=== PATIENT | female | born 1950 | race Caucasian/White ===

== ENCOUNTER → 2016-11-28 | Outpatient (CLI) | payer MEDICARE, MEDICAID ==
[~2016-11-28] MED LIST: CATHETER FLUSH 10 ML SYR IV PRN; CHOL10003 PO; CYAN250010 PO; ESCI20TA45 PO; HYDR-3816 PO; IBUP-1780 PO; IOHEXOL 350 MG/ML 100 ML (OMNIPAQUE 350) VIAL IV ONE; LEVO125T6 PO; MORP30TA PO; NS 100 ML (IVPB) BAG IV ONE; OMEP20TA7 PO; TIZA4TAB3 PO; TRAZ150T72 PO; VERA120T6 PO; VICOPROFEN PO
--- NOTE | 2016-11-28 12:45 | Diagnostic Imaging Report ---
PROCEDURE: CT abdomen and pelvis with and without contrast. TECHNIQUE: Precontrast acquisitions were acquired through the abdomen and pelvis. Multiple contiguous axial images were obtained through the abdomen and pelvis after the administration of intravenous contrast. INDICATION: Abdominal pain and constipation. FINDINGS: There are no prior studies available for comparison. By history, the gallbladder and the uterus are surgically absent. The appendix is visualized and the appendix is not abnormally thickened. There is no distortion of periappendiceal fat to suggest acute appendicitis either. There is no pelvic mass or free fluid collection noted. The urinary bladder is grossly unremarkable. There is a considerable amount of fecal material throughout the ascending, transverse, and descending colon. The liver is homogeneous and not enlarged. The spleen, pancreas, adrenals, kidneys, aorta and inferior vena cava show no sign of an acute abnormality. The stomach is not well distended and consequently difficult to assess. There is some distortion of the mesenteric fat in the region of the root of the mesentery. There are few small lymph nodes in this area as well. These findings are nonspecific. The possibility of mild mesenteric panniculitis should be considered. There is no mass or abscess identified. The lung bases are clear. The bone windows show no evidence for a fracture or for a destructive lesion. There is fairly severe degenerative disc and bony disease at L4-L5 and L5-S1. IMPRESSION: 1. There is mild distortion of the mesenteric fat in the region of the root of the mesentery and there are few small lymph nodes in this area. This appearance is nonspecific, but the possibility of mesenteric panniculitis should be considered. There is no mass or abscess identified. 2. There is no acute abnormality of the abdomen or pelvis noted otherwise. 3. There is a considerable amount of fecal material throughout the ascending, transverse, and descending colon. 4. The gallbladder and the uterus are surgically absent. 5. There is fairly severe degenerative disc and bony disease at L4-L5 and L5-S1. Dictated by: Dictated on workstation # [id number]
--- OUTSIDE RECORDS SUMMARY | 2016-11-28 13:16 | XMS REPORT | Continuity of Care Document ---
Author Author [facility] Organization [facility] Address Unknown Phone Unavailable Care Team Providers Care Rubber Goods Repairer Name Role Phone PCP Unavailable Source Comments Some departments are not documenting in the electronic medical record. If you do not see the information that you expected, contact Release of Information in the Health Information Management department at [phone] for further assistance in locating additional records.[facility] Active Allergies and Adverse Reactions Not on File Current Medications Not on file Active Problems Not on file Social History Tobacco Use Types Packs/Day Years Used Date Never Assessed Plan of Care Health Maintenance Due Date Last Done Comments Hepatitis C Screening 1949 Physical (Comprehensive) 1956 Exam Pertussis Vaccine 1960 Tetanus Vaccine 1966 Breast Cancer Screening 1989 Colorectal Cancer 1999 Screening Shingles Vaccine 2009 Osteoporosis Screening 2014 Prevnar/Pneumovax (#1) 2014 Influenza Vaccine 06/08/2016 Results from Last 3 Months Not on file
== END ==
LOC: RAD 08:42
PROVIDERS: ATTEND Nurse Practitioner Adult Health
DX: K59.01 Slow transit constipation (principal)
CPT/HCPCS: 74178

== ENCOUNTER → 2016-12-01 | Outpatient (CLI) | payer MEDICARE, MEDICAID ==
[~2016-12-01] MED LIST changes: -CATHETER FLUSH 10 ML SYR IV PRN; -IOHEXOL 350 MG/ML 100 ML (OMNIPAQUE 350) VIAL IV ONE; -NS 100 ML (IVPB) BAG IV ONE
--- OUTSIDE RECORDS SUMMARY | 2016-12-01 09:48 | XMS REPORT | Continuity of Care Document ---
Author Author [facility] Organization [facility] Address Unknown Phone Unavailable Care Team Providers Care Veneer Taping Machine Operator Name Role Phone PCP Unavailable Source Comments Some departments are not documenting in the electronic medical record. If you do not see the information that you expected, contact Release of Information in the Health Information Management department at [phone] for further assistance in locating additional records.[facility] Active Allergies and Adverse Reactions Not [...]
--- NOTE | 2016-12-01 12:30 | Diagnostic Imaging Report ---
PROCEDURE: MRI right joint lower extremity without contrast. TECHNIQUE: Multiplanar, multisequence non contrast-enhanced MRI of the right lower extremity was accomplished. INDICATION: Knee pain. COMPARISON: There are no prior studies available for comparison. FINDINGS: On the proton-dense sagittal images, the mid portion of the anterior cruciate ligament is indistinct. I am concerned that the anterior cruciate ligament is partially torn. The posterior cruciate ligament, the quadriceps and the infrapatellar tendons, the collateral ligaments, the biceps femoris tendon, and the iliotibial band are intact. There is no sign of an injury to either the medial or lateral retinaculum. The parasagittal images also show that the medial meniscus has been torn and has significantly degenerated. There is also a tear of the posterior horn of the lateral meniscus. The mid portion of the lateral meniscus is thinned as well and may be partially torn also. On the coronal fat-saturated series, there is a small area of increased signal in the subarticular region of the medial-most portion of the medial femoral condyle. I suspect that this is secondary to bone edema from degenerative disease. The articular surface of the medial femoral condyle is narrowed and irregular. Most likely, the injury to the articular surface is a sequela of the torn medial meniscus. There is moderate degenerative disease involving the articular surface of the lateral femoral condyle. There is also narrowing of the lateral aspect of the patellofemoral space. There is a obcbx-uc-ufpnmtvv joint effusion. There is no sign of a Elaine's cyst. IMPRESSION: 1. The indistinct appearance of the mid portion of the anterior cruciate ligament does suggest that the ACL is partially torn. The other major ligaments and tendons appear to be intact. 2. The medial meniscus has been torn and has severely degenerated. There is also a tear of the posterior horn of the lateral meniscus. 3. There is fairly severe degenerative disease involving the articular surface of the medial femoral condyle, and there is a small area of bone edema in the medial-most portion of the medial femoral condyle. There is also moderate degenerative disease of the lateral femoral condyle, and there is narrowing of the lateral aspect of the patellofemoral space. 4. There is no sign of an acute bony abnormality. 5. There is a zbfqd-ec-drllbkrd joint effusion. Dictated by: Dictated on workstation # [id number]
== END ==
LOC: RAD 09:45
PROVIDERS: ATTEND Nurse Practitioner
DX: M23.261 Derangement of other lateral meniscus due to old tear or injury, right knee (principal)
CPT/HCPCS: 73721

== ENCOUNTER 2017-01-01 11:44 | Outpatient (CLI) | payer MEDICARE, MEDICAID ==
[~2017-01-01] VITALS: Ht 167.6 cm; Wt 83.9 kg
[2017-01-01] MEDS ORDERED: VERA120T6 PO (14:53)
[2017-01-01] MEDS ORDERED: IBUP-1780 PO (14:53)
[2017-01-01] MEDS ORDERED: CYAN250010 PO (14:53)
[2017-01-01] MEDS ORDERED: LEVO125T6 PO (14:53)
[2017-01-01] MEDS ORDERED: OMEP20TA7 PO (14:53)
[2017-01-01] MEDS ORDERED: ESCI20TA45 PO (14:53)
[2017-01-01] MEDS ORDERED: HYDR-3816 PO (14:53)
[2017-01-01] MEDS ORDERED: TIZA4TAB3 PO (14:53)
[2017-01-01] MEDS ORDERED: TRAZ150T72 PO (14:53)
[2017-01-01] MEDS ORDERED: CHOL10003 PO (14:53)
[2017-01-01] MEDS ORDERED: MORP30TA PO (14:53)
== END 2017-01-01 14:54 ==
LOC: PREOP 11:44
PROVIDERS: ATTEND Surgery
DX: Z01.818 Encounter for other preprocedural examination (principal); R19.4 Change in bowel habit

== ENCOUNTER 2017-01-04 06:48 | Day surgery (SDC) | payer MEDICARE, MEDICAID ==
[~2017-01-04] VITALS: Ht 167.6 cm; Wt 83.9 kg
[~2017-01-04 06:48] MED LIST changes: -VICOPROFEN PO
[2017-01-04] MEDS ORDERED: NS IV 1000 ML 1,000 ML ONE (06:56)
[2017-01-04] MEDS ORDERED: NS IV 1000 ML 1,000 ML IV STA (07:05)
[2017-01-04] MEDS ORDERED: MIDAZOLAM 2 MG/2 ML (VERSED) VIAL IVP PRN (07:15)
[2017-01-04] MEDS ORDERED: fentaNYL INJECTION 100 MCG/2 ML AMP IVP PRN (07:15)
[2017-01-04 07:16] VITALS: BP 163/66
[2017-01-04] MEDS ORDERED: MIDAZOLAM 2 MG/2 ML (VERSED) VIAL ONE (07:19)
[2017-01-04] MEDS ORDERED: proPOfol 200 MG/20 ML (DIPRIVAN) VIAL IV ONE (07:19)
--- NOTE | 2017-01-04 07:34 | Progress Note-Pre Operative ---
Pre-Operative Progress Note H&P Reviewed The H&P was reviewed, patient examined and no changes noted. Date H&P Reviewed: Jan 04, 2017 Time H&P Reviewed: 07:33 Pre-Operative Diagnosis: family history colon cancer, history of polyps, change in bowel habits SHARON COLLAZO DO Jan 04, 2017 7:34 am
--- NOTE | 2017-01-04 08:24 | Progress Note-Post Operative ---
Post-Operative Progess Note Surgeon (s)/Logistic Specialist (s) Surgeon SHARON COLLAZO DO Logistic Specialist: o Pre-Operative Diagnosis family history colon cancer, history of polyps, change in bowel habits Post-Operative Diagnosis colon polyp Post-Op Procedure Note Date of Procedure: Jan 04, 2017 Name of Procedure Performed: colonoscopy hot bx polypectomy Description of the Procedure: see note Findings of the Procedure see note Anesthesia Type per evp marketing Estimated blood loss (mL): none Specimen(s) collected/removed descending colon polyp SHARON COLLAZO DO Jan 04, 2017 8:24 am
--- NOTE | 2017-01-04 08:26 | Discharge Inst-Simple/Standard ---
Discharge Inst-Standard Patient Instructions/Follow Up Plan of Care/Instructions/FU: Follow up with Dr. Oneill in 2 weeks. Hold Ibuprofen for 3 days. Activity as Tolerated: Yes Discharge Diet: No Restrictions CHARISSA PANCHAL APRN Jan 04, 2017 08:26
[2017-01-04 08:35] VITALS: BP 149/72
[2017-01-04 09:00] VITALS: BP 138/71
[2017-01-04 09:11] VITALS: BP 138/71
--- NOTE | 2017-01-05 09:44 | PROCEDURE REPORT ---
PROCEDURE PHYSICIAN: SHARON COLLAZO DATE OF PROCEDURE: 01/04/2017 PREOPERATIVE DIAGNOSIS: 1. Family history of colon cancer. 2. Personal history of polyps. 3. Bowel habit changes. POSTOPERATIVE DIAGNOSIS: Descending colon polyp. PROCEDURE: Colonoscopy with hot biopsy polypectomy of descending colon polyp. SURGEON: Nino. ANESTHESIA: Per CASE MANAGEMENT ASSISTANT. ESTIMATED BLOOD LOSS: None. COMPLICATIONS: None. INDICATIONS: The patient is a 66-year-old female who had difficult prep. She finally is having clear bowel movements after 3 preps. She understands the risk and benefits of the procedure and wishes to proceed with procedure. Consent was signed on the chart. PROCEDURE: The patient was taken to the endoscopy suite, placed in left lateral recumbent position. Timeout was performed. Digital rectal exam was performed. There were no palpable polyps masses or ulcerations. The scope was inserted in the rectum and advanced all the way to the cecum with minimal difficulty. There were no polyps, masses, or ulcerations in the cecum. The scope was then slowly retracted back. The prep was adequate with irrigation and suction. There were no polyps, masses or ulcerations within the ascending and transverse colon. Within the descending colon a small polyp was present which hot biopsy polypectomy was performed. The scope was continued be slowly retracted back into the sigmoid colon where there was no other pathology noted. The scope was continued to be withdrawn until in the rectum, where it was attempted to be retroflexed but it is fairly narrow and unable to do so therefore, multiple insertions and retractions was made on noting no other pathology. The scope was then fully retracted until completely removed. The patient tolerated the procedure well without any complications. She was taken to recovery in stable condition. RECOMMENDATIONS: The patient will follow-up on pathology in 2 weeks in the office. She will need a repeat colonoscopy in 5 years due to family history and a history of polyps. If she has any problems prior to that, she should be reevaluated at that time. Job ID: [id number] Dictated Date: 01/04/2017 08:30:06 Licensed Plumber Date: 01/05/2017 09:39:03 / renetta HERNANDEZ
--- OUTSIDE RECORDS SUMMARY | 2017-01-28 04:30 | XMS REPORT ---
Author Author DARRYL CANTRELL [facility] [employer] Address Unknown Phone Unavailable Care Team Providers Care Freight Tallier Name Role Phone DARRYL CANTRELL CP Unavailable Allergies No Known Allergies Problems Problem Type Condition Code Onset Dates Condition Status Problem Acquired hypothyroidism E03.9 Active Problem Drug addiction F19.20 Active Problem Gastroesophageal reflux disease, esophagitis presence not specified K21.9 Active Problem Acute pain of left knee M25.562 Active Problem Severe episode of recurrent major depressive disorder, without psychotic features F33.2 Active Problem Slow transit constipation K59.01 Active Problem Other chronic pain G89.29 Active Problem Pain in left shoulder M25.512 Active Problem Degenerative disc disease at L5-S1 level M51.36 Active Problem Cervicalgia M54.2 Active Problem Nausea R11.0 Active Problem Vitamin D deficiency E55.9 Active Problem Anemia due to vitamin B12 deficiency, unspecified B12 deficiency type D51.9 Active Problem Essential hypertension I10 Active Medications Medication Code System Code Instructions Start Date End Date Status Dosage Levothyroxine Sodium [facility] [address]-21 100 MCG Orally Once a day 1 tablet Results No Known Results Summary Purpose eClinicalWorks Submission
--- OUTSIDE RECORDS SUMMARY | 2017-01-28 04:30 | XMS REPORT | Continuity of Care Document ---
Author Author [facility] Organization [facility] Address Unknown Phone Unavailable Allergies Active Description Code Type Severity Reaction Onset Reported/Identified Relationship to Patient Clinical Status Yes No Allergy Information Available [id number] Drug Allergy Unknown N/A 11/28/2016 Yes acetaminophen [id number] Drug Allergy Unknown throat swells 01/01/2017 Yes nalbuphine [id number] Drug Allergy Unknown N/A 01/01/2017 Yes oxycodone [id number] Drug Allergy Unknown throat swells 01/01/2017 Yes Penicillins [id number] Drug Allergy Unknown N/A 01/01/2017 Yes suvorexant [id number] Drug Allergy Unknown N/A 01/01/2017 Medications Problems Date Dx Coded Attending Type Code Diagnosis Diagnosed By 03/06/2015 BRIEN POPE, REA P Ot 840.4 03/06/2015 BRIEN POPE, REA P Ot E000.8 03/06/2015 BRIEN POPE, REA P Ot E849.0 03/06/2015 BRIEN POPE, REA P Ot E928.9 03/19/2015 BRIEN POPE, REA P Ot 840.4 03/19/2015 BRIEN POPE, REA P Ot E000.8 03/19/2015 BRIEN POPE, REA P Ot E849.0 03/19/2015 BRIEN POPE, REA P Ot E928.9 04/02/2015 BRIEN POPE, REA P Ot 840.4 04/02/2015 BRIEN POPE, REA P Ot E000.8 04/02/2015 BRIEN POPE, REA P Ot E849.0 04/02/2015 BRIEN POPE, REA P Ot E928.9 07/21/2015 BRIEN POPE, REA P Ot 727.61 05/01/2016 DARRYL CANTRELL RING SORTER Ot R13.12 DYSPHAGIA, OROPHARYNGEAL PHASE 05/03/2016 DARRYL CANTRELL RING SORTER Ot R13.12 DYSPHAGIA, OROPHARYNGEAL PHASE 07/05/2016 REA TESFAYE MD Ot 840.4 SPRAIN ROTATOR CUFF 07/05/2016 REA TESFAYE MD Ot E000.8 OTHER EXTERNAL CAUSE STATUS 07/05/2016 RAE TESFAYE MD Ot E849.0 ACCIDENT IN HOME 07/05/2016 REA TESFAYE MD Ot E928.9 ACCIDENT NOS 07/05/2016 REA TESFAYE MD Ot 727.61 ROTATOR CUFF RUPTURE 07/06/2016 REA TESFAYE MD Ot M75.122 COMPLETE ROTATR-CUFF TEAR/RUPTR OF LEFT 07/27/2016 REA TESFAYE MD Ot M75.122 COMPLETE ROTATR-CUFF TEAR/RUPTR OF LEFT 08/01/2016 REA TESFAYE MD Ot M75.122 COMPLETE ROTATR-CUFF TEAR/RUPTR OF LEFT 11/28/2016 REA TESFAYE MD Ot 840.4 SPRAIN ROTATOR CUFF 11/28/2016 REA TESFAYE MD Ot E000.8 OTHER EXTERNAL CAUSE STATUS 11/28/2016 REA TESFAYE MD Ot E849.0 ACCIDENT IN HOME 11/28/2016 REA TESFAYE MD Ot E928.9 ACCIDENT NOS 11/28/2016 REA TESFAYE MD Ot 727.61 ROTATOR CUFF RUPTURE 11/28/2016 REA TESFAYE MD Ot M75.122 COMPLETE ROTATR-CUFF TEAR/RUPTR OF LEFT 11/29/2016 DARRYL CANTRELLP Ot K59.01 SLOW TRANSIT CONSTIPATION 11/29/2016 DARRYL CANTRELL RING SORTER Ot K59.01 SLOW TRANSIT CONSTIPATION 12/04/2016 KIM MEJAÍ RING SORTER Ot M23.261 DERANGEMENT OF LAT MENSC DUE TO OLD TEAR 12/28/2016 KIM MEJÍA RING SORTER Ot M23.261 DERANGEMENT OF LAT MENSC DUE TO OLD TEAR 12/28/2016 DARRYL CANTRELL RING SORTER Ot K59.01 SLOW TRANSIT CONSTIPATION 01/01/2017 KIM MEJÍA RING SORTER Ot M23.261 DERANGEMENT OF LAT MENSC DUE TO OLD TEAR 01/01/2017 DARRYL CANTRELL RING SORTER Ot K59.01 SLOW TRANSIT CONSTIPATION 01/02/2017 SHARON COLLAZO DO Ot R19.4 CHANGE IN BOWEL HABIT 01/02/2017 DYLAN COLLAZO DOLISSET Schmidt Ot Z01.818 ENCOUNTER FOR OTHER PREPROCEDURAL EXAMIN 01/04/2017 SHARON COLLAZO DO Ot K63.5 POLYP OF COLON 01/04/2017 VALE CONNORSSHARON Ot R19.4 CHANGE IN BOWEL HABIT 01/04/2017 VALE CONNORS SHARON D Ot Z80.0 FAMILY HISTORY OF MALIGNANT NEOPLASM OF Procedures Results Test Result Range Methicillin resistant Staphylococcus aureus (MRSA) screening culture - 13:10 Methicillin resistant Staphylococcus aureus (MRSA) screening culture NEG NRG Encounters ACCT No. Visit Date/Time Discharge Status Pt. Type Provider Facility Loc./Unit Complaint [id number] 01/04/2017 06:48:00 2016 09:10:00 DIS Outpatient SHARON COLLAZO DO [facility] ENDO CHANGE IN BOWEL HABITS [id number] 01/01/2017 11:44:00 2016 14:54:00 DIS Outpatient SHARON COLLAZO DO [facility] PREOP COLONOSCOPY [id number] 05/01/2016 10:20:00 2015 12:30:00 DIS Outpatient DARRYL CANTRELL [facility] REHAB BEDSIDE SWALLOW [id number] 06/29/2015 13:14:00 2014 23:59:59 CLS Outpatient REA TESFAYE MD [facility] RAD ROTATOR CUFF TEAR [id number] 04/06/2015 11:38:00 2014 23:59:59 CLS Preadmit REA TESFAYE MD [facility] REHAB [id number] 02/05/2015 13:19:00 2014 23:59:59 CLS Outpatient REA TESFAYE MD [facility] RAD ROTORARY CUFF TEAR [id number] 01/25/2017 15:10:00 Document Registration [id number] 12/01/2016 09:45:00 ACT Outpatient KIM MEJÍA [facility] RAD DERANGEMENT OF OTHER LATERAL MENISCUS,OLD TEAR [id number] 11/28/2016 09:38:00 Document Registration [id number] 11/28/2016 08:42:00 ACT Outpatient DARRYL CANTRELL [facility] RAD SLOW TRANSIT CONSTIPATION [id number] 07/05/2016 13:53:00 ACT Outpatient REA TESFAYE MD [facility] RAD ROTATOR CUFF RUPTURE LT
--- OUTSIDE RECORDS SUMMARY | 2017-01-28 04:30 | XMS REPORT ---
Author Author DARRYL CANTRELL Organization [employer] Address Unknown Phone Unavailable Care Team Providers Care Hospital Television Rental Clerk Name Role Phone DARRYL CANTRELL CP Unavailable [...] Instructions Start Date End Date Status Dosage Ibuprofen [facility] [address]-53 800 MG Orally Three times a day 1 tablet MS Contin [facility] [address]-00 30 MG Orally every 12 hrs March 13, 2016Sep 1 tablet Levothyroxine Sodium [facility] [address]-76 100 MCG Orally Once a day 1 tablet Lisinopril [facility] [address]-67 20 mg Orally Once a day 1 tablet Hydrocodone-Acetaminophen [facility] [address]-31 10-325 MG Orally 3 times a day May 05, 2016 Oct 03, 2016 1 tablet as needed Results No Known Results Summary Purpose eClinicalWorks Submission
--- OUTSIDE RECORDS SUMMARY | 2017-01-28 04:30 | XMS REPORT ---
Author Author DARRYL CANTRELL Organization [facility] Address [address] [place] [address] Care Team Providers Care Bioanalyst Name Role Phone RASHEED CANTRELLNETTE Unavailable PROBLEMS Type Condition ICD9-CM Code AVT91-LI Code Onset Dates Condition Status SNOMED Code Problem Gastroesophageal reflux disease, esophagitis presence not specified K21.9 Active 836265206 Problem Pain in left shoulder M25.512 Active 95844292 Problem Drug addiction F19.20 Active 821574582 Problem Slow transit constipation K59.01 Active 49668420 Problem Acute pain of left knee M25.562 Active 13231272 Problem Cervicalgia M54.2 Active 39912030 Problem Other chronic pain G89.29 Active 42592600 Problem Severe episode of recurrent major depressive disorder, without psychotic features F33.2 Active 90206625 Problem Degenerative disc disease at L5-S1 level M51.36 Active 25516797 Problem Vitamin D deficiency E55.9 Active 64075093 Problem Anemia due to vitamin B12 deficiency, unspecified B12 deficiency type D51.9 Active 01448567 Problem Essential hypertension I10 Active 17386993 Problem Nausea R11.0 Active 758920125 Problem Acquired hypothyroidism E03.9 Active 359466739 ALLERGIES Unknown Allergies SOCIAL HISTORY No smoking Hx information available PLAN OF CARE VITAL SIGNS MEDICATIONS Medication Instructions Dosage Frequency Start Date End Date Duration Status Baclofen 10 mg Orally Three times a day 1 tablet with food or milk 8h Sep, 30 day(s) Active RESULTS No Results PROCEDURES No Known procedures IMMUNIZATIONS No Known Immunizations
--- OUTSIDE RECORDS SUMMARY | 2017-01-28 04:30 | XMS REPORT | Continuity of Care Document ---
Author [facility] Address Unknown Phone Unavailable Care Team Providers Care Getter Operator Name Role Phone PCP Unavailable Source Comments Some departments are not documenting in the electronic medical record. If you do not see the information that you expected, contact Release of Information in the Health Information Management department at [phone] for further assistance in locating additional records.[facility] Active Allergies and Adverse Reactions Not [...] Screening 2014 Prevnar/Pneumovax (#1) 2014 Influenza Vaccine 06/08/2017 Results from Last 3 Months Not on file
--- OUTSIDE RECORDS SUMMARY | 2017-01-28 04:30 | XMS REPORT ---
Author Author DARRYL CANTRELL Organization [employer] Address Unknown Phone Unavailable Care Team Providers Care Workforce Development Vice President Name Role Phone DARRYL CANTRELL CP Unavailable [...] Instructions Start Date End Date Status Dosage Hydrocodone-Acetaminophen [facility] [address]-87 10-325 MG Orally 3 times a day May 05, 2016 1 tablet as needed MS Contin [facility] [address]-86 30 MG Orally every 12 hrs March 13, 2016 1 tablet Results No Known Results Summary Purpose eClinicalWorks Submission
--- OUTSIDE RECORDS SUMMARY | 2017-01-28 04:30 | XMS REPORT ---
Author Author DARRYL CANTRELL [facility] e[employer] Address Unknown Phone Unavailable Care Team Providers Care Learning And Development Coordinator Name Role Phone DARRYL CANTRELL CP Unavailable [...] Active Problem Essential hypertension I10 Active Medications No Known Medications Results No Known Results Summary Purpose eClinicalWorks Submission
--- OUTSIDE RECORDS SUMMARY | 2017-01-28 04:30 | XMS REPORT ---
Author Author DARRYL CANTRELL Organization [facility] Address [address] [place] [address] Care Team Providers Care Centrifugal Station Operator Name Role Phone RASHEED CANTRELLNETTE Unavailable PROBLEMS Type Condition ICD9-CM Code [id number] Code Onset Dates Condition Status SNOMED Code Problem Gastroesophageal reflux disease, esophagitis presence not specified K21.9 Active 955459410 Problem Pain in left shoulder M25.512 Active 77742178 Problem Drug addiction F19.20 Active 148339472 Problem Slow transit constipation K59.01 Active 30918459 Problem Acute pain of left knee M25.562 Active 53008052 Problem Cervicalgia M54.2 Active 57353556 Problem Other chronic pain G89.29 Active 07506703 Problem Severe episode of recurrent major depressive disorder, without psychotic features F33.2 Active 12177875 Problem Degenerative disc disease at L5-S1 level M51.36 Active 18749743 Problem Vitamin D deficiency E55.9 Active 22262908 Problem Anemia due to vitamin B12 deficiency, unspecified B12 deficiency type D51.9 Active 52853338 Problem Essential hypertension I10 Active 22559994 Problem Nausea R11.0 Active 468549283 Problem Acquired hypothyroidism E03.9 Active 023980861 ALLERGIES Unknown Allergies SOCIAL HISTORY No smoking Hx information available PLAN OF CARE VITAL SIGNS MEDICATIONS Medication Instructions Dosage Frequency Start Date End Date Duration Status MS Contin 30 MG Orally every 12 hrs 1 tablet 12h Mar, Active RESULTS No Results PROCEDURES No Known procedures IMMUNIZATIONS No Known Immunizations
--- OUTSIDE RECORDS SUMMARY | 2017-01-28 04:31 | XMS REPORT ---
Author Author DARRYL CANTRELL [facility] eClinicalWorks Address Unknown Phone Unavailable Care Team Providers Care Direct Care Provider Name Role Phone DARRYL CANTRELL CP Unavailable Allergies No Known Allergies Problems Problem Type Condition Code Onset Dates Condition Status Problem Anemia due to vitamin B12 deficiency, unspecified B12 deficiency type D51.9 Active Problem Acquired hypothyroidism E03.9 Active Problem Essential hypertension I10 Active Problem Nausea R11.0 Active Problem Vitamin D deficiency E55.9 Active Problem Degenerative disc disease at L5-S1 level M51.36 Active Problem Cervicalgia M54.2 Active Problem Severe episode of recurrent major depressive disorder, without psychotic features F33.2 Active Problem Drug addiction F19.20 Active Problem Gastroesophageal reflux disease, esophagitis presence not specified K21.9 Active Problem Other chronic pain G89.29 Active Problem Pain in left shoulder M25.512 Active Medications Medication Code System Code Instructions Start Date End Date Status Dosage MS Contin [facility] [address]-85 30 MG Orally every 12 hrs March 13, 2016 1 tablet Oxycodone HCl [facility] [address]-13 15 MG Orally every 12 hours 1 tablet as needed Results No Known Results Summary Purpose eClinicalWorks Submission
--- OUTSIDE RECORDS SUMMARY | 2017-01-28 04:31 | XMS REPORT ---
Author Author DARRYL CANTRELL [facility] eClinicalWorks Address Unknown Phone Unavailable Care Team Providers Care Scaffolder Name Role Phone DARRYL CANTRELL CP Unavailable [...] deficiency, unspecified B12 deficiency type D51.9 Active Assessment Degenerative disc disease at L5-S1 level M51.36 Active Problem Essential hypertension I10 Active Medications Medication Code System Code Instructions Start Date End Date Status Dosage Hydrocodone-Acetaminophen [facility] [address]-86 10-325 MG Orally 3 times a day May 05, 2016 1 tablet as needed Results No Known Results Summary Purpose eClinicalWorks Submission
--- OUTSIDE RECORDS SUMMARY | 2017-01-28 04:31 | XMS REPORT ---
Author Author MONIK [place] [facility] Address [address] Care Team Providers Care Exercise Equipment Specialist Name Role Phone DYLANSOFIMONIK Unavailable PROBLEMS Type Condition ICD9-CM Code GOS36-QR Code Onset Dates Condition Status SNOMED Code Problem Essential hypertension I10 Active 01274692 Problem Gastroesophageal reflux disease, esophagitis presence not specified K21.9 Active 100773903 Problem Acquired hypothyroidism E03.9 Active 509106003 Assessment Counseling on substance use and abuse Z71.89 February, Active 697402505 Problem Nausea R11.0 Active 535789044 Problem Vitamin D deficiency E55.9 Active 85221248 Problem Anemia due to vitamin B12 deficiency, unspecified B12 deficiency type D51.9 Active 22047616 Problem Severe episode of recurrent major depressive disorder, without psychotic features F33.2 Active 52386510 Problem Degenerative disc disease at L5-S1 level M51.36 Active 99253922 Problem Pain in left shoulder M25.512 Active 56385486 Problem Drug addiction F19.20 Active 769278927 Problem Cervicalgia M54.2 Active 22687730 Problem Other chronic pain G89.29 Active 89768698 ALLERGIES Unknown Allergies SOCIAL HISTORY No smoking Hx information available PLAN OF CARE VITAL SIGNS MEDICATIONS Unknown Medications RESULTS No Results PROCEDURES Procedure Date Ordered Related Diagnosis Body Site AUDIT/DAST, 15-30 MIN February 25, 2016 IMMUNIZATIONS No Known Immunizations
--- OUTSIDE RECORDS SUMMARY | 2017-01-28 04:31 | XMS REPORT ---
Author Author CARMENCITA BAEZ [facility] Address [address] [place] [address] Care Team Providers Care Taproom Attendant Name Role Phone CARMENCITA BAEZ Unavailable PROBLEMS Type Condition ICD9-CM Code ZXV11-JN Code Onset Dates Condition Status SNOMED Code Problem Gastroesophageal reflux disease, esophagitis presence not specified K21.9 Active 653055294 Problem Pain in left shoulder M25.512 Active 06657341 Problem Drug addiction F19.20 Active 049036124 Problem Slow transit constipation K59.01 Active 13717327 Problem Acute pain of left knee M25.562 Active 37245567 Problem Cervicalgia M54.2 Active 24666894 Problem Other chronic pain G89.29 Active 15224840 Problem Severe episode of recurrent major depressive disorder, without psychotic features F33.2 Active 47919126 Problem Degenerative disc disease at L5-S1 level M51.36 Active 84074692 Problem Vitamin D deficiency E55.9 Active 53841740 Problem Anemia due to vitamin B12 deficiency, unspecified B12 deficiency type D51.9 Active 49624510 Assessment Essential hypertension I10 Sep, Active 35550324 Problem Essential hypertension I10 Active 66801808 Problem Nausea R11.0 Active 528397069 Problem Acquired hypothyroidism E03.9 Active 896518255 ALLERGIES Substance Reaction Event Type Date Status Belsomra Unknown Drug Allergy Sep, Active Percocet Unknown Drug Allergy Sep, Active Penicillin V Potassium throat swelling Drug Allergy Sep, Active Nubain Unknown Drug Allergy Sep, Active SOCIAL HISTORY No smoking Hx information available PLAN OF CARE Activity Details Pending Test TSH W/ FREE T4 4 Weeks,Reason: VITAL SIGNS Height 66 in 2016-09-18 Weight 181.4 lbs 2016-09-18 Heart Rate 80 bpm 2016-09-18 Respiratory Rate 18 2016-09-18 BMI 29.28 kg/m2 2016-09-18 Blood pressure systolic 230 mmHg 2016-09-18 Blood pressure diastolic 90 mmHg 2016-09-18 MEDICATIONS Medication Instructions Dosage Frequency Start Date End Date Duration Status Vitamin B Complex Active Ibuprofen 800 MG Orally Three times a day 1 tablet 8h 30 Active Promethazine HCl 25 MG Orally every 6 hours as needed 1 tablet Active Vitamin D3 1000 UNIT Orally Once a day 1 tablet 24h Active Omeprazole 20 mg Orally Once a day 1 capsule 24h Active Lisinopril 20 mg Orally Once a day 1 tablet 24h 30 days Active Lexapro 20 mg Orally Once a day 1 tablet 24h Apr, 30 day(s) Active Atenolol 25 MG Orally Once a day 1 tablet 24h Active Levothyroxine Sodium 100 MCG Orally Once a day 1 tablet 24h 30 days Active Tizanidine HCl 4 MG Orally every 8 hrs 1 tablet as needed 8h Mar, Active Hydrocodone-Acetaminophen 10-325 MG Orally 3 times a day 1 tablet as needed 8h Apr, Sep, 28 days Active Amlodipine Besylate 10 MG Orally Once a day 1 tablet 24h Active MS Contin 30 MG Orally every 12 hrs 1 tablet 12h Mar, Sep, 28 days Active Trazodone HCl 150 MG Orally Once a day 1 tablet at bedtime as needed 24h February, Active RESULTS Name Result Date Reference Range TSH W/ FREE T4 2016-09-18 TSH 4.920 0.450-4.500 T4,Free(Direct) 1.01 0.82-1.77 PROCEDURES Procedure Date Ordered Related Diagnosis Body Site LAB NOT BILLED BY [facility] Sep 18, 2016 VENIPUNCT, ROUTINE* Sep 18, 2016 Office Visit, Est Pt., Level 3 Sep 18, 2016 [facility] VISIT ESTABLISHED PATIENT Sep 18, 2016 IMMUNIZATIONS No Known Immunizations
--- OUTSIDE RECORDS SUMMARY | 2017-01-28 04:31 | XMS REPORT ---
Author Author DARRYL CANTRELL [facility] eClinicalWorks Address Unknown Phone Unavailable Care Team Providers Care Deicer Inspector Pneumatic Name Role Phone DARRYL CANTRELL CP Unavailable [...] Pain in left shoulder M25.512 Active Medications No Known Medications Results No Known Results Summary Purpose eClinicalWorks Submission
--- OUTSIDE RECORDS SUMMARY | 2017-01-28 04:31 | XMS REPORT ---
Author Author DARRYL CANTRELL [facility] eClinicalWorks Address Unknown Phone Unavailable Care Team Providers Care Boot Turner Name Role Phone DARRYL CANTRELL CP Unavailable [...]
--- OUTSIDE RECORDS SUMMARY | 2017-01-28 04:31 | XMS REPORT ---
Author Author JUSTICE HERNANDEZ Organization [employer]Clinical[employer] Address Unknown Phone Unavailable Care Team Providers Care Airplane Tube Builder Name Role Phone JUSTICE HERNANDEZ CP Unavailable Allergies No Known Allergies Problems [...]
--- OUTSIDE RECORDS SUMMARY | 2017-01-28 04:31 | XMS REPORT ---
Author DARRYL Art [facility] eClinicalWorks Address Unknown Phone Unavailable Care Team Providers Care Audit Specialist Name Role Phone DARRYL CANTRELL CP Unavailable Allergies, Adverse Reactions, Alerts Substance Reaction Event Type Belsomra Info Not Available Drug Allergy Percocet Info Not Available Drug Allergy Nubain Info Not Available Drug Allergy penicllin Info Not Available Non Drug Allergy Problems Problem Type Condition Code Onset Dates Condition Status Problem Acquired hypothyroidism E03.9 Active Problem Drug addiction F19.20 Active Problem Gastroesophageal reflux disease, esophagitis presence not specified K21.9 Active Problem Acute pain of left knee M25.562 Active Assessment Acute pain of left knee M25.562 Active Problem Severe episode of recurrent major depressive disorder, without psychotic features F33.2 Active Assessment Anemia due to vitamin B12 deficiency, unspecified B12 deficiency type D51.9 Active Assessment Slow transit constipation K59.01 Active Problem Slow transit constipation K59.01 Active Problem Other chronic pain G89.29 Active Problem Pain in left shoulder M25.512 Active Problem Degenerative disc disease at L5-S1 level M51.36 Active Problem Cervicalgia M54.2 Active Assessment Essential hypertension I10 Active Assessment Gastroesophageal reflux disease, esophagitis presence not specified K21.9 Active Assessment Severe episode of recurrent major depressive disorder, without psychotic features F33.2 Active Assessment Vitamin D deficiency E55.9 Active Problem Nausea R11.0 Active Problem Vitamin D deficiency E55.9 Active Assessment Other chronic pain G89.29 Active Problem Anemia due to vitamin B12 deficiency, unspecified B12 deficiency type D51.9 Active Assessment Acquired hypothyroidism E03.9 Active Assessment Cervicalgia M54.2 Active Problem Essential hypertension I10 Active Medications Medication Code System Code Instructions Start Date End Date Status Dosage Levothyroxine Sodium [facility] [address]-91 175 MCG Orally Once a day 1 tablet MiraLax [facility] [address]-15 17 gm/dose Orally Once a day February 25, 2016 as directed Ibuprofen [facility] [address]-83 800 MG Orally Three times a day 1 tablet Tizanidine HCl [facility] [address]-23 4 MG Orally every 8 hrs April 06, 2016 1 tablet as needed Trazodone HCl [facility] [address]-98 150 MG Orally Once a day February 25, 2016 1 tablet at bedtime as needed Amlodipine Besylate [facility] [address]-59 10 MG Orally Once a day 1 tablet Hydrocodone-Acetaminophen [facility] [address]-65 10-325 MG Orally 3 times a day May 05, 2016 1 tablet as needed Vitamin D3 [facility] [address]-89 1000 UNIT Orally Once a day 1 tablet Vitamin B Complex [facility] [address] Orally not defined Omeprazole [facility] [address]-14 20 mg Orally Once a day 1 capsule Atenolol [facility] [address]-94 25 MG Orally Once a day 1 tablet MS Contin [facility] [address]-74 30 MG Orally every 12 hrs March 13, 2016 1 tablet Promethazine HCl [facility] [address]-99 25 MG Orally every 6 hours as needed 1 tablet Lisinopril [facility] [address]-52 20 MG Orally Once a day 1 tablet Procedures Procedure Coding System Code Date [facility] VISIT ESTABLISHED PATIENT CPT-4 G0467 Jun 02, 2016 Office Visit, Est Pt., Level 4 CPT-4 84081 Jun 02, 2016 X-RAY EXAM OF KNEE, 3 CPT-4 12643 Jun 02, 2016 Vital Signs Date/Time: Jun 02, 2016 Cardiac Monitoring Heart Rate 84 bpm Weight 181.9 lbs Height 66 in BMI 29.36 Index Blood Pressure Diastolic 94 mmHg Blood Pressure Systolic 174 mmHg Results No Known Results Summary Purpose eClinicalWorks Submission
--- OUTSIDE RECORDS SUMMARY | 2017-01-28 04:31 | XMS REPORT ---
Author Author DARRYL CANTRELL [facility] eClinicalWorks Address Unknown Phone Unavailable Care Team Providers Care Intelligence Consultant Name Role Phone DARRYL CANTRELL CP Unavailable [...] unspecified B12 deficiency type D51.9 Active Assessment Severe episode of recurrent major depressive disorder, without psychotic features F33.2 Active Problem Essential hypertension I10 Active Medications Medication Code System Code Instructions Start Date End Date Status Dosage Trazodone HCl [facility] [address]-55 150 MG Orally Once a day February 25, 2016 1 tablet at bedtime as needed Ibuprofen [facility] [address]-41 800 MG Orally Three times a day 1 tablet Results No Known Results Summary Purpose eClinicalWorks Submission
--- OUTSIDE RECORDS SUMMARY | 2017-01-28 05:44 | XMS REPORT | Continuity of Care Document ---
Author Author [facility] Organization [facility] Address Unknown Phone Unavailable Care Team Providers Care Rn Paralegal Name Role Phone PCP Unavailable Source Comments Some departments are not documenting in the electronic medical record. If you do not see the information that you expected, contact Release of Information in the Health Information Management department at [phone] for further assistance in locating additional records.[facility] Active Allergies and Adverse Reactions Not [...]
--- OUTSIDE RECORDS SUMMARY | 2017-01-28 05:45 | XMS REPORT | Continuity of Care Document ---
Author Author [facility] Organization [facility] Address Unknown Phone Unavailable Allergies Active Description Code Type Severity Reaction Onset Reported/Identified Relationship to Patient Clinical Status Yes No Allergy Information Available [id number] Drug Allergy Unknown N/A 11/28/2016 Yes acetaminophen [id number] Drug Allergy Unknown throat swells 01/01/2017 Yes nalbuphine [id number] Drug Allergy Unknown N/A 01/01/2017 Yes oxycodone [id number] Drug Allergy Unknown throat swells 01/01/2017 Yes Penicillins [id number] Drug Allergy Unknown N/A 01/01/2017 Yes suvorexant [id number] Drug Allergy Unknown N/A 01/01/2017 Medications Problems Date Dx Coded Attending Type Code Diagnosis Diagnosed By 03/06/2015 BRIEN POPE, REA P Ot 840.4 03/06/2015 BRIEN POPE, REA P Ot E000.8 03/06/2015 BRIEN POPE, REA P Ot E849.0 03/06/2015 BRIEN POPE, REA P Ot E928.9 03/19/2015 BRIEN POPE, REA P Ot 840.4 03/19/2015 BRIEN POPE, REA P Ot E000.8 03/19/2015 BIREN POPE, REA P Ot E849.0 03/19/2015 BRIEN POPE, REA P Ot E928.9 04/02/2015 BRIEN POPE, REA P Ot 840.4 04/02/2015 BRIEN POPE, REA P Ot E000.8 04/02/2015 BRIEN POPE, REA P Ot E849.0 04/02/2015 BRIEN POPE, REA P Ot E928.9 07/21/2015 BRIEN POPE, REA P Ot 727.61 05/01/2016 DARRYL CANTRELL PIG LEAD MELTER HELPER Ot R13.12 DYSPHAGIA, OROPHARYNGEAL PHASE 05/03/2016 DARRYL CANTRELL PIG LEAD MELTER HELPER Ot R13.12 DYSPHAGIA, OROPHARYNGEAL PHASE 07/05/2016 REA TESFAYE MD Ot 840.4 SPRAIN ROTATOR CUFF 07/05/2016 REA TESFAYE MD Ot E000.8 OTHER EXTERNAL CAUSE STATUS 07/05/2016 REA TESFAYE MD Ot E849.0 ACCIDENT IN [...] K59.01 SLOW TRANSIT CONSTIPATION 11/29/2016 DARRYL CANTRELL PIG LEAD MELTER HELPER Ot K59.01 SLOW TRANSIT CONSTIPATION 12/04/2016 KIM MEJÍA PIG LEAD MELTER HELPER Ot M23.261 DERANGEMENT OF LAT MENSC DUE TO OLD TEAR 12/28/2016 KIM MEJÍA PIG LEAD MELTER HELPER Ot M23.261 DERANGEMENT OF LAT MENSC DUE TO OLD TEAR 12/28/2016 DARRYL CANTRELL PIG LEAD MELTER HELPER Ot K59.01 SLOW TRANSIT CONSTIPATION 01/01/2017 KIM MEJÍA PIG LEAD MELTER HELPER Ot M23.261 DERANGEMENT OF LAT MENSC DUE TO OLD TEAR 01/01/2017 DARRYL CANTRELL PIG LEAD MELTER HELPER Ot K59.01 SLOW TRANSIT CONSTIPATION 01/02/2017 SHARON [...] Status Pt. Type Provider Facility Loc./Unit Complaint [id number] 01/04/2017 06:48:00 2016 09:10:00 DIS Outpatient SHARON COLLAZO DO [facility] ENDO CHANGE IN BOWEL HABITS [id number] 01/01/2017 11:44:00 2016 14:54:00 DIS Outpatient SHARON COLLAZO DO [facility] PREOP COLONOSCOPY [id number] 05/01/2016 10:20:00 2015 12:30:00 DIS Outpatient DARRYL CANTRELL [facility] REHAB BEDSIDE SWALLOW [id number] 06/29/2015 13:14:00 2014 23:59:59 CLS Outpatient REA TESFAYE MD [facility] RAD ROTATOR CUFF TEAR [id number] 04/06/2015 11:38:00 2014 23:59:59 CLS Preadmit REA TESFAYE MD [facility] REHAB [id number] 02/05/2015 13:19:00 2014 23:59:59 CLS Outpatient REA TESFAYE MD [facility] RAD ROTORARY CUFF TEAR [id number] 01/25/2017 15:10:00 Document Registration [id number] 12/01/2016 09:45:00 ACT Outpatient KIM MEJÍA [facility] RAD DERANGEMENT OF OTHER LATERAL MENISCUS,OLD TEAR [id number] 11/28/2016 09:38:00 Document Registration [id number] 11/28/2016 08:42:00 ACT Outpatient DARRYL CANTRELL [facility] RAD SLOW TRANSIT CONSTIPATION [id number] 07/05/2016 13:53:00 ACT Outpatient REA TESFAYE MD [facility] RAD ROTATOR CUFF RUPTURE LT
== END 2017-01-04 09:10 | disposition home or self-care (01) ==
LOC: DELPENDDIS → ENDO 06:48
PROVIDERS: ATTEND Surgery
DX: K63.5 Polyp of colon (principal); R19.4 Change in bowel habit; Z80.0 Family history of malignant neoplasm of digestive organs
CPT/HCPCS: 88305

== ENCOUNTER 2017-01-24 12:44 | Outpatient (CLI) | payer MEDICARE, MEDICAID ==
[~2017-01-24] VITALS: Ht 167.6 cm; Wt 85.3 kg
[2017-01-24] MEDS ORDERED: IBUP-1780 PO (12:56)
[2017-01-24 13:00] VITALS: BP 160/78
== END 2017-01-24 13:23 | disposition home or self-care (01) ==
LOC: PREOP 12:44
PROVIDERS: ATTEND Orthopaedic Surgery
DX: Z01.818 Encounter for other preprocedural examination (principal); Z11.2 Encounter for screening for other bacterial diseases; M23.261 Derangement of other lateral meniscus due to old tear or injury, right knee; M23.231 Derangement of other medial meniscus due to old tear or injury, right knee
CPT/HCPCS: 87081

== ENCOUNTER 2017-01-31 06:43 | Day surgery (SDC) | payer MEDICARE, MEDICAID ==
--- NOTE | 2017-01-25 14:26 | HISTORY AND PHYSICAL ---
DATE OF SERVICE: 01/31/2017 HISTORY: The patient is a 66-year-old female with progressive worsening right knee pain, catching, locking and swelling. She underwent an MRI which revealed a medial, as well as a lateral meniscal tear. She reports increased pain and stiffness in the knee. She reports swelling. She has tried injections, rest and activity modifications without relief and due to functional impairment and failure to improve with conservative measures, the patient has elected to proceed with surgical intervention. REVIEW OF SYSTEMS: No chest pain, no shortness of breath, no dysuria. PAST MEDICAL HISTORY: Osteoarthritis, hypertension, back pain, B12 deficiency, chest pain, hypothyroidism. PAST SURGICAL HISTORY: Left total knee arthroplasty, right knee arthroscopy, right elbow, hysterectomy, cholecystectomy, tubal ligation, left elbow, lumbar spine. FAMILY HISTORY: Significant for diabetes. [facility] MEDICATIONS: 1. Lansoprazole. 2. Cyclobenzaprine. 3. Ibuprofen. 4. Escitalopram. 5. Oxycodone. 6. Lisinopril. 7. Levothyroxine. 8. Temazepam. 9. Oxycodone. 10. Dilaudid. 11. Belsomra. 12. Valium. ALLERGIES: NUBANE. SOCIAL HISTORY: The patient smokes 1 to 2 packs per day. Denies alcohol use. PHYSICAL EXAMINATION: GENERAL: The patient is well-developed, well-nourished in no acute distress. HEENT: Normocephalic, atraumatic. Pupils are equal, round and reactive to light. Oropharynx is clear. NECK: Supple with no lymphadenopathy. LUNGS: Clear to auscultation bilaterally. HEART: Regular rate and rhythm. ABDOMEN: Soft, nontender and nondistended. EXTREMITIES: The right knee demonstrates moderate effusion. She is tender along her medial and lateral joint lines and has significant pain laterally with Joo's. She has patellofemoral crepitus noted and pain with patellar range of motion 0/0/130. No varus or valgus laxity. Negative anterior and posterior drawer. The patient ambulates with an antalgic gait. 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 PLAN: Right knee arthroscopy, chondroplasty and partial medial and lateral meniscectomy. The risks, benefits, options, ramifications and recovery were discussed at length with the patient. She understands and wishes to proceed. Job ID: [id number] DocumentID: [id number] Dictated Date: 01/25/2017 13:59:50 Assistant Corporation Counsel Date: 01/25/2017 14:26:08 Dictated By: REA TESFAYE MD
[~2017-01-31] VITALS: Ht 167.6 cm; Wt 85.3 kg
[2017-01-31] MEDS ORDERED: NS (IVPB) 50 ML ONE (06:59)
[2017-01-31] MEDS ORDERED: ceFAZolin 1,000 MG (ANCEF) VIAL ONE (06:59)
[2017-01-31] MEDS ORDERED: ONDANSETRON 4 MG/2 ML (SDV) Z0FRAN IV ONE (07:15)
[2017-01-31] MEDS ORDERED: FAMOTIDINE 20MG/2ML IV (PEPCID) IV ONE (07:15)
[2017-01-31] MEDS: LACTATED RINGERS 1,000 ML IV PRN ×2 (07:16→08:46)
[2017-01-31] MEDS ORDERED: BUPIVACAINE 0.25% 30 ML (SENSORCAINE) VIAL ONE (07:22)
--- NOTE | 2017-01-31 07:22 | Progress Note-Pre Operative ---
Pre-Operative Progress Note H&P Reviewed The H&P was reviewed, patient examined and no changes noted. 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
--- NOTE | 2017-01-31 07:24 | Progress Note-Post Operative ---
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
[2017-01-31] MEDS ORDERED: CATHETER FLUSH 10 ML SYR IV PRN (07:30)
[2017-01-31] MEDS ORDERED: ceFAZolin 1 GM/NS 50 ML IVPB IV ONE ×2 (07:30)
[2017-01-31] MEDS ORDERED: HYDROcodone /IBUPROFEN (VICOPROFEN) 7.5 MG/ 200 MG TAB PO PRN (07:30)
[2017-01-31 07:34] VITALS: BP 187/94
[2017-01-31] MEDS ORDERED: MIDAZOLAM 2 MG/2 ML (VERSED) VIAL ONE (07:58)
[2017-01-31] MEDS ORDERED: fentaNYL INJECTION 100 MCG/2 ML AMP ONE ×2 (07:58→09:15)
[2017-01-31] MEDS ORDERED: proPOfol 200 MG/20 ML (DIPRIVAN) VIAL IV ONE (07:58)
[2017-01-31] MEDS ORDERED: LACTATED RINGERS 1,000 ML IV ONE ×2 (07:58→08:38)
[2017-01-31] MEDS ORDERED: SEVOFLURANE (ULTANE) 15 ML INHAL SOLN ONE (07:58)
[2017-01-31] MEDS ORDERED: DEXAMETHASONE PF 10 MG/ML (DECADRON) VIAL ONE (07:58)
[2017-01-31] MEDS ORDERED: ONDANSETRON 4 MG/2 ML (SDV) Z0FRAN ONE ×2 (07:58→09:27)
[2017-01-31] MEDS ORDERED: SUCCINYLCHOLINE INJ 100 MG/5 ML SYR ONE (07:58)
[2017-01-31] MEDS ORDERED: MEPERIDINE (DEMEROL) INJ 50 MG/ML IVP PRN (09:00)
[2017-01-31] MEDS ORDERED: ONDANSETRON 4 MG/2 ML (SDV) Z0FRAN IVP PRN (09:00)
[2017-01-31] MEDS: fentaNYL INJECTION 100 MCG/2 ML AMP IVP PRN (09:20)
[2017-01-31 10:05] VITALS: BP 126/95
[2017-01-31 10:35] VITALS: BP 167/89
[2017-01-31] MEDS ORDERED: VICOPROFEN PO (10:55)
[2017-01-31 11:05] VITALS: BP 187/81
[2017-01-31 11:30] VITALS: BP 187/81
--- NOTE | 2017-01-31 11:46 | Physical Therapy Ortho Eval ---
PT Orthopedic Evaluation Type of Surgery Knee Scope right knee Prior Level of Function Locomotion (Upon Admit): Straight Cane Established Durable Medical Eq: Front Wheeled Walker, Straight Cane Subjective Subjective Patient laying in bed pre tx, has pain of 5/10 in right knee. No complaints of nausea or dizziness. Patient states she will have assistance at home from her daughter and sister. Entry Into Home: Stairs Without Railing Steps Into Home: 2 Objective Objective right knee flexion 70 degrees, extension +5 degrees, light touch intact, no complaints of numbness or tingling Motor Control Motor Control: Motor Control WNL Transfer Transfers (B, C, W/C) (FIM): 4 (CGA) Gait Gait Assistive Device: FWW Patient can ambulate 50' with a rolling walker with CGA, slightly bent right knee and poor heel strike, decreased stance time on right leg. Patient was able to go up and down 1 step using a rolling walker with CGA and cues for foot placement. Weight Bearing Restriction: Weight Bearing/Tolerated Location Restriction: R LE Gait (FIM): 2 Distance: 50' Gait Level of Assist: 4 Treatment Rendered Treatment: Therapeutic Exercises, Gait Train, Step Train Exercise Instruction: Quad Sets, Heel Slides, Ankle Pumps Assessment/Goals Goal Time Frame: 1 Visit Plan Treatment Plan: Discharge Time Time In: 1115 Time Out: 1130 Total Billed Treatment Time: 15 Billed Treatment Time 1 visit EVL 15 min Yes PT/OT Therapy GCodes Therapy Functional Limitation: Physical Therapy Test(s)/Tool used to determine: Level of Assistance Scale Functional Limitation-Current Charge Code: MOBCUR Modifier: CI Functional Limitation-Goal Charge Code: MOBGOAL Modifier: CI Functional Limitation-D/C Charge Codes: MOBDC Modifier: CI VICTORINA RO PT Jan 31, 2017 11:46
--- NOTE | 2017-01-31 23:22 | OPERATIVE REPORT ---
DATE OF SERVICE: 01/31/2017 PREOPERATIVE DIAGNOSES: 1. Right knee medial meniscal tear. 2. Right knee lateral meniscal tear. 3. Right knee chondromalacia of the medial femoral condyle. 4. Right knee chondromalacia of the patella. POSTOPERATIVE DIAGNOSES: 1. Right knee medial meniscal tear. 2. Right knee lateral meniscal tear. 3. Right knee chondromalacia of the medial femoral condyle. 4. Right knee chondromalacia of the patella. 5. Right knee chondromalacia of the lateral tibial plateau. 6. Right knee chondromalacia of the trochlea. PROCEDURES: 1. Right knee arthroscopic partial medial meniscectomy. 2. Right knee arthroscopic partial lateral meniscectomy. 3. Right knee arthroscopic chondroplasty of the medial femoral condyle. 4. Right knee arthroscopic chondroplasty of the patella. 5. Right knee arthroscopic chondroplasty of the lateral tibial plateau. 6. Right knee arthroscopic chondroplasty of the trochlea. SURGEON: Forest Tesfaye MD AUDITOR/QUALITY: JEFF Mcdonald, who assisted throughout the procedure and closed the incisions. ANESTHESIA: General endotracheal by Garry Solitario CRNA. TOURNIQUET TIME: Not applicable. ESTIMATED BLOOD LOSS: Minimal. DRAINS: None. COMPLICATIONS: None. POSTOPERATIVE PLAN: Routine arthroscopy protocol. The patient was transported to the recovery room awake and in stable condition. STATEMENT OF MEDICAL NECESSITY: The patient is a 66-year-old female with complaints of right knee pain, catching, locking and swelling. An MRI revealed medial and lateral meniscal tears, as well as chondromalacia of her medial and patellofemoral compartments. She had undergone treatment with injections, anti-inflammatories and rest without relief and, due to functional impairment and failure to improve with conservative measures, the patient elected to proceed with operative intervention. Examination under anesthesia revealed range of motion 0/0/135 with a negative Evangelista and negative anterior and posterior drawers, no varus or valgus laxity and negative pivot, shift or arthroscopic findings. The patella demonstrated grade II chondral flap essentially in a 10 x 10 area. The trochlea demonstrated grade II chondral flap essentially in a 5 x 15 area. The medial and lateral gutters were clear. The medial compartment demonstrated diffuse grade IV chondral loss medially over the femoral condyle into the plateau in a 10 x 20 area with grade III chondral flaps at the periphery on the femoral condyle. In addition, there was a degenerative tear of the posterior horn and body of the medial meniscus involving approximately 1/3 of the posterior horn and body. The ACL and PCL were intact. The lateral compartment demonstrated grade III chondral flap with essential portion of the tibial plateau in an 8 x 8 area and a tear of the lateral meniscus body involving approximately 20% of the body. TopofForm PROCEDURE: After risks and benefits of procedure were discussed and questions were answered, an informed consent was signed and placed in the chart. The operative site was confirmed in the preoperative holding area, initialed by the surgeon. The patient was then transported to the operating room and, after adequate levels of general endotracheal anesthetic were obtained, a timeout was called, confirming the operative site, and examination under anesthesia was performed with the above findings noted. The right lower extremity was then prepped and draped in usual sterile fashion. The knee was injected with 60 mL of fluid, and a standard inferolateral portal was placed for the arthroscope. Under direct visualization, an inferomedial portal was created. The menisci and cruciates were carefully probed with the above findings noted. The unstable chondral flaps on the patella and trochlea were debrided with a shaver back to a stable edge. The scope was then redirected into the lateral compartment where the unstable lateral meniscus tear was debrided with a shaver back to a stable edge, and the unstable chondral flaps on the lateral tibial plateau were debrided with a shaver back to a stable edge. The scope was then redirected into the medial compartment where the unstable chondral flaps on the medial femoral condyle were debrided back to a stable edge, and a medial meniscus biter and shaver removed approximately 1/3 of the posterior horn and body. This was carefully probed with no further tearing or instability noted. The knee was copiously irrigated. The port sites were closed with 3-0 nylon in simple interrupted fashion. The port sites were infiltrated with plain Marcaine. A soft dressing was applied, and the patient was transported to the recovery room awake and in stable condition.BottomofForm Job ID: [id number] DocumentID: [id number] Dictated Date: 01/31/2017 08:52:24 Crossing Supervisor Date: 01/31/2017 22:49:52 Dictated By: FOREST TESFAYE MD
== END 2017-01-31 11:30 | disposition home or self-care (01) ==
LOC: SDC 06:43
PROVIDERS: ATTEND Orthopaedic Surgery
DX: M23.8X1 Other internal derangements of right knee (principal); M22.41 Chondromalacia patellae, right knee; I10 Essential (primary) hypertension; E03.9 Hypothyroidism, unspecified; Z79.899 Other long term (current) drug therapy; F17.210 Nicotine dependence, cigarettes, uncomplicated

== ENCOUNTER → 2017-07-11 | Outpatient (CLI) | payer MEDICARE, MEDICAID ==
[~2017-07-11] MED LIST changes: +VICOPROFEN PO
--- NOTE | 2017-07-12 10:44 | Diagnostic Imaging Report ---
EXAMINATION: Renal arterial duplex ultrasound. INDICATION: Hypertension. FINDINGS: The right kidney is 11.8 and the left kidney is 12.3 cm in length. There is no hydronephrosis or focal lesion seen. The urinary bladder appears unremarkable. The renal artery velocities on the right side are 76, 76 and 145 cm/second from proximal to distal and on the left side the proximal renal artery segment is not seen. The mid segment is 170 cm/second and distally is 123 cm/second. The resistive index in the right kidney is in the range of 0.76 to 0.79 and on the left side is in the range of 0.59 to 0.79. IMPRESSION: 1. No evidence of renal artery stenosis on the right side. 2. There is mildly elevated velocity in the mid left renal artery. The proximal left renal artery is not seen. Correlation with CTA of the abdomen to better evaluate the left renal artery could be considered. Dictated by: Dictated on workstation # [id number]
== END ==
LOC: RAD 09:27
DX: N18.3 Chronic kidney disease, stage 3 (moderate) (principal)
CPT/HCPCS: 93975

== ENCOUNTER → 2017-07-12 | Outpatient (CLI) | payer MEDICARE, MEDICAID | LOC: RAD 09:57 | DX: N18.3 Chronic kidney disease, stage 3 (moderate) (principal) ==

== ENCOUNTER → 2018-01-09 | Outpatient (CLI) | payer MEDICARE, MEDICAID ==
[~2018-01-09] MED LIST changes: +HYDR-34 PO; -HYDR-3816 PO
--- NOTE | 2018-01-09 12:02 | Diagnostic Imaging Report ---
PROCEDURE: MRI lumbar spine. TECHNIQUE: Multiplanar, multisequence MRI of the lumbar spine was performed without contrast. INDICATION: Back pain. COMPARISON: There are no prior studies available for comparison. FINDINGS: The T2 parasagittal images reveal there is desiccation of the disc at every level and there is narrowing of the disc spaces at L4-5 and L5-S1 and to a lesser degree L1-2. At the L4-5 level, there is a disc bulge eccentric to the right. The disc compresses the right ventral aspect of the thecal sac and narrows the AP diameter to 7.2 mm There is also narrowing of the neural foramen on the right due to degenerative disc and bony disease. There is fairly severe narrowing of the neural foramen on the left at this level as well. At the L5-S1 level there is a focal disc protrusion to the right. The disc compresses the right ventral aspect of the thecal sac and narrows the AP diameter to 7.5 mm. The disc is in close proximity to the exiting right nerve root at this level and there may be encroachment of the nerve root. There is also narrowing of the neural foramen on the left at this level. At the L3-4 level, there is a disc bulge eccentric to the right. The disc compresses the right ventral aspect of the thecal sac and narrows the AP diameter to 8.9 mm There is also narrowing of the neural foramen on the right and to a lesser extent the neural foramen on the left. At the L2-3 level, there is a disc bulge centrally. The disc flattens the ventral aspect of the thecal sac and narrows the AP diameter to 8.4 mm. There is moderate narrowing of the neural foramen bilaterally at this level. At the L1-2 level, there is no evidence for spinal stenosis or nerve root encroachment. There is no abnormal signal arising from the cord or the vertebral bodies to indicate an acute abnormality There is no sign of a paraspinal mass. IMPRESSION: 1. There is degenerative disc, ligamentous and bony disease involving the lumbar spine. There is spinal stenosis and neuroforaminal narrowing at every level from L2-3 to L5-S1. 2. There is no evidence for an acute bony abnormality or for a cord lesion. Dictated by: Dictated on workstation # [id number]
== END ==
LOC: RAD 09:10
PROVIDERS: ATTEND Orthopaedic Surgery
DX: M48.07 Spinal stenosis, lumbosacral region (principal); M51.17 Intervertebral disc disorders with radiculopathy, lumbosacral region; M16.12 Unilateral primary osteoarthritis, left hip
CPT/HCPCS: 72148

== ENCOUNTER 2018-04-09 09:26 | Outpatient (CLI) | payer MEDICARE, MEDICAID ==
[~2018-04-09] VITALS: Ht 167.6 cm; Wt 89.4 kg
[2018-04-09 09:37] VITALS: BP 177/86
[2018-04-09] MEDS ORDERED: IBUP-1780 PO (09:53)
[2018-04-09] MEDS ORDERED: HYDR-3816 PO (09:53)
[2018-04-09] MEDS ORDERED: LEVO150T6 PO (09:53)
[2018-04-09] MEDS ORDERED: MORP-34 PO (09:55)
[2018-04-09 10:26] LABS: BASOPHILS # (AUTO) 0.1 10^3/uL (0.0-0.1); BASOPHILS % (AUTO) 1 % (0-10); EOSINOPHILS # (AUTO) 0.5 10^3/uL (0.0-0.3); EOSINOPHILS % (AUTO) 8 % (0-10); HEMATOCRIT 40 % (35-52); HEMOGLOBIN 13.3 G/DL (11.5-16.0); LYMPHOCYTES # (AUTO) 2.1 X 10^3 (1.0-4.0); LYMPHOCYTES % (AUTO) 32 % (12-44); MEAN CORPUSCULAR HEMOGLOBIN 32 PG (25-34); MEAN CORPUSCULAR HGB CONC 34 G/DL (32-36); MEAN CORPUSCULAR VOLUME 96 FL (80-99); MEAN PLATELET VOLUME 9.5 FL (7.4-10.4); MONOCYTES # (AUTO) 0.5 X 10^3 (0.0-1.0); MONOCYTES % (AUTO) 7 % (0-12); NEUTROPHILS # (AUTO) 3.4 X 10^3 (1.8-7.8); NEUTROPHILS % (AUTO) 52 % (42-75); PLATELET COUNT 298 10^3/uL (130-400); RED BLOOD COUNT 4.12 10^6/uL (4.35-5.85); RED CELL DISTRIBUTION WIDTH 13.5 % (10.0-14.5); WHITE BLOOD COUNT 6.5 10^3/uL (4.3-11.0)
[2018-04-09 10:49] LABS: PROTHROMBIN TIME PATIENT 13.2 SEC (12.2-14.7)
[2018-04-09 10:51] LABS: BILIRUBIN,URINE NEGATIVE (NEGATIVE); CLARITY,URINE CLEAR; COLOR,URINE YELLOW; GLUCOSE, URINE (UA) NEGATIVE (NEGATIVE); KETONES,URINE NEGATIVE (NEGATIVE); LEUKOCYTE ESTERASE ,URINE 3+ (NEGATIVE); NITRITE,URINE NEGATIVE (NEGATIVE); PH,URINE 7 (5-9); PROTEIN,URINE NEGATIVE (NEGATIVE); UROBILINOGEN,URINE NORMAL (NORMAL)
--- NOTE | 2018-04-09 10:58 | Diagnostic Imaging Report ---
EXAMINATION: PA and lateral chest. INDICATION: Preop exam. COMPARISON: None. FINDINGS: The cardiac silhouette, pulmonary vessels, and mediastinum are unremarkable. The lungs are clear. IMPRESSION: Negative chest radiograph. Dictated by: Dictated on workstation # [id number]
[2018-04-09 11:01] LABS: ALANINE AMINOTRANSFERASE 13 U/L (0-55); ALBUMIN 3.8 GM/DL (3.2-4.5); ALKALINE PHOSPHATASE 51 U/L (40-136); BILIRUBIN,TOTAL 0.4 MG/DL (0.1-1.0); BUN/CREATININE RATIO 11; CARBON DIOXIDE 28 MMOL/L (21-32); CHLORIDE 104 MMOL/L (98-107); CREATININE SERUM 0.85 MG/DL (0.60-1.30); GFR ESTIMATED > 60; GLUCOSE 89 MG/DL (70-105); SODIUM 140 MMOL/L (135-145)
[2018-04-09 11:13] LABS: BACTERIA,URINE LARGE /HPF; SQUAMOUS EPITHELIAL CELL,UR 0-2 /HPF
[2018-04-09 11:48] LABS: ERYTHROCYTE SEDIMENTATION RATE 12 MM/HR (0-30)
== END 2018-04-09 10:25 | disposition home or self-care (01) ==
LOC: PREOP 09:26
PROVIDERS: ATTEND Orthopaedic Surgery
DX: Z01.812 Encounter for preprocedural laboratory examination (principal); Z01.811 Encounter for preprocedural respiratory examination; Z11.2 Encounter for screening for other bacterial diseases; M17.11 Unilateral primary osteoarthritis, right knee; R53.83 Other fatigue; R82.99 Other abnormal findings in urine
CPT/HCPCS: 36415; 71046; 80053; 81000; 85025; 85610; 85652; 86850; 86900; 86901; 87077; 87081; 87088; 87186; 93005

== ENCOUNTER 2018-05-20 09:31 | Outpatient (CLI) | payer MEDICARE, MEDICAID ==
[~2018-05-20] VITALS: Ht 167.6 cm; Wt 89.4 kg
[~2018-05-20 09:31] MED LIST changes: +HYDR-3816 PO; +LEVO150T6 PO; +MORP-34 PO
[2018-05-20 09:38] VITALS: BP 177/85
[2018-05-20 10:07] LABS: BILIRUBIN,URINE NEGATIVE (NEGATIVE); CLARITY,URINE CLEAR; COLOR,URINE YELLOW; GLUCOSE, URINE (UA) NEGATIVE (NEGATIVE); KETONES,URINE NEGATIVE (NEGATIVE); LEUKOCYTE ESTERASE ,URINE 3+ (NEGATIVE); NITRITE,URINE NEGATIVE (NEGATIVE); PH,URINE 7 (5-9); PROTEIN,URINE 1+ (NEGATIVE); UROBILINOGEN,URINE 1 MG/DL (NORMAL)
[2018-05-20 10:07] LABS: BASOPHILS # (AUTO) 0.1 10^3/uL (0.0-0.1); BASOPHILS % (AUTO) 1 % (0-10); EOSINOPHILS # (AUTO) 0.4 10^3/uL (0.0-0.3); EOSINOPHILS % (AUTO) 5 % (0-10); HEMATOCRIT 42 % (35-52); HEMOGLOBIN 14.3 G/DL (11.5-16.0); LYMPHOCYTES # (AUTO) 1.5 X 10^3 (1.0-4.0); LYMPHOCYTES % (AUTO) 21 % (12-44); MEAN CORPUSCULAR HEMOGLOBIN 32 PG (25-34); MEAN CORPUSCULAR HGB CONC 34 G/DL (32-36); MEAN CORPUSCULAR VOLUME 96 FL (80-99); MEAN PLATELET VOLUME 9.8 FL (7.4-10.4); MONOCYTES # (AUTO) 0.4 X 10^3 (0.0-1.0); MONOCYTES % (AUTO) 6 % (0-12); NEUTROPHILS # (AUTO) 4.9 X 10^3 (1.8-7.8); NEUTROPHILS % (AUTO) 68 % (42-75); PLATELET COUNT 316 10^3/uL (130-400); RED BLOOD COUNT 4.44 10^6/uL (4.35-5.85); RED CELL DISTRIBUTION WIDTH 13.4 % (10.0-14.5); WHITE BLOOD COUNT 7.3 10^3/uL (4.3-11.0)
[2018-05-20 10:17] LABS: BACTERIA,URINE NEGATIVE /HPF; SQUAMOUS EPITHELIAL CELL,UR 0-2 /HPF
[2018-05-20 10:20] LABS: PROTHROMBIN TIME PATIENT 13.4 SEC (12.2-14.7)
[2018-05-20 10:28] LABS: ALANINE AMINOTRANSFERASE 16 U/L (0-55); ALBUMIN 4.1 GM/DL (3.2-4.5); ALKALINE PHOSPHATASE 57 U/L (40-136); BILIRUBIN,TOTAL 0.6 MG/DL (0.1-1.0); BUN/CREATININE RATIO 14; CALCIUM 9.8 MG/DL (8.5-10.1); CARBON DIOXIDE 27 MMOL/L (21-32); CHLORIDE 104 MMOL/L (98-107); GFR ESTIMATED > 60; GLUCOSE 123 MG/DL (70-105); SODIUM 140 MMOL/L (135-145); TOTAL PROTEIN 7.8 GM/DL (6.4-8.2)
[2018-05-20 10:35] LABS: ERYTHROCYTE SEDIMENTATION RATE 12 MM/HR (0-30)
== END 2018-05-20 10:00 | disposition home or self-care (01) ==
LOC: PREOP 09:31
PROVIDERS: ATTEND Orthopaedic Surgery
DX: Z01.812 Encounter for preprocedural laboratory examination (principal); Z11.2 Encounter for screening for other bacterial diseases; M17.11 Unilateral primary osteoarthritis, right knee; R53.83 Other fatigue; R82.99 Other abnormal findings in urine
CPT/HCPCS: 36415; 80053; 81000; 85025; 85610; 85652; 87077; 87081; 87088; 87186

== ENCOUNTER → 2018-06-11 | Outpatient (CLI) | payer MEDICARE, MEDICAID ==
[~2018-06-11] MED LIST changes: +ALBU2.5V4 IH; +DOXY100C42 PO; +HYDR25TA4 PO
--- NOTE | 2018-06-11 15:35 | Diagnostic Imaging Report ---
PROCEDURE: US right lower extremity venous. TECHNIQUE: Multiple real-time grayscale images were obtained over the right lower extremity in various projections. Additional duplex Doppler and color Doppler images were also obtained. INDICATION: Knee replacement. FINDINGS: The right lower extremity femoropopliteal deep venous system is widely patent. No deep or superficial thrombus. No fluid collection. IMPRESSION: Normal negative unilateral right lower extremity venous Doppler and ultrasound. Dictated by: Dictated on workstation # [id number]
== END ==
LOC: RAD 15:07
PROVIDERS: ATTEND Family Medicine
DX: R60.0 Localized edema (principal); Z96.651 Presence of right artificial knee joint

== ENCOUNTER 2018-07-05 13:27 | Outpatient (RCR) | payer MEDICARE, MEDICAID | END 2018-07-07 | disposition home or self-care (01) | PROVIDERS: ATTEND Orthopaedic Surgery | DX: Z47.1 Aftercare following joint replacement surgery (principal); Z96.651 Presence of right artificial knee joint ==

== ENCOUNTER 2018-07-08 12:59 | Outpatient (RCR) | payer MEDICARE, MEDICAID | END 2018-07-31 13:13 | disposition home or self-care (01) | PROVIDERS: ATTEND Orthopaedic Surgery | DX: Z47.1 Aftercare following joint replacement surgery (principal); Z96.651 Presence of right artificial knee joint ==

== ENCOUNTER → 2018-08-15 | Outpatient (CLI) | payer MEDICARE, MEDICAID ==
[2018-08-15 13:05] LABS: BASOPHILS # (AUTO) 0.1 10^3/uL (0.0-0.1); BASOPHILS % (AUTO) 1 % (0-10); EOSINOPHILS # (AUTO) 0.3 10^3/uL (0.0-0.3); EOSINOPHILS % (AUTO) 5 % (0-10); HEMATOCRIT 39 % (35-52); HEMOGLOBIN 12.9 G/DL (11.5-16.0); LYMPHOCYTES # (AUTO) 2.1 X 10^3 (1.0-4.0); LYMPHOCYTES % (AUTO) 32 % (12-44); MEAN CORPUSCULAR HEMOGLOBIN 31 PG (25-34); MEAN CORPUSCULAR HGB CONC 33 G/DL (32-36); MEAN CORPUSCULAR VOLUME 95 FL (80-99); MEAN PLATELET VOLUME 9.5 FL (7.4-10.4); MONOCYTES # (AUTO) 0.5 X 10^3 (0.0-1.0); MONOCYTES % (AUTO) 8 % (0-12); NEUTROPHILS # (AUTO) 3.6 X 10^3 (1.8-7.8); NEUTROPHILS % (AUTO) 54 % (42-75); PLATELET COUNT 303 10^3/uL (130-400); RED BLOOD COUNT 4.17 10^6/uL (4.35-5.85); RED CELL DISTRIBUTION WIDTH 13.6 % (10.0-14.5); WHITE BLOOD COUNT 6.6 10^3/uL (4.3-11.0)
[2018-08-15 13:28] LABS: ALANINE AMINOTRANSFERASE 11 U/L (0-55); ALBUMIN 3.9 GM/DL (3.2-4.5); ALKALINE PHOSPHATASE 59 U/L (40-136); BILIRUBIN,TOTAL 0.3 MG/DL (0.1-1.0); BUN/CREATININE RATIO 12; CALCIUM 9.4 MG/DL (8.5-10.1); CARBON DIOXIDE 26 MMOL/L (21-32); CHLORIDE 101 MMOL/L (98-107); CREATININE SERUM 0.85 MG/DL (0.60-1.30); GFR ESTIMATED > 60; GLUCOSE 95 MG/DL (70-105); POTASSIUM 3.9 MMOL/L (3.6-5.0); SODIUM 139 MMOL/L (135-145); TOTAL PROTEIN 7.5 GM/DL (6.4-8.2)
== END ==
LOC: LAB 12:40
PROVIDERS: ATTEND Family Medicine
DX: R60.0 Localized edema (principal)
CPT/HCPCS: 36415; 80053; 82043; 83880; 85025

== ENCOUNTER 2018-08-28 12:50 | Emergency (ER) | payer MEDICARE, MEDICAID ==
[~2018-08-28] VITALS: Ht 165.1 cm; Wt 94.8 kg
[2018-08-28 13:18] LABS: BASOPHILS # (AUTO) 0.1 10^3/uL (0.0-0.1); BASOPHILS % (AUTO) 1 % (0-10); EOSINOPHILS # (AUTO) 0.5 10^3/uL (0.0-0.3); EOSINOPHILS % (AUTO) 7 % (0-10); HEMATOCRIT 39 % (35-52); HEMOGLOBIN 12.3 G/DL (11.5-16.0); LYMPHOCYTES # (AUTO) 1.9 X 10^3 (1.0-4.0); LYMPHOCYTES % (AUTO) 30 % (12-44); MEAN CORPUSCULAR HEMOGLOBIN 30 PG (25-34); MEAN CORPUSCULAR HGB CONC 32 G/DL (32-36); MEAN CORPUSCULAR VOLUME 94 FL (80-99); MEAN PLATELET VOLUME 9.8 FL (7.4-10.4); MONOCYTES # (AUTO) 0.6 X 10^3 (0.0-1.0); MONOCYTES % (AUTO) 10 % (0-12); NEUTROPHILS # (AUTO) 3.4 X 10^3 (1.8-7.8); NEUTROPHILS % (AUTO) 53 % (42-75); PLATELET COUNT 245 10^3/uL (130-400); RED BLOOD COUNT 4.09 10^6/uL (4.35-5.85); RED CELL DISTRIBUTION WIDTH 13.6 % (10.0-14.5); WHITE BLOOD COUNT 6.4 10^3/uL (4.3-11.0)
--- NOTE | 2018-08-28 13:18 | ED Chest Pain ---
General Stated Complaint: BP ISSUES; CHEST PAINS Source: patient Exam Limitations: no limitations History of Present Illness Date Seen by Provider: Aug 28, 2018 Time Seen by Provider: 12:56 Initial Comments Here with report of high blood pressure and chest tightness. She was seen at the clinic today and was told to come over here due to high blood pressure that was reportedly 190s over 80s. Arrives in the 130s over 80s. Had knee surgery a few months ago on right leg is swollen and red. She states that it is tender. She is short of breath. Denies fevers. Currently the chest tightness and discomfort is been going on for a few days. Currently on Bactrim DS for possibility of cellulitis to the right lower extremity Timing/Duration: changing over time, 2-3 days Severity/Quality: mild, moderate, tightness Location: central Radiation: no radiation Activities at Onset: none Prior CP/Workup: no prior cardiac workup ASA po RAZOR GRINDER: No NTG SL RAZOR GRINDER: No Associated Symptoms: No abdominal pain, No back pain; edema, fatigue; No nausea /vomiting; shortness of breath, weakness Allergies and Home Medications Allergies Coded Allergies: oxycodone (Verified Allergy, Severe, throat swells, PT TOLERATES HYDROCODONE, 01/31/17) Penicillins (Verified Allergy, Unknown, Pt has had Ancef w/o issues, ) acetaminophen (Verified Allergy, Unknown, throat swells, 01/24/17) nalbuphine (Verified Allergy, Unknown, 01/24/17) suvorexant (Verified Allergy, Unknown, 01/24/17) Home Medications Albuterol Sulfate 2.5 Mg/3 Ml Vial.neb, 2.5 MG IH Q4H Prescribed by: MARCUS BENSON on 05/28/18221 Cholecalciferol (Vitamin D3) 1,000 Unit Tablet, 1,000 UNIT PO DAILY, (Reported) Cyanocobalamin (Vitamin B-12) 2,500 Mcg Tablet, 2,500 MCG PO DAILY, (Reported) Doxycycline Monohydrate 100 Mg Capsule, 100 MG PO BID Prescribed by: MARCUS BENSON on 05/28/18221 Escitalopram Oxalate 20 Mg Tablet, 20 MG PO DAILY, (Reported) Hydrochlorothiazide 25 Mg Tablet, 25 MG PO DAILY Prescribed by: ZACARIAS WHITE on 05/25/18 1007 Hydrocodone/Acetaminophen 1 Each Tablet, 1 EACH PO TID, (Reported) Ibuprofen 800 Mg Tablet, 800 MG PO TID, (Reported) Levothyroxine Sodium 150 Mcg Tablet, 150 MCG PO DAILY, (Reported) Lisinopril 20 Mg Tablet, 20 MG PO DAILY Prescribed by: EMILY ANDRES on 08/28/18 1638 Morphine Sulfate 30 Mg Tablet.er, 30 MG PO BID, (Reported) Omeprazole 20 Mg Tablet.dr, 20 MG PO DAILY, (Reported) Tizanidine HCl 4 Mg Tablet, 4 MG PO TID, (Reported) Trazodone HCl 150 Mg Tablet, 150 MG PO HS, (Reported) Verapamil HCl 120 Mg Tablet, 120 MG PO BID, (Reported) Patient Home Medication List Home Medication List Reviewed: Yes Review of Systems Review of Systems Constitutional: see HPI; No chills, No fever EENTM: Throat Pain; No Throat Swelling Respiratory: See HPI, Cough, SOA With Exertion, Wheezing Cardiovascular: Chest Pain, Edema Gastrointestinal: Denies Nausea, Denies Vomiting Genitourinary: No Symptoms Reported Musculoskeletal: No back pain; joint pain, joint swelling, muscle pain Skin: change in color; No lesions Psychiatric/Neurological: Denies Numbness, Denies Paresthesia Endocrine: No Symptoms Reported All Other Systems Reviewed Negative Unless Noted: Yes Past Whvyfvm-Dixuzj-Udjstx Hx Past Med/Social Hx: Reviewed Nursing Past Med/Soc Hx Patient Social History Alcohol Use: Denies Use Recreational Drug Use: No Smoking Status: Current Everyday Smoker Type Used: Cigarettes 2nd Hand Smoke Exposure: No Recent Foreign Travel: No Contact w/Someone Who Travel: No Recent Hopitalizations: No Immunizations Up To Date Tetanus Booster (TDap): Unknown Date of Pneumonia Vaccine: Aug 03, 2016 Seasonal Allergies Seasonal Allergies: No Past Medical History Surgeries: Yes (bilat elbow, L shoulder, back x2, L TKR x2, teeth pulled, RIGHT KNEE SCOPE) Section, Gallbladder, Hysterectomy, Tubal Ligation Respiratory: No Cardiac: Yes (HX HEART MURMUR) Heart Murmur, Hypertension Neurological: Yes TIA 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 Sexually Transmitted Disease: No HIV/AIDS: No Genitourinary: Yes (stage 2 kidney disease) Gastrointestinal: Yes Gastroesophageal Reflux, Chronic Constipation, Polyps Musculoskeletal: Yes (joint pain) Arthritis, Chronic Back Pain Endocrine: Yes HEENT: Yes (bilat cataracts removed, dentures) Glaucoma Loss of Vision: Bilateral Hearing Impairment: Denies Cancer: Yes Skin Psychosocial: Yes Depression Integumentary: No Blood Disorders: No Adverse Reaction/Blood Tranf: No Family Medical History Reviewed Nursing Family Hx Colon cancer 19 FATHER (stomach cancer) Completed stroke 19 FATHER G8 BROTHER Diabetes mellitus G8 BROTHER G8 SISTER Hypertension 19 FATHER G8 BROTHER Myocardial infarction 19 FATHER G8 BROTHER Respiratory disorder 19 MOTHER Thyroid disease G8 SISTER Heart Disease, Cancer, CAD Under 55 Years Old, Diabetes, Hypertension Physical Exam Vital Signs Vital Signs - First Documented 08/28/18 12:53 Temp 98.7 Pulse 71 Resp 18 B/P (MAP) 135/83 (100) Pulse Ox 97 O2 Delivery Nasal Cannula O2 Flow Rate 2.00 Capillary Refill : Height, Weight, BMI Height: 5'5.00" Weight: 200lbs. 0oz. [id number]; 31.8 BMI Method:Stated General Appearance: No Apparent Distress, WD/WN HEENT: PERRL/EOMI, Pharyngeal Erythema Neck: Normal Inspection, Non Tender, Supple Respiratory: Decreased Breath Sounds, Wheezing Cardiovascular: Regular Rate, Rhythm, No Murmur Gastrointestinal: Non Tender, Soft Extremity: Pedal Edema, Pelvis Stable, Swelling (bilateral legs with edema noted to the knees bilateral with right greater than left.) Neurologic/Psychiatric: Oriented x3, No Motor/Sensory Deficits Skin: Warm/Dry, Erythema (right lower extremity from above the knee down.) Focused Exam Lactate Level 08/28/18 13:05: Lactic Acid Level 1.13 Lactic Acid Level Laboratory Tests Test 08/28/18 13:05 Lactic Acid Level 1.13 MMOL/L (0.50-2.00) Progress/Results/Core Measures Results/Orders Lab Results Laboratory Tests Test 08/28/18 12:59 08/28/18 13:05 08/28/18 16:10 Range/Units White Blood Count 6.4 4.3-11.0 10^3/uL Red Blood Count 4.09 L 4.35-5.85 10^6/uL Hemoglobin 12.3 11.5-16.0 G/DL Hematocrit 39 35-52 % Mean Corpuscular Volume 94 80-99 FL Mean Corpuscular Hemoglobin 30 25-34 PG Mean Corpuscular Hemoglobin Concent 32 32-36 G/DL Red Cell Distribution Width 13.6 10.0-14.5 % Platelet Count 245 130-400 10^3/uL Mean Platelet Volume 9.8 7.4-10.4 FL Neutrophils (%) (Auto) 53 42-75 % Lymphocytes (%) (Auto) 30 12-44 % Monocytes (%) (Auto) 10 0-12 % Eosinophils (%) (Auto) 7 0-10 % Basophils (%) (Auto) 1 0-10 % Neutrophils # (Auto) 3.4 1.8-7.8 X 10^3 Lymphocytes # (Auto) 1.9 1.0-4.0 X 10^3 Monocytes # (Auto) 0.6 0.0-1.0 X 10^3 Eosinophils # (Auto) 0.5 H 0.0-0.3 10^3/uL Basophils # (Auto) 0.1 0.0-0.1 10^3/uL Prothrombin Time 13.6 12.2-14.7 SEC INR Comment 1.0 0.8-1.4 Activated Partial Thromboplast Time 50 H 24-35 SEC D-Dimer 1.67 H 0.00-0.49 UG/ML Sodium Level 139 135-145 MMOL/L Potassium Level 4.1 3.6-5.0 MMOL/L Chloride Level 103 98-107 MMOL/L Carbon Dioxide Level 28 21-32 MMOL/L Anion Gap 8 5-14 MMOL/L Blood Urea Nitrogen 13 7-18 MG/DL Creatinine 1.02 0.60-1.30 MG/DL Estimat Glomerular Filtration Rate 54 BUN/Creatinine Ratio 13 Glucose Level 87 70-105 MG/DL Calcium Level 8.9 8.5-10.1 MG/DL Corrected Calcium 9.0 8.5-10.1 MG/DL Magnesium Level 2.1 1.8-2.4 MG/DL Total Bilirubin 0.3 0.1-1.0 MG/DL Aspartate Amino Transf (AST/SGOT) 14 5-34 U/L Alanine Aminotransferase (ALT/SGPT) 8 0-55 U/L Alkaline Phosphatase 51 40-136 U/L Myoglobin 51.5 10.0-92.0 NG/ML Troponin I < 0.30 <0.30 NG/ML C-Reactive Protein High Sensitivity 0.47 0.00-0.50 MG/DL B-Type Natriuretic Peptide 62.4 <100.0 PG/ML Total Protein 7.5 6.4-8.2 GM/DL Albumin 3.9 3.2-4.5 GM/DL Lactic Acid Level 1.13 0.50-2.00 MMOL/L Urine Color YELLOW Urine Clarity CLEAR Urine pH 6 5-9 Urine Specific [place] 1.015 L 1.016-1.022 Urine Protein 1+ H NEGATIVE Urine Glucose (UA) NEGATIVE NEGATIVE Urine Ketones NEGATIVE NEGATIVE Urine Nitrite NEGATIVE NEGATIVE Urine Bilirubin NEGATIVE NEGATIVE Urine Urobilinogen NORMAL NORMAL MG/DL Urine Leukocyte Esterase NEGATIVE NEGATIVE Urine RBC (Auto) 1+ H NEGATIVE Urine RBC 0-2 /HPF Urine WBC RARE /HPF Urine Squamous Epithelial Cells 5-10 /HPF Urine Crystals NONE /LPF Urine Bacteria NONE /HPF Urine Casts NONE /LPF Urine Mucus NEGATIVE /LPF Urine Culture Indicated NO My Orders Orders - EMILY ANDRES MD Ekg Tracing (08/28/18 12:53) Cbc With Automated Diff (08/28/18 12:55) Magnesium (08/28/18 12:55) Chest 1 View, Ap/Pa Only (08/28/18 12:55) Cardiac Profile 1 (08/28/18 12:55) Comprehensive Metabolic Panel (08/28/18 12:55) Myoglobin Serum (08/28/18 12:55) Protime With Inr (08/28/18 12:55) Partial Thromboplastin Time (08/28/18 12:55) O2 (08/28/18 12:55) Monitor-Rhythm Ecg Trace Only (08/28/18 12:55) Lipid Panel (08/29/18 06:00) Aspirin Chewable Tablet (Baby Aspirin Ch (08/28/18 13:00) Nitroglycerin 0.4 Mg Btl 25's (Nitrostat (08/28/18 13:00) Saline Lock/Iv-Start (08/28/18 12:55) I-Stat Bedside Testing (08/28/18 13:02) BNP (08/28/18 13:02) Hs C Reactive Protein (08/28/18 13:02) Lactic Acid Analyzer (08/28/18 13:02) Ua Culture If Indicated (08/28/18 13:02) Blood Culture (08/28/18 13:02) Fibrin Degradation Products (08/28/18 12:59) Ct Angio Chest W (08/28/18 13:27) Iohexol Injection (Omnipaque 350 Mg/Ml 1 (08/28/18 13:45) Contrast Received (Contrast Received) (08/28/18 13:45) Ns (Ivpb) (Sodium Chloride 0.9%) (08/28/18 13:45) Us Venous Lower Ext Rt (08/28/18 13:54) Albuterol/Ipra Inhalation Soln (Duoneb I (08/28/18 15:00) Svn Small Volume Nebulizer (08/28/18 15:00) Lisinopril Tablet (Zestril Tablet) (08/28/18 15:45) Medications Given in ED Current Medications Medications Dose Ordered Sig/Anabella Route Start Time Stop Time Status Last Admin Dose Admin Albuterol/ Ipratropium 3 ml ONCE ONCE INH 08/28/18 15:00 08/28/18 15:01 DC 08/28/18 15:33 3 ML Aspirin 324 mg ONCE ONCE PO 08/28/18 13:00 08/28/18 13:01 DC 08/28/18 14:04 324 MG Iohexol 125 ml ONCE ONCE IV 08/28/18 13:45 08/28/18 13:46 DC 08/28/18 13:57 125 ML Lisinopril 20 mg ONCE ONCE PO 08/28/18 15:45 08/28/18 15:46 DC 08/28/18 16:35 20 MG Sodium Chloride 250 ml ONCE ONCE IV 08/28/18 13:45 08/28/18 13:46 DC 08/28/18 13:57 80 ML Vital Signs/I&O 08/28/18 08/28/18 08/28/18 08/28/18 12:53 12:53 12:55 15:34 Temp 98.7 Pulse 71 Resp 18 B/P (MAP) 135/83 (100) Pulse Ox 97 97 O2 Delivery Nasal Cannula Nasal Cannula Nasal Cannula O2 Flow Rate 2.00 2.00 2.00 2.00 iStat Bedside Lab Testing Sodium (Na): 140.00 Potassium (K): 4.00 Chloride (CI): 100.00 TCO2: 28.00 Glucose (Glu): 87.00 Urea Nitrogen (BUN)/Urea: 13.00 Creatinine (Crea): 1.00 Anion Gap*: 18.00 Progress Progress Note : Progress Note Seen and evaluated. IV, labs, UA, chest x-ray, EKG, CTA chest ordered after i- STAT complete. Normal saline 500 mL bolus. We will get a ultrasound right lower extremity due to swelling and redness. Monitor patient. Duo neb ordered. Patient did receive aspirin 324 mg by mouth. Monitor patient. 1635: Overall negative for DVT or PE. No significant findings. Blood pressure has ranged from 130s to 190 systolic. I did discuss the case with Dr. Hayward. We will initiate lisinopril 20 mg by mouth daily and she will see her within the next 2 weeks. Labs and radiological results reviewed with Dr. lamas and with the patient. Discharged home with return precautions. Patient verbalize understanding instructions and agreement with plan. Initial ECG Impression Date: Aug 28, 2018 Initial ECG Impression Time: 12:53 Initial ECG Rate: 68 Initial ECG Rhythm: Normal Sinus Initial ECG Impression: Normal Initial ECG Comparisson: Unchanged Comment sinus rhythm with normal axis. No evidence of ST elevation CO. Similar to previous. Interpreted by me. Diagnostic Imaging Diagonstic Imaging: CT Plain Films/CT/US/NM/MRI: chest Comments [facility] [place], [place] NAME: YUMIKO QUINTANA [facility] REC#: [id number] PT STATUS: REG ER : 1950 PHYSICIAN: EMILY ANDRES MD ADMIT DATE: 08/28/18/ER Draft Date of Exam:08/28/18 CT ANGIO CHEST W PROCEDURE: CT angiography of the chest with contrast. TECHNIQUE: Multiple contiguous axial images were obtained through the chest after uneventful bolus administration of intravenous contrast. 2D reconstructed CTA MIP acquisitions were also performed. INDICATION: Chest pain. Upper back and shoulder pain. Lower extremity swelling. COMPARISON: CTA chest 05/28/2018. FINDINGS: [id number] atherosclerotic calcifications are similar to the prior exam. There remains no thoracic aortic aneurysm or dissection. No pulmonary artery filling defects. Normal heart size. No pericardial effusion. No mediastinal, hilar, or axillary lymphadenopathy. Lungs are clear. No endobronchial lesions. No pleural effusion or pneumothorax. Osseous structures are intact. Cholecystectomy. No acute CT findings in the upper abdomen. IMPRESSION: 1. No thoracic aortic aneurysm or dissection. No pulmonary emboli. 2. No acute CT findings in the chest. Dictated on workstation # [id number] Dict: 08/28/18 1419 Trans: 08/28/18 1428 [id number] Interpreted by: ROSE GUTIERREZ MD Electronically signed by: Diagonstic Imaging: Xray Plain Films/CT/US/NM/MRI: chest Comments [facility] [place] [place] NAME: YUMIKO QUINTANA [facility] REC#: [id number] PT STATUS: REG ER : 1950 PHYSICIAN: EMILY ANDRES MD ADMIT DATE: 08/28/18/ER Draft Date of Exam:08/28/18 CHEST 1 VIEW, AP/PA ONLY INDICATION: Chest pain. COMPARISON: 05/27/2018. FINDINGS: Single frontal view of the chest demonstrates normal heart size and pulmonary vascularity. The lungs are well aerated and clear. No large pleural effusion or pneumothorax is seen. The visualized osseous structures show no acute abnormalities. IMPRESSION: 1. No acute cardiopulmonary process. Dictated on workstation # [id number] Dict: 08/28/18 1330 Trans: 08/28/18 1334 [facility] [id number] Interpreted by: CPIRIANO MINER MD Electronically signed by: Salonigonstic Imaging: Ultrasound Plain Films/CT/US/NM/MRI: leg Departure Impression Primary Impression: Uncontrolled hypertension Additional Impression: Lower extremity edema Disposition: 01 HOME, SELF-CARE Condition: Improved Departure-Patient Inst. Decision time for Depature: 16:36 Referrals: SUSAN HAYWARD MD (PCP) Primary Care Physician Patient Instructions: Dependent Edema (DC), High Blood Pressure (DC) Add. Discharge Instructions: Take medications as directed. Follow-up with Dr. Hayward within 2 weeks. Call the office on Sunday for appointment. Return for worse pain, fever, vomiting, weakness, breathing problems or other concerns as needed. Continue other medications as previously prescribed. Scripts Lisinopril (Lisinopril) 20 Mg Tablet 20 MG PO DAILY for 20 Days, #20 TAB 0 Refills Prov: EMILY ANDRES MD 08/28/18 Copy Copies To 1: SUSAN HAYWARD MD, TIMOTHY D MD Aug 28, 2018 13:18
[2018-08-28 13:33] LABS: FIBRIN DEGRADATION PRODUCTS 1.67 UG/ML (0.00-0.49); PROTHROMBIN TIME PATIENT 13.6 SEC (12.2-14.7)
--- NOTE | 2018-08-28 13:34 | Diagnostic Imaging Report ---
INDICATION: Chest pain. COMPARISON: 05/27/2018. FINDINGS: Single frontal view of the chest demonstrates normal heart size and pulmonary vascularity. The lungs are well aerated and clear. No large pleural effusion or pneumothorax is seen. The visualized osseous structures show no acute abnormalities. IMPRESSION: 1. No acute cardiopulmonary process. Dictated by: Dictated on workstation # [id number]
[2018-08-28 13:38] LABS: ALANINE AMINOTRANSFERASE 8 U/L (0-55); ALBUMIN 3.9 GM/DL (3.2-4.5); ALKALINE PHOSPHATASE 51 U/L (40-136); BILIRUBIN,TOTAL 0.3 MG/DL (0.1-1.0); BUN/CREATININE RATIO 13; CALCIUM 8.9 MG/DL (8.5-10.1); CARBON DIOXIDE 28 MMOL/L (21-32); CHLORIDE 103 MMOL/L (98-107); CREATININE SERUM 1.02 MG/DL (0.60-1.30); GFR ESTIMATED 54; GLUCOSE 87 MG/DL (70-105); MAGNESIUM 2.1 MG/DL (1.8-2.4); POTASSIUM 4.1 MMOL/L (3.6-5.0); SODIUM 139 MMOL/L (135-145); TOTAL PROTEIN 7.5 GM/DL (6.4-8.2)
[2018-08-28 13:44] LABS: MYOGLOBIN SERUM 51.5 NG/ML (10.0-92.0)
[2018-08-28] MEDS: IOHEXOL 350 MG/ML 150 ML (OMNIPAQUE 350) VIAL IV ONE (13:57)
[2018-08-28] MEDS: RECEIVED CONTRAST (Hold Metformin) IV SCH (13:57)
[2018-08-28] MEDS: NS 250 ML (IVPB) BAG IV ONE (13:57)
[2018-08-28] MEDS: ASPIRIN 81 MG CHEW (CHILDREN'S ASA) PO ONE (14:04)
--- NOTE | 2018-08-28 14:29 | Diagnostic Imaging Report ---
PROCEDURE: CT angiography of the chest with contrast. TECHNIQUE: Multiple contiguous axial images were obtained through the chest after uneventful bolus administration of intravenous contrast. 2D reconstructed CTA MIP acquisitions were also performed. INDICATION: Chest pain. Upper back and shoulder pain. Lower extremity swelling. COMPARISON: CTA chest 05/28/2018. FINDINGS: Riwl-vw-lclkkryl atherosclerotic calcifications are similar to the prior exam. There remains no thoracic aortic aneurysm or dissection. No pulmonary artery filling defects. Normal heart size. No pericardial effusion. No mediastinal, hilar, or axillary lymphadenopathy. Lungs are clear. No endobronchial lesions. No pleural effusion or pneumothorax. Osseous structures are intact. Cholecystectomy. No acute CT findings in the upper abdomen. IMPRESSION: 1. No thoracic aortic aneurysm or dissection. No pulmonary emboli. 2. No acute CT findings in the chest. Dictated by: Dictated on workstation # [id number]
[2018-08-28] MEDS: NITROGLYCERIN 0.4 MG SL TABS BTL 25'S SL PRN (15:15)
--- NOTE | 2018-08-28 15:18 | Diagnostic Imaging Report ---
PROCEDURE: US right lower extremity venous. TECHNIQUE: Multiple real-time grayscale images were obtained over the right lower extremity in various projections. Spectral waveform and color Doppler flow images were also obtained. INDICATION: Right leg swelling following knee replacement. FINDINGS: The veins in the right leg have good color filling and compressibility. There is normal spontaneous and augmented flow. IMPRESSION: Negative venous Doppler of the right leg. Dictated by: Dictated on workstation # [id number]
[2018-08-28] MEDS: RT-ALBUTEROL/IPRATROPIUM 3 ML (DUONEB) VIAL INH ONE (15:33)
[2018-08-28 16:18] LABS: BILIRUBIN,URINE NEGATIVE (NEGATIVE); CLARITY,URINE CLEAR; COLOR,URINE YELLOW; GLUCOSE, URINE (UA) NEGATIVE (NEGATIVE); KETONES,URINE NEGATIVE (NEGATIVE); LEUKOCYTE ESTERASE ,URINE NEGATIVE (NEGATIVE); NITRITE,URINE NEGATIVE (NEGATIVE); PH,URINE 6 (5-9); PROTEIN,URINE 1+ (NEGATIVE); UROBILINOGEN,URINE NORMAL (NORMAL)
[2018-08-28 16:24] LABS: RBC,URINE 0-2 /HPF; WBC,URINE RARE /HPF
[2018-08-28] MEDS: lisINopril 20 MG (PRINIVIL) TABLET PO ONE (16:35)
[2018-08-28] MEDS ORDERED: LISI-552 PO (16:38)
[2018-08-28 16:39] VITALS: BP 176/86
== END 2018-08-28 16:53 | disposition home or self-care (01) ==
LOC: EDUNIT# 12:50 → ER 12:52
DX: R60.0 Localized edema (principal); I12.9 Hypertensive chronic kidney disease with stage 1 through stage 4 chronic kidney disease, or unspecified chronic kidney disease; N18.2 Chronic kidney disease, stage 2 (mild); R07.89 Other chest pain; F32.9 Major depressive disorder, single episode, unspecified; K21.9 Gastro-esophageal reflux disease without esophagitis; F17.210 Nicotine dependence, cigarettes, uncomplicated; Z88.5 Allergy status to narcotic agent; Z80.0 Family history of malignant neoplasm of digestive organs; Z82.49 Family history of ischemic heart disease and other diseases of the circulatory system; Z85.828 Personal history of other malignant neoplasm of skin; Z88.0 Allergy status to penicillin; Z86.73 Personal history of transient ischemic attack (TIA), and cerebral infarction without residual deficits; Z86.010 Personal history of colon polyps; Z87.19 Personal history of other diseases of the digestive system; Z88.6 Allergy status to analgesic agent; Z98.890 Other specified postprocedural states; Z90.710 Acquired absence of both cervix and uterus; Z98.51 Tubal ligation status
CPT/HCPCS: 36415; 71045; 71275; 80053; 81000; 83605; 83735; 83874; 83880; 84484; 85025; 85379; 85610; 85730; 86141; 87040; 87077; 93041; 94640

== ENCOUNTER → 2018-09-10 | Outpatient (CLI) | payer MEDICARE, MEDICAID ==
[~2018-09-10] MED LIST changes: +LISI-552 PO
[2018-09-10 09:15] LABS: BUN/CREATININE RATIO 8; CREATININE SERUM 0.86 MG/DL (0.60-1.30); GFR ESTIMATED > 60
--- NOTE | 2018-09-10 15:10 | Diagnostic Imaging Report ---
PROCEDURE: CT neck soft tissue with contrast. TECHNIQUE: Multiple contiguous axial images were obtained through the neck after the administration of contrast. INDICATION: Vocal cord lesion. FINDINGS: The vocal folds are held in direct apposition, limiting their evaluation. Hyoid and thyroid cartilage, cricoid and cricoarytenoid joints appeared unremarkable. Prevertebral and retropharyngeal spaces are unremarkable. There are no pathological-appearing cervical lymph nodes or fluid collection. The nasopharynx, oropharynx, and hypopharynx are unremarkable. The epiglottis and aryepiglottic folds are unremarkable. No acute bony abnormality. IMPRESSION: The vocal folds are held in apposition during scanning, limiting sensitivity for their evaluation. They appeared symmetrical. No identifiable mass or lymphadenopathy. No fluid collection. Dictated by: Dictated on workstation # [id number]
== END ==
LOC: RAD 08:42
PROVIDERS: ATTEND Otolaryngology Otolaryngology/Facial Plastic Surgery
DX: J38.3 Other diseases of vocal cords (principal)
CPT/HCPCS: 36415; 70491; 82565; 84520

== ENCOUNTER 2018-09-30 12:57 | Outpatient (CLI) | payer MEDICARE, MEDICAID ==
[~2018-09-30] VITALS: Ht 165.1 cm; Wt 91.2 kg
[2018-09-30 13:04] VITALS: BP 172/83
[2018-09-30] MEDS ORDERED: SENN1TAB8 PO (13:10)
[2018-09-30] MEDS ORDERED: LISI10TA2 PO (13:10)
== END 2018-09-30 13:20 | disposition home or self-care (01) ==
LOC: PREOP 12:57
PROVIDERS: ATTEND Otolaryngology Otolaryngology/Facial Plastic Surgery
DX: Z01.818 Encounter for other preprocedural examination (principal); Z11.2 Encounter for screening for other bacterial diseases
CPT/HCPCS: 87081

== ENCOUNTER 2018-10-04 08:46 | Day surgery (SDC) | payer MEDICARE, MEDICAID ==
[~2018-10-04] VITALS: Ht 165.1 cm; Wt 91.2 kg
[~2018-10-04 08:46] MED LIST changes: +LISI10TA2 PO; +SENN1TAB8 PO
[2018-10-04] MEDS ORDERED: ceFAZolin INJECTION 1,000 MG in NS (IVPB) 50 ML IV ONE (09:00)
[2018-10-04 09:45] VITALS: BP 158/99
[2018-10-04] MEDS ORDERED: ONDANSETRON 4 MG/2 ML (SDV) Z0FRAN IV ONE (09:45)
[2018-10-04] MEDS ORDERED: FAMOTIDINE 20MG/2ML IV (PEPCID) IV ONE (09:45)
[2018-10-04] MEDS: LACTATED RINGERS 1,000 ML IV PRN ×3 (09:54→12:29)
[2018-10-04] MEDS ORDERED: CATHETER FLUSH 10 ML SYR IV PRN (10:00)
--- NOTE | 2018-10-04 10:32 | Progress Note-Pre Operative ---
Pre-Operative Progress Note H&P Reviewed The H&P was reviewed, patient examined and no changes noted. Date Seen by Provider: Oct 04, 2018 Time Seen by Provider: 10: Date H&P Reviewed: Oct 04, 2018 Time H&P Reviewed: : Pre-Operative Diagnosis: Vocal crod Lesion, Nasal Dorsum Lesion REA STOREY MD Oct 04, 2018 10:32
[2018-10-04] MEDS ORDERED: ROCURONIUM 10 MG/ML 5 ML SYRINGE IV ONE (11:12)
[2018-10-04] MEDS ORDERED: PROPOFOL INJECTION 50 ML IV ONE (11:12)
[2018-10-04] MEDS ORDERED: MIDAZOLAM 10 MG/2 ML (VERSED) VIAL ONE (11:12)
[2018-10-04] MEDS ORDERED: DEXAMETHASONE 10 MG/ML (DECADRON) 1 ML VIAL ONE (11:12)
[2018-10-04] MEDS ORDERED: SEVOFLURANE (ULTANE) 15 ML INHAL SOLN ONE (11:12)
[2018-10-04] MEDS ORDERED: LIDOCAINE/EPI 1%-1:100,000 (XYLOCAINE) 20ML ONE (11:30)
[2018-10-04] MEDS ORDERED: MUPIROCIN 2% OINT 22 GM (BACTROBAN) TUBE ONE (11:31)
[2018-10-04] MEDS ORDERED: MIDAZOLAM 2 MG/2 ML (VERSED) VIAL ONE (11:51)
--- NOTE | 2018-10-04 12:26 | Progress Note-Post Operative ---
Post-Operative Progess Note Surgeon (s)/Fishing Game Warden (s) Surgeon REA STOREY MD Fishing Game Warden n/a Pre-Operative Diagnosis Vocal crod Lesion, Nasal Dorsum Lesion Post-Operative Diagnosis same Post-Op Procedure Note Date of Procedure: Oct 04, 2018 Name of Procedure Performed: Direct LArnygosocpy with Biopsy of Right Vocal Cord Lesion, Excis of Left Nasal Dorsum Mass with Intermediate Repair Description & Findings Description and Findings: n/a Anesthesia Type get Estimated Blood Loss minimal Packing none. Specimen(s) collected/removed Right Vocal Cord Lesion Left Nasal Dorsum Lesion REA STOREY MD Oct 04, 2018 12:26
[2018-10-04] MEDS ORDERED: IBUPROFEN TABLET 200 MG TAB PO PRN (12:30)
[2018-10-04] MEDS ORDERED: PROMETHAZINE INJ 25 MG/ML (PHENERGAN) AMP IV PRN (12:30)
[2018-10-04] MEDS ORDERED: NEOSTIGMINE 1 MG/ML 5 ML SYRINGE ONE (12:35)
[2018-10-04] MEDS ORDERED: GLYCOPYRROLATE 0.2 MG/ML (ROBINUL) 2 ML VIAL ONE (12:35)
[2018-10-04] MEDS: LABETALOL HCL 20 MG/4 ML VIAL IV PRN ×2 (12:57→13:02)
[2018-10-04] MEDS: fentaNYL INJECTION 100 MCG/2 ML AMP IVP ONE (12:58)
[2018-10-04] MEDS ORDERED: MEPERIDINE (DEMEROL) INJ 50 MG/ML IVP ONE (13:00)
[2018-10-04] MEDS ORDERED: ONDANSETRON 4 MG/2 ML (SDV) Z0FRAN IVP PRN (13:00)
[2018-10-04 13:50] VITALS: BP 171/75
[2018-10-04 14:20] VITALS: BP 152/63
--- NOTE | 2018-10-04 14:34 | Anesthesia-General Post-Op ---
General Patient Condition Mental Status/LOC: Same as Preop Cardiovascular: Satisfactory Nausea/Vomiting: Absent Respiratory: Satisfactory Pain: Controlled Complications: Absent Post Op Complications Complications None Follow Up Care/Instructions Patient Instructions None needed. Anesthesia/Patient Condition Patient Condition Patient is doing well, no complaints, stable vital signs, no apparent adverse anesthesia problems. No complications reported per nursing. [place] [facility] [place]: Yes TEO QURESHI CRNA Oct 04, 2018 14:34
[2018-10-04 14:50] VITALS: BP_SYST 151; BP_SYST 152; BP_DIAS 63; BP_DIAS 65
[2018-10-04 15:20] VITALS: BP 151/65
== END 2018-10-04 15:20 | disposition home or self-care (01) ==
LOC: SDC 08:46
PROVIDERS: ATTEND Otolaryngology Otolaryngology/Facial Plastic Surgery
DX: C32.0 Malignant neoplasm of glottis (principal); C44.321 Squamous cell carcinoma of skin of nose; I10 Essential (primary) hypertension; K21.9 Gastro-esophageal reflux disease without esophagitis; F17.210 Nicotine dependence, cigarettes, uncomplicated; Z79.899 Other long term (current) drug therapy
CPT/HCPCS: 88305; 88331; 88342

== ENCOUNTER → 2018-10-15 | Outpatient (CLI) | payer MEDICARE, MEDICAID ==
[~2018-10-15] MED LIST changes: +IOHEXOL 350 MG/ML 100 ML (OMNIPAQUE 350) VIAL IV ONE; +NS 100 ML (IVPB) BAG IV ONE; +RECEIVED CONTRAST (Hold Metformin) IV SCH
[2018-10-15 12:22] LABS: BUN/CREATININE RATIO 10; CREATININE SERUM 0.88 MG/DL (0.60-1.30); GFR ESTIMATED > 60
--- NOTE | 2018-10-15 15:42 | Diagnostic Imaging Report ---
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 TECHNIQUE: Serum blood glucose level at the time of injection is 103 mg/dL. The patient was administered 10.8 mCi F-18 FDG intravenously and PET imaging was performed from the top of the skull to mid thighs. Noncontrast CT was also performed for attenuation correction and anatomic correlation. COMPARISON: No prior PET studies available for comparison. Comparison is made with CT chest study performed same day as well as CT neck study from 09/10/2018. FINDINGS: There is symmetric activity throughout the brain. Soft tissues of the neck demonstrate a small intense focus of uptake in the region of the right anterior vocal cord with an SUV max of approximately 4.7. There does appear to be some thickening at this location on the CT portion of the exam. No other areas of abnormal hypermetabolism in the neck are identified. No lymphadenopathy is seen. Imaging through the chest demonstrates the mediastinum and ksenia to be unremarkable. Pulmonary parenchyma are unremarkable. No abnormal hypermetabolism is seen. Physiologic activity in the GI and tracts in the abdomen and pelvis noted. No other abnormal regions are seen. IMPRESSION: There is a solitary focus of increased hypermetabolism involving the right anterior vocal cord. No definite lymphadenopathy or evidence of metastatic disease is detected. Dictated by: Dictated on workstation # [id number]
--- NOTE | 2018-10-15 16:25 | Diagnostic Imaging Report ---
PROCEDURE: CT chest with contrast only. TECHNIQUE: Multiple contiguous axial images were obtained through the chest after administration of intravenous contrast. INDICATION: Right vocal cord neoplasm. COMPARISON: Correlation is made with prior CT of the chest from 08/28/2018. FINDINGS: No axillary lymphadenopathy is identified. No definite hilar or mediastinal lymphadenopathy is detected. No pericardial or pleural fluid is identified. No pulmonary parenchymal nodule, mass or infiltrate is identified. The upper abdomen is unremarkable. The bony structures are nonacute. IMPRESSION: Unremarkable CT of the chest. No thoracic lymphadenopathy or evidence of pulmonary metastatic disease is identified. Dictated by: Dictated on workstation # [id number]
== END ==
LOC: RAD 11:45
PROVIDERS: ATTEND Otolaryngology Otolaryngology/Facial Plastic Surgery
DX: C32.0 Malignant neoplasm of glottis (principal)
CPT/HCPCS: 36415; 71260; 82565; 84520

== ENCOUNTER 2019-01-10 14:56 | Outpatient (RCR) | payer MEDICARE, MEDICAID ==
[~2019-01-10 14:56] MED LIST changes: -IOHEXOL 350 MG/ML 100 ML (OMNIPAQUE 350) VIAL IV ONE; -NS 100 ML (IVPB) BAG IV ONE; -RECEIVED CONTRAST (Hold Metformin) IV SCH; +SENN-231 PO; -SENN1TAB8 PO
== END 2019-01-21 | disposition home or self-care (01) ==
LOC: ONC 14:56
PROVIDERS: ATTEND Internal Medicine Hematology & Oncology
DX: Z51.0 Encounter for antineoplastic radiation therapy (principal); C32.0 Malignant neoplasm of glottis; C44.321 Squamous cell carcinoma of skin of nose; I10 Essential (primary) hypertension; K21.9 Gastro-esophageal reflux disease without esophagitis; F17.210 Nicotine dependence, cigarettes, uncomplicated; Z79.899 Other long term (current) drug therapy
CPT/HCPCS: 77290; 77295; 77300; 77307; 77334; 77336; 77417; 99204; 99213; 99214

== ENCOUNTER 2019-04-16 14:21 | Outpatient (RCR) | payer MEDICARE, MEDICAID ==
[2019-02-12 11:38] LABS: BASOPHILS # (AUTO) 0.1 10^3/uL (0.0-0.1); BASOPHILS % (AUTO) 1 % (0-10); EOSINOPHILS # (AUTO) 0.2 10^3/uL (0.0-0.3); EOSINOPHILS % (AUTO) 4 % (0-10); HEMATOCRIT 41 % (35-52); HEMOGLOBIN 13.6 G/DL (11.5-16.0); LYMPHOCYTES # (AUTO) 1.1 X 10^3 (1.0-4.0); LYMPHOCYTES % (AUTO) 23 % (12-44); MEAN CORPUSCULAR HEMOGLOBIN 31 PG (25-34); MEAN CORPUSCULAR HGB CONC 33 G/DL (32-36); MEAN CORPUSCULAR VOLUME 94 FL (80-99); MEAN PLATELET VOLUME 9.2 FL (7.4-10.4); MONOCYTES # (AUTO) 0.3 X 10^3 (0.0-1.0); MONOCYTES % (AUTO) 7 % (0-12); NEUTROPHILS # (AUTO) 3.2 X 10^3 (1.8-7.8); NEUTROPHILS % (AUTO) 65 % (42-75); PLATELET COUNT 251 10^3/uL (130-400); RED CELL DISTRIBUTION WIDTH 13.1 % (10.0-14.5); WHITE BLOOD COUNT 4.9 10^3/uL (4.3-11.0)
[2019-02-12 12:05] LABS: ALANINE AMINOTRANSFERASE 10 U/L (0-55); ALBUMIN 3.8 GM/DL (3.2-4.5); ALKALINE PHOSPHATASE 56 U/L (40-136); BILIRUBIN,TOTAL 0.3 MG/DL (0.1-1.0); BUN/CREATININE RATIO 11; CALCIUM 9.6 MG/DL (8.5-10.1); CARBON DIOXIDE 31 MMOL/L (21-32); CHLORIDE 101 MMOL/L (98-107); CREATININE SERUM 0.87 MG/DL (0.60-1.30); GFR ESTIMATED > 60; GLUCOSE 110 MG/DL (70-105); POTASSIUM 4.4 MMOL/L (3.6-5.0); SODIUM 139 MMOL/L (135-145); TOTAL PROTEIN 7.2 GM/DL (6.4-8.2)
[~2019-04-16 14:21] MED LIST changes: -TIZA4TAB3 PO; +TIZA4TAB4 PO
[2019-04-16 14:45] LABS: BASOPHILS # (AUTO) 0.1 10^3/uL (0.0-0.1); BASOPHILS % (AUTO) 2 % (0-10); EOSINOPHILS # (AUTO) 0.2 10^3/uL (0.0-0.3); EOSINOPHILS % (AUTO) 3 % (0-10); HEMATOCRIT 42 % (35-52); HEMOGLOBIN 13.7 G/DL (11.5-16.0); LYMPHOCYTES # (AUTO) 1.2 X 10^3 (1.0-4.0); LYMPHOCYTES % (AUTO) 22 % (12-44); MEAN CORPUSCULAR HEMOGLOBIN 31 PG (25-34); MEAN CORPUSCULAR HGB CONC 32 G/DL (32-36); MEAN CORPUSCULAR VOLUME 94 FL (80-99); MEAN PLATELET VOLUME 9.5 FL (7.4-10.4); MONOCYTES # (AUTO) 0.3 X 10^3 (0.0-1.0); MONOCYTES % (AUTO) 6 % (0-12); NEUTROPHILS # (AUTO) 3.7 X 10^3 (1.8-7.8); NEUTROPHILS % (AUTO) 67 % (42-75); PLATELET COUNT 280 10^3/uL (130-400); RED CELL DISTRIBUTION WIDTH 13.2 % (10.0-14.5); WHITE BLOOD COUNT 5.5 10^3/uL (4.3-11.0)
[2019-04-16 15:04] LABS: ALANINE AMINOTRANSFERASE 10 U/L (0-55); ALBUMIN 3.8 GM/DL (3.2-4.5); ALKALINE PHOSPHATASE 60 U/L (40-136); BILIRUBIN,TOTAL 0.4 MG/DL (0.1-1.0); BUN/CREATININE RATIO 10; CALCIUM 9.1 MG/DL (8.5-10.1); CARBON DIOXIDE 30 MMOL/L (21-32); CHLORIDE 101 MMOL/L (98-107); CREATININE SERUM 0.87 MG/DL (0.60-1.30); GFR ESTIMATED > 60; GLUCOSE 111 MG/DL (70-105); POTASSIUM 4.4 MMOL/L (3.6-5.0); SODIUM 140 MMOL/L (135-145); TOTAL PROTEIN 7.1 GM/DL (6.4-8.2)
== END 2019-05-13 | disposition home or self-care (01) ==
LOC: ONC 14:21
PROVIDERS: ATTEND Internal Medicine Hematology & Oncology
DX: C32.0 Malignant neoplasm of glottis (principal); C44.321 Squamous cell carcinoma of skin of nose; I10 Essential (primary) hypertension; K21.9 Gastro-esophageal reflux disease without esophagitis; F17.210 Nicotine dependence, cigarettes, uncomplicated; Z79.899 Other long term (current) drug therapy
CPT/HCPCS: 36415; 80053; 84443; 85025; 99213

== ENCOUNTER 2019-06-26 11:22 | Outpatient (RCR) | payer MEDICARE, MEDICAID ==
[2019-06-26 11:45] LABS: BASOPHILS % (AUTO) 1 % (0-10); EOSINOPHILS # (AUTO) 0.2 10^3/uL (0.0-0.3); EOSINOPHILS % (AUTO) 3 % (0-10); HEMATOCRIT 44 % (35-52); HEMOGLOBIN 14.6 G/DL (11.5-16.0); LYMPHOCYTES # (AUTO) 1.1 X 10^3 (1.0-4.0); LYMPHOCYTES % (AUTO) 18 % (12-44); MEAN CORPUSCULAR HEMOGLOBIN 31 PG (25-34); MEAN CORPUSCULAR HGB CONC 33 G/DL (32-36); MEAN CORPUSCULAR VOLUME 95 FL (80-99); MEAN PLATELET VOLUME 9.8 FL (7.4-10.4); MONOCYTES # (AUTO) 0.3 X 10^3 (0.0-1.0); MONOCYTES % (AUTO) 5 % (0-12); NEUTROPHILS # (AUTO) 4.6 X 10^3 (1.8-7.8); NEUTROPHILS % (AUTO) 75 % (42-75); PLATELET COUNT 270 10^3/uL (130-400); RED CELL DISTRIBUTION WIDTH 13.2 % (10.0-14.5); WHITE BLOOD COUNT 6.2 10^3/uL (4.3-11.0)
[2019-06-26 11:47] LABS: SMEAR SCAN COMMENT YES
[2019-06-26 12:01] LABS: ALBUMIN 3.9 GM/DL (3.2-4.5); BILIRUBIN,TOTAL 0.4 MG/DL (0.1-1.0); CALCIUM 9.3 MG/DL (8.5-10.1); CREATININE SERUM 0.93 MG/DL (0.60-1.30); POTASSIUM 4.1 MMOL/L (3.6-5.0); TOTAL PROTEIN 7.4 GM/DL (6.4-8.2)
== END 2019-09-24 | disposition home or self-care (01) ==
LOC: ONC 11:22
PROVIDERS: ATTEND Internal Medicine Hematology & Oncology
DX: C32.0 Malignant neoplasm of glottis (principal); C44.321 Squamous cell carcinoma of skin of nose; I10 Essential (primary) hypertension; K21.9 Gastro-esophageal reflux disease without esophagitis; F17.210 Nicotine dependence, cigarettes, uncomplicated; Z79.899 Other long term (current) drug therapy
CPT/HCPCS: 36415; 80053; 84443; 85025; 99213

== ENCOUNTER 2019-10-09 11:23 | Outpatient (RCR) | payer MEDICARE, MEDICAID ==
[~2019-10-09 11:23] MED LIST changes: -HYDR-3816 PO; -MORP-34 PO; +MORP-69 PO; +VERA120T15 PO; -VERA120T6 PO
[2019-10-09 11:37] LABS: BASOPHILS % (AUTO) 1 % (0-10); EOSINOPHILS # (AUTO) 0.4 10^3/uL (0.0-0.3); EOSINOPHILS % (AUTO) 6 % (0-10); HEMATOCRIT 40 % (35-52); LYMPHOCYTES # (AUTO) 1.9 X 10^3 (1.0-4.0); LYMPHOCYTES % (AUTO) 28 % (12-44); MEAN CORPUSCULAR HEMOGLOBIN 31 PG (25-34); MEAN CORPUSCULAR HGB CONC 32 G/DL (32-36); MEAN CORPUSCULAR VOLUME 96 FL (80-99); MEAN PLATELET VOLUME 9.3 FL (7.4-10.4); MONOCYTES # (AUTO) 0.5 X 10^3 (0.0-1.0); MONOCYTES % (AUTO) 7 % (0-12); NEUTROPHILS # (AUTO) 3.9 X 10^3 (1.8-7.8); NEUTROPHILS % (AUTO) 58 % (42-75); PLATELET COUNT 275 10^3/uL (130-400); RED CELL DISTRIBUTION WIDTH 13.7 % (10.0-14.5); WHITE BLOOD COUNT 6.7 10^3/uL (4.3-11.0)
[2019-10-09 11:59] LABS: ALANINE AMINOTRANSFERASE 16 U/L (0-55); ALBUMIN 3.9 GM/DL (3.2-4.5); ALKALINE PHOSPHATASE 57 U/L (40-136); BILIRUBIN,TOTAL 0.3 MG/DL (0.1-1.0); BUN/CREATININE RATIO 10; CALCIUM 8.6 MG/DL (8.5-10.1); CARBON DIOXIDE 25 MMOL/L (21-32); CHLORIDE 103 MMOL/L (98-107); CREATININE SERUM 0.87 MG/DL (0.60-1.30); GFR ESTIMATED > 60; GLUCOSE 109 MG/DL (70-105); POTASSIUM 4.2 MMOL/L (3.6-5.0); SODIUM 140 MMOL/L (135-145); TOTAL PROTEIN 7.1 GM/DL (6.4-8.2)
== END 2020-01-07 | disposition home or self-care (01) ==
LOC: ONC 11:23
PROVIDERS: ATTEND Internal Medicine Hematology & Oncology
DX: C32.0 Malignant neoplasm of glottis (principal); C44.321 Squamous cell carcinoma of skin of nose; I10 Essential (primary) hypertension; K21.9 Gastro-esophageal reflux disease without esophagitis; F17.210 Nicotine dependence, cigarettes, uncomplicated; Z79.899 Other long term (current) drug therapy
CPT/HCPCS: 80053; 84443; 85025; 99213

== ENCOUNTER 2020-03-24 07:47 | Outpatient (RCR) | payer MEDICARE, MEDICAID ==
[~2020-03-24] VITALS: Ht 167 cm; Wt 90.2 kg
[2020-03-24] MEDS ORDERED: MULT-1136 PO (08:24)
[2020-03-24] MEDS ORDERED: CHOL100048 PO (08:24)
[2020-03-24] MEDS ORDERED: IBUP-1773 PO (08:24)
[2020-03-24] MEDS ORDERED: CIDE300T3 PO (08:24)
[2020-03-24] MEDS ORDERED: DOCU100T7 PO (08:24)
[2020-03-24 08:27] VITALS: BP 137/74
[2020-03-24 08:57] LABS: BASOPHILS # (AUTO) 0.1 10^3/uL (0.0-0.1); BASOPHILS % (AUTO) 1 % (0-10); EOSINOPHILS # (AUTO) 0.2 10^3/uL (0.0-0.3); EOSINOPHILS % (AUTO) 3 % (0-10); HEMATOCRIT 42 % (35-52); HEMOGLOBIN 13.7 G/DL (11.5-16.0); LYMPHOCYTES # (AUTO) 1.7 X 10^3 (1.0-4.0); LYMPHOCYTES % (AUTO) 22 % (12-44); MEAN CORPUSCULAR HEMOGLOBIN 32 PG (25-34); MEAN CORPUSCULAR HGB CONC 33 G/DL (32-36); MEAN CORPUSCULAR VOLUME 97 FL (80-99); MEAN PLATELET VOLUME 9.7 FL (7.4-10.4); MONOCYTES # (AUTO) 0.5 X 10^3 (0.0-1.0); MONOCYTES % (AUTO) 7 % (0-12); NEUTROPHILS % (AUTO) 67 % (42-75); PLATELET COUNT 292 10^3/uL (130-400); RED CELL DISTRIBUTION WIDTH 13.1 % (10.0-14.5); WHITE BLOOD COUNT 7.5 10^3/uL (4.3-11.0)
[2020-03-24 09:17] LABS: CALCIUM 9.3 MG/DL (8.5-10.1); CREATININE SERUM 0.99 MG/DL (0.60-1.30); POTASSIUM 4.1 MMOL/L (3.6-5.0)
--- NOTE | 2020-03-24 09:39 | Diagnostic Imaging Report ---
CLINICAL INDICATION: Preop chest x-ray. No chest complaints. Patient has left vocal cord lesion. EXAM: Chest x-ray, PA and lateral views. COMPARISON: Chest x-ray dated 08/28/2018. FINDINGS: Lungs/pleura: There is stable minimal right basilar atelectasis or scarring; otherwise, the lungs are clear. There is no pneumothorax. There is no pleural effusion. Mediastinum: Unremarkable. Pulmonary vasculature: Unremarkable. Heart: Unremarkable. Bones/extrathoracic soft tissue: There are moderately hypertrophic degenerative osteophytes scattered throughout the thoracic spine. IMPRESSION: Stable chest x-ray exam with no interval radiographic evidence of acute cardiopulmonary process. Dictated by: Dictated on workstation # [id number]
== END 2020-03-24 11:03 | disposition home or self-care (01) ==
LOC: PREOP 07:47
PROVIDERS: ATTEND Otolaryngology Otolaryngology/Facial Plastic Surgery
DX: Z01.818 Encounter for other preprocedural examination (principal); Z01.810 Encounter for preprocedural cardiovascular examination; Z01.811 Encounter for preprocedural respiratory examination; Z01.812 Encounter for preprocedural laboratory examination; Z11.59 Encounter for screening for other viral diseases; Z11.2 Encounter for screening for other bacterial diseases; J38.3 Other diseases of vocal cords
CPT/HCPCS: 36415; 71046; 80048; 85025; 87081; 87635; 93005

== ENCOUNTER 2020-03-30 06:35 | Outpatient (RCR) | payer MEDICARE, MEDICAID ==
[~2020-03-30 06:35] MED LIST changes: +CHOL100048 PO; +CIDE300T3 PO; +DOCU100T7 PO; +IBUP-1773 PO; +MULT-1136 PO
== END 2020-06-28 | disposition home or self-care (01) ==
LOC: PREOP 06:35
PROVIDERS: ATTEND Otolaryngology Otolaryngology/Facial Plastic Surgery
DX: Z01.818 Encounter for other preprocedural examination (principal)

== ENCOUNTER 2020-04-02 06:30 | Day surgery (SDC) | payer MEDICARE, MEDICAID ==
[2020-04-02] VITALS (9 sets, daily range): BP systolic 119–183; BP diastolic 58–88
[~2020-04-02] VITALS: Ht 167 cm; Wt 90.2 kg
[2020-04-02] MEDS ORDERED: LACTATED RINGERS 1,000 ML IV PRN (06:49)
--- NOTE | 2020-04-02 07:07 | Progress Note-Pre Operative ---
Pre-Operative Progress Note H&P Reviewed The H&P was reviewed, patient examined and no changes noted. Date Seen by Provider: Apr 02, 2020 Time Seen by Provider: 06:30 Date H&P Reviewed: Apr 02, 2020 Time H&P Reviewed: 06:30 Pre-Operative Diagnosis: Left Vocal Cord Lesion REA STOREY MD Apr 02, 2020 07:07
[2020-04-02] MEDS ORDERED: LIDOCAINE/EPI 1%-1:100,000 (XYLOCAINE) 20ML ONE (07:16)
[2020-04-02] MEDS ORDERED: SEVOFLURANE (ULTANE) 15 ML INHAL SOLN ONE ×3 (07:23→08:49)
[2020-04-02] MEDS ORDERED: ROCURONIUM 10 MG/ML 5 ML SYRINGE IV ONE (07:23)
[2020-04-02] MEDS ORDERED: DEXAMETHASONE 10 MG/ML (DECADRON) 1 ML VIAL ONE (07:23)
[2020-04-02] MEDS ORDERED: proPOfol 200 MG/20 ML (DIPRIVAN) VIAL IV ONE (07:23)
[2020-04-02] MEDS ORDERED: LIDOCAINE PF 2% 5 ML (XYLOCAINE) VIAL ONE (07:23)
[2020-04-02] MEDS ORDERED: ONDANSETRON 4 MG/2 ML (SDV) Z0FRAN ONE (07:23)
[2020-04-02] MEDS ORDERED: fentaNYL INJECTION 100 MCG/2 ML AMP ONE (07:24)
[2020-04-02] MEDS ORDERED: MIDAZOLAM 2 MG/2 ML (VERSED) VIAL ONE (07:24)
--- NOTE | 2020-04-02 08:27 | Progress Note-Post Operative ---
Post-Operative Progess Note Surgeon (s)/Bead Stringer (s) Surgeon REA STOREY MD Bead Stringer n/a Pre-Operative Diagnosis Left Vocal Cord Lesion Post-Operative Diagnosis same Post-Op Procedure Note Date of Procedure: Apr 02, 2020 Name of Procedure Performed: Direct Laryngoscopy with Removal of Left Vocal Cord Lesion Description & Findings Description and Findings: n/a Anesthesia Type get Estimated Blood Loss minimal Packing none. Specimen(s) collected/removed left coal cord lesion to pathology REA STOREY MD Apr 02, 2020 08:27
[2020-04-02] MEDS ORDERED: PROMETHAZINE INJ 25 MG/ML (PHENERGAN) AMP IV PRN (08:30)
[2020-04-02] MEDS ORDERED: IBUPROFEN TABLET 200 MG TAB PO PRN (08:30)
[2020-04-02] MEDS ORDERED: morphine INJ 10 MG/ML 1ML (SYR OR VIAL) IVP ONE (08:45)
[2020-04-02] MEDS ORDERED: LABETALOL HCL 100 MG/20 ML VIAL IV ONE (08:45)
[2020-04-02] MEDS ORDERED: MEPERIDINE (DEMEROL) INJ 50 MG/ML IVP ONE (08:45)
[2020-04-02] MEDS ORDERED: HYDROmorphone 2 MG/ML VIAL (DILAUDID) IV ONE (08:45)
[2020-04-02] MEDS ORDERED: ONDANSETRON 4 MG/2 ML (SDV) Z0FRAN IVP PRN (08:45)
[2020-04-02] MEDS ORDERED: NEOSTIGMINE 3 MG/3 ML VIAL ONE (08:51)
[2020-04-02] MEDS ORDERED: GLYCOPYRROLATE 0.2 MG/ML (ROBINUL) 2 ML VIAL ONE (08:51)
--- NOTE | 2020-04-02 10:01 | Anesthesia-General Post-Op ---
General Patient Condition Mental Status/LOC: Same as Preop Cardiovascular: Satisfactory Nausea/Vomiting: Absent Respiratory: Satisfactory Pain: Controlled Complications: Absent Post Op Complications Complications None Follow Up Care/Instructions Patient Instructions None needed. Anesthesia/Patient Condition Patient Condition Patient is doing well, no complaints, stable vital signs, no apparent adverse anesthesia problems. No complications reported per nursing. ADELIA OKEEFE CRNA Apr 02, 2020 10:01
== END 2020-04-02 11:05 | disposition home or self-care (01) ==
LOC: SDC 06:30
PROVIDERS: ATTEND Otolaryngology Otolaryngology/Facial Plastic Surgery
DX: J38.2 Nodules of vocal cords (principal); I10 Essential (primary) hypertension; F17.210 Nicotine dependence, cigarettes, uncomplicated; G89.29 Other chronic pain; F32.9 Major depressive disorder, single episode, unspecified; M06.9 Rheumatoid arthritis, unspecified; K21.9 Gastro-esophageal reflux disease without esophagitis; E66.01 Morbid (severe) obesity due to excess calories; Z86.73 Personal history of transient ischemic attack (TIA), and cerebral infarction without residual deficits; Z68.32 Body mass index [BMI] 32.0-32.9, adult; Z88.6 Allergy status to analgesic agent; Z88.2 Allergy status to sulfonamides; Z88.1 Allergy status to other antibiotic agents; Z85.818 Personal history of malignant neoplasm of other sites of lip, oral cavity, and pharynx; Z90.710 Acquired absence of both cervix and uterus; Z96.651 Presence of right artificial knee joint; Z90.49 Acquired absence of other specified parts of digestive tract; Z90.721 Acquired absence of ovaries, unilateral
CPT/HCPCS: 88305

== ENCOUNTER 2020-10-06 09:38 | Inpatient (IN) | payer MEDICARE, MEDICAID ==
[~2020-10-06] VITALS: Ht 167 cm; Wt 94.7 kg
[2020-10-06 10:05] LABS: BASOPHILS # (AUTO) 0.1 10^3/uL (0.0-0.1); BASOPHILS % (AUTO) 1 % (0-10); EOSINOPHILS # (AUTO) 0.3 10^3/uL (0.0-0.3); EOSINOPHILS % (AUTO) 5 % (0-10); HEMATOCRIT 45 % (35-52); HEMOGLOBIN 14.2 g/dL (11.5-16.0); LYMPHOCYTES # (AUTO) 2.3 10^3/uL (1.0-4.0); LYMPHOCYTES % (AUTO) 36 % (12-44); MEAN CORPUSCULAR HEMOGLOBIN 31 pg (25-34); MEAN CORPUSCULAR HGB CONC 32 g/dL (32-36); MEAN CORPUSCULAR VOLUME 99 fL (80-99); MEAN PLATELET VOLUME 10.1 fL (9.0-12.2); MONOCYTES # (AUTO) 0.4 10^3/uL (0.0-1.0); MONOCYTES % (AUTO) 6 % (0-12); NEUTROPHILS # (AUTO) 3.4 10^3/uL (1.8-7.8); NEUTROPHILS % (AUTO) 52 % (42-75); PLATELET COUNT 270 10^3/uL (130-400); WHITE BLOOD COUNT 6.5 10^3/uL (4.3-11.0)
--- NOTE | 2020-10-06 10:18 | ED Neurological Problem ---
General Chief Complaint: Neuro-Stroke Like Symptoms Stated Complaint: STROKE Source: patient, EMS Exam Limitations: no limitations History of Present Illness Date Seen by Provider: Oct 06, 2020 Time Seen by Provider: 09:45 Initial Comments Patient presents ER by EMS from home with chief complaint about 4 or 5 days ago she had a bad headache. She did not think anything of it because she has frequent headaches similar to this. 4 days ago she noticed she started having some difficulty dragging her left foot. Her symptoms have progressively worsened where now she has left facial droop, slurred speech and weakness in her left upper and lower extremities. Blood sugar was 107 per EMS. She does not have a history of stroke but she does have a history of TIAs. No heart history. She does have hypertension, hyperlipidemia, hypothyroidism. She denies a history of diabetes. Allergies and Home Medications Allergies Coded Allergies: acetaminophen (Verified Allergy, Severe, throat swells, 03/24/20) nalbuphine (Verified Allergy, Severe, ANAPHYLAXIS, 03/24/20) oxycodone (Verified Allergy, Severe, throat swells, PT TOLERATES HYDROCODONE, 01/31/17) suvorexant (Verified Allergy, Severe, ANAPHYLAXIS, 03/24/20) sulfamethoxazole (Verified Allergy, Mild, HIVES, 03/24/20) trimethoprim (Verified Allergy, Mild, HIVES, 03/24/20) Home Medications Cholecalciferol (Vitamin D3) 25 Mcg Capsule, 25 MCG PO DAILY, (Reported) Cider Vinegar 300 Mg Tablet, 300 MG PO DAILY, (Reported) Cyanocobalamin (Vitamin B-12) 2,500 Mcg Tablet, 2,500 MCG PO DAILY, (Reported) Docusate Sodium 100 Mg Tablet, 100 MG PO DAILY, (Reported) Escitalopram Oxalate 20 Mg Tablet, 20 MG PO DAILY, (Reported) Hydrocodone Bit/Acetaminophen 1 Each Tablet, 1 EACH PO TID, (Reported) Ibuprofen 600 Mg Tablet, 600 MG PO Q8H PRN for PAIN-MILD, (Reported) Levothyroxine Sodium 150 Mcg Tablet, 150 MCG PO DAILY, (Reported) Lisinopril 10 Mg Tablet, 10 MG PO DAILY, (Reported) Morphine Sulfate 30 Mg Tablet.er, 30 MG PO BID, (Reported) Multivitamin 1 Each Tablet, 1 EACH PO DAILY, (Reported) Omeprazole 20 Mg Tablet.dr, 20 MG PO DAILY, (Reported) Tizanidine HCl 4 Mg Tablet, 4 MG PO TID, (Reported) Trazodone HCl 150 Mg Tablet, 150 MG PO HS, (Reported) Verapamil HCl 120 Mg Tablet, 120 MG PO BID, (Reported) Patient Home Medication List Home Medication List Reviewed: Yes Review of Systems Review of Systems Constitutional: No chills, No diaphoresis Eyes: Denies Blindness, Denies Blurred Vision Ears, Nose, Mouth, Throat: denies ear pain, denies ear discharge Respiratory: No cough, No short of breath Cardiovascular: No chest pain, No edema; Hx of Intervention; No palpitations, No syncope Gastrointestinal: No abdominal pain, No nausea Genitourinary: No discharge, No dysuria Musculoskeletal: No back pain; joint pain (Left hip and knee) Psychiatric/Neurological: See HPI, Headache All Other Systems Reviewed Negative Unless Noted: Yes Past Jqmavuk-Xjlpge-Bgvyvt Hx Patient Social History Alcohol Use: Denies Use Recreational Drug Use: No Smoking Status: Current Everyday Smoker Type Used: Cigarettes 2nd Hand Smoke Exposure: Yes Recent Hopitalizations: No Immunizations Up To Date Tetanus Booster (TDap): Unknown Date of Pneumonia Vaccine: Aug 03, 2016 Seasonal Allergies Seasonal Allergies: No Past Medical History Surgeries: Yes (bilat elbow, L shoulder, back x2, L TKR x2, teeth pulled, R TKR AND SCOPE) Section, Eye Surgery, Gallbladder, Hysterectomy, Joint Replacement, Oophorectomy, Orthopedic, Tubal Ligation Respiratory: No Cardiac: Yes (HX HEART MURMUR) Heart Murmur, Hypertension Neurological: Yes TIA Reproductive Disorders: No [employer] History: Hysterectomy, Menopausal Sexually Transmitted Disease: No HIV/AIDS: No Genitourinary: Yes (stage 2 kidney disease) Gastrointestinal: Yes Gastroesophageal Reflux, Chronic Constipation, Polyps Musculoskeletal: Yes (joint pain) Arthritis, Chronic Back Pain Endocrine: Yes Hypothyroidsim HEENT: Yes (bilat cataracts removed, dentures, GLASSES) Glaucoma Loss of Vision: Denies Hearing Impairment: Denies Cancer: Yes (THROAT CANCER) Skin Did You Recieve Any Treatments: Yes What Type of Treatment Did You: Surgical Intervention Psychosocial: Yes (RELATED TO THYROID) Depression Integumentary: No Blood Disorders: No Adverse Reaction/Blood Tranf: No (N/A) Family Medical History Colon cancer 19 FATHER (stomach cancer) Completed stroke 19 FATHER G8 BROTHER Diabetes mellitus G8 BROTHER G8 SISTER Hypertension 19 FATHER G8 BROTHER Myocardial infarction 19 FATHER G8 BROTHER Respiratory disorder 19 MOTHER Thyroid disease G8 SISTER Heart Disease, Cancer, CAD Under 55 Years Old, Diabetes, Hypertension Physical Exam Vital Signs Vital Signs - First Documented 10/06/20 09:51 Temp 36.1 Pulse 65 Resp 20 B/P (MAP) 192/86 (121) Pulse Ox 95 Capillary Refill : Height, Weight, BMI Height: 5'5.00" Weight: 201lbs. 0.0oz. [id number]; 32.34 BMI Method:Stated General Appearance: WD/WN, no apparent distress HEENT: PERRL/EOMI, normal ENT inspection, pharynx normal Neck: full range of motion, normal inspection Respiratory: lungs clear, normal breath sounds, no respiratory distress Cardiovascular: normal peripheral pulses, regular rate, rhythm, no murmur Peripheral Pulses: 2+ Radial Pulses (R), 2+ Radial Pulses (L) Gastrointestinal: normal bowel sounds, non tender, soft Extremities: normal inspection, normal capillary refill Neurologic/Psychiatric: alert, normal mood/affect, oriented x 3 Crainal Nerves: normal hearing, abnormal speech Coordination/Gait: normal finger to nose, abnormal gait Motor/Sensory: no sensory deficit, pronator drift (L), weak motor strength LUE, weak motor strength LLE Skin: normal color, warm/dry Stroke Onset of Symptoms Date of Onset of Symptoms: Oct 02, 2020 Symptoms onset unknown: Yes NIH Stroke Scale Assessment Select: Initial Level of Consciousness: 0=Alert (0), Level of Consciousness- Questions: 0=Answers both month/age (0), LOC Commands: 0=Performs both tasks (0), Gaze: Normal (0), Visual Edge: 0=No visual loss (0), Facial Movement (Facial Paresis): 1=Minor paralysis (1), Motor Function-Arms Right: 0=No drift (0), Motor Function-Arms Left: 1=Drift (1), Motor Function-Legs Right: 0=No drift (0), Motor Function-Legs Left: 1=Drift (1), Limb Ataxia: 0=Absent (0), Sensory: 0=Normal:no loss (0), Best Language: 0=No aphasia (0), Dysarthria: 1=Mild to moderate loss (1), Extinction & Inattention: 0=No abnormality (0), Total: 4 Stroke Thrombolytic Exclusion Age 18 or Over: Yes Acute intenal hemorrhage: No History of CVA: No Uncontrolled Coagulation Defec: No Intracranial Hemorrhage: No Severe Hypertension: No GI or Bleed: No Subarachnoid Hemorrhage: No Intracranial Neoplasm/Aneurysm: No Oral Anticoagulants: No Surgery or Trauma: No Puncture of Non-Compressible V: No Recent CPR: No Diabetic Hemorrhagic Retinopat: No Organ Biopsy: No Recent Obstetric Delivery: No Glucose: No (118) Significant Hepatic Dysfunctio: No NIH Stoke Scale >22: No Bacterial Endocarditis: No Pericarditis: No Improving Symptoms: No Platelets: No TPA Contraindication: Yes (Well outside the window for TPA) IV - TPa Received IV - TPa Procedure Performed?: No (Outside the time window) Progress/Results/Core Measures Results/Orders Lab Results Laboratory Tests Test 10/06/20 09:55 10/06/20 09:56 10/06/20 09:58 Range/Units White Blood Count 6.5 4.3-11.0 10^3/uL Red Blood Count 4.52 3.80-5.11 10^6/uL Hemoglobin 14.2 11.5-16.0 g/dL Hematocrit 45 35-52 % Mean Corpuscular Volume 99 80-99 fL Mean Corpuscular Hemoglobin 31 25-34 pg Mean Corpuscular Hemoglobin Concent 32 32-36 g/dL Red Cell Distribution Width 13.3 10.0-14.5 % Platelet Count 270 130-400 10^3/uL Mean Platelet Volume 10.1 9.0-12.2 fL Immature Granulocyte % (Auto) 1 % Neutrophils (%) (Auto) 52 42-75 % Lymphocytes (%) (Auto) 36 12-44 % Monocytes (%) (Auto) 6 0-12 % Eosinophils (%) (Auto) 5 0-10 % Basophils (%) (Auto) 1 0-10 % Neutrophils # (Auto) 3.4 1.8-7.8 10^3/uL Lymphocytes # (Auto) 2.3 1.0-4.0 10^3/uL Monocytes # (Auto) 0.4 0.0-1.0 10^3/uL Eosinophils # (Auto) 0.3 0.0-0.3 10^3/uL Basophils # (Auto) 0.1 0.0-0.1 10^3/uL Immature Granulocyte # (Auto) 0.0 0.0-0.1 10^3/uL Prothrombin Time 13.5 12.2-14.7 SEC INR Comment 1.0 0.8-1.4 Activated Partial Thromboplast Time 46 H 24-35 SEC D-Dimer 0.54 H 0.00-0.49 UG/ML Sodium Level 139 135-145 MMOL/L Potassium Level 3.7 3.6-5.0 MMOL/L Chloride Level 99 98-107 MMOL/L Carbon Dioxide Level 29 21-32 MMOL/L Anion Gap 11 5-14 MMOL/L Blood Urea Nitrogen 15 7-18 MG/DL Creatinine 0.96 0.60-1.30 MG/DL Estimat Glomerular Filtration Rate 57 BUN/Creatinine Ratio 16 Glucose Level 112 H 70-105 MG/DL Calcium Level 9.2 8.5-10.1 MG/DL Corrected Calcium 9.2 8.5-10.1 MG/DL Total Bilirubin 0.4 0.1-1.0 MG/DL Aspartate Amino Transf (AST/SGOT) 18 5-34 U/L Alanine Aminotransferase (ALT/SGPT) 17 0-55 U/L Alkaline Phosphatase 60 40-136 U/L Troponin I < 0.028 <0.028 NG/ML Total Protein 7.8 6.4-8.2 GM/DL Albumin 4.0 3.2-4.5 GM/DL Glucometer 118 H 70-110 MG/DL Urine Color YELLOW Urine Clarity CLEAR Urine pH 7.0 5-9 Urine Specific Strawn 1.015 L 1.016-1.022 Urine Protein NEGATIVE NEGATIVE Urine Glucose (UA) NEGATIVE NEGATIVE Urine Ketones NEGATIVE NEGATIVE Urine Nitrite NEGATIVE NEGATIVE Urine Bilirubin NEGATIVE NEGATIVE Urine Urobilinogen 0.2 < = 1.0 MG/DL Urine Leukocyte Esterase NEGATIVE NEGATIVE Urine RBC (Auto) NEGATIVE NEGATIVE Urine RBC NONE /HPF Urine WBC 0-2 /HPF Urine Squamous Epithelial Cells 0-2 /HPF Urine Crystals NONE /LPF Urine Bacteria NEGATIVE /HPF Urine Casts NONE /LPF Urine Mucus NEGATIVE /LPF Urine Culture Indicated NO My Orders Orders - ANABEL TEIXEIRA Code/Resuscitation (10/06/20 09:58) Cbc With Automated Diff (10/06/20 09:58) Protime With Inr (10/06/20 09:58) Partial Thromboplastin Time (10/06/20 09:58) Comprehensive Metabolic Panel (10/06/20 09:58) Fibrin Degradation Products (10/06/20 09:58) Troponin I (10/06/20 09:58) Ua Culture If Indicated (10/06/20 09:58) Chest 1 View, Ap/Pa Only (10/06/20 09:58) Ekg Tracing (10/06/20 09:58) Nothing By Mouth (10/06/20 Lunch) Accucheck Stat ONCE (10/06/20 09:58) Ed Iv/Invasive Line Start (10/06/20 09:58) Ed Iv/Invasive Line Start (10/06/20 09:58) Vital Signs Stroke Patient Q15M (10/06/20 09:58) O2 (10/06/20 09:58) Intake & Output 06,14,22 (10/06/20 09:58) Monitor-Rhythm Ecg Trace Only (10/06/20 09:58) Dysphagia Screening Tool (10/06/20 09:58) Lipid Panel (10/07/20 06:00) Ct Angio Head/Neck (10/06/20 09:58) Iohexol Injection (Omnipaque 350 Mg/Ml 1 (10/06/20 10:30) Received Contrast (Hold Metformin- Contr (10/06/20 10:30) Ns (Ivpb) (Sodium Chloride 0.9% Ivpb Bag (10/06/20 10:30) Hydralazine Injection (Apresoline Inject (10/06/20 11:45) Aspirin Chewable Tablet (Baby Aspirin Ch (10/06/20 11:45) Acetaminophen Tablet (Tylenol Tablet) (10/06/20 12:00) Medications Given in ED Current Medications Medications Dose Ordered Sig/Anabella Route Start Time Stop Time Status Last Admin Dose Admin Iohexol 75 ml ONCE ONCE IV 10/06/20 10:30 10/06/20 10:31 DC 10/06/20 10:44 75 ML Sodium Chloride 100 ml ONCE ONCE IV 10/06/20 10:30 10/06/20 10:31 DC 10/06/20 10:44 80 ML Vital Signs/I&O 10/06/20 09:51 Temp 36.1 Pulse 65 Resp 20 B/P (MAP) 192/86 (121) Pulse Ox 95 Progress Progress Note : Time: 10:38 Progress Note The patient presents with left-sided weakness and mild dysarthria, 4 points NIH. She is well outside the time window for TPA to be helpful. We elected to do a CT angiogram of her head and neck which will include a noncontrast prestudy. Suspect CVA. With her headache could be related to a status migrainosus with aura however she says she is never had aura like this before and has never had weakness related to headaches. She has had no visual disturbances. She does have a history of TIA and risk factors of smoking, hypertension, hyperlipidemia and early onset heart disease with her father. Initial ECG Impression Date: Oct 06, 2020 Initial ECG Impression Time: 09:52 Initial ECG Rate: 66 Initial ECG Rhythm: Normal Sinus Initial ECG Intervals: Normal Initial ECG Impression: Normal, Nonspecific Changes Comment Normal sinus rhythm without clinically relevant ST changes. Diagnostic Imaging Diagonstic Imaging: Xray Plain Films/CT/US/NM/MRI: chest Comments [facility], [place] NAME: YUMIKO QUINTANA Constant Therapy REC#: [id number] PT STATUS: REG ER : 1950 PHYSICIAN: ANABEL TEIXEIRA MD ADMIT DATE: 10/06/20/ER Draft Date of Exam:10/06/20 CHEST 1 VIEW, AP/PA ONLY INDICATION: Cerebral vascular accident. AP view of the chest is obtained with comparison made study of 03/24/2020. FINDINGS: Heart size and pulmonary vascularity are within normal limits, and the lungs are clear, bilaterally. IMPRESSION: Unremarkable chest. Dictated on workstation # [id number] Dict: 10/06/20 1115 Trans: 10/06/20 1118 [id number] Interpreted by: ABBY SUAZO MD Electronically signed by: Reviewed: Reviewed by Me Diagonstic Imaging: CT Plain Films/CT/US/NM/MRI: c-spine, head Comments NAME: YUMIKO QUINTANA MED REC#: [id number] PT STATUS: REG ER : 1950 PHYSICIAN: ANABEL TEIXEIRA MD ADMIT DATE: 10/06/20/ER Draft Date of Exam:10/06/20 CT ANGIO HEAD/NECK PROCEDURE: CT angiography of the head and CT angiography of the neck with and without contrast. TECHNIQUE: Contiguous noncontrast images were obtained from the skull base through the vertex. After intravenous contrast administration, helical CT angiography of the neck was performed. Source data was reformatted into 3D MIP projections. Delayed post contrast acquisition was also obtained. Auto Exposure Controls were utilized during the CT exam to meet ALARA standards for radiation dose reduction. INDICATION: Left-sided weakness with headache and dizziness. Precontrast images through the brain demonstrate the ventricles and sulci to be within normal limits. No sulcal effacement or midline shift is identified. No acute intra-axial or extra-axial hemorrhage is detected. Cisterns are patent. There is a small low density right thalamus consistent with an age-indeterminate lacunar infarct. The cisterns are patent. The visualized paranasal sinuses are clear. Delayed postcontrast images are without evidence of enhancing lesion. CT angiographic study through the head and neck demonstrates a three-vessel branching pattern to the aortic arch. The left common carotid artery is widely patent. The right common carotid artery is widely patent. There is calcified plaque at the carotid bifurcations bilaterally but no significant stenosis is identified. Both distal internal carotid arteries demonstrate calcified plaque in the carotid siphons. Both the right and left middle cerebral arteries appear to be widely patent. M1 and M2 segments are patent. No thromboemboli are seen. No definite large branch occlusion is identified. The right and left anterior cerebral arteries are patent. The right and left posterior cerebral arteries appear to be patent. There is a patent posterior communicating artery on the right. The basilar artery is patent. The vertebral arteries appear to be codominant. No vertebral stenosis or occlusion is detected. IMPRESSION: 1. Small low density right thalamus consistent with age indeterminate lacunar infarct. No acute intracranial hemorrhage is detected. MRI may be useful for further evaluation. 2. Unremarkable CT angiogram of the head and neck. No large branch occlusion or thromboembolism detected. Dictated on workstation # [id number] Dict: 10/06/20 1116 Trans: 10/06/20 1126 [id number] Interpreted by: TEOFILO LAWRENCE MD Electronically signed by: Reviewed: Reviewed by Me Consults : Consults Notes Dr Simms: [facility] neurologist medical cost consultant agrees that the patient is outside the window for TPA and would recommend a routine admission with standard stroke work-up, echocardiogram, MRI, start aspirin and statin. Departure Communication (Admissions) Time/Spoke to Admitting Phy: 11:35 Discussed the case with Dr. Vaca and she agrees to admit the patient for stroke work-up, MRI, echocardiogram and would like consultation with cardiology. Time/Spoke to Consulting Phy: 11:42 Discussed the case with Dr. Coughlin, cardiology and he agrees to consult. Impression Primary Impression: CVA (cerebral vascular accident) Qualified Codes: I63.9 - Cerebral infarction, unspecified Additional Impression: Headache Qualified Codes: R51 - Headache Disposition: 09 ADMITTED INPATIENT Condition: Stable Admissions Decision to Admit Reason: Admit from ER (General) Decision to Admit/Date: Oct 06, 2020 Time/Decision to Admit Time: 11:30 Departure-Patient Inst. Referrals: SUSAN HAYWARD MD (PCP/Family) Primary Care Physician ANABEL TEIXEIRA Oct 06, 2020 10:17
[2020-10-06 10:19] LABS: CHLORIDE 99 MMOL/L (98-107); POTASSIUM 3.7 MMOL/L (3.6-5.0); SODIUM 139 MMOL/L (135-145)
[2020-10-06 10:20] LABS: CALCIUM 9.2 MG/DL (8.5-10.1)
[2020-10-06 10:21] LABS: GLUCOSE 112 MG/DL (70-105); TOTAL PROTEIN 7.8 GM/DL (6.4-8.2)
[2020-10-06 10:22] LABS: CARBON DIOXIDE 29 MMOL/L (21-32)
[2020-10-06 10:23] LABS: BILIRUBIN,TOTAL 0.4 MG/DL (0.1-1.0)
[2020-10-06 10:24] LABS: ALKALINE PHOSPHATASE 60 U/L (40-136)
[2020-10-06 10:25] LABS: CREATININE SERUM 0.96 MG/DL (0.60-1.30); GFR ESTIMATED 57
[2020-10-06 10:25] LABS: BILIRUBIN,URINE NEGATIVE (NEGATIVE); CLARITY,URINE CLEAR; COLOR,URINE YELLOW; GLUCOSE, URINE (UA) NEGATIVE (NEGATIVE); KETONES,URINE NEGATIVE (NEGATIVE); LEUKOCYTE ESTERASE ,URINE NEGATIVE (NEGATIVE); NITRITE,URINE NEGATIVE (NEGATIVE); PROTEIN,URINE NEGATIVE (NEGATIVE)
[2020-10-06 10:26] LABS: BUN/CREATININE RATIO 16
[2020-10-06 10:28] LABS: ALANINE AMINOTRANSFERASE 17 U/L (0-55)
[2020-10-06 10:30] LABS: FIBRIN DEGRADATION PRODUCTS 0.54 UG/ML (0.00-0.49); PROTHROMBIN TIME PATIENT 13.5 SEC (12.2-14.7)
[2020-10-06] MEDS ORDERED: NS 100 ML (IVPB) BAG IV ONE (10:30)
[2020-10-06] MEDS ORDERED: IOHEXOL 350 MG/ML 100 ML (OMNIPAQUE 350) VIAL IV ONE (10:30)
[2020-10-06] MEDS ORDERED: HOLD METFORMIN - RECEIVED CONTRAST 20 ML VIAL IV SCH (10:30)
[2020-10-06 10:34] LABS: BACTERIA,URINE NEGATIVE /HPF; SQUAMOUS EPITHELIAL CELL,UR 0-2 /HPF; WBC,URINE 0-2 /HPF
--- NOTE | 2020-10-06 11:19 | Diagnostic Imaging Report ---
INDICATION: Cerebral vascular accident. AP view of the chest is obtained with comparison made study of 03/24/2020. FINDINGS: Heart size and pulmonary vascularity are within normal limits, and the lungs are clear, bilaterally. IMPRESSION: Unremarkable chest. Dictated by: Dictated on workstation # [id number]
--- NOTE | 2020-10-06 11:27 | Diagnostic Imaging Report ---
PROCEDURE: CT angiography of the head and CT angiography of the neck with and without contrast. TECHNIQUE: Contiguous noncontrast images were obtained from the skull base through the vertex. After intravenous contrast administration, helical CT angiography of the neck was performed. Source data was reformatted into 3D MIP projections. Delayed post contrast acquisition was also obtained. Auto Exposure Controls were utilized during the CT exam to meet ALARA standards for radiation dose reduction. INDICATION: Left-sided weakness with headache and dizziness. Precontrast images through the brain demonstrate the ventricles and sulci to be within normal limits. No sulcal effacement or midline shift is identified. No acute intra-axial or extra-axial hemorrhage is detected. Cisterns are patent. There is a small low density right thalamus consistent with an age-indeterminate lacunar infarct. The cisterns are patent. The visualized paranasal sinuses are clear. Delayed postcontrast images are without evidence of enhancing lesion. CT angiographic study through the head and neck demonstrates a three-vessel branching pattern to the aortic arch. The left common carotid artery is widely patent. The right common carotid artery is widely patent. There is calcified plaque at the carotid bifurcations bilaterally but no significant stenosis is identified. Both distal internal carotid arteries demonstrate calcified plaque in the carotid siphons. Both the right and left middle cerebral arteries appear to be widely patent. M1 and M2 segments are patent. No thromboemboli are seen. No definite large branch occlusion is identified. The right and left anterior cerebral arteries are patent. The right and left posterior cerebral arteries appear to be patent. There is a patent posterior communicating artery on the right. The basilar artery is patent. The vertebral arteries appear to be codominant. No vertebral stenosis or occlusion is detected. IMPRESSION: 1. Small low density right thalamus consistent with age indeterminate lacunar infarct. No acute intracranial hemorrhage is detected. MRI may be useful for further evaluation. 2. Unremarkable CT angiogram of the head and neck. No large branch occlusion or thromboembolism detected. Dictated by: Dictated on workstation # [id number]
[2020-10-06] MEDS ORDERED: hydrALAZINE (APESOLINE) 20 MG/ML VIAL IV ONE (11:45)
[2020-10-06] MEDS ORDERED: ASPIRIN 81 MG CHEW (CHILDREN'S ASA) PO ONE (11:45)
[2020-10-06] MEDS ORDERED: ACETAMINOPHEN 500 MG TAB (TYLENOL) PO ONE (12:00)
[2020-10-06] MEDS ORDERED: HYDROcodone/APAP 7.5 MG/325 MG (LORTAB, LORCET PLUS) TABLET PO ONE (12:00)
--- NOTE | 2020-10-06 12:42 | Consultation-Cardiology ---
HPI-Cardiology Cardiology Consultation: Date of Consultation 10/06/20 Time Seen by a Provider: 13:10 Date of Admission 10-06-2020 Attending Physician Shannan Hills DO Admitting Physician Blanka Wolf MD Consulting Physician Frank Munguia MD HPI: Chief Complaint: Cryptogenic CVA Ms. Quintana is a 70 yr old female admitted to 419 from the ED with new onset CVA. She reports approx 5 days ago she was started on Lyrica. She states the day after she took it she began to have some gen weakness, fatigue. She reports blurred vision, but this is improved somewhat. She reports the symptoms progressed and yesterday she noticed left sided facial droop and slurring of her speech. She reports she was also dragging her left leg. She reports this morning she had a terrible MEYER, she got up and went to make coffee. She reports she was in the living room sitting her coffee cup down when she fell and was unable to get up. She reports she has had 2 falls at home d/t losing her balance in the last 4 days. She denies any c/o CP, palpitations, syncope or near syncope. She smokes 1 PPD of cigs. No c/o fever, chills, n/v/d. Review of Systems-Cardiology Review of Systems Constitutional: No chills, No fever; lightheadedness, malaise Eyes: blurred vision Ears/Nose/Throat: No epistaxis, No recent hearing loss Respiratory: As described under HPI Cardiovascular: As described under HPI Gastrointestinal: No constipation, No diarrhea, No nausea, No vomiting Genitourinary: No dysuria, No hematuria Musculoskeletal: back pain (chronic) Skin: No rash on exposed areas, No ulcerations on exposed areas Psychiatric/Neurological: As described under HPI Hematologic: No bleeding abnormalities All Other Systems Reviewed Negative Unless Noted: Yes ZEM-Fjtbfr-Sjxtpr Hx Patient Social History Alcohol Use: Denies Use Recreational Drug Use: No Smoking Status: Current Everyday Smoker Type Used: Cigarettes 2nd Hand Smoke Exposure: Yes Recent Foreign Travel: No Recent Infectious Disease Expo: No Immunizations Up To Date Tetanus Booster (TDap): Unknown Date of Pneumonia Vaccine: Aug 03, 2016 Past Medical History PMH As described under Assessment. Family Medical History Family Medical History: She reports her mother had CAD. She reports her father had CVA, HTN and CAD. She reports a brother with CVA, CAD and HTN. Family History: 19 FATHER Colon cancer (stomach cancer) Completed stroke Hypertension Myocardial infarction 19 MOTHER Respiratory disorder G8 BROTHER Diabetes mellitus Hypertension Myocardial infarction Completed stroke G8 SISTER Diabetes mellitus Thyroid disease Allergies and Home Medications Allergies Coded Allergies: acetaminophen (Verified Allergy, Severe, throat swells, 03/24/20) nalbuphine (Verified Allergy, Severe, ANAPHYLAXIS, 03/24/20) oxycodone (Verified Allergy, Severe, throat swells, PT TOLERATES HYDROCODONE, 01/31/17) suvorexant (Verified Allergy, Severe, ANAPHYLAXIS, 03/24/20) sulfamethoxazole (Verified Allergy, Mild, HIVES, 03/24/20) trimethoprim (Verified Allergy, Mild, HIVES, 03/24/20) Home Medications Aspirin 325 Mg Tablet.dr, 325 MG PO DAILY Prescribed by: SHANNAN HILLS on 10/07/20 1149 Atorvastatin Calcium 40 Mg Tablet, 40 MG PO HS Prescribed by: SHANNAN HILLS on 10/07/20 1149 Baclofen 10 Mg Tablet, 10 MG PO Q8H PRN for MUSCLE SPASMS, (Reported) Cholecalciferol (Vitamin D3) 25 Mcg Capsule, 25 MCG PO DAILY, (Reported) Cider Vinegar 300 Mg Tablet, 300 MG PO DAILY, (Reported) Cyanocobalamin (Vitamin B-12) 2,500 Mcg Tablet, 2,500 MCG PO DAILY, (Reported) Docusate Sodium 100 Mg Tablet, 100 MG PO DAILY PRN for CONSTIPATION-1ST LINE, (Reported) Escitalopram Oxalate 20 Mg Tablet, 20 MG PO HS, (Reported) Hydrocodone/Acetaminophen 1 Each Tablet, 1 EA PO Q8H PRN for PAIN-MODERATE (5- 7), (Reported) Ibuprofen 600 Mg Tablet, 600 MG PO Q8H PRN for PAIN-MILD, (Reported) Levothyroxine Sodium 175 Mcg Tablet, 175 MCG PO DAILY, (Reported) Lisinopril 10 Mg Tablet, 10 MG PO DAILY, (Reported) Metoprolol Succinate 50 Mg Tab.er.24h, 50 MG PO DAILY Prescribed by: SHANNAN HILLS on 10/07/20 1149 Morphine Sulfate 30 Mg Tablet.er, 30 MG PO BID, (Reported) Multivitamin 1 Each Tablet, 1 EACH PO DAILY, (Reported) Omeprazole 20 Mg Capsule.dr, 20 MG PO DAILY, (Reported) Polyethylene Glycol 3350 17 Gm Powd.pack, 17 GM PO DAILY PRN for CONSTIPATION- 2ND LINE, (Reported) Trazodone HCl 150 Mg Tablet, 150 MG PO HS, (Reported) Verapamil HCl 120 Mg Tablet, 120 MG PO BID, (Reported) Physical Exam-Cardiology Physical Exam Vital Signs/I&O 10/07/20 10/07/20 10/07/20 10/07/20 00:41 01:00 04:42 07:00 Temp 36.8 37.0 Pulse 70 61 67 74 Resp 18 18 B/P (MAP) 145/77 (99) 136/67 (90) Pulse Ox 93 93 O2 Delivery Room Air Room Air 10/07/20 10/07/20 10/07/20 08:00 08:45 11:35 Temp 36.6 37.0 Pulse 82 78 Resp 20 22 B/P (MAP) 154/77 (102) Pulse Ox 95 95 O2 Delivery Room Air Room Air Room Air 10/07/20 00:00 Intake Total 600 ml Balance 600 ml Capillary Refill : Less Than 3 Seconds Constitutional: AAO x 3, well-developed, well-nourished HEENT: hearing is well preserved Neck: No carotid bruit; carotid pulses are 2 + bilaterally Respiratory: No accessory muscle use, No respiratory distress; chest expansion is symmetric, chest is bilaterally symmetric, lungs clear to auscultation, other (prolonged expiratory phase) Cardiovascular: regular rate-rhythm; No JVD; S1 and S2 Gastrointestinal: No tender; soft, round, audible bowel sounds Extremities: no lower extremity edema bilateral Neurologic/Psychiatric: other (LUE, LLE 4/5; left sided facial droop; slurred speech) Skin: No rash on exposed areas, No ulcerations on exposed areas Data Review Labs Laboratory Tests 10/07/20 05:40: White Blood Count 7.6, Red Blood Count 3.98, Hemoglobin 12.7, Hematocrit 39, Mean Corpuscular Volume 98, Mean Corpuscular Hemoglobin 32, Mean Corpuscular Hemoglobin Concent 33, Red Cell Distribution Width 13.4, Platelet Count 261, Mean Platelet Volume 9.9, Immature Granulocyte % (Auto) 0, Neutrophils (%) (Auto) 58, Lymphocytes (%) (Auto) 30, Monocytes (%) (Auto) 9, Eosinophils (%) (Auto) 2, Basophils (%) (Auto) 1, Neutrophils # (Auto) 4.4, Lymphocytes # (Auto) 2.3, Monocytes # (Auto) 0.7, Eosinophils # (Auto) 0.2, Basophils # (Auto) 0.1, Immature Granulocyte # (Auto) 0.0, Sodium Level 140, Potassium Level 3.9, Chl oride Level 104, Carbon Dioxide Level 28, Anion Gap 8, Blood Urea Nitrogen 17, Creatinine 0.98, Estimat Glomerular Filtration Rate 56, BUN/Creatinine Ratio 17, Glucose Level 94, Calcium Level 8.7, Corrected Calcium 9.1, Total Bilirubin 0.7, Aspartate Amino Transf (AST/SGOT) 46H, Alanine Aminotransferase (ALT/SGPT) 29, Alkaline Phosphatase 60, Total Protein 6.9, Albumin 3.5, Triglycerides Level 163H, Cholesterol Level 186, LDL Cholesterol Direct 125, VLDL Cholesterol 33, HDL Cholesterol 47, Thyroid Stimulating Hormone (TSH) 5.80H Radiology NAME: YUMIKO QUINTANA [facility] REC#: [id number] PT STATUS: REG ER : 1950 PHYSICIAN: ANABEL TEIXEIRA MD ADMIT DATE: 10/06/20/ER Signed Date of Exam:10/06/20 CHEST 1 VIEW, AP/PA ONLY INDICATION: Cerebral vascular accident. AP view of the chest is obtained with comparison made study of 03/24/2020. FINDINGS: Heart size and pulmonary vascularity are within normal limits, and the lungs are clear, bilaterally. IMPRESSION: Unremarkable chest. Dictated by: Dictated on workstation # [id number] Dict: 10/06/20 1115 Trans: 10/06/20 1203 [id number] Interpreted by: ABBY SUAZO MD Electronically signed by: ABBY SUAZO MD 10/06/20 1203 ECG Impression ECG Initial ECG Rhythm: Normal Sinus A/P-Cardiology Assessment/Admission Diagnosis 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 The right common carotid artery is widely patent. There is calcified plaque at the carotid bifurcations bilaterally but no significant stenosis is identified. Both distal internal carotid arteries demonstrate calcified plaque in the carotid siphons. 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 Elaine 3 months ago CKD 2 - follows with Dr. Kaya Cramer H/O TIA 26 yrs ago Toboccoism (1 PPD) - cessation advised GERD Probable COPD H/O bilat knee replacements Chronic back pain Hypothyroidism - replacement tx - management per medical services Discussion and Recomendations Cryptogenic CVA - tele to monitor for arrhythmia if none found during admission advise ILR implant - I have discussed the procedure, risks, benefits, potential complications. She verbalizes understanding and is agreeable Echocardiogram to eval structure and function HTN - start BB Based on h/o and risk factors as noted above, MPI to eval coronary status should be considered for a later date Continue statin Management of stroke as per stroke team and Dr. Hills Monitor lab closely Further recs will be based on her hospital course We would like to thank Dr. Hills for this consult Clinical Quality Measures Stroke: Date of last known well: Oct 02, 2020 Symptoms onset unknown: Yes CHARLOTTE ALMAZAN Oct 06, 2020 12:42
--- NOTE | 2020-10-06 12:45 | NUR ---
YUMIKO QUINTANA admitted to room 419-1, with an admitting diagnosis of CVA, HEADACHE, on 10/06/20 from ED via STRETCHER, accompanied by ED STAFF. YUMIKO QUINTANA introduced to surroundings, call light, bed controls, phone, TV, temperature control, lights, meal times, smoking policy, visitor policy, side rail policy, bathrooms and showers. Patient Rights given to patient in the handbook. YUMIKO QUINTANA verbalizes understanding that [facility] is not responsible for the loss or damage to any personal effects or valuables that are kept in the patients possession during their hospitalization. The following Patient Care Plans were discussed with the PATIENT: Discharge Planning, CEREBRAL VASCULAR ACCIDENT and KNOWLEDGE DEFICIT. YUMIKO QUINTANA verbalizes understanding of Interdisciplinary Patient Education. Patient and/or family were informed about the Rapid Response Team and its purpose.
[2020-10-06] MEDS ORDERED: ANTACID SUSP 30 ML UDC (MYLANTA) PO PRN (13:30)
[2020-10-06] MEDS ORDERED: ONDANSETRON 4 MG/2 ML (SDV) Z0FRAN IV PRN (13:30)
[2020-10-06] MEDS ORDERED: ACETAMINOPHEN 325 MG TABLET PO PRN (13:45)
[2020-10-06] MEDS ORDERED: meTOproloL SUCCINATE 50 MG (TOPROL XL) TAB PO NR (13:54)
--- NOTE | 2020-10-06 13:57 | Physical Therapy Evaluation ---
PT Evaluation-General Medical Diagnosis Admission Date Oct 06, 2020 at 11:50 Medical Diagnosis: CVA Onset Date: Oct 06, 2020 Therapy Diagnosis Therapy Diagnosis: impaired mobility, endurance, balance Height/Weight Height (Feet): 5 Height (Inches): 5.00 Weight (Pounds): 201 Weight (Ounces): 0.0 Referral Physician: Mckinley Reason for Referral: Evaluation/Treatment Medical History Pertinent Medical History: Arthritis, GERD, HTN, Hypothroidism, OA, Smoking Additional Medical History Past Medical History Surgeries: Yes (bilat elbow, L shoulder, back x2, L TKR x2, teeth pulled, R TKR AND SCOPE) Section, Eye Surgery, Gallbladder, Hysterectomy, Joint Replacement, Oophorectomy, Orthopedic, Tubal Ligation Respiratory: No Cardiac: Yes (HX HEART MURMUR) Heart Murmur, Hypertension Neurological: Yes TIA Reproductive Disorders: No CAD SPECIALIST History: Hysterectomy, Menopausal Sexually Transmitted Disease: No HIV/AIDS: No Genitourinary: Yes (stage 2 kidney disease) Gastrointestinal: Yes Gastroesophageal Reflux, Chronic Constipation, Polyps Musculoskeletal: Yes (joint pain) Arthritis, Chronic Back Pain Endocrine: Yes Hypothyroidsim HEENT: Yes (bilat cataracts removed, dentures, GLASSES) Glaucoma Loss of Vision: Denies Hearing Impairment: Denies Cancer: Yes (THROAT CANCER) Skin Did You Recieve Any Treatments: Yes What Type of Treatment Did You: Surgical Intervention Psychosocial: Yes (RELATED TO THYROID) Depression Social History Home: Single Level Current Living Status: Alone Entry Into Home: Stairs Without Railing PT Steps Into Home: 2 Prior Prior Level of Function SCALE: Activities may be completed with or without assistive devices. 5-Spytibjhkd-gzvfnoa completes the activity by him/herself with no assistance from a helper. 5-Set-up or Clean-up Assistance-helper sets up or cleans up; patient completes activity. [place] assists only prior to or following the activity. 4-Supervision or Touching Assistance-helper provides verbal cues and/or touching/steadying and/or contact guard assistance as patient completes activity. Assistance may be provided throughout the activity or intermittently. 3-Partial/Moderate Assistance-helper does LESS THAN HALF the effort. [place] lifts, holds or supports trunk or limbs, but provides less than half the effort. 2-Substantial/Maximal Assistance-helper does MORE THAN HALF the effort. [place] lifts or holds trunk or limbs and provides more than half the effort. 8-Wxebticpy-riuqmb does ALL the effort. Patient does none of the effort to complete the activity. Or, the assistance of 2 or more helpers is required for the patient to complete the activity. If activity was not attempted, code reason: 7-Patient Refused. 9-Not Applicable-not attempted and the patient did not perform the activity before the current illness, exacerbation or injury. 10-Not Attempted due to Environmental Limitations-(lack of equipment, weather restraints, etc.). 88-Not Attempted due to Medical Conditions or Safety Concerns. Bed Mobility: 6 Transfers (B,C,W/C): 6 Gait: 6 Stairs: 6 Indoor Mobility (Ambulation): Independent Stairs: Independent used a SPC on occasion PT Evaluation-Current Subjective Patient in bed pre tx, agrees to PT, has leg and low back pain of 5/10 Pt/Family Goals "to be independent at home Objective Patient Orientation: Person, Place, Situation ROM/Strength ROM Lower Extremities WNL Strength Lower Extremities LLE (hip flexion 4+/5, knee flexion 4+/5, knee extension 4+/5, dorsiflexion 4+/5), RLE (hip flexion 5/5, knee flexion 5/5, knee extension 5/5, dorsiflexion 5/5) Neuromuscular (Tone, Coordination, Reflexes) Patient has a slight left sided facial droop, good tracking and peripheral vision, she says she has slightly blurry vision, no abnormal ankle clonus or babinski on the left side Sensory Vision: Hearing: Functional Sensation Right Lower Extremit: Intact Sensation Left Lower Extremity: Intact Transfers Roll Left to Right (QC): 6 Sit to Lying (QC): 6 Lying to Sitting/Side of Bed(Q: 6 Sit to Stand (QC): 4 Chair/Qur-ix-Gdbzu Xfer(QC): 4 CGA for sit to stand and transfers, no retropulsion or leaning to the side when standing Gait Does the Patient Walk?: Yes Mode of Locomotion: Walk Anticipated Mode of Locomotion: Walk Walk 10 feet (QC): 4 Walk 50 ft with 2 Turns(QC): 4 Distance: 50' Gait Assistive Device: FWW Comments/Gait Description Patient ambulated 25' with a rolling walker with CGA, then transitioned to WAREHOUSE UNLOADER on the left for the next 25'. She is slightly unsteady but had no mai LOB. Balance Sitting Static: Normal Sitting Dynamic: Normal Standing Static: Fair Standing Dynamic: Fair Assessment/Needs Patient has impaired mobility, strength, balance. She is very drowsy, says she is very tired. Patient is unsteady with ambulation, patient sitting EOB post tx, OT coming in right after PT to work with patient Rehab Potential: Fair PT Adult Education Manager Goals Group Home Goals PT Adult Education Manager Goals Time Frame: Oct 13, 2020 Roll Left & Right (QC): 6 Sit to Lying (QC): 6 Lying-Sitting on Side/Bed(QC): 6 Sit to Stand (QC): 6 Chair/Aap-os-Gbyfk Xfer(QC): 6 Toilet Transfer (QC): 6 Walk 10 feet (QC): 5 Walk 50ft with 2 Turns (QC): 5 Walk 150 ft (QC): 5 1 Step (curb) (QC): 4 4 Steps (QC): 4 PT Plan Problem List Problem List: Activity Tolerance, Functional Strength, Safety, Balance, Gait, Transfer Treatment/Plan Treatment Plan: Continue Plan of Care Treatment Plan: Education, Functional Activity Libra, Functional Strength, Gai t, Safety, Therapeutic Exercise, Transfers Treatment Duration: Oct 13, 2020 Frequency: 6 times per week Estimated Hrs Per Day: .25 hour per day Patient and/or Family Agrees t: Yes Safety Risks/Education Patient Education: Gait Training, Transfer Techniques, Correct Positioning, Safety Issues Teaching Recipient: Patient Teaching Methods: Demonstration, Discussion Response to Teaching: Reinforcement Needed Discharge Recommendations Plan Patient will perform bed mobility and transfer training, balance and endurance training, functional strengthening, stair training, gait training, and education, to improve functional mobility and independence at home. Therapy Discharge Recommendati: Scheduled Assistance, Home & Family Time/GCodes Time In: 1338 Time Out: 1348 Total Billed Treatment Time: 10 Total Billed Treatment 1 visit VICTORINA ABDALLA PT Oct 06, 2020 13:57
--- NOTE | 2020-10-06 14:09 | Occupational Therapy Eval ---
OT Evaluation-General/PLF Medical Diagnosis Admission Date Oct 06, 2020 at 11:50 Medical Diagnosis: CVA Onset Date: Oct 06, 2020 Therapy Diagnosis Therapy Diagnosis: decreased ADLs, decreased functional use LUE Height/Weight Height (Feet): 5 Height (Inches): 5.00 Weight (Pounds): 201 Weight (Ounces): 0.0 Referral Physician: Adan Referral Reason: Evaluation/Treatment Medical History Pertinent Medical History: Arthritis, GERD, HTN, Hypothroidism, OA, Smoking Social History Home: Single Level Current Living Status: Alone Entry Into Home: Stairs Without Railing Steps Into Home: 2 ADL-Prior Level of Function SCALE: Activities may be completed with or without assistive devices. 0-Nncpiwdnxa-xiapmrz completes the activity by him/herself with no assistance from a helper. 5-Set-up or Clean-up Assistance-helper sets up or cleans up; patient completes activity. [place] assists only prior to or following the activity. 4-Supervision or Touching Assistance-helper provides verbal cues and/or touching/steadying and/or contact guard assistance as patient completes activity. Assistance may be provided throughout the activity or intermittently. 3-Partial/Moderate Assistance-helper does LESS THAN HALF the effort. [place] lifts, holds or supports trunk or limbs, but provides less than half the effort. 2-Substantial/Maximal Assistance-helper does MORE THAN HALF the effort. [place] lifts or holds trunk or limbs and provides more than half the effort. 2-Rlcotwefq-unbkrm does ALL the effort. Patient does none of the effort to complete the activity. Or, the assistance of 2 or more helpers is required for the patient to complete the activity. If activity was not attempted, code reason: 7-Patient Refused. 9-Not Applicable-not attempted and the patient did not perform the activity before the current illness, exacerbation or injury. 10-Not Attempted due to Environmental Limitations-(lack of equipment, weather restraints, etc.). 88-Not Attempted due to Medical Conditions or Safety Concerns. ADL PLOF Comments Pt reports living alone at [facility], she has SKIL assistance Sunday through Sunday, 4-6 hours each day. They help her cook and clean, and are there when she bathes and dresses, although she reports she is able to bathe/dress herself (SBA). Pt has a tub/shower, without a shower chair, she typically stands up to shower. Self Care: Needed Some Help Functional Cognition: Independent DME/Equipment: Tub/Shower OT Current Status Subjective Pt seated EOB with PT. Pt agreeable to OT evaluation and tx. Mental Status/Objective Patient Orientation: Person, Place, Time, Situation Current Glasses/Contacts: Yes Hearing Aids: No Dentures/Partials: Yes Hand Dominance: Right Upper Extremity ROM BUE WFL, slight delay in movements with LUE Upper Extremity Coordination slightly decreased LUE Upper Extremity Sensation pt reports intact sensation BUEs, no tingling/numbness ADL-Treatment Eating (QC): 5 (set up assistance, assist to open fruit cup, pt then able to eat using utensils) On/Off Footwear (QC): 4 (SBA seated EOB) Toileting Hygiene (QC): 4 (CGA, pt able to manage clothing and perform hygiene.) Other Treatments Pt seated EOB, agreeable to OT tx. Pt able to doff/don BLE gripper socks with SBA. Pt's lunch tray present, she required set up assistance to open containers, but then able to eat using utensils. Pt indicates the need to use the restroom, ambulated to bathroom with handheld assistance on L side. Pt completed toileting, managing clothing with CGA in stand. Pt then ambulated back to EOB. OT educated pt on OT POC while she is admitted to the hospital, she verbalized understanding. Post OT Tx, pt seated EOB, call light in reach and all needs met. Education OT Patient Education: Correct positioning, Modified ADL techniques, Progress toward Goal/Update tx plan, Purpose of tx/functional activities Teaching Recipient: Patient Teaching Methods: Discussion Response to Teaching: Verbalize Understanding OT Monitoring Specialist Goals Monitoring Specialist Goals Time Frame: Oct 15, 2020 Eating (QC): 6 Oral Hygiene (QC): 6 Toileting Hygiene (QC): 6 Shower/Bathe Self (QC): 4 Upper Body Dressing (QC): 5 Lower Body Dressing (QC): 4 On/Off Footwear (QC): 4 Additional Goals: 1-Demonstrate ADL Tasks, 2-Verbalize Understanding, 3- ImproveStrength/Libra 1=Demonstrate adherence to instructed precautions during ADL tasks. 2=Patient will verbalize/demonstrate understanding of assistive devices/modifications for ADL. 3=Patient will improve strength/tolerance for activity to enable patient to perform ADL's. OT Education/Plan Problem List/Assessment Assessment: Decreased Activ Tolerance, Decreased UE Strength, Impaired Funct Balance, Impaired I ADL's, Impaired Self-Care Skills, Restricted Funct UE ROM Discharge Recommendations Plan/Recommendations: Continue POC Treatment Plan/Plan of Care Patient would benefit from OT for education, treatment and training to promote independence in ADL's, mobility, safety and/or upper extremity function for ADL's. Plan of Care: ADL Retraining, Functional Mobility, UE Funct Exercise/Act Treatment Duration: Oct 15, 2020 Frequency: 5 times per week Estimated Hrs Per Day: .25 hour per day Rehab Potential: Fair Time/GCodes Start Time: 13:48 Stop Time: 14:00 Total Time Billed (hr/min): 12 Billed Treatment Time 1, RICKI ZURITA OT Oct 06, 2020 14:09
[2020-10-06] MEDS ORDERED: HYDR-3817 PO (14:44)
[2020-10-06] MEDS ORDERED: LEVO175T5 PO (14:44)
[2020-10-06] MEDS ORDERED: OMEP20CA18 PO (14:44)
[2020-10-06] MEDS ORDERED: BACL10TA PO (14:44)
[2020-10-06] MEDS ORDERED: POLY17PO6 PO (14:44)
[2020-10-06 15:47] VITALS: BP 190/88
[2020-10-06 16:32] VITALS: BP 190/88
--- NOTE | 2020-10-06 17:13 | Diagnostic Imaging Report ---
CLINICAL INDICATION: Patient with left-sided weakness, headache, dizziness, lightheadedness, and CVA. Exam: MRI of the brain performed without IV contrast. Sequences include axial DWI, ADC map, axial T2, axial FLAIR, axial T1, coronal gradient echo, and sagittal T1. Comparison: CT angiogram of the head/neck dated 10/06/2020. Findings: There is a 1.4 cm, in greatest axial dimension, area of diffusion restriction involving the posterior right frontal lobe centrum semiovale region with associated increased T2 signal. This is consistent with acute cerebral infarct. There is no evidence of intracranial hemorrhage, brain herniation, or midline shift. There are multiple focal, patchy mildly confluent areas of high T2 signal white matter changes involving both cerebral hemispheres and gema, likely representing chronic small vessel ischemic disease. There is brain parenchymal volume loss. There is no hydrocephalus. Basal cisterns are unremarkable. There is no brain herniation or midline shift. The [place] vascular structures show no gross abnormality as visualized. The pituitary gland, sella, and suprasellar regions are unremarkable as visualized. The extracranial soft tissue, skull, and orbits are unremarkable. There is mild ethmoid sinus mucosal thickening. Mastoid air cells are clear. IMPRESSION: 1: There is an acute lacunar infarct involving the posterior right frontal lobe rome radiata region. There is no evidence of intracranial hemorrhage or brain herniation. 2: There is chronic small vessel ischemic disease and leukoaraiosis. Dictated by: Dictated on workstation # [id number]
--- NOTE | 2020-10-06 17:43 | NUR ---
LEFT MESSAGE FOR DR HILLS WITH DVT SCORE.
[2020-10-06] MEDS ORDERED: ENOXAPARIN 40 MG/0.4 ML (LOVENOX) SYR SC SCH (18:00)
--- NOTE | 2020-10-06 18:25 | History & Physical-Hospitalist ---
History of Present Illness HPI/Chief Complaint CC: Left sided weakness HPI: This is a 64yo[facility] clinic Pt of Dr. Wolf with a PMH of chronic pain on Hydrocodone and Morphine who presents four days after she was feeling weak on her left side. She had signs consistent with a right-sided brain stroke causing left sided weakness and facial droop. Her strength is 2/5 in the upper and lower extremities. She does continue to smoke, no alcohol use and she does live alone. Will consult cardiology and perform risk-stratification to evaluate source of the stroke. Source: patient Exam Limitations: no limitations Date Seen 10/06/20 Time Seen by a Provider: 10:00 Attending Physician Shannan Arellano Holly R MD Referring Physician Date of Admission Oct 06, 2020 at 11:50 Home Medications & Allergies Home Medications Reviewed patient Home Medication Reconciliation performed by pharmacy medication reconciliations iv technician and/or nursing. Patients Allergies have been reviewed. Allergies Allergies Coded Allergies acetaminophen (Verified Allergy, Severe, throat swells, 03/24/20) nalbuphine (Verified Allergy, Severe, ANAPHYLAXIS, 03/24/20) oxycodone (Verified Allergy, Severe, throat swells, PT TOLERATES HYDROCODONE, 01/31/17) suvorexant (Verified Allergy, Severe, ANAPHYLAXIS, 03/24/20) sulfamethoxazole (Verified Allergy, Mild, HIVES, 03/24/20) trimethoprim (Verified Allergy, Mild, HIVES, 03/24/20) Past Bhajwpt-Xwnoly-Thfgds Hx Past Med/Social Hx: Reviewed Nursing Past Med/Soc Hx, Reviewed and Corrections made Patient Social History Marrital Status: single Employed/Student: retired Alcohol Use: Denies Use Recreational Drug Use: No Smoking Status: Current Everyday Smoker Type Used: Cigarettes 2nd Hand Smoke Exposure: Yes Recent Foreign Travel: No Contact w/other who traveled: No Recent Hopitalizations: No Recent Infectious Disease Expo: No Immunizations Up To Date Tetanus Booster (TDap): Unknown Date of Pneumonia Vaccine: Aug 03, 2016 Date of Influenza Vaccine: Jul 08, 2020 Seasonal Allergies Seasonal Allergies: No Past Medical History Surgeries: Section, Eye Surgery, Gallbladder, Hysterectomy, Joint Replacement, Oophorectomy, Orthopedic, Tubal Ligation Cardiac: Heart Murmur, Hypertension Neurological: TIA Reproductive: No Sexually Transmitted Disease: No HIV/AIDS: No Hysterectomy, Menopausal Gastrointestinal: Gastroesophageal Reflux, Chronic Constipation, Polyps Musculoskeletal: Arthritis, Chronic Back Pain Endocrine: Hypothyroidsim HEENT: Glaucoma Loss of Vision: Denies Hearing Impairment: Denies Cancer: Skin Did You Recieve Any Treatments: Yes What Type of Treatment Did You: Surgical Intervention Psychosocial: Depression History of Blood Disorders: No Adverse Reaction to Blood [place]: No (N/A) Family History Colon cancer 19 FATHER (stomach cancer) Completed stroke 19 FATHER G8 BROTHER Diabetes mellitus G8 BROTHER G8 SISTER Hypertension 19 FATHER G8 BROTHER Myocardial infarction 19 FATHER G8 BROTHER Respiratory disorder 19 MOTHER Thyroid disease G8 SISTER Heart Disease, Cancer, CAD Under 55 Years Old, Diabetes, Hypertension Review of Systems Constitutional: see HPI, weakness Psychiatric/Neurological: Weakness Physical Exam Physical Exam Vital Signs Vital Signs - First Documented 10/06/20 10/06/20 09:51 12:45 Temp 36.1 Pulse 65 Resp 20 B/P (MAP) 192/86 (121) Pulse Ox 95 O2 Delivery Room Air Capillary Refill : Less Than 3 Seconds Height, Weight, BMI Height: 5'5.00" Weight: 201lbs. 0.0oz. 91.387437sw; 33.95 BMI Method:Stated General Appearance: No Apparent Distress, Chronically ill Eyes: Right Eye Normal Inspection, Right Eye PERRL HEENT: PERRL/EOMI, Normal ENT Inspection, Pharynx Normal, Moist Mucous Membranes Neck: Full Range of Motion, Normal Inspection, Non Tender Respiratory: Chest Non Tender, Lungs Clear, Normal Breath Sounds, No Accessory Muscle Use, No Respiratory Distress Cardiovascular: Regular Rate, Rhythm, No Edema, No Gallop, No JVD, No Murmur, Normal Peripheral Pulses Gastrointestinal: Normal Bowel Sounds, No Organomegaly, No Pulsatile Mass, Non Tender, Soft Back: Normal Inspection, No CVA Tenderness, No Vertebral Tenderness Extremity: Normal Capillary Refill, Normal Inspection, Normal Range of Motion (except left side), Non Tender, No Calf Tenderness, No Pedal Edema Neurologic/Psychiatric: Alert, Oriented x3, Normal Mood/Affect, Facial Droop (left), Motor Weakness (left sided weakness 2/5) Skin: Normal Color, Warm/Dry Lymphatic: No Adenopathy Results Results/Procedures Labs Laboratory Tests 10/06/20 09:55 10/07/20 05:40 Patient resulted labs reviewed. Assessment/Plan Admission Diagnosis Assessment: CVA 4 days prior to admit not a tPa candidate SMoker Chronic pain Narcotic dependent HTN HLP Hypothyroidism Depression Plan: Cardiology consult ECHO Loop recorder ASA Statin Admission Status: Inpatient Order (span 2 midnights) Reason for Inpatient Admission: CVA Diagnosis/Problems Diagnosis/Problems (1) CVA (cerebral vascular accident) Status: Acute Qualifiers: CVA mechanism: unspecified Qualified Codes: I63.9 - Cerebral infarction, unspecified (2) Status post placement of implantable loop recorder (3) Depression Status: Chronic (4) GERD (gastroesophageal reflux disease) (5) Hypothyroidism (6) Chronic pain Status: Chronic (7) Smoker Clinical Quality Measures DVT/VTE Risk/Contraindication: Risk Factor Score Per Nursin RFS Level Per Nursing on Admit: 4+=Very High Stroke: Date of last known well: Oct 02, 2020 Symptoms onset unknown: Yes SHANNAN ARELLANO DO Oct 06, 2020 18:25
[2020-10-06 19:10] VITALS: BP 174/65
--- NOTE | 2020-10-06 19:48 | Consultation-Cardiology ---
HPI-Cardiology Cardiology Consultation: Date of Consultation 10/06/20 Time Seen by a Provider: 19:40 Date of Admission Attending Physician Shannan Arellano DO Admitting Physician Blanka Wolf MD Consulting Physician LAURA WEBSTER MD, MA, FACP, FACC, FSCAI, CCDS Physician requesting consult: Dr Arellano HPI: Chief Complaint: Reason for consultation: Cryptogenic CVA HPI Ms. Meraz is a 70 yr old female admitted to [facility] from the ED with new onset CVA. She reports approx 5 days ago she was started on Lyrica. She states the day after she took it she began to have some gen weakness, fatigue. She reports blurred vision, but this is improved somewhat. She reports the symptoms progressed and yesterday she noticed left sided facial droop and slurring of her speech. She reports she was also dragging her left leg. She reports this morning she had a terrible MEYER, she got up and went to make coffee. She reports she was in the living room sitting her coffee cup down when she fell and was unable to get up. She reports she has had 2 falls at home d/t losing her balance in the last 4 days. She denies any c/o CP, palpitations, syncope or near syncope. She smokes 1 PPD of cigs. No c/o fever, chills, n/v/d. Review of Systems-Cardiology Review of Systems Constitutional: No chills, No fever; lightheadedness, malaise Eyes: blurred vision Ears/Nose/Throat: No epistaxis, No recent hearing loss Respiratory: As described under HPI Cardiovascular: As described under HPI Gastrointestinal: No constipation, No diarrhea, No nausea, No vomiting Genitourinary: No dysuria, No hematuria Musculoskeletal: back pain (chronic) Skin: No rash on exposed areas, No ulcerations on exposed areas Psychiatric/Neurological: As described under HPI Hematologic: No bleeding abnormalities All Other Systems Reviewed Negative Unless Noted: Yes XHN-Rsbbih-Suflsz Hx Patient Social History Alcohol Use: Denies Use Recreational Drug Use: No Smoking Status: Current Everyday Smoker Type Used: Cigarettes 2nd Hand Smoke Exposure: Yes Recent Foreign Travel: No Recent Infectious Disease Expo: No Immunizations Up To Date Tetanus Booster (TDap): Unknown Date of Pneumonia Vaccine: Aug 03, 2016 Date of Influenza Vaccine: Jul 08, 2020 Past Medical History PMH As described under Assessment. Family Medical History Family Medical History: She reports her mother had CAD. She reports her father had CVA, HTN and CAD. She reports a brother with CVA, CAD and HTN. Family History: Colon cancer 19 FATHER (stomach cancer) Completed stroke 19 FATHER G8 BROTHER Diabetes mellitus G8 BROTHER G8 SISTER Hypertension 19 FATHER G8 BROTHER Myocardial infarction 19 FATHER G8 BROTHER Respiratory disorder 19 MOTHER Thyroid disease G8 SISTER Allergies and Home Medications Allergies Coded Allergies: acetaminophen (Verified Allergy, Severe, throat swells, 03/24/20) nalbuphine (Verified Allergy, Severe, ANAPHYLAXIS, 03/24/20) oxycodone (Verified Allergy, Severe, throat swells, PT TOLERATES HYDROCODONE, 01/31/17) suvorexant (Verified Allergy, Severe, ANAPHYLAXIS, 03/24/20) sulfamethoxazole (Verified Allergy, Mild, HIVES, 03/24/20) trimethoprim (Verified Allergy, Mild, HIVES, 03/24/20) Home Medications Baclofen 10 Mg Tablet, 10 MG PO Q8H PRN for MUSCLE SPASMS, (Reported) Cholecalciferol (Vitamin D3) 25 Mcg Capsule, 25 MCG PO DAILY, (Reported) Cider Vinegar 300 Mg Tablet, 300 MG PO DAILY, (Reported) Cyanocobalamin (Vitamin B-12) 2,500 Mcg Tablet, 2,500 MCG PO DAILY, (Reported) Docusate Sodium 100 Mg Tablet, 100 MG PO DAILY PRN for CONSTIPATION-1ST LINE, (Reported) Escitalopram Oxalate 20 Mg Tablet, 20 MG PO HS, (Reported) Hydrocodone/Acetaminophen 1 Each Tablet, 1 EA PO Q8H PRN for PAIN-MODERATE (5- 7), (Reported) Ibuprofen 600 Mg Tablet, 600 MG PO Q8H PRN for PAIN-MILD, (Reported) Levothyroxine Sodium 175 Mcg Tablet, 175 MCG PO DAILY, (Reported) Lisinopril 10 Mg Tablet, 10 MG PO DAILY, (Reported) Morphine Sulfate 30 Mg Tablet.er, 30 MG PO BID, (Reported) Multivitamin 1 Each Tablet, 1 EACH PO DAILY, (Reported) Omeprazole 20 Mg Capsule.dr, 20 MG PO DAILY, (Reported) Polyethylene Glycol 3350 17 Gm Powd.pack, 17 GM PO DAILY PRN for CONSTIPATION- 2ND LINE, (Reported) Trazodone HCl 150 Mg Tablet, 150 MG PO HS, (Reported) Verapamil HCl 120 Mg Tablet, 120 MG PO BID, (Reported) Patient Home Medication List Home Medication List Reviewed: Yes Physical Exam-Cardiology Physical Exam Vital Signs/I&O 10/06/20 10/06/20 10/06/20 10/06/20 09:51 12:32 12:45 15:47 Temp 36.1 36.6 Pulse 65 70 70 Resp 20 18 16 B/P (MAP) 192/86 (121) 209/82 190/88 (122) Pulse Ox 95 96 91 O2 Delivery Room Air Room Air 10/06/20 10/06/20 16:32 19:10 Temp 36.6 36.2 Pulse 70 70 Resp 16 16 B/P (MAP) 190/88 174/65 (101) Pulse Ox 91 92 O2 Delivery Room Air Room Air Capillary Refill : Less Than 3 Seconds Constitutional: AAO x 3, well-developed, well-nourished HEENT: hearing is well preserved Neck: No carotid bruit; carotid pulses are 2 + bilaterally Respiratory: No accessory muscle use, No respiratory distress; chest expansion is symmetric, chest is bilaterally symmetric, lungs clear to auscultation, other (prolonged expiratory phase) Cardiovascular: regular rate-rhythm; No JVD; S1 and S2 Gastrointestinal: No tender; soft, round, audible bowel sounds Extremities: no lower extremity edema bilateral Neurologic/Psychiatric: other (LUE, LLE 4/5; left sided facial droop; slurred speech) Skin: No rash on exposed areas, No ulcerations on exposed areas Data Review Labs Laboratory Tests 10/06/20 09:55: White Blood Count 6.5, Red Blood Count 4.52, Hemoglobin 14.2, Hematocrit 45, Mean Corpuscular Volume 99, Mean Corpuscular Hemoglobin 31, Mean Corpuscular Hemoglobin Concent 32, Red Cell Distribution Width 13.3, Platelet Count 270, Mean Platelet Volume 10.1, Immature Granulocyte % (Auto) 1, Neutrophils (%) (Auto) 52, Lymphocytes (%) (Auto) 36, Monocytes (%) (Auto) 6, Eosinophils (%) (Auto) 5, Basophils (%) (Auto) 1, Neutrophils # (Auto) 3.4, Lymphocytes # (Auto) 2.3, Monocytes # (Auto) 0.4, Eosinophils # (Auto) 0.3, Basophils # (Auto) 0.1, Immature Granulocyte # (Auto) 0.0, Prothrombin Time 13.5, INR Comment 1.0, Act ivated Partial Thromboplast Time 46H, D-Dimer 0.54H, Sodium Level 139, Potassium Level 3.7, Chloride Level 99, Carbon Dioxide Level 29, Anion Gap 11, Blood Urea Nitrogen 15, Creatinine 0.96, Estimat Glomerular Filtration Rate 57, BUN/Creatinine Ratio 16, Glucose Level 112H, Calcium Level 9.2, Corrected Calcium 9.2, Total Bilirubin 0.4, Aspartate Amino Transf (AST/SGOT) 18, Alanine Aminotransferase (ALT/SGPT) 17, Alkaline Phosphatase 60, Troponin I < 0.028, Total Protein 7.8, Albumin 4.0 10/06/20 09:56: Glucometer 118H 10/06/20 09:58: Urine Color YELLOW, Urine Clarity CLEAR, Urine pH 7.0, Urine Specific [place] 1.015L, Urine Protein NEGATIVE, Urine Glucose (UA) NEGATIVE, Urine Ketones NEGATIVE, Urine Nitrite NEGATIVE, Urine Bilirubin NEGATIVE, Urine Urobilinogen 0.2, Urine Leukocyte Esterase NEGATIVE, Urine RBC (Auto) NEGATIVE, Urine RBC NONE, Urine WBC 0-2, Urine Squamous Epithelial Cells 0-2, Urine Crystals NONE, U rine Bacteria NEGATIVE, Urine Casts NONE, Urine Mucus NEGATIVE, Urine Culture Indicated NO A/P-Cardiology Assessment/Admission Diagnosis 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 The right common carotid artery is widely patent. There is calcified plaque at the carotid bifurcations bilaterally but no significant stenosis is identified. Both distal internal c arotid arteries demonstrate calcified plaque in the carotid siphons. 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 Elaine 3 months ago CKD 2 - follows with Dr. Kaya Cramer H/O TIA 26 yrs ago Toboccoism (1 PPD) - cessation advised GERD Probable COPD H/O bilat knee replacements Chronic back pain Hypothyroidism - replacement tx - management per medical services Discussion and Recomendations Tele to monitor for arrhythmia if none found during admission advise ILR implant - I have discussed the procedure, risks, benefits, potential complications. She verbalizes understanding and is agreeable Echocardiogram to eval structure and function HTN - start BB Based on h/o and risk factors as noted above, MPI to eval coronary status should be considered for a later date Continue statin Management of stroke as per stroke team and Dr. Arellano Monitor lab closely Further recs will be based on her hospital course We would like to thank Dr. Arellano for this consult Clinical Quality Measures DVT/VTE Risk/Contraindication: Risk Factor Score Per Nursin RFS Level Per Nursing on Admit: 4+=Very High Stroke: Date of last known well: Oct 02, 2020 Symptoms onset unknown: Yes LAURA WEBSTER MD FACP FACC CCDS Oct 06, 2020 19:48
[2020-10-06] MEDS ORDERED: HYDROcodone/APAP 7.5 MG/325 MG (LORTAB, LORCET PLUS) TABLET PO PRN (20:00)
[2020-10-06] MEDS: DOCUSATE SODIUM 100 MG (COLACE) CAP PO SCH (21:23)
[2020-10-06] MEDS: morphine ER 30 MG (MS CONTIN) TAB PO SCH (21:24)
[2020-10-07 00:41] VITALS: BP 145/77
[2020-10-07 04:42] VITALS: BP 136/67
[2020-10-07 05:52] LABS: BASOPHILS # (AUTO) 0.1 10^3/uL (0.0-0.1); BASOPHILS % (AUTO) 1 % (0-10); EOSINOPHILS # (AUTO) 0.2 10^3/uL (0.0-0.3); EOSINOPHILS % (AUTO) 2 % (0-10); HEMATOCRIT 39 % (35-52); HEMOGLOBIN 12.7 g/dL (11.5-16.0); LYMPHOCYTES # (AUTO) 2.3 10^3/uL (1.0-4.0); LYMPHOCYTES % (AUTO) 30 % (12-44); MEAN CORPUSCULAR HEMOGLOBIN 32 pg (25-34); MEAN CORPUSCULAR HGB CONC 33 g/dL (32-36); MEAN CORPUSCULAR VOLUME 98 fL (80-99); MEAN PLATELET VOLUME 9.9 fL (9.0-12.2); MONOCYTES # (AUTO) 0.7 10^3/uL (0.0-1.0); MONOCYTES % (AUTO) 9 % (0-12); NEUTROPHILS # (AUTO) 4.4 10^3/uL (1.8-7.8); NEUTROPHILS % (AUTO) 58 % (42-75); PLATELET COUNT 261 10^3/uL (130-400); WHITE BLOOD COUNT 7.6 10^3/uL (4.3-11.0)
[2020-10-07 06:28] LABS: ALBUMIN 3.5 GM/DL (3.2-4.5); BILIRUBIN,TOTAL 0.7 MG/DL (0.1-1.0); CALCIUM 8.7 MG/DL (8.5-10.1); CREATININE SERUM 0.98 MG/DL (0.60-1.30); POTASSIUM 3.9 MMOL/L (3.6-5.0); TOTAL PROTEIN 6.9 GM/DL (6.4-8.2)
--- NOTE | 2020-10-07 07:49 | NUR ---
SPOKE WITH PT AND WENT THRU THE EXT MED HISTORY TO COMPLETE THE MED REC PT HAD RECENTLY STARTED TAKING LYRICA 75MG (FILLED ON 09-14-2020) BUT STARTED NOT FEELING WELL AND STOPPED TAKING, AFTER SPEAKING WITH THE DR A LOWER STRENGTH (50MG) WAS SENT IN ON 10-06-2020 HOWEVER PT HAD NEVER PICKED THIS UP FROM THE PHARMACY. SINCE THE PT DID NOT START THE LOWER DOSE AND HAD QUIT TAKING THE 75MG I DID NOT INCLUDE EITHER ON THE MED REC ATORVASTATIN 20MG WAS FILLED FOR THE 1ST TIME ON 10-06-2020 HOWEVER THE PT HAS NOT PICKED THIS UP FROM THE PHARMACY. OTC MEDS: VIT D VIT B12 APPLES CIDER VINEGAR MTV DOCUSATE MIRALAX
[2020-10-07] MEDS: DOCUSATE SODIUM 100 MG (COLACE) CAP PO SCH (08:07)
[2020-10-07] MEDS: morphine ER 30 MG (MS CONTIN) TAB PO SCH (08:07)
[2020-10-07 08:45] VITALS: BP 154/77
--- NOTE | 2020-10-07 08:47 | ST Cognitive Linguistic Eval ---
Speech Evaluation-General Medical Diagnosis CVA Onset Date: Oct 06, 2020 Therapy Diagnosis Therapy Diagnosis: Dysarthria Referral Referring Physician: Dr. Arellano Medical History Pertinent Medical History: Arthritis, GERD, HTN, Hypothroidism, OA, Smoking Social History Current Living Status: Alone Speech PLF-Current Status Prior Level of Function Patient lives home alone where she states she ate what she wanted. She was independent with meeting her daily needs. Subjective Patient was pleasant and cooperative with the assessment. Language Eval: Auditory Comprehends Simple Yes/No Ques: Functional Indent/Objects Multiple Edge: Functional Ident/Pics in Multiple Edge: Functional Follows 1-Step Commands: Functional Follows Complex Directions: Functional Follows General Conversations: Functional Language Eval: Verbal Language Completes Spontaneous Greeting: Functional Produces Auto, Serial Info: Functional Imitates Simple Words/Phrases: Functional Word Finding: Functional Requests Basic Needs: Functional States Basic Personal Info: Functional Expresses Complex Ideas: Functional Objective Cognitive Domain Attention: WNL Memory: WNL Problem Solving: Functional Executive Functions: WNL Visuospatial Skills: WNL Composite Severity Rating: WNL Objective Formal/Standardized Tests Subtests of the Western Aphasia Battery (WAB) within normal limits, informal speech tests/tasks Results Patient is within normal limits for tasks completed Oral Motor/Speech Production Within normal limits, patient did not have her dentures here and her speech was 100% intelligible, she does have a very slight left side droop which appears to be resolving Speech-Plan Patient/Family Goals Patient/Family Goals: Patient plans on returning to her home upon discharge. Treatment Plan Speech Therapy Treatment Plan: Discontinue ST Treatment Duration: Oct 07, 2020 Frequency: 1 time per week Estimated Hrs Per Day: .25 hour per day Rehab Potential: Fair Barriers to Learning: None identified Pt/Family Agrees to Plan: Yes Safety Risks/Education Teaching Recipient: Patient Teaching Methods: Discussion Response to Teaching: Verbalize Understanding Education Topics Provided: Safety with oral intake Time Speech Therapy Time In: 08:15 Speech Therapy Time Out: 08:35 Total Billed Time: 20 Billed Treatment Time [address] Oct 07, 2020 08:47
[2020-10-07] MEDS ORDERED: ASPIRIN E.C. 325 MG (ECOTRIN) TABLET PO SCH (09:00)
[2020-10-07] MEDS ORDERED: meTOproloL SUCCINATE 50 MG (TOPROL XL) TAB PO SCH (09:00)
--- NOTE | 2020-10-07 10:48 | Occupational Ther Daily Note ---
OT Current Status-Daily Note Subjective Pt laying in bed, agreeable to OT tx. Pt indicates she hopes to return home soon, she has no concerns with returning home. Her only concern at the moment is decreased strength and coordination in LUE. ADL-Treatment Therapy Code Descriptions/Definitions Functional [place] Measure: 0=Not Assessed/NA 4=Minimal Assistance 1=Total Assistance 5=Supervision or Setup 2=Maximal Assistance 6=Modified [place] 3=Moderate Assistance 7=Complete IndependenceSCALE: Activities may be completed with or without assistive devices. 8-Vvdolpeodr-amaarnr completes the activity by him/herself with no assistance from a helper. 5-Set-up or Clean-up Assistance-helper sets up or cleans up; patient completes activity. [place] assists only prior to or following the activity. 4-Supervision or Touching Assistance-helper provides verbal cues and/or touching/steadying and/or contact guard assistance as patient completes activity. Assistance may be provided throughout the activity or intermittently. 3-Partial/Moderate Assistance-helper does LESS THAN HALF the effort. [place] lifts, holds or supports trunk or limbs, but provides less than half the effort. 2-Substantial/Maximal Assistance-helper does MORE THAN HALF the effort. [place] lifts or holds trunk or limbs and provides more than half the effort. 1-Hekwtpajw-tunuoe does ALL the effort. Patient does none of the effort to complete the activity. Or, the assistance of 2 or more helpers is required for the patient to complete the activity. If activity was not attempted, code reason: 7-Patient Refused. 9-Not Applicable-not attempted and the patient did not perform the activity before the current illness, exacerbation or injury. 10-Not Attempted due to Environmental Limitations-(lack of equipment, weather restraints, etc.). 88-Not Attempted due to Medical Conditions or Safety Concerns. Oral Hygiene (QC): 7 Toileting Hygiene (QC): 7 Other Treatment Pt laying in bed, agreeable to OT tx. Pt declines OOB activities, declining using the toilet, and declines grooming tasks. Pt indicates her main concern is function of LUE. Pt has full movement in LUE but it is slower and has less strength/coordination compared with dominant R side. OT provided pt with moderate resistance bark press operator sponge in order to increase fine motor strength and coordination. Pt completed x20 reps bark press operator squeezes, and x10 pinches using LUE. OT also educated pt on completing AROM elbow flexion/extension and shoulder flexion to increase strength and neuromuscular reeducation of LUE, pt demo'd understanding performing x10 reps LUE. Post tx, pt laying in bed, call light in reach and all needs met. Education OT Patient Education: Correct positioning, Exercise program, Progress toward Goal/Update tx plan, Purpose of tx/functional activities Teaching Recipient: Patient Teaching Methods: Demonstration, Discussion Response to Teaching: Verbalize Understanding, Return Demonstration OT Director Media Goals Director Media Goals Time Frame: Oct 15, 2020 Eating (QC): 6 Oral Hygiene (QC): 6 Toileting Hygiene (QC): 6 Shower/Bathe Self (QC): 4 Upper Body Dressing (QC): 5 Lower Body Dressing (QC): 4 On/Off Footwear (QC): 4 Additional Goals: 1-Demonstrate ADL Tasks, 2-Verbalize Understanding, 3- ImproveStrength/Libra 1=Demonstrate adherence to instructed precautions during ADL tasks. 2=Patient will verbalize/demonstrate understanding of assistive devices/modifications for ADL. 3=Patient will improve strength/tolerance for activity to enable patient to perform ADL's. OT Education/Plan Problem List/Assessment Assessment: Decreased Activ Tolerance, Decreased UE Strength, Impaired I ADL's, Restricted Funct UE ROM Discharge Recommendations Plan/Recommendations: Continue POC Treatment Plan/Plan of Care Patient would benefit from OT for education, treatment and training to promote independence in ADL's, mobility, safety and/or upper extremity function for ADL's. Plan of Care: ADL Retraining, Functional Mobility, UE Funct Exercise/Act Treatment Duration: Oct 15, 2020 Frequency: 5 times per week Estimated Hrs Per Day: .25 hour per day Rehab Potential: Fair Time/GCodes Start Time: 10:25 Stop Time: 10:35 Total Time Billed (hr/min): 10 Billed Treatment Time 1, EX RICKI CARR OT Oct 07, 2020 10:48
[2020-10-07] MEDS ORDERED: polyethylene glycoL POWDER 17 GM (MIRALAX) PACK PO PRN (11:45)
[2020-10-07] MEDS ORDERED: NON-FORMULARY MEDICATION 1 EA EA (Docusate Sodium (Stool Softener) 100 MG) PO PRN (11:45)
[2020-10-07] MEDS ORDERED: HYDROcodone/APAP 7.5 MG/325 MG (LORTAB, LORCET PLUS) TABLET PO PRN (11:45)
[2020-10-07] MEDS ORDERED: IBUPROFEN 600 MG (MOTRIN) TAB PO PRN (11:45)
[2020-10-07] MEDS ORDERED: BACLOFEN 10 MG (LIORESAL) TAB PO PRN (11:45)
[2020-10-07] MEDS ORDERED: ASPI325T32 PO (11:49)
[2020-10-07] MEDS ORDERED: METO50TA7 PO (11:49)
[2020-10-07] MEDS ORDERED: ATOR40TA PO (11:49)
--- NOTE | 2020-10-07 11:50 | Discharge Summary ---
Discharge Summary Hospital Course Hospital Course Date of Admission: Oct 06, 2020 at 11:50 Admission Diagnosis : Family Physician/Provider: Blanka Wolf MD Date of Discharge: 10/07/20 Discharge Diagnosis: [ ] Hospital Course: [ ] Labs and Pending Lab Test: Laboratory Tests 10/07/20 05:40: White Blood Count 7.6, Red Blood Count 3.98, Hemoglobin 12.7, Hematocrit 39, Mean Corpuscular Volume 98, Mean Corpuscular Hemoglobin 32, Mean Corpuscular Hemoglobin Concent 33, Red Cell Distribution Width 13.4, Platelet Count 261, Mean Platelet Volume 9.9, Immature Granulocyte % (Auto) 0, Neutrophils (%) (Auto) 58, Lymphocytes (%) (Auto) 30, Monocytes (%) (Auto) 9, Eosinophils (%) (Auto) 2, Basophils (%) (Auto) 1, Neutrophils # (Auto) 4.4, Lymphocytes # (Auto) 2.3, Monocytes # (Auto) 0.7, Eosinophils # (Auto) 0.2, Basophils # (Auto) 0.1, Immature Granulocyte # (Auto) 0.0, Sodium Level 140, Potassium Level 3.9, Chloride Level 104, Carbon Dioxide Level 28, Anion Gap 8, Blood Urea Nitrogen 17, Creatinine 0.98, Estimat Glomerular Filtration Rate 56, BUN/Creatinine Ratio 17, Glucose Level 94, Calcium Level 8.7, Corrected Calcium 9.1, Total Bilirubin 0.7, Aspartate Amino Transf (AST/SGOT) 46H, Alanine Aminotransferase (ALT/SGPT) 29, Alkaline Phosphatase 60, Total Protein 6.9, Albumin 3.5, Triglycerides Level 163H, Cholesterol Level 186, LDL Cholesterol Direct 125, VLDL Cholesterol 33, HDL Cholesterol 47, Thyroid Stimulating Hormone (TSH) 5.80H Home Meds Active Aspirin EC (Aspirin) 325 Mg Tablet.dr 325 Mg PO DAILY Metoprolol Succinate 50 Mg Tab.er.24h 50 Mg PO DAILY Lipitor (Atorvastatin Calcium) 40 Mg Tablet 40 Mg PO HS Reported Miralax (Polyethylene Glycol 3350) 17 Gm Powd.pack 17 Gm PO DAILY PRN Omeprazole 20 Mg Capsule.dr 20 Mg PO DAILY Baclofen 10 Mg Tablet 10 Mg PO Q8H PRN Hydrocodone-Acetamin 7.5-325 (Hydrocodone/Acetaminophen) 1 Each Tablet 1 Ea PO Q8H PRN Levothyroxine Sodium 175 Mcg Tablet 175 Mcg PO DAILY Multivitamin 1 Each Tablet 1 Each PO DAILY Apple Cider Vinegar (Cider Vinegar) 300 Mg Tablet 300 Mg PO DAILY Stool Softener (Docusate Sodium) 100 Mg Tablet 100 Mg PO DAILY PRN Ibuprofen 600 Mg Tablet 600 Mg PO Q8H PRN Vitamin D3 (Cholecalciferol (Vitamin D3)) 25 Mcg Capsule 25 Mcg PO DAILY Lisinopril 10 Mg Tablet 10 Mg PO DAILY Morphine Sulfate ER (Morphine Sulfate) 30 Mg Tablet.er 30 Mg PO BID Trazodone HCl 150 Mg Tablet 150 Mg PO HS Escitalopram Oxalate 20 Mg Tablet 20 Mg PO HS Vitamin B12 (Cyanocobalamin (Vitamin B-12)) 2,500 Mcg Tablet 2,500 Mcg PO DAILY Verapamil HCl 120 Mg Tablet 120 Mg PO BID Discharge Physical Examination Vital Signs Vital Signs Date Time Temp Pulse Resp B/P (MAP) Pulse Ox O2 Delivery O2 Flow Rate FiO2 10/07/20 08:45 36.6 82 20 154/77 (102) 95 Room Air Allergies: Coded Allergies: acetaminophen (Verified Allergy, Severe, throat swells, 03/24/20) nalbuphine (Verified Allergy, Severe, ANAPHYLAXIS, 03/24/20) oxycodone (Verified Allergy, Severe, throat swells, PT TOLERATES HYDROCODONE, 01/31/17) suvorexant (Verified Allergy, Severe, ANAPHYLAXIS, 03/24/20) sulfamethoxazole (Verified Allergy, Mild, HIVES, 03/24/20) trimethoprim (Verified Allergy, Mild, HIVES, 03/24/20) Discharge Summary Date of Admission Oct 06, 2020 at 11:50 Date of Discharge Discharge Date: Oct 07, 2020 Clinical Quality Measures DVT/VTE Risk/Contraindication: Risk Factor Score Per Nursin RFS Level Per Nursing on Admit: 4+=Very High Stroke: Date of last known well: Oct 02, 2020 Symptoms onset unknown: Yes PATSY HILLS DO Oct 07, 2020 11:50
--- NOTE | 2020-10-07 11:50 | D/C HH Face to Face Order ---
D/C Face to Face Orders Reconcile Patient Problems Problems Reviewed?: Yes Instructions for Patient [facility], Patient Instructions/FollowUp: [facility] 1 week Physician to follow Patient: [facility] Discharge Diet for Home: No Restrictions Patient Problems: CVA Patient Data-Allergies,Ht & Wt Patient Allergies: Coded Allergies: acetaminophen (Verified Allergy, Severe, throat swells, 03/24/20) nalbuphine (Verified Allergy, Severe, ANAPHYLAXIS, 03/24/20) oxycodone (Verified Allergy, Severe, throat swells, PT TOLERATES HYDROCOD ONE, 01/31/17) suvorexant (Verified Allergy, Severe, ANAPHYLAXIS, 03/24/20) sulfamethoxazole (Verified Allergy, Mild, HIVES, 03/24/20) trimethoprim (Verified Allergy, Mild, HIVES, 03/24/20) Height (Feet): 5 Height (Inches): 5.00 Weight (Pounds): 201 Weight (Ounces): 0.0 Home Health Need/Face to Face Date of Face to Face: Oct 07, 2020 Clinical Findings: Instability, Unsteady gait I have seen Pt [id number]: Yes Discharged To: Home Diagnosis/Conditions: CVA Patient is Homebound due to: [place] fall risk due to instabilty, Muscle weakness Homebound Status Due to the above stated illness, injury or surgical procedure (medical condition or diagnosis) and associated clinical findings, the patient is homebound because of his/her inability to leave home except with aid of a supportive device and/or person AND leaving the home requires a considerable and taxing effort or is medically contraindicated. Pt req the following assistanc: [facility] Nursing Orders Home Health Services Order: Nursing Services, Computer Tech-Evaluate & Treat, Physical Therapy-Evaluate & Treat Certify Stmt I certify that this patient is under my care and that I, a nurse practitioner or a physician; a manufacturing assistant working with me, had a face to face encounter that - meets the physician face to face encounter requirements with this patient as dated. PATSY HILLS DO Oct 07, 2020 11:50
--- NOTE | 2020-10-07 12:00 | NUR ---
TO [facility] FOR LOOP RECORDER PROCEDURE, PATIENT VERBALIZED UNDERSTANDING, SURGICAL SHOWER TAKEN, MRSA NASAL SWAB DONE
[2020-10-07] MEDS ORDERED: LIDOCAINE 1% INJ 20 ML 20 ML VIAL ONE (12:03)
--- NOTE | 2020-10-07 12:08 | Progress Note - Cardiology ---
Cardiology SOAP Progress Note Subjective: Lying in bed No c/o CP or palpitations Feels her speech is improving and left hand processing analyst is improving Objective: I&O/Vital Signs 10/07/20 10/07/20 10/07/20 10/07/20 00:41 01:00 04:42 07:00 Temp 36.8 37.0 Pulse 70 61 67 74 Resp 18 18 B/P (MAP) 145/77 (99) 136/67 (90) Pulse Ox 93 93 O2 Delivery Room Air Room Air 10/07/20 10/07/20 10/07/20 08:00 08:45 11:35 Temp 36.6 37.0 Pulse 82 78 Resp 20 22 B/P (MAP) 154/77 (102) Pulse Ox 95 95 O2 Delivery Room Air Room Air Room Air 10/07/20 00:00 Intake Total 600 ml Balance 600 ml Weight (Pounds): 201 Weight (Ounces): 0.0 Weight (Calculated Kilograms): 91.325401 Constitutional: AAO x 3, well-developed, well-nourished Respiratory: No accessory muscle use, No respiratory distress; chest expansion is symmetric, chest is bilaterally symmetric, lungs clear to auscultation, other (prolonged expiratory phase) Cardiovascular: regular rate-rhythm; No JVD; S1 and S2 Gastrointestional: No tender; soft, round, audible bowel sounds Extremities: no lower extremity edema bilateral Neurologic/Psychiatric: other (LUE, LLE 4/5; left sided facial droop; slurred speech) Skin: No rash on exposed areas, No ulcerations on exposed areas Results/Procedures: Labs Laboratory Tests 10/07/20 05:40: White Blood Count 7.6, Red Blood Count 3.98, Hemoglobin 12.7, Hematocrit 39, Mean Corpuscular Volume 98, Mean Corpuscular Hemoglobin 32, Mean Corpuscular Hemoglobin Concent 33, Red Cell Distribution Width 13.4, Platelet Count 261, Mean Platelet Volume 9.9, Immature Granulocyte % (Auto) 0, Neutrophils (%) (Auto) 58, Lymphocytes (%) (Auto) 30, Monocytes (%) (Auto) 9, Eosinophils (%) (Auto) 2, Basophils (%) (Auto) 1, Neutrophils # (Auto) 4.4, Lymphocytes # (Auto) 2.3, Monocytes # (Auto) 0.7, Eosinophils # (Auto) 0.2, Basophils # (Auto) 0.1, Immature Granulocyte # (Auto) 0.0, Sodium Level 140, Potassium Level 3.9, Chloride Level 104, Carbon Dioxide Level 28, Anion Gap 8, Blood Urea Nitrogen 17, Creatinine 0.98, Estimat Glomerular Filtration Rate 56, BUN/Creatinine Ratio 17, Glucose Level 94, Calcium Level 8.7, Corrected Calcium 9.1, Total Bilirubin 0.7, Aspartate Amino Transf (AST/SGOT) 46H, Alanine Aminotransferase (ALT/SGPT) 29, Alkaline Phosphatase 60, Total Protein 6.9, Albumin 3.5, Triglycerides Level 163H, Cholesterol Level 186, LDL Cholesterol Direct 125, VLDL Cholesterol 33, HDL Cholesterol 47, Thyroid Stimulating Hormone (TSH) 5.80H Laboratory Tests 10/06/20 09:55 10/07/20 05:40 A/P: Assessment: 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 The right common carotid artery is widely patent. There is calcified plaque at the carotid bifurcations bilaterally but no significant stenosis is identified. Both distal internal carotid arteries demonstrate calcified plaque in the carotid siphons. Echocardiogram of 10-06-2020 showed LVEF 50-55%. 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 Elaine 3 months ago CKD 2 - follows with Dr. Kaya Cramer H/O TIA 26 yrs ago Toboccoism (1 PPD) - cessation advised GERD Probable COPD H/O bilat knee replacements Chronic back pain Hypothyroidism - replacement tx - management per medical services Plan: No arrhythmia seen on tele thus far - advise ILR implant - I have discussed the procedure, risks, benefits, potential complications. She verbalizes understanding and is agreeable Echocardiogram to eval structure and function HTN - start BB Based on h/o and risk factors as noted above, MPI to eval coronary status should be considered for a later date Continue statin Management of stroke as per stroke team and Dr. Arellano If discharges home advise f/u Sunday at our clinic for a dressing change and appt in 3-4 weeks Clinical Quality Measures Stroke: Date of last known well: Oct 02, 2020 Symptoms onset unknown: Yes CHARLOTTE ALMAZAN Oct 07, 2020 12:07
--- NOTE | 2020-10-07 12:23 | Discharge Summary ---
Diagnosis/Chief Complaint Date of Admission Oct 06, 2020 at 11:50 Date of Discharge Discharge Date: Oct 07, 2020 Discharge Diagnosis CVA Discharge Summary Discharge Physical Examination Allergies: Coded Allergies: acetaminophen (Verified Allergy, Severe, throat swells, 03/24/20) nalbuphine (Verified Allergy, Severe, ANAPHYLAXIS, 03/24/20) oxycodone (Verified Allergy, Severe, throat swells, PT TOLERATES HYDROCODONE, 01/31/17) suvorexant (Verified Allergy, Severe, ANAPHYLAXIS, 03/24/20) sulfamethoxazole (Verified Allergy, Mild, HIVES, 03/24/20) trimethoprim (Verified Allergy, Mild, HIVES, 03/24/20) Vitals & I&Os Vital Signs Date Time Temp Pulse Resp B/P (MAP) Pulse Ox O2 Delivery O2 Flow Rate FiO2 10/07/20 11:35 37.0 78 22 95 Room Air 10/07/20 08:45 154/77 (102) General Appearance: Alert, Oriented X3, Cooperative Respiratory: Clear to Auscultation Cardiovascular: Regular Rate Neuro: Other (left sided weakness) Hospital Course Was the Problem List Reviewed?: Yes Short course after admitted to [facility] after presenting with left sided weakness 4 days after noting the deficit. Cardiology consulted and loop recorder placed. MRI confirmed CVA and statin and ASA started. IRF admitted. Labs (last 24 hrs) Laboratory Tests 10/06/20 09:55: White Blood Count 6.5, Red Blood Count 4.52, Hemoglobin 14.2, Hematocrit 45, Mean Corpuscular Volume 99, Mean Corpuscular Hemoglobin 31, Mean Corpuscular Hemoglobin Concent 32, Red Cell Distribution Width 13.3, Platelet Count 270, Mean Platelet Volume 10.1, Immature Granulocyte % (Auto) 1, Neutrophils (%) (Auto) 52, Lymphocytes (%) (Auto) 36, Monocytes (%) (Auto) 6, Eosinophils (%) (Auto) 5, Basophils (%) (Auto) 1, Neutrophils # (Auto) 3.4, Lymphocytes # (Auto) 2.3, Monocytes # (Auto) 0.4, Eosinophils # (Auto) 0.3, Basophils # (Auto) 0.1, Immature Granulocyte # (Auto) 0.0, Prothrombin Time 13.5, INR Comment 1.0, Activated Partial Thromboplast Time 46H, D-Dimer 0.54H, Sodium Level 139, Potassium Level 3.7, Chloride Level 99, Carbon Dioxide Level 29, Anion Gap 11, Blood Urea Nitrogen 15, Creatinine 0.96, Estimat Glomerular Filtration Rate 57, BUN/Creatinine Ratio 16, Glucose Level 112H, Calcium Level 9.2, Corrected Calcium 9.2, Total Bilirubin 0.4, Aspartate Amino Transf (AST/SGOT) 18, Alanine Aminotransferase (ALT/SGPT) 17, Alkaline Phosphatase 60, Troponin I < 0.028, Total Protein 7.8, Albumin 4.0 10/06/20 09:56: Glucometer 118H 10/06/20 09:58: Urine Color YELLOW, Urine Clarity CLEAR, Urine pH 7.0, Urine Specific [place] 1.015L, Urine Protein NEGATIVE, Urine Glucose (UA) NEGATIVE, Urine Ketones NEGATIVE, Urine Nitrite NEGATIVE, Urine Bilirubin NEGATIVE, Urine Urobilinogen 0.2, Urine Leukocyte Esterase NEGATIVE, Urine RBC (Auto) NEGATIVE, Urine RBC NONE, Urine WBC 0-2, Urine Squamous Epithelial Cells 0-2, Urine Crystals NONE, Urine Bacteria NEGATIVE, Urine Casts NONE, Urine Mucus NEGATIVE, Urine Culture Indicated NO 10/07/20 05:40: White Blood Count 7.6, Red Blood Count 3.98, Hemoglobin 12.7, Hematocrit 39, Mean Corpuscular Volume 98, Mean Corpuscular Hemoglobin 32, Mean Corpuscular Hemoglobin Concent 33, Red Cell Distribution Width 13.4, Platelet Count 261, Mean Platelet Volume 9.9, Immature Granulocyte % (Auto) 0, Neutrophils (%) (A uto) 58, Lymphocytes (%) (Auto) 30, Monocytes (%) (Auto) 9, Eosinophils (%) (Auto) 2, Basophils (%) (Auto) 1, Neutrophils # (Auto) 4.4, Lymphocytes # (Auto) 2.3, Monocytes # (Auto) 0.7, Eosinophils # (Auto) 0.2, Basophils # (Auto) 0.1, Immature Granulocyte # (Auto) 0.0, Sodium Level 140, Potassium Level 3.9, Chloride Level 104, Carbon Dioxide Level 28, Anion Gap 8, Blood Urea Nitrogen 17, Creatinine 0.98, Estimat Glomerular Filtration Rate 56, BUN/Creatinine Ratio 17, Glucose Level 94, Calcium Level 8.7, Corrected Calcium 9.1, Total Bilirubin 0.7, Aspartate Amino Transf (AST/SGOT) 46H, Alanine Aminotransferase (ALT/SGPT) 29, Alkaline Phosphatase 60, Total Protein 6.9, Albumin 3.5, Triglycerides Level 163H, Cholesterol Level 186, LDL Cholesterol Direct 125, VLDL Cholesterol 33, HDL Cholesterol 47, Thyroid Stimulating Hormone (TSH) 5.80H Microbiology 10/07/20 MRSA Screen - Final, Complete MRSA not isolated Pending Labs Microbiology Date/Time Source Procedure Growth Status 10/07/20 11:20 Nasal MRSA Screen - Final MRSA not isolated Complete Laboratory Tests 10/06/20 09:55: White Blood Count 6.5, Red Blood Count 4.52, Hemoglobin 14.2, Hematocrit 45, Mean Corpuscular Volume 99, Mean Corpuscular Hemoglobin 31, Mean Corpuscular Hemoglobin Concent 32, Red Cell Distribution Width 13.3, Platelet Count 270, Mean Platelet Volume 10.1, Immature Granulocyte % (Auto) 1, Neutrophils (%) (Auto) 52, Lymphocytes (%) (Auto) 36, Monocytes (%) (Auto) 6, Eosinophils (%) (Auto) 5, Basophils (%) (Auto) 1, Neutrophils # (Auto) 3.4, Lymphocytes # (Auto) 2.3, Monocytes # (Auto) 0.4, Eosinophils # (Auto) 0.3, Basophils # (Auto) 0.1, Immature Granulocyte # (Auto) 0.0, Prothrombin Time 13.5, INR Comment 1.0, Activated Partial Thromboplast Time 46, D-Dimer 0.54, Sodium Level 139, Potassium Level 3.7, Chloride Level 99, Carbon Dioxide Level 29, Anion Gap 11, Blood Urea Nitrogen 15, Creatinine 0.96, Estimat Glomerular Filtration Rate 57, BUN/Creatinine Ratio 16, Glucose Level 112, Calcium Level 9.2, Corrected Calcium 9.2, Total Bilirubin 0.4, Aspartate Amino Transf (AST/SGOT) 18, Alanine Aminotransferase (ALT/SGPT) 17, Alkaline Phosphatase 60, Troponin I < 0.028, Total Protein 7.8, Albumin 4.0 10/06/20 09:56: Glucometer 118 10/06/20 09:58: Urine Color YELLOW, Urine Clarity CLEAR, Urine pH 7.0, Urine Specific [place] 1.015, Urine Protein NEGATIVE, Urine Glucose (UA) NEGATIVE, Urine Ketones NEGATIVE, Urine Nitrite NEGATIVE, Urine Bilirubin NEGATIVE, Urine Urobilinogen 0.2, Urine Leukocyte Esterase NEGATIVE, Urine RBC (Auto) NEGATIVE, Urine RBC NONE, Urine WBC 0-2, Urine Squamous Epithelial Cells 0-2, Urine Crystals NONE, Urine Bacteria NEGATIVE, Urine Casts NONE, Urine Mucus NEGATIVE, Urine Culture Indicated NO 10/07/20 05:40: White Blood Count 7.6, Red Blood Count 3.98, Hemoglobin 12.7, Hematocrit 39, Mean Corpuscular Volume 98, Mean Corpuscular Hemoglobin 32, Mean Corpuscular Hemoglobin Concent 33, Red Cell Distribution Width 13.4, Platelet Count 261, Mean Platelet Volume 9.9, Immature Granulocyte % (Auto) 0, Neutrophils (%) (Auto) 58, Lymphocytes (%) (Auto) 30, Monocytes (%) (Auto) 9, Eosinophils (%) (Auto) 2, Basophils (%) (Auto) 1, Neutrophils # (Auto) 4.4, Lymphocytes # (Auto) 2.3, Monocytes # (Auto) 0.7, Eosinophils # (Auto) 0.2, Basophils # (Auto) 0.1, Immature Granulocyte # (Auto) 0.0, Sodium Level 140, Potassium Level 3.9, Chloride Level 104, Carbon Dioxide Level 28, Anion Gap 8, Blood Urea Nitrogen 17, Creatinine 0.98, Estimat Glomerular Filtration Rate 56, BUN/Creatinine Ratio 17, Glucose Level 94, Calcium Level 8.7, Corrected Calcium 9.1, Total Bilirubin 0.7, Aspartate Amino Transf (AST/SGOT) 46, Alanine Aminotransferase (ALT/SGPT) 29, Alkaline Phosphatase 60, Total Protein 6.9, Albumin 3.5, Triglycerides Level 163, Cholesterol Level 186, LDL Cholesterol Direct 125, VLDL Cholesterol 33, HDL Cholesterol 47, Thyroid Stimulating Hormone (TSH) 5.80 Discharge Home Medications: Active Scripts Active Aspirin EC (Aspirin) 325 Mg Tablet.dr 325 Mg PO DAILY Metoprolol Succinate 50 Mg Tab.er.24h 50 Mg PO DAILY Lipitor (Atorvastatin Calcium) 40 Mg Tablet 40 Mg PO HS Reported Miralax (Polyethylene Glycol 3350) 17 Gm Powd.pack 17 Gm PO DAILY PRN Omeprazole 20 Mg Capsule.dr 20 Mg PO DAILY Baclofen 10 Mg Tablet 10 Mg PO Q8H PRN Hydrocodone-Acetamin 7.5-325 (Hydrocodone/Acetaminophen) 1 Each Tablet 1 Ea PO Q8H PRN Levothyroxine Sodium 175 Mcg Tablet 175 Mcg PO DAILY Multivitamin 1 Each Tablet 1 Each PO DAILY Apple Cider Vinegar (Cider Vinegar) 300 Mg Tablet 300 Mg PO DAILY Stool Softener (Docusate Sodium) 100 Mg Tablet 100 Mg PO DAILY PRN Vitamin D3 (Cholecalciferol (Vitamin D3)) 25 Mcg Capsule 25 Mcg PO DAILY Lisinopril 10 Mg Tablet 10 Mg PO DAILY Morphine Sulfate ER (Morphine Sulfate) 30 Mg Tablet.er 30 Mg PO BID Trazodone HCl 150 Mg Tablet 150 Mg PO HS Escitalopram Oxalate 20 Mg Tablet 20 Mg PO HS Vitamin B12 (Cyanocobalamin (Vitamin B-12)) 2,500 Mcg Tablet 2,500 Mcg PO DAILY Verapamil HCl 120 Mg Tablet 120 Mg PO BID Instructions to patient/family Please see electronic discharge instructions given to patient. Clinical Quality Measures DVT/VTE Risk/Contraindication: Risk Factor Score Per Nursin RFS Level Per Nursing on Admit: 4+=Very High Stroke: Date of last known well: Oct 02, 2020 Symptoms onset unknown: Yes PATSY HILLS DO Oct 07, 2020 12:23
--- NOTE | 2020-10-07 12:25 | NUR ---
IRF Evaluation Determination: Accepted Chart review complete and findings discussed with Dr. Arellano - patient accepted. Anticipate admission, 10/07/20. Thank you for this referral.
[2020-10-07] MEDS ORDERED: LIDOCAINE 1% INJ 20 ML 20 ML VIAL INJ ONE (13:00)
--- NOTE | 2020-10-07 13:32 | Progress Note - Cardiology ---
Cardiology SOAP Progress Note Subjective: No cp or palp or syncope or shortness of breath Some gen malaise, improving No n/v Objective: I&O/Vital Signs 10/07/20 10/07/20 10/07/20 10/07/20 04:42 07:00 08:00 08:45 Temp 37.0 36.6 Pulse 67 74 82 Resp 18 20 B/P (MAP) 136/67 (90) 154/77 (102) Pulse Ox 93 95 O2 Delivery Room Air Room Air Room Air 10/07/20 11:35 Temp 37.0 Pulse 78 Resp 22 Pulse Ox 95 O2 Delivery Room Air 10/06/20 23:59 Intake Total 600 ml Balance 600 ml Weight (Pounds): 201 Weight (Ounces): 0.0 Weight (Calculated Kilograms): 91.872911 Constitutional: AAO x 3, well-developed, well-nourished Respiratory: No accessory muscle use, No respiratory distress; chest expansion is symmetric, chest is bilaterally symmetric, lungs clear to auscultation, other (prolonged expiratory phase) Cardiovascular: regular rate-rhythm; No JVD; S1 and S2 Gastrointestional: No tender; soft, round, audible bowel sounds Extremities: no lower extremity edema bilateral Neurologic/Psychiatric: other (LUE, LLE 4/5; left sided facial droop; slurred speech) Skin: No rash on exposed areas, No ulcerations on exposed areas Results/Procedures: Labs Laboratory Tests 10/07/20 05:40: White Blood Count 7.6, Red Blood Count 3.98, Hemoglobin 12.7, Hematocrit 39, Mean Corpuscular Volume 98, Mean Corpuscular Hemoglobin 32, Mean Corpuscular Hemoglobin Concent 33, Red Cell Distribution Width 13.4, Platelet Count 261, Mean Platelet Volume 9.9, Immature Granulocyte % (Auto) 0, Neutrophils (%) (Auto) 58, Lymphocytes (%) (Auto) 30, Monocytes (%) (Auto) 9, Eosinophils (%) (Auto) 2, Basophils (%) (Auto) 1, Neutrophils # (Auto) 4.4, Lymphocytes # (Auto) 2.3, Monocytes # (Auto) 0.7, Eosinophils # (Auto) 0.2, Basophils # (Auto) 0.1, Immature Granulocyte # (Auto) 0.0, Sodium Level 140, Potassium Level 3.9, Chloride Level 104, Carbon Dioxide Level 28, Anion Gap 8, Blood Urea Nitrogen 17, Creatinine 0.98, Estimat Glomerular Filtration Rate 56, BUN/Creatinine Ratio 17, Glucose Level 94, Calcium Level 8.7, Corrected Calcium 9.1, Total Bilirubin 0.7, Aspartate Amino Transf (AST/SGOT) 46H, Alanine Aminotransferase (ALT/SGPT) 29, Alkaline Phosphatase 60, Total Protein 6.9, Albumin 3.5, Triglycerides Level 163H, Cholesterol Level 186, LDL Cholesterol Direct 125, VLDL Cholesterol 33, HDL Cholesterol 47, Thyroid Stimulating Hormone (TSH) 5.80H A/P: Assessment: 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 The right common carotid artery is widely patent. There is calcified plaque at the carotid bifurcations bilaterally but no significant stenosis is identified. Both distal internal carotid arteries demonstrate calcified plaque in the carotid siphons. Echocardiogram of 10-06-2020 showed LVEF 50-55%. 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 Elaine 3 months ago CKD 2 - follows with Dr. Kaya Cramer H/O TIA 26 yrs ago Toboccoism (1 PPD) - cessation advised GERD Probable COPD H/O bilat knee replacements Chronic back pain Hypothyroidism - replacement tx - management per medical services Plan: Implantable loop recorder placed after obtaining informed consent Management of stroke as per stroke team and Dr. Arellano If discharges home advise f/u Sunday at our clinic for a dressing change and appt in 3-4 weeks Clinical Quality Measures Stroke: Date of last known well: Oct 02, 2020 Symptoms onset unknown: Yes LAURA WEBSTER MD FACP FAC CCDS Oct 07, 2020 13:32
--- NOTE | 2020-10-07 13:50 | NUR ---
RETURNED FROM [facility], LOOP RECORDER DRESSING DRY AND INTACT
--- NOTE | 2020-10-07 14:01 | NUR ---
TRANSFERRED TO [facility], REPORT GIVEN TO DELFINO MARTINEZ, PERSONNEL BELONGINGS TAKEN TO REH[facility]
--- NOTE | 2020-10-07 14:05 | NUR ---
DAUGHTER GREG NOTIFIED OF TRANSFER TO [facility]HAB ROOM 230
--- NOTE | 2020-10-07 20:06 | OPERATIVE REPORT ---
DATE OF SERVICE: PREOPERATIVE DIAGNOSIS: Cryptogenic stroke. POSTOPERATIVE DIAGNOSIS: Cryptogenic stroke. PROCEDURE: Implantable loop recorder implantation. DESCRIPTION OF PROCEDURE: Implantable loop recorder implantation was carried out after having obtained an informed consent. The left prepectoral area was prepared and draped in the usual sterile fashion. Lidocaine 1% was used for local anesthesia. Tools provided with the Rivalfox Reveal LINQ device were used to make a subcutaneous pocket anterior to the fourth intercostal space on the left side. The device was placed into the pocket. The wound edges were closed using Dermabond and Steri-Strips. She tolerated the procedure well. The serial number of the devices [id number]. Job ID: [id number] DocumentID: [id number] Dictated Date: 10/07/2020 13:36:32 Range Examiner Date: 10/07/2020 20:04:58 Dictated By: LAURA WEBSTER MD, MA, FACP, FACC,
[2020-10-07] MEDS ORDERED: morphine ER 30 MG (MS CONTIN) TAB PO SCH (21:00)
[2020-10-07] MEDS ORDERED: traZODone 150 MG (DESYREL) TABLET PO SCH (21:00)
[2020-10-07] MEDS ORDERED: NON-FORMULARY MEDICATION 1 EA EA (Escitalopram Oxalate 20 MG) PO SCH (21:00)
[2020-10-07] MEDS ORDERED: NON-FORMULARY MEDICATION 1 EA EA (Verapamil HCl 120 MG) PO SCH (21:00)
[2020-10-08] MEDS ORDERED: NON-FORMULARY MEDICATION 1 EA EA (Multivitamin 1 EACH) PO SCH (09:00)
[2020-10-08] MEDS ORDERED: lisINopril 10 MG (PRINIVIL) TABLET PO SCH (09:00)
[2020-10-08] MEDS ORDERED: NON-FORMULARY MEDICATION 1 EA EA (Cholecalciferol (Vitamin D3) (Vitamin D3) 25 MCG) PO SCH (09:00)
[2020-10-08] MEDS ORDERED: CIDER VINEGAR 300 MG PO SCH (09:00)
[2020-10-08] MEDS ORDERED: OMEPRAZOLE 20 MG (PriLOSEC) CAP NON-FORMULARY PO SCH (09:00)
[2020-10-08] MEDS ORDERED: NON-FORMULARY MEDICATION 1 EA EA (Levothyroxine Sodium 175 MCG) PO SCH (09:00)
[2020-10-08] MEDS ORDERED: NON-FORMULARY MEDICATION 1 EA EA (Cyanocobalamin (Vitamin B-12) (Vitamin B12) 2,500 MCG) PO SCH (09:00)
== END 2020-10-07 14:00 | DRG 41 ==
LOC: EDUNIT# 09:38 → ER 09:49 → 4TH 11:50
PROVIDERS: ADMIT Internal Medicine; ATTEND Internal Medicine
PROC: 0JH632Z Insertion of Monitoring Device into Chest Subcutaneous Tissue and Fascia, Percutaneous Approach (ICD-10-PCS; principal; 2020-10-07)
DX: I63.9 Cerebral infarction, unspecified (principal); G81.94 Hemiplegia, unspecified affecting left nondominant side; R29.810 Facial weakness; R47.1 Dysarthria and anarthria; R51.9 Headache, unspecified; R29.704 NIHSS score 4; I12.9 Hypertensive chronic kidney disease with stage 1 through stage 4 chronic kidney disease, or unspecified chronic kidney disease; N18.2 Chronic kidney disease, stage 2 (mild); E78.5 Hyperlipidemia, unspecified; E03.9 Hypothyroidism, unspecified; F17.210 Nicotine dependence, cigarettes, uncomplicated; G89.29 Other chronic pain; K21.9 Gastro-esophageal reflux disease without esophagitis; M19.91 Primary osteoarthritis, unspecified site; M54.9 Dorsalgia, unspecified; H40.9 Unspecified glaucoma; F32.9 Major depressive disorder, single episode, unspecified; Z85.819 Personal history of malignant neoplasm of unspecified site of lip, oral cavity, and pharynx; Z96.651 Presence of right artificial knee joint; R01.1 Cardiac murmur, unspecified; Z86.73 Personal history of transient ischemic attack (TIA), and cerebral infarction without residual deficits; Z90.710 Acquired absence of both cervix and uterus; Z90.722 Acquired absence of ovaries, bilateral; Z80.0 Family history of malignant neoplasm of digestive organs; Z83.3 Family history of diabetes mellitus; Z82.49 Family history of ischemic heart disease and other diseases of the circulatory system; Z83.6 Family history of other diseases of the respiratory system; Z83.49 Family history of other endocrine, nutritional and metabolic diseases; Z88.6 Allergy status to analgesic agent; Z88.1 Allergy status to other antibiotic agents; Z88.5 Allergy status to narcotic agent; Z88.2 Allergy status to sulfonamides; Z88.8 Allergy status to other drugs, medicaments and biological substances
CPT/HCPCS: 33285; 36415; 70496; 70498; 70551; 71045; 80053; 80061; 81000; 82962; 84443; 84484; 85025; 85379; 85610; 85730; 87081; 93005; 93041; 93306; 94760

== ENCOUNTER 2020-10-07 12:25 | Inpatient (IN) | payer MEDICARE, MEDICAID ==
[~2020-10-07] VITALS: Ht 167.4 cm; Wt 83.7 kg
[~2020-10-07 12:25] MED LIST changes: +ASPI325T32 PO; +ATOR40TA PO; +BACL10TA PO; +HOLD METFORMIN - RECEIVED CONTRAST 20 ML VIAL IV SCH; +HYDR-3817 PO; +LEVO175T5 PO; +METO50TA7 PO; +OMEP20CA18 PO; +POLY17PO6 PO
[2020-10-07] MEDS ORDERED: guaiFENesin/CODEINE (ROBITUSSIN AC) 10ML UDC PO PRN (12:30)
[2020-10-07] MEDS ORDERED: DOCUSATE SODIUM 100 MG (COLACE) CAP PO PRN ×2 (12:30→18:45)
[2020-10-07] MEDS ORDERED: diphenhydrAMINE 25 MG TAB (BENADRYL) PO PRN (12:30)
[2020-10-07] MEDS ORDERED: ALPRAZolam 0.25 MG (XANAX) TAB PO PRN (12:30)
[2020-10-07] MEDS ORDERED: FLEET ENEMA ADULT 1 EA BTL PR PRN (12:30)
[2020-10-07] MEDS ORDERED: MELATONIN 3 MG TABLET PO PRN (12:30)
[2020-10-07] MEDS ORDERED: BISACODYL 10 MG SUPP (DULCOLAX) PR PRN (12:30)
[2020-10-07] MEDS ORDERED: LACTULOSE SYRUP 10GM/15ML (ENULOSE) 30ML UDC PO PRN (12:30)
[2020-10-07] MEDS ORDERED: LOPERAMIDE 2 MG (IMODIUM) TABLET PO PRN (12:30)
[2020-10-07] MEDS ORDERED: CALCIUM CARBONATE 500 MG (TUMS) TAB.CHEW PO PRN (12:30)
--- NOTE | 2020-10-07 13:30 | NUR ---
YUMIKO QUINTANA admitted to room 230-1, with an admitting diagnosis of CVA , IMMOBILITY, on 10/07/20 from [address]. 4TH FLOOR via W/C, accompanied by PT STAFF.YUMIKO QUINTANA introduced to surroundings, call light, bed controls, phone, TV, temperature control, lights, meal times, smoking policy, visitor policy, side rail policy, bathrooms and showers. Patient Rights given to patient in the handbook.YUMIKO QUINTANA verbalizes understanding that [facility] is not responsible for the loss or damage to any personal effects or valuables that are kept in the patients posession during their hospitalization. The following Patient Care Plans were discussed with the PT: Discharge Planning, PAIN CONTROL,PT/OT/ST, and TESTS AND PROCEDURES. YUMIKO QUINTANA verbalizes understanding of Interdisciplinary Patient Education. Patient and/or family were informed about the Rapid Response Team and its purpose. Patient received Patient Rights Booklet, which includes Privacy Act Statement and Data Collection Information Summary.
[2020-10-07 14:50] VITALS: BP 143/75
--- NOTE | 2020-10-07 15:09 | Physical Therapy Evaluation ---
PT Evaluation-General Medical Diagnosis Admission Date Oct 07, 2020 at 13:30 Medical Diagnosis: CVA Onset Date: Oct 06, 2020 Therapy Diagnosis Therapy Diagnosis: impaired mobility, strength, endurance, balance Height/Weight Height (Feet): 5 Height (Inches): 5.00 Weight (Pounds): 201 Weight (Ounces): 0.0 Precautions Precautions/Isolations: Fall Prevention, Standard Precautions Referral Physician: Shannan Arellano DO Reason for Referral: Evaluation/Treatment Medical History Pertinent Medical History: Arthritis, GERD, HTN, Hypothroidism, OA, Smoking Additional Medical History Past Medical History Surgeries: Yes (bilat elbow, L shoulder, back x2, L TKR x2, teeth pulled, R TKR AND SCOPE) Section, Eye Surgery, Gallbladder, Hysterectomy, Joint Replacement, Oophorectomy, Orthopedic, Tubal Ligation Respiratory: No Cardiac: Yes (HX HEART MURMUR) Heart Murmur, Hypertension Neurological: Yes TIA Reproductive Disorders: No COMPENSATION MANAGER History: Hysterectomy, Menopausal Sexually Transmitted Disease: No HIV/AIDS: No Genitourinary: Yes (stage 2 kidney disease) Gastrointestinal: Yes Gastroesophageal Reflux, Chronic Constipation, Polyps Musculoskeletal: Yes (joint pain) Arthritis, Chronic Back Pain Endocrine: Yes Hypothyroidsim HEENT: Yes (bilat cataracts removed, dentures, GLASSES) Glaucoma Loss of Vision: Denies Hearing Impairment: Denies Cancer: Yes (THROAT CANCER) Skin Did You Recieve Any Treatments: Yes What Type of Treatment Did You: Surgical Intervention Psychosocial: Yes (RELATED TO THYROID) Depression Reviewed History: Yes Social History Home: Single Level Current Living Status: Alone Entry Into Home: Stairs Without Railing PT Steps Into Home: 2 Prior Prior Level of Function SCALE: Activities may be completed with or without assistive devices. 9-Ewtqnmawho-bjkdltt completes the activity by him/herself with no assistance from a helper. 5-Set-up or Clean-up Assistance-helper sets up or cleans up; patient completes activity. [place] assists only prior to or following the activity. 4-Supervision or Touching Assistance-helper provides verbal cues and/or touching/steadying and/or contact guard assistance as patient completes activity. Assistance may be provided throughout the activity or intermittently. 3-Partial/Moderate Assistance-helper does LESS THAN HALF the effort. [place] lifts, holds or supports trunk or limbs, but provides less than half the effort. 2-Substantial/Maximal Assistance-helper does MORE THAN HALF the effort. [place] lifts or holds trunk or limbs and provides more than half the effort. 3-Tmbzawqmr-smhodv does ALL the effort. Patient does none of the effort to complete the activity. Or, the assistance of 2 or more helpers is required for the patient to complete the activity. If activity was not attempted, code reason: 7-Patient Refused. 9-Not Applicable-not attempted and the patient did not perform the activity before the current illness, exacerbation or injury. 10-Not Attempted due to Environmental Limitations-(lack of equipment, weather restraints, etc.). 88-Not Attempted due to Medical Conditions or Safety Concerns. Bed Mobility: 6 Transfers (B,C,W/C): 6 Gait: 6 Stairs: 6 Indoor Mobility (Ambulation): Independent Stairs: Independent Patient states she occasionally uses a [facility]PC PT Evaluation-Current Subjective Patient in WC pre tx, agrees to PT, has no complaints of pain. Will be co- treating with OT due to poor patient mobility, strength, endurance, balance, left hemiparesis, the need to coordinate UE and LE during activity. Pt/Family Goals to be independent at home Objective Patient Orientation: Person, Place, Situation ROM/Strength ROM Lower Extremities WNL Strength Lower Extremities LLE (hip flexion 4+/5, knee flexion 4+/5, knee extension 5/5, dorsiflexion 5/5), RLE (hip flexion 5/5, knee flexion 5/5, knee extension 5/5, dorsiflexion 5/5) Neuromuscular (Tone, Coordination, Reflexes) Patient has a slight left sided facial droop, good tracking and peripheral vision, she says she has slightly blurry vision Sensory Hearing: Functional Sensation Right Lower Extremit: Intact Sensation Left Lower Extremity: Intact Transfers Roll Left & Right (QC): 6 Sit to Lying (QC): 6 Lying to Sitting/Side of Bed(Q: 6 Sit to Stand (QC): 4 Chair/Mlf-sf-Ssgdt Xfer(QC): 4 Toilet Transfer (QC): 4 Car Transfer (QC): 4 Patient performs bed mobility with independence, supine <-> sit with independence, sit <-> stand CGA, transfers CGA, car transfer CGA. Occasional cues for hand placement and safety. Gait Does the Patient Walk?: Yes Mode of Locomotion: Walk Anticipated Mode of Locomotion: Walk Walk 10 feet (QC): 4 Walk 50 ft with 2 Turns(QC): 4 Walk 150 ft (QC): 4 Walking 10ft/uneven surface-QC: 4 Distance: 150'x4 Gait Assistive Device: FWW Comments/Gait Description Patient can ambulate 150' with a rolling walker with CGA (including 50' with at least 2 turns of 90 degrees and 10' over an uneven surface). Patient had no LOB but has moments of unsteadiness especially when turning. Wheelchair Training Does the Pt Use a Wheelchair?: No Wheel 50 ft with 2 turns (QC): 9 Wheel 150 ft (QC): 9 Stairs #of Steps: 4 1 Step (curb) (QC): 4 4 Steps (QC): 4 12 Steps (QC): 88 Patient can go up and down 4 steps using 2 handrails with CGA Balance Sitting Static: Normal Sitting Dynamic: Normal Standing Static: Good Standing Dynamic: Fair Picking up an Object (QC): 4 Treatment Patient also dressed, bathed, performed a standing balance exercise in the parallel bars and was score on the Soria Balance Scale (41/56). PT worked on functional mobility (and balance and safety during ADL's), balance training and testing, OT worked on ADL's, UE exercise, balance training. Assessment/Needs Patient has impaired mobility, strength, endurance, balance. She has only slight strength impairments in the left leg but needs a walker for ambulation at this time and needs somebody with her when walking. Rehab Potential: Fair PT Short Term Goals Short Term Goals Time Frame: Oct 14, 2020 Roll Left & Right: 6 Sit to lyin Lying to sitting on side of be: 6 Sit to stand: 4 (SBA) Chair/bpi-ff-xhkwx transfer: 4 (SBA) Walk 10 feet: 4 (SBA) Walk 50 feet with two turns: 4 (SBA) Walk 150 feet: 4 (SBA) PT Document Control Assistant Goals Skilled Nursing Goals PT Skilled Nursing Goals Time Frame: Oct 28, 2020 Roll Left & Right (QC): 6 Sit to Lying (QC): 6 Lying-Sitting on Side/Bed(QC): 6 Sit to Stand (QC): 6 Chair/Dgr-hr-Pkkjs Xfer(QC): 6 Toilet Transfer (QC): 6 Car Transfer (QC): 6 Does the Patient Walk: Yes Walk 10 feet (QC): 6 Walk 50ft with 2 Turns (QC): 6 Walk 150 ft (QC): 6 Walking 10ft on Uneven Surface: 6 1 Step (curb) (QC): 6 4 Steps (QC): 6 12 Steps (QC): 6 Picking up an Object (QC): 6 Wheel 50 feet with 2 turns (QC: 9 Wheel 150 feet: 9 PT Plan Problem List Problem List: Activity Tolerance, Functional Strength, Safety, Balance, Gait, Transfer, Bed Mobility, ROM Treatment/Plan Treatment Plan: Continue Plan of Care Treatment Plan: Bed Mobility, Education, Functional Activity Libra, Functional Strength, Group Therapy, Gait, Safety, Therapeutic Exercise, Transfers Treatment Duration: Oct 28, 2020 Frequency: At least 5 of 7 days/Wk (IRF) Estimated Hrs Per Day: 1.5 hours per day Patient and/or Family Agrees t: Yes Safety Risks/Education Patient Education: Gait Training, Transfer Techniques, Steps, Correct Positioning, Safety Issues Teaching Recipient: Patient Teaching Methods: Demonstration, Discussion Response to Teaching: Reinforcement Needed Discharge Recommendations Plan Patient will perform bed mobility and transfer training, balance and endurance training, functional strengthening, stair training, gait training, and education, to improve functional mobility and independence at home. Therapy Discharge Recommendati: Scheduled Assistance, Home & Family Time/GCodes Time In: 1330 Time Out: 1510 Total Billed Treatment Time: 90 Total Billed Treatment 1 visit EVM 10' FA 80' PT eval from [id number], OT eval from [id number], co-treat from 4900-1216 (80 min) VICTORINA RO PT Oct 07, 2020 15:09
--- NOTE | 2020-10-07 15:24 | Occupational Therapy Eval ---
OT Evaluation-General/PLF Medical Diagnosis Admission Date Oct 07, 2020 at 13:30 Medical Diagnosis: CVA Onset Date: Oct 06, 2020 Therapy Diagnosis Therapy Diagnosis: decreased functional use LUE, decreased ADLs Height/Weight Height (Feet): 5 Height (Inches): 5.00 Weight (Pounds): 201 Weight (Ounces): 0.0 Precautions Precautions/Isolations: Fall Prevention, Standard Precautions Referral Physician: Adan Referral Reason: Evaluation/Treatment Medical History Pertinent Medical History: Arthritis, GERD, HTN, Hypothroidism, OA, Smoking Current History Pt to ED 10/06/2020 with severe headache from past 4-5 days, and L side weakness Reviewed History: Yes Social History Home: Single Level Current Living Status: Alone Entry Into Home: Stairs Without Railing Steps Into Home: 2 ADL-Prior Level of Function SCALE: Activities may be completed with or without assistive devices. 4-Riroclzuep-edyyydm completes the activity by him/herself with no assistance from a helper. 5-Set-up or Clean-up Assistance-helper sets up or cleans up; patient completes activity. [place] assists only prior to or following the activity. 4-Supervision or Touching Assistance-helper provides verbal cues and/or touching/steadying and/or contact guard assistance as patient completes acti vity. Assistance may be provided throughout the activity or intermittently. 3-Partial/Moderate Assistance-helper does LESS THAN HALF the effort. [place] lifts, holds or supports trunk or limbs, but provides less than half the effort. 2-Substantial/Maximal Assistance-helper does MORE THAN HALF the effort. [place] lifts or holds trunk or limbs and provides more than half the effort. 9-Oqeyhlhzo-bczzqn does ALL the effort. Patient does none of the effort to complete the activity. Or, the assistance of 2 or more helpers is required for the patient to complete the activity. If activity was not attempted, code reason: 7-Patient Refused. 9-Not Applicable-not attempted and the patient did not perform the activity before the current illness, exacerbation or injury. 10-Not Attempted due to Environmental Limitations-(lack of equipment, weather restraints, etc.). 88-Not Attempted due to Medical Conditions or Safety Concerns. ADL PLOF Comments Pt reports living alone at [facility], she has SKIL assistance Sunday through Sunday, 4-6 hours each day. They help her cook and clean, and are there when she bathes and dresses, although she reports she is able to bathe/dress herself (SBA). Pt has a tub/shower, without a shower chair, she typically stands up to shower. Self Care: Needed Some Help Functional Cognition: Independent DME/Equipment: Tub/Shower OT Current Status Subjective Pt agreeable to OT tx. Mental Status/Objective Patient Orientation: Person, Place, Time, Situation Current Glasses/Contacts: Yes Hearing Aids: No Dentures/Partials: Yes Hand Dominance: Right Upper Extremity ROM WFL bilateral, LUE slight delay with movements but full ROM Upper Extremity Coordination slight decrease due to delayed movements and strength in LUE Upper Extremity Sensation pt reports intact sensation BUEs Upper Extremity Strength RUE grossly 4+/5 LUE grossly 4-/5 ADL-Treatment Eating (QC): 4 (SBA in stand, Pt stood in parallel bars as she ate lunch. Able to eat soft foods only as she does not have dentures with her at hospital.) Oral Hygiene (QC): 4 (SBA in stand at sink.) Shower/Bathe Self (QC): 4 (Pt able to wash/dry all parts. Pt had LOB in stands at GBs as she washed periarea and buttock, requiring CGA) Upper Body Dressing (QC): 5 (set up assistance. pt required increased time with task) Lower Body Dressing (QC): 4 (CGA in stand for pant hike. ) On/Off Footwear (QC): 4 (SBA) Toileting Hygiene (QC): 4 (CGA in stand for pant hike, pt able to manage clothing and perform hygiene.) Other Treatments OT/PT cotreat due to skill of 2 clinicians that a food safety technician could not perform in order to coordinate UE/LEs with task, and due to pt's limitations with mobil ity, strength, endurance, balance, left hemiparesis. OT focused on ADLS, UE placement, cues for sequencing and safety while PT focused on LE placement, gross overall movement, ambulation and standing balance. Pt seated in w/c, donned clothes, then completed functional transfers into/out of car simulation, over uneven surface and up/down steps. Pt participated in functional balance assessment, scoring 41/56 on Soria Balance Assessment. Pt took rest breaks as needed, then returned to her room using FWW. Pt completed showering, seated on SC. LOB noted when pt stood from SC quickly, causing her to reach for GBs to steady herself. CGA in stand at GBs during shower. Pt then completed dressing, then used FWW to transfer to toilet. Pt completed toileting, then used FWW to stand at sink to complete oral care. Pt took a seated rest break in recliner, then used FWW to return to therapy gym. Pt stood in parallel bars to eat her lunch, SBA for balance with task. Pt took seated rest breaks as needed, then used FWW to return to her room and to recliner. Post OT tx, pt seated in recliner, call light in reach and all needs met. Education OT Patient Education: Correct positioning, Modified ADL techniques, Progress toward Goal/Update tx plan, Purpose of tx/functional activities, Rehab process Teaching Recipient: Patient Teaching Methods: Discussion Response to Teaching: Verbalize Understanding OT Short Term Goals Short Term Goals Time Frame: Oct 15, 2020 Eatin Oral hygiene: 5 Upper body dressin Lower body dressin Putting on/taking off footwear: 5 OT Farmworker Animal Goals Fdc Goals Time Frame: Oct 22, 2020 Eating (QC): 6 Oral Hygiene (QC): 6 Toileting Hygiene (QC): 6 Shower/Bathe Self (QC): 4 Upper Body Dressing (QC): 6 Lower Body Dressing (QC): 6 On/Off Footwear (QC): 6 Additional Goals: 1-Demonstrate ADL Tasks, 2-Verbalize Understanding, 3- ImproveStrength/Libra 1=Demonstrate adherence to instructed precautions during ADL tasks. 2=Patient will verbalize/demonstrate understanding of assistive devices/modifications for ADL. 3=Patient will improve strength/tolerance for activity to enable patient to perform ADL's. OT Education/Plan Problem List/Assessment Assessment: Decreased Activ Tolerance, Decreased UE Strength, Impaired Funct Balance, Impaired I ADL's, Impaired Self-Care Skills Discharge Recommendations Plan/Recommendations: Continue POC Treatment Plan/Plan of Care Patient would benefit from OT for education, treatment and training to promote independence in ADL's, mobility, safety and/or upper extremity function for ADL's. Plan of Care: ADL Retraining, Functional Mobility, UE Funct Exercise/Act Treatment Duration: Oct 22, 2020 Frequency: At least 5 of 7 days/Wk (IRF) Estimated Hrs Per Day: 1.5 hours per day Agreement: Yes Rehab Potential: Good Time/GCodes Start Time: 13:40 Stop Time: 15:10 Total Time Billed (hr/min): 90 Billed Treatment Time 5033-3588 PT eval, [id number] OT eval, [id number] cotreat 1, EVM (10'), ADL 3 (45), FA 2 (35) RICKI CARR OT Oct 07, 2020 15:24
--- NOTE | 2020-10-07 15:26 | ST Cognitive Linguistic Eval ---
Speech Evaluation-General Medical Diagnosis CVA Onset Date: Oct 06, 2020 Therapy Diagnosis Therapy Diagnosis: Cognitive-communication Referral Referring Physician: Dr. Arellano Medical History Pertinent Medical History: Arthritis, GERD, HTN, Hypothroidism, OA, Smoking Reviewed History: Yes (Patient has SKIL 5x per week) Social History Current Living Status: Alone Speech PLF-Current Status Prior Level of Function Patient lives home alone, however she does have SKIL services 5x per week due to prior disabilities. Subjective Patient was pleasant and cooperative with the evaluation process. Language Eval: Auditory Comprehends Simple Yes/No Ques: Functional Indent/Objects Multiple Edge: Functional Ident/Pics in Multiple Edge: Functional Follows 1-Step Commands: Functional Follows Complex Directions: Functional Follows General Conversations: Functional Language Eval: Verbal Language Completes Spontaneous Greeting: Functional Produces Auto, Serial Info: Functional Imitates Simple Words/Phrases: Functional Word Finding: Functional Requests Basic Needs: Functional States Basic Personal Info: Functional Expresses Complex Ideas: Functional Objective Cognitive Domain Attention: WNL Memory: WNL Problem Solving: Functional Executive Functions: WNL Composite Severity Rating: WNL Clock Drawing Severity Rating: WNL Objective Formal/Standardized Tests [facility] Status ([facility]) Results 28/30, within normal range of function Oral Motor/Speech Production Within normal limits, patient did not have her dentures here and her speech was 100% intelligible, she does have a very slight left side droop which appears to be resolving. Impression Patient is a pleasant 70 y/o female who was admitted to the hospital yesterday due to CVA. Patient was given the UMS this date with a score of 28/30 obtained. This score is within the normal range of function. At this time the patient does not require further ST services. Speech Patient Assess Expression of Ideas/Wants: Expression (4) Understanding Verbal Content: Understands (4) Brief Interview-Mental Status: Yes Repetition of Three Words: Three (3) Temporal Orientation: Year: Correct (3) Temporal Orientation: Month: Accurate within 5 days(2) Temporal Orientation: Day: Correct (1) Recall : Wear to say "Sock": Yes, no cue required (2) Recall : Color: Yes, no cue required (2) Recall : Bed: Yes, no cue required (2) Memory/Recall Ability: Current season, That he or she is in a hsp/hsp unit Speech-Plan Patient/Family Goals Patient/Family Goals: Patient plans on returning to her home where she has in home assistance five days a week. Treatment Plan Speech Therapy Treatment Plan: Discontinue ST Treatment Duration: Oct 07, 2020 Frequency: 1 time per week Estimated Hrs Per Day: .25 hour per day Rehab Potential: Good Barriers to Learning: None identified Pt/Family Agrees to Plan: Yes Safety Risks/Education Teaching Recipient: Patient Teaching Methods: Discussion Response to Teaching: Verbalize Understanding Education Topics Provided: Safety within her room, communication of wants/needs Time Speech Therapy Time In: 15:15 Speech Therapy Time Out: 15:30 Total Billed Time: 15 Billed Treatment Time 1, SPSNDCOMP No AMRIK MACK Oct 07, 2020 15:26
--- NOTE | 2020-10-07 15:29 | NUR ---
MED REC WAS COMPLETED ON 10-07-2020 WHEN PT WAS ON 4TH FLOOR- PLEASE REFER TO MY NOTE FROM THAT DATE IF THERE ARE QUESTIONS.
--- NOTE | 2020-10-07 17:14 | PM&R Post Admission Assessment ---
PM&R HP Date of Visit: Oct 07, 2020 Time of Visit: 17:00 History of Present Illness CC: CVA HPI: (HPI from H&P of mine: This is a 64yoWF clinic Pt of Dr. Wolf with a PMH of chronic pain on Hydrocodone and Morphine who presents four days after she was feeling weak on her left side. She had signs consistent with a right-sided brain stroke causing left sided weakness and facial droop. Her strength is 2/5 in the upper and lower extremities. She does continue to smoke, no alcohol use and she does live alone. Will consult cardiology and perform risk-stratification to evaluate source of the stroke). Patient had a loop recorder placed by Dr Munguia and MRI confirmed CVA. She originally planned to go home even after IRF was offered but changed her mind because she couldn't get her shirt on. Past Gvjqlsw-Dtungb-Qereiu Hx Past Med/Social Hx: Reviewed Nursing Past Med/Soc Hx, Reviewed and Corrections made Patient Social History Marrital Status: single Employed/Student: retired Alcohol Use: Denies Use Recreational Drug Use: No Smoking Status: Current Everyday Smoker Type Used: Cigarettes 2nd Hand Smoke Exposure: Yes Physical Abuse Screen: No Sexual Abuse: No Recent Foreign Travel: No Contact w/other who traveled: No Recent Hopitalizations: No Recent Infectious Disease Expo: No Immunizations Up To Date Tetanus Booster (TDap): Unknown Date of Pneumonia Vaccine: Aug 03, 2016 Date of Influenza Vaccine: Jul 08, 2020 Seasonal Allergies Seasonal Allergies: No Past Medical History Surgeries: Section, Eye Surgery, Gallbladder, Hysterectomy, Joint Replacement, Oophorectomy, Orthopedic, Tubal Ligation Cardiac: Heart Murmur, Hypertension Neurological: Stroke (10/06/20), TIA Reproductive: No Sexually Transmitted Disease: No HIV/AIDS: No Hysterectomy, Menopausal Gastrointestinal: Gastroesophageal Reflux, Chronic Constipation, Polyps Musculoskeletal: Arthritis, Chronic Back Pain Endocrine: Hypothyroidsim HEENT: Glaucoma Loss of Vision: Denies Hearing Impairment: Denies Cancer: Skin Did You Recieve Any Treatments: Yes What Type of Treatment Did You: Surgical Intervention Psychosocial: Depression History of Blood Disorders: No Adverse Reaction to Blood Briseno: No (N/A) Family History Colon cancer 19 FATHER (stomach cancer) Completed stroke 19 FATHER G8 BROTHER Diabetes mellitus G8 BROTHER G8 SISTER Hypertension 19 FATHER G8 BROTHER Myocardial infarction 19 FATHER G8 BROTHER Respiratory disorder 19 MOTHER Thyroid disease G8 SISTER Heart Disease, Cancer, CAD Under 55 Years Old, Diabetes, Hypertension Prior Level of Function Bed Mobility: 6 Transfers: 6 Gait: 6 Stairs: 6 Indoor Mobility (Ambulation): Independent Stairs: Independent Self Care: Needed Some Help Functional Cognition: Independent Current Level of Fuctioning Roll Left to Right: 6 Sit to Lyin Lying to Sitting/Side of Bed: 6 Sit to Stand: 4 Chair/Ebn-eg-Uvfwc Xfer: 4 Car Transfer: 4 Does the Patient Walk: Yes Mode of Locomotion: Walk Anticipated Mode of Locomotion: Walk Walk 10 feet: 4 Walk 50 ft with 2 Turns: 4 Walk 150 ft: 4 Walking 10ft on uneven surface: 4 Gait Assistive Device: FWW Does the Pt Use a Wheelchair: No Wheel 50 ft with 2 turns: 9 Wheel 150 ft: 9 #of Steps: 4 1 Step (curb): 4 4 Steps: 4 12 Steps: 88 Picking up an Object: 4 Eatin (SBA in stand, Pt stood in parallel bars as she ate lunch. Able to eat soft foods only as she does not have dentures with her at hospital.) Oral Hygiene: 4 (SBA in stand at sink.) Shower/Bathe Self: 4 (Pt able to wash/dry all parts. Pt had LOB in stands at [facility] as she washed periarea and buttock, requiring CGA) Upper Body Dressin (set up assistance. pt required increased time with task) Lower Body Dressin (CGA in stand for pant hike. ) On/Off Footwear: 4 (SBA) Toileting Hygiene: 4 (CGA in stand for pant hike, pt able to manage clothing and perform hygiene.) PM&R Allergy/Meds/Data Review Allergies Coded Allergies: acetaminophen (Verified Allergy, Severe, throat swells, 03/24/20) nalbuphine (Verified Allergy, Severe, ANAPHYLAXIS, 03/24/20) oxycodone (Verified Allergy, Severe, throat swells, PT TOLERATES HYDROCODONE, 01/31/17) suvorexant (Verified Allergy, Severe, ANAPHYLAXIS, 03/24/20) sulfamethoxazole (Verified Allergy, Mild, HIVES, 03/24/20) trimethoprim (Verified Allergy, Mild, HIVES, 03/24/20) Home Medications Scheduled Aspirin (Aspirin EC), 325 MG PO DAILY Atorvastatin Calcium (Lipitor), 40 MG PO HS Cholecalciferol (Vitamin D3) (Vitamin D3), 25 MCG PO DAILY, (Reported) Cider Vinegar (Apple Cider Vinegar), 300 MG PO DAILY, (Reported) Cyanocobalamin (Vitamin B-12) (Vitamin B12), 2,500 MCG PO DAILY, (Reported) Escitalopram Oxalate (Escitalopram Oxalate), 20 MG PO HS, (Reported) Levothyroxine Sodium (Levothyroxine Sodium), 175 MCG PO DAILY, (Reported) Lisinopril (Lisinopril), 10 MG PO DAILY, (Reported) Metoprolol Succinate (Metoprolol Succinate), 50 MG PO DAILY Morphine Sulfate (Morphine Sulfate ER), 30 MG PO BID, (Reported) Multivitamin (Multivitamin), 1 EACH PO DAILY, (Reported) Omeprazole (Omeprazole), 20 MG PO DAILY, (Reported) Trazodone HCl (Trazodone HCl), 150 MG PO HS, (Reported) Verapamil HCl (Verapamil HCl), 120 MG PO BID, (Reported) Scheduled PRN Baclofen (Baclofen), 10 MG PO Q8H PRN for MUSCLE SPASMS, (Reported) Docusate Sodium (Stool Softener), 100 MG PO DAILY PRN for CONSTIPATION-1ST LINE, (Reported) Hydrocodone/Acetaminophen (Hydrocodone-Acetamin 7.5-325), 1 EA PO Q8H PRN for PAIN-MODERATE (5-7), (Reported) Polyethylene Glycol 3350 (Miralax), 17 GM PO DAILY PRN for CONSTIPATION-2ND LINE, (Reported) Discontinued Medications Hydrocodone Bit/Acetaminophen (HYDROcodone/APAP 7.5/325 TAB), 1 EACH PO TID, (Reported) Discontinued Reason: Duplicate Order Ibuprofen (Ibuprofen), 600 MG PO Q8H PRN for PAIN-MILD, (Reported) Levothyroxine Sodium (Levothyroxine Sodium), 150 MCG PO DAILY, (Reported) Discontinued Reason: Duplicate Order Omeprazole (Omeprazole), 20 MG PO DAILY, (Reported) Discontinued Reason: Duplicate Order Tizanidine HCl (Tizanidine HCl), 4 MG PO TID, (Reported) Discontinued Reason: No Longer Taking Current Medications Current Medications Reviewed Review of Systems Constitutional: see HPI, malaise, weakness EENTM: no symptoms reported Respiratory: no symptoms reported Cardiovascular: no symptoms reported Gastrointestinal: no symptoms reported Genitourinary: no symptoms reported Musculoskeletal: back pain, joint pain Skin: no symptoms reported Psychiatric/Neurological: Anxiety, Depressed, Weakness All Other Systems Reviewed Negative Unless Noted: Yes Physical Exam Physical Exam Vital Signs Vital Signs - First Documented 10/07/20 14:50 Temp 36.2 Pulse 80 Resp 18 B/P (MAP) 143/75 Pulse Ox 92 O2 Delivery Room Air Capillary Refill : Height, Weight, BMI Height: 5'5.00" Weight: 201lbs. 0.0oz. [id number]; 32.75 BMI Method:Stated General Appearance: No Apparent Distress, WD/WN, Chronically ill Eyes: Bilateral Eye Normal Inspection, Bilateral Eye PERRL HEENT: PERRL/EOMI, Normal ENT Inspection, Pharynx Normal Neck: Full Range of Motion, Normal Inspection, Non Tender, Supple, Carotid Bruit Respiratory: Chest Non Tender, Lungs Clear, Normal Breath Sounds, No Accessory Muscle Use, No Respiratory Distress Cardiovascular: Regular Rate, Rhythm, No Edema, No Gallop, No JVD, No Murmur, Normal Peripheral Pulses Gastrointestinal: Normal Bowel Sounds, No Organomegaly, No Pulsatile Mass, Non Tender, Soft Back: Normal Inspection, No CVA Tenderness, No Vertebral Tenderness Extremity: Normal Capillary Refill, Normal Inspection, Normal Range of Motion (except left side), Non Tender, No Calf Tenderness, No Pedal Edema Neurologic/Psychiatric: Alert, Oriented x3, No Motor/Sensory Deficits, Normal Mood/Affect, Facial Droop (left), Motor Weakness (left sided weakness 3/5 arm, 2/5 leg) Skin: Normal Color, Warm/Dry Lymphatic: No Adenopathy PM&R Medical Assessment & Plan REHAB/MEDICAL ASSESSMENT AND PLAN: REHAB IMPAIRMENT GROUP: CVA ETIOLOGIC DIAGNOSIS: CVA The comorbidities that impact the patients function and/or functional outcome by: smoker, advanced age, chronic pain, depression, apathy, severe weakness left side, fall risk REHAB PLAN: The patient is being admitted to our comprehensive inpatient rehabilitation facility and can tolerate the intensity of service consisting of at least: 180 minutes of therapy a day, 5 out of 7 days a week Rehab treatment will consist of: PT OT will focus on regaining function of left side and help with use of AD to increase ADL's and ambulatory skills while teaching fall risk prevention The patient/family has a good understanding of our discharge process and will benefit from an interdisciplinary inpatient rehabilitation program. The patient has potential to make improvement and is in need of at least two of the following multidisciplinary therapies including but not limited to physical, occupational, speech, and prosthetics and orthotics. Additionally the patient will need services from respiratory, nutritional services, wound care, psychology, etc. (Customize this to each patient). Given the patients complex condition and risk of further medical complications, rehabilitation services cannot be safely or effectively provided at a lower level of care such as a fci facility. BARRIERS TO DISCHARGE: Lives alone ESTIMATED LOS: 10 days DISPOSITION: Home RELEVANT CHANGES SINCE PREADMISSION SCREENING: I have compared the patients medical and functional status at the time of the preadmission screening and there are: no changes PROGNOSIS: Good REHABILITATION GOALS: 1. PT OT will focus on regaining function of left side and help with use of AD to increase ADL's and ambulatory skills while teaching fall risk prevention All the above goals were reviewed with the patient and he/she is in agreement. By signing this document, I acknowledge that I have personally performed a full physical examination on this patient within 24 hours of admission to this inpatient rehabilitation facility and have determined the patient to be able to tolerate the above course of treatment at an intensive level for a reasonable period of time. I will be completing a detailed individualized Plan of Care for this patient by day #4 of the patients stay based upon the Preadmission Screen, the Post-Admission Evaluation, and the therapy evaluations. Admission Dx/Comorbidities: (1) CVA (cerebral vascular accident) Status: Acute ICD Codes: I63.9 - Cerebral infarction, unspecified (2) Status post placement of implantable loop recorder ICD Codes: Z95.818 - Presence of other cardiac implants and grafts (3) Chronic pain Status: Chronic ICD Codes: G89.29 - Other chronic pain (4) GERD (gastroesophageal reflux disease) ICD Codes: K21.9 - Gastro-esophageal reflux disease without esophagitis (5) Hypothyroidism ICD Codes: E03.9 - Hypothyroidism, unspecified (6) Depression Status: Chronic ICD Codes: F32.9 - Major depressive disorder, single episode, unspecified (7) CKD (chronic kidney disease) Status: Chronic ICD Codes: N18.9 - Chronic kidney disease, unspecified (8) HTN (hypertension) Status: Chronic ICD Codes: I10 - Essential (primary) hypertension (9) Anemia Status: Chronic ICD Codes: D64.9 - Anemia, unspecified (10) Smoker ICD Codes: F17.200 - Nicotine dependence, unspecified, uncomplicated Assessment/Plan Assessment and Plan Assess & Plan/Chief Complaint Assessment: CVA with left sided weakness presented to ER 4 days after symptoms HTN Smoker HLP Chronic pain Narcotic dependence Plan: IRF protocol Appreciate Dr Munguia Statin PATSY WARREN DO Oct 07, 2020 17:14
[2020-10-07] MEDS ORDERED: ANTACID SUSP 30 ML UDC (MYLANTA) PO PRN (17:30)
[2020-10-07] MEDS ORDERED: polyethylene glycoL POWDER 17 GM (MIRALAX) PACK PO PRN (17:30)
[2020-10-07] MEDS ORDERED: ACETAMINOPHEN 325 MG TABLET PO PRN (17:30)
[2020-10-07] MEDS ORDERED: LIDOCAINE 1% INJ 20 ML 20 ML VIAL INJ ONE (17:30)
[2020-10-07] MEDS ORDERED: ONDANSETRON 4 MG/2 ML (SDV) Z0FRAN IV PRN (17:30)
[2020-10-07] MEDS ORDERED: IBUPROFEN 600 MG (MOTRIN) TAB PO PRN (17:30)
[2020-10-07 17:42] VITALS: BP 126/56
[2020-10-07] MEDS: ENOXAPARIN 40 MG/0.4 ML (LOVENOX) SYR SC SCH (18:05)
[2020-10-07] MEDS: polyethylene glycoL POWDER 17 GM (MIRALAX) PACK PO SCH (19:38)
[2020-10-07] MEDS: HYDROcodone/APAP 7.5 MG/325 MG (LORTAB, LORCET PLUS) TABLET PO PRN (20:18)
[2020-10-07] MEDS: morphine ER 30 MG (MS CONTIN) TAB PO SCH (20:19)
[2020-10-07] MEDS: traZODone 150 MG (DESYREL) TABLET PO SCH (20:19)
[2020-10-07] MEDS: VERAPAMIL 80 MG (ISOPTIN) TAB PO SCH (20:20)
[2020-10-07] MEDS: DOCUSATE SODIUM 100 MG (COLACE) CAP PO SCH (20:27)
[2020-10-07] MEDS: SENNA W/DOCUSATE (SENOKOT S) TABLET PO SCH (20:27)
[2020-10-07] MEDS ORDERED: DOCUSATE SODIUM 100 MG (COLACE) CAP PO SCH (21:00)
[2020-10-08] MEDS: HYDROcodone/APAP 7.5 MG/325 MG (LORTAB, LORCET PLUS) TABLET PO PRN ×2 (05:12→18:14)
[2020-10-08 05:37] VITALS: BP 191/76
[2020-10-08] MEDS ORDERED: lisINopril 10 MG (PRINIVIL) TABLET ONE (05:54)
[2020-10-08] MEDS ORDERED: meTOproloL SUCCINATE 50 MG (TOPROL XL) TAB PO ONE (05:54)
[2020-10-08] MEDS: LEVOTHYROXINE 100 MCG (LEVOTHROID) TAB PO SCH (05:58)
[2020-10-08] MEDS: MULTIVIT W/MINERALS TAB (THERAGRAN M) PO SCH (05:58)
[2020-10-08] MEDS: CYANOCOBALAMIN 1,000 MCG (VITAMIN B-12) TABLET PO SCH (05:58)
[2020-10-08] MEDS: LEVOTHYROXINE 75 MCG (LEVOTHROID) TABLET PO SCH (05:58)
[2020-10-08 06:52] VITALS: BP 156/71
[2020-10-08] MEDS: morphine ER 30 MG (MS CONTIN) TAB PO SCH ×2 (08:05→20:37)
[2020-10-08] MEDS: VERAPAMIL 80 MG (ISOPTIN) TAB PO SCH (08:05)
[2020-10-08] MEDS: VITAMIN D3 25 MCG (1,000 UNITS) TABLET PO SCH (08:06)
[2020-10-08] MEDS: PANTOPRAZOLE 20 MG TABLET (PROTONIX) PO SCH (08:06)
[2020-10-08] MEDS: ASPIRIN E.C. 325 MG (ECOTRIN) TABLET PO SCH (08:06)
[2020-10-08 08:07] VITALS: BP 125/59
[2020-10-08] MEDS: polyethylene glycoL POWDER 17 GM (MIRALAX) PACK PO SCH ×2 (08:07→20:38)
[2020-10-08] MEDS: DOCUSATE SODIUM 100 MG (COLACE) CAP PO SCH ×2 (08:07→20:38)
[2020-10-08] MEDS: SENNA W/DOCUSATE (SENOKOT S) TABLET PO SCH ×2 (08:07→20:38)
[2020-10-08] MEDS ORDERED: CIDER VINEGAR 300 MG PO SCH (09:00)
[2020-10-08] MEDS ORDERED: meTOproloL SUCCINATE 50 MG (TOPROL XL) TAB PO SCH (09:00)
[2020-10-08] MEDS ORDERED: lisINopril 10 MG (PRINIVIL) TABLET PO SCH (09:00)
[2020-10-08 10:22] LABS: BASOPHILS # (AUTO) 0.1 10^3/uL (0.0-0.1); BASOPHILS % (AUTO) 1 % (0-10); EOSINOPHILS # (AUTO) 0.2 10^3/uL (0.0-0.3); EOSINOPHILS % (AUTO) 4 % (0-10); HEMATOCRIT 40 % (35-52); HEMOGLOBIN 12.8 g/dL (11.5-16.0); LYMPHOCYTES # (AUTO) 1.3 10^3/uL (1.0-4.0); LYMPHOCYTES % (AUTO) 23 % (12-44); MEAN CORPUSCULAR HEMOGLOBIN 32 pg (25-34); MEAN CORPUSCULAR HGB CONC 32 g/dL (32-36); MEAN CORPUSCULAR VOLUME 99 fL (80-99); MEAN PLATELET VOLUME 10.2 fL (9.0-12.2); MONOCYTES # (AUTO) 0.3 10^3/uL (0.0-1.0); MONOCYTES % (AUTO) 5 % (0-12); NEUTROPHILS # (AUTO) 3.8 10^3/uL (1.8-7.8); NEUTROPHILS % (AUTO) 67 % (42-75); PLATELET COUNT 259 10^3/uL (130-400); WHITE BLOOD COUNT 5.6 10^3/uL (4.3-11.0)
[2020-10-08 10:48] LABS: ALBUMIN 3.8 GM/DL (3.2-4.5); BILIRUBIN,TOTAL 0.6 MG/DL (0.1-1.0); CALCIUM 8.8 MG/DL (8.5-10.1); CREATININE SERUM 0.98 MG/DL (0.60-1.30); POTASSIUM 3.8 MMOL/L (3.6-5.0); TOTAL PROTEIN 7.4 GM/DL (6.4-8.2)
--- NOTE | 2020-10-08 11:20 | Physical Therapy Daily Note ---
PT Daily Note-Current Subjective Pt in bed upon arrival; agrees to PT tx. Pain Numeric Pain Scale: 5-Moderate Pain Location: Posterior, Lower Location Body Site: Back Pain Description: Ache Comment: Per pt, pt has had back pain for yrs Mental Status Patient Orientation: Person, Place, Time, Situation Transfers SCALE: Activities may be completed with or without assistive devices. 9-Bvpakjauym-idxcujf completes the activity by him/herself with no assistance from a helper. 5-Set-up or Clean-up Assistance-helper sets up or cleans up; patient completes activity. [place] assists only prior to or following the activity. 4-Supervision or Touching Assistance-helper provides verbal cues and/or touching/steadying and/or contact guard assistance as patient completes activ ity. Assistance may be provided throughout the activity or intermittently. 3-Partial/Moderate Assistance-helper does LESS THAN HALF the effort. [place] lifts, holds or supports trunk or limbs, but provides less than half the effort. 2-Substantial/Maximal Assistance-helper does MORE THAN HALF the effort. [place] lifts or holds trunk or limbs and provides more than half the effort. 6-Oojjmdsxn-sviwih does ALL the effort. Patient does none of the effort to complete the activity. Or, the assistance of 2 or more helpers is required for the patient to complete the activity. If activity was not attempted, code reason: 7-Patient Refused. 9-Not Applicable-not attempted and the patient did not perform the activity before the current illness, exacerbation or injury. 10-Not Attempted due to Environmental Limitations-(lack of equipment, weather restraints, etc.). 88-Not Attempted due to Medical Conditions or Safety Concerns. Roll Left & Right (QC): 4 Sit to Lying (QC): 4 Lying to Sitting/Side of Bed(Q: 4 Sit to Stand (QC): 4 Toilet Transfer (QC): 4 Gait Training Does the Patient Walk?: Yes Distance: 150' and 80' Walk 10 feet (QC): 4 Walk 50 ft with 2 Turns(QC): 4 Walk 150 ft (QC): 4 Gait Persons Needed: 1 Gait Assistive Device: FWW Pt leans slightly to the left during ambulation. Pt has difficulty keeping FWW centered in front of body; L hip almost directly up against FWW multiple times. When pt completes turns, pt L side of body completely out of FWW. VC given for remaining centered w/ FWW. Exercises Standing: Heel/toe raises, Marching Standing Reps: 10 (x2) NuStep Minutes: 15 Neuromuscular Standing dynamic balance training including unsupported standing bag toss, while reaching ipsilaterally and contra-laterally to complete. Pt completes w/ no LOB; MINE WEDGE SAWYER CGA during activity. Treatments Pt completes all bed mobility and transfers w/ supervision. Pt ambulates to/from therapy gym w/ CGA w/ FWW. Pt completes NuStep; during NuStep pt c/o pain in lower back increasing. Pt completes standing dynamic balance in therapy gym and completes standing ex's at //bars; CGA during activities and ex's. Pt requests toilet when returning to room. Pt toilet transfers w/ supervision; standing unsupported to doff/don LE clothing. Pt in bed at end of tx w/ call light and bedside table w/in reach and all needs met. Assessment Current Status: Good Progress Pt extremely motivated. Pt has pain in lower back that limits standing tolerance at times. PT Short Term Goals Short Term Goals Time Frame: Oct 14, 2020 Roll Left & Right: 6 Sit to lyin Lying to sitting on side of be: 6 Sit to stand: 4 (SBA) Chair/ixc-kt-lorpe transfer: 4 (SBA) Walk 10 feet: 4 (SBA) Walk 50 feet with two turns: 4 (SBA) Walk 150 feet: 4 (SBA) PT Shelter Goals Patient Safety Manager Goals PT Shelter Goals Time Frame: Oct 28, 2020 Roll Left & Right (QC): 6 Sit to Lying (QC): 6 Lying-Sitting on Side/Bed(QC): 6 Sit to Stand (QC): 6 Chair/Sjr-io-Xdojs Xfer(QC): 6 Toilet Transfer (QC): 6 Car Transfer (QC): 6 Does the Patient Walk: Yes Walk 10 feet (QC): 6 Walk 50ft with 2 Turns (QC): 6 Walk 150 ft (QC): 6 Walking 10ft on Uneven Surface: 6 1 Step (curb) (QC): 6 4 Steps (QC): 6 12 Steps (QC): 6 Picking up an Object (QC): 6 Wheel 50 feet with 2 turns (QC: 9 Wheel 150 feet: 9 PT Plan Problem List Problem List: Activity Tolerance, Functional Strength, Safety, Balance, Gait, Transfer, Bed Mobility, ROM Treatment/Plan Treatment Plan: Continue Plan of Care Treatment Plan: Bed Mobility, Education, Functional Activity Libra, Functional Strength, Group Therapy, Gait, Safety, Therapeutic Exercise, Transfers Treatment Duration: Oct 28, 2020 Frequency: At least 5 of 7 days/Wk (IRF) Estimated Hrs Per Day: 1.5 hours per day Patient and/or Family Agrees t: Yes Safety Risks/Education Patient Education: Gait Training, Transfer Techniques, Correct Positioning, Safety Issues Teaching Recipient: Patient Teaching Methods: Discussion Response to Teaching: Verbalize Understanding Time/GCodes Time In: 1011 Time Out: 1111 Total Billed Treatment Time: 60 Total Billed Treatment 1, FA x1 (14m), Ex x2 (23m), GT x1 (15m), NM x1 (8m) DOUGLAS KOWALSKI MINE WEDGE SAWYER Oct 08, 2020 11:20
--- NOTE | 2020-10-08 12:18 | Occupational Ther Daily Note ---
OT Current Status-Daily Note Subjective Pt AxO in bed this am. Nursing present. Pt denies pain, pt agrees to tx, denies showering. Mental Status/Objective Patient Orientation: Person, Place, Situation, Normal For Age ADL-Treatment Therapy Code Descriptions/Definitions Functional [place] Measure: 0=Not Assessed/NA 4=Minimal Assistance 1=Total Assistance 5=Supervision or Setup 2=Maximal Assistance 6=Modified [place] 3=Moderate Assistance 7=Complete IndependenceSCALE: Activities may be completed with or without assistive devices. 3-Ebacsjrtrl-xfitjeg completes the activity by him/herself with no assistance from a helper. 5-Set-up or Clean-up Assistance-helper sets up or cleans up; patient completes activity. [place] assists only prior to or following the activity. 4-Supervision or Touching Assistance-helper provides verbal cues and/or touching/steadying and/or contact guard assistance as patient completes activity. Assistance may be provided throughout the activity or intermittently. 3-Partial/Moderate Assistance-helper does LESS THAN HALF the effort. [place] lifts, holds or supports trunk or limbs, but provides less than half the effort. 2-Substantial/Maximal Assistance-helper does MORE THAN HALF the effort. [place] lifts or holds trunk or limbs and provides more than half the effort. 4-Esndcabst-hknetl does ALL the effort. Patient does none of the effort to complete the activity. Or, the assistance of 2 or more helpers is required for the patient to complete the activity. If activity was not attempted, code reason: 7-Patient Refused. 9-Not Applicable-not attempted and the patient did not perform the activity before the current illness, exacerbation or injury. 10-Not Attempted due to Environmental Limitations-(lack of equipment, weather restraints, etc.). 88-Not Attempted due to Medical Conditions or Safety Concerns. Eating (QC): 6 Oral Hygiene (QC): 7 Shower/Bathe Self (QC): 7 Upper Body Dressing (QC): 5 (s/u) Lower Body Dressing (QC): 4 (SBA all LB tasks.) On/Off Footwear: 4 (SBA EOB) Toileting Hygiene (QC): 4 (SUP) Toilet Transfer (QC): 4 (SBA, cues for walker placement. ) Other Treatment Pt supine to sit SBA. Pt dons clothing items EOB as outlined. Pt agrees to complete laundry, ambulates to laundry room with cues to stay inside walker (tends to walk near outer L side), and cues for safety. Pt states slight "blurriness," that has gotten better since CVA. Pt completes laundry with cues for walker placement, pt hits walker on L side of door frame. Pt ambulates to gym with SBA, sits EOM. In stance, pt completes midline crossing/ LUE reaching/ balance task with no LOB. Pt requires intermittent rest breaks (~every 5 min). Pt states back is beginning to hurt. Pt agrees to complete an additional task, utilizing graded clothes pins around trunk/ UEs/ LEs, able to gather all in stance with use of BLE. Pt then ambulates to room, sits in recliner, all needs met, call light in reach. Pt is educated on use of theraputty for coordination task/ LUE strengthening task. Pt completes gripping, pinching, bead abstraction, and WB through LUE. Pt is educated to complete 2-3x per day. Education OT Patient Education: Exercise program, Home exercise program, Progress toward Goal/Update tx plan, Purpose of tx/functional activities, Safety issues, Transfer techniques Teaching Recipient: Patient Teaching Methods: Demonstration, Discussion Response to Teaching: Verbalize Understanding, Return Demonstration OT Short Term Goals Short Term Goals Time Frame: Oct 15, 2020 Eatin Oral hygiene: 5 Upper body dressin Lower body dressin Putting on/taking off footwear: 5 OT [facility] Goals [facility] Goals Time Frame: Oct 22, 2020 Eating (QC): 6 Oral Hygiene (QC): 6 Toileting Hygiene (QC): 6 Shower/Bathe Self (QC): 4 Upper Body Dressing (QC): 6 Lower Body Dressing (QC): 6 On/Off Footwear (QC): 6 Additional Goals: 1-Demonstrate ADL Tasks, 2-Verbalize Understanding, 3- ImproveStrength/Libra 1=Demonstrate adherence to instructed precautions during ADL tasks. 2=Patient will verbalize/demonstrate understanding of assistive devices/modifications for ADL. 3=Patient will improve strength/tolerance for activity to enable patient to perform ADL's. OT Education/Plan Problem List/Assessment Assessment: Decreased Activ Tolerance, Decreased Safety Aware, Decreased UE Strength, Dependent Transfers, Impaired Coordination, Impaired Funct Balance, Impaired I ADL's, Impaired Self-Care Skills Discharge Recommendations Plan/Recommendations: Continue POC Therapy Discharge Recommendati: Home & Family Treatment Plan/Plan of Care Treatment,Training & Education: Yes Patient would benefit from OT for education, treatment and training to promote independence in ADL's, mobility, safety and/or upper extremity function for ADL's. Plan of Care: ADL Retraining, Functional Mobility, UE Funct Exercise/Act Treatment Duration: Oct 22, 2020 Frequency: At least 5 of 7 days/Wk (IRF) Estimated Hrs Per Day: 1.5 hours per day Agreement: Yes Rehab Potential: Good Time/GCodes Start Time: 08:00 Stop Time: 09:00 Total Time Billed (hr/min): 60 Billed Treatment Time 1, ADL 2, NM, EX (60) GILMA CROCKETT OTR Oct 08, 2020 12:17
[2020-10-08] MEDS: ONDANSETRON 4 MG (ZOFRAN) ORAL DISSOLVE TAB PO PRN (13:07)
--- NOTE | 2020-10-08 13:55 | PM&R Progress Note ---
Subjective HPI/CC On Admission Date Seen by Provider: Oct 08, 2020 Time Seen by Provider: 14:30 Subjective/Events-last exam 10/08/20: Blood pressure was a bit elevated this morning but doing well since morning medication given Modifying diet since she had left her dentures at home but swallowing is within normal limits Smoking cessation counseled Denies any new pain Check meds and labs Conferred with RN Reviewed therapy notes Review of Systems General: Fatigue, Malaise Objective Exam Vital Signs Vital Signs Date Time Temp Pulse Resp B/P (MAP) Pulse Ox O2 Delivery O2 Flow Rate FiO2 10/08/20 17:53 57 18 195/80 (118) 90 Room Air 10/08/20 05:37 36.2 Capillary Refill : Less Than 3 Seconds General Appearance: No Apparent Distress, WD/WN, Chronically ill HEENT: PERRL/EOMI, Normal ENT Inspection, Pharynx Normal Neck: Full Range of Motion, Normal Inspection, Non Tender, Supple, Carotid Bruit Respiratory: Chest Non Tender, Lungs Clear, Normal Breath Sounds, No Accessory Muscle Use, No Respiratory Distress Cardiovascular: Regular Rate, Rhythm, No Edema, No Gallop, No JVD, No Murmur, Normal Peripheral Pulses Gastrointestinal: Normal Bowel Sounds, No Organomegaly, No Pulsatile Mass, Non Tender, Soft Back: Normal Inspection, No CVA Tenderness, No Vertebral Tenderness Extremity: Normal Capillary Refill, Normal Inspection, Normal Range of Motion (except left side), Non Tender, No Calf Tenderness, No Pedal Edema Neurologic/Psychiatric: Alert, Oriented x3, No Motor/Sensory Deficits, Normal Mood/Affect, Facial Droop (left), Motor Weakness (left sided weakness 3/5 arm, 2/5 leg) Skin: Normal Color, Warm/Dry Lymphatic: No Adenopathy Results/Procedures Lab Laboratory Tests 10/08/20 09:15 Patient resulted labs reviewed. FIM Transfers Therapy Code Descriptions/Definitions Functional [place] Measure: 0=Not Assessed/NA 4=Minimal Assistance 1=Total Assistance 5=Supervision or Setup 2=Maximal Assistance 6=Modified [place] 3=Moderate Assistance 7=Complete IndependenceSCALE: Activities may be completed with or without assistive devices. 6-Pkbnkurjfd-rowxfth completes the activity by him/herself with no assistance from a helper. 5-Set-up or Clean-up Assistance-helper sets up or cleans up; patient completes activity. [place] assists only prior to or following the activity. 4-Supervision or Touching Assistance-helper provides verbal cues and/or touching/steadying and/or contact guard assistance as patient completes activity. Assistance may be provided throughout the activity or intermittently. 3-Partial/Moderate Assistance-helper does LESS THAN HALF the effort. [place] lif ts, holds or supports trunk or limbs, but provides less than half the effort. 2-Substantial/Maximal Assistance-helper does MORE THAN HALF the effort. [place] lifts or holds trunk or limbs and provides more than half the effort. 9-Dlmlgnqqa-nefqun does ALL the effort. Patient does none of the effort to complete the activity. Or, the assistance of 2 or more helpers is required for the patient to complete the activity. If activity was not attempted, code reason: 7-Patient Refused. 9-Not Applicable-not attempted and the patient did not perform the activity before the current illness, exacerbation or injury. 10-Not Attempted due to Environmental Limitations-(lack of equipment, weather restraints, etc.). 88-Not Attempted due to Medical Conditions or Safety Concerns. Roll Left to Right (QC): 4 Sit to Lying (QC): 4 Sit to Stand (QC): 4 Chair/Kel-xy-Wtsog Xfer(QC): 4 Car Transfer (QC): 4 Gait Training Does the Patient Walk?: Yes Distance: 150' and 80' Walk 10 feet (QC): 4 Walk 50 ft with 2 Turns(QC): 4 Walk 150 ft (QC): 4 Walking 10ft/uneven surface-QC: 4 Gait Persons Needed: 1 Gait Assistive Device: FWW Wheelchair Training Does the Pt Use a Wheelchair?: No Wheel 50 ft with 2 turns (QC): 9 Wheel 150 ft (QC): 9 Stair Training #of Steps: 4 1 Step (curb) (QC): 4 4 Steps (QC): 4 12 Steps (QC): 88 Balance Picking up an Object (QC): 4 ADL-Treatment Eating (QC): 6 Oral Hygiene (QC): 7 Shower/Bathe Self (QC): 7 Upper Body Dressing (QC): 5 (s/u) Lower Body Dressing (QC): 4 (SBA all LB tasks.) On/Off Footwear (QC): 4 (SBA EOB) Toileting Hygiene (QC): 4 (SUP) Toilet Transfer (QC): 4 (SBA, cues for walker placement. ) Assessment/Plan Assessment and Plan Assess & Plan/Chief Complaint Assessment: CVA with left sided weakness presented to ER 4 days after symptoms HTN Smoker HLP Chronic pain Narcotic dependence Plan: IRF protocol Appreciate Dr Munguia Statin ASA 10/08/20: Monitor BP IRF protocol Checked meds (1) CVA (cerebral vascular accident) Status: Acute (2) Status post placement of implantable loop recorder (3) Chronic pain Status: Chronic (4) GERD (gastroesophageal reflux disease) (5) Hypothyroidism (6) Depression Status: Chronic (7) CKD (chronic kidney disease) Status: Chronic (8) HTN (hypertension) Status: Chronic (9) Anemia Status: Chronic (10) Smoker PATSY HILLS DO Oct 08, 2020 13:55
--- NOTE | 2020-10-08 13:56 | Individualized Plan of Care ---
Individualized Plan of Care Rehab Nursing IPOC Order Admission Date Oct 07, 2020 at 13:30 Current Orders Orders Admission Order(Inpt,Obs,Sdc) (10/07/20 12:26) Vital Signs: Per Unit Policy ( 08,16,00 (10/07/20 12:26) Jona Cramer 09,21 (10/07/20 12:26) Sequential Compression Device Q4H (10/07/20 12:26) Livestock Farmer-Inpt Rehab Con (10/07/20 12:26) Rehab Nursing Orders-Ipoc (10/07/20 12:26) Physical Therapy Rehab Orders (10/07/20 12:26) Occupational Therapy Rehab Ord (10/07/20 12:26) Speech Therapy Rehab Orders (10/07/20 12:26) Cbc With Automated Diff (10/08/20 06:00) Comprehensive Metabolic Panel (10/08/20 06:00) General/Regular (10/07/20 Lunch) Intake & Output 06,14,22 (10/07/20 12:26) Precautions (Aru) (10/07/20 12:26) Rehab-Intensity Of Therapy (10/07/20 12:26) Initiate Admission Nursing Pro .admission (10/07/20 12:26) Alprazolam Tablet (Xanax Tablet) (10/07/20 12:30) Calcium Carbonate Chew Tablet (Antacid C (10/07/20 12:30) Diphenhydramine Tablet (Benadryl Tablet) (10/07/20 12:30) Bisacodyl Suppository (Dulcolax Supposit (10/07/20 12:30) Lactulose Oral Solution (Enulose Oral So (10/07/20 12:30) Na Phos/Na Biphos Enema (Fleet Enema Larry (10/07/20 12:30) Guaifenesin/Codeine Syrup (Robitussin Ac (10/07/20 12:30) Loperamide Tablet (Imodium Tablet) (10/07/20 12:30) Enoxaparin Injection (Lovenox Injection) (10/07/20 18:00) Melatonin Tablet (Melatonin Tablet) (10/07/20 12:30) Polyethylene Glycol Powder Pkt (Miralax (10/07/20 21:00) Ondansetron Oral Dissolve Tab (Zofran (10/07/20 12:30) Senna S Tablet (Senokot S Tablet) (10/07/20 21:00) Code/Resuscitation (10/07/20 12:26) Admission Arrival Bed Request (10/07/20 14:07) Patient Visit (10/07/20 ) Pt Eval Moderate Complexity (10/07/20 ) Functional Activities, Ea 15 (10/07/20 ) Patient Visit (10/07/20 ) Speech Sound Lang Comp (10/07/20 ) Code/Resuscitation (10/07/20 17:19) Activity As Ordered (10/07/20 17:19) Heart Healthy (10/07/20 Dinner) Cholecalciferol Capsule/Tablet (Vitamin (10/08/20 09:00) Cyanocobalamin Tablet (Vitamin B-12 Tabl (10/08/20 07:00) Docusate Sodium Capsule (Colace Capsule) (10/07/20 18:45) Citalopram Tablet (Celexa Tablet) (10/07/20 21:00) Levothyroxine Tablet (Synthroid Tablet) (10/08/20 06:30) Therapeutic Multivitamin Tab (Vitamins, (10/08/20 07:00) Verapamil Regular Release Tab (Isoptin T (10/07/20 21:00) Acetaminophen Tablet/Caplet (Tylenol T (10/07/20 17:30) Antacid Suspension (Mylanta Suspension (10/07/20 17:30) Aspirin Enteric Coated Tablet (Ecotrin T (10/08/20 09:00) Atorvastatin Tablet (Lipitor) (10/07/20 21:00) Baclofen Tablet (Lioresal Tablet) (10/07/20 17:30) Docusate Sodium Capsule (Colace Capsule) (10/07/20 21:00) Hydrocodone/Apap 7.5/325 Tab (Lortab 7. (10/07/20 17:30) Ibuprofen Tablet (Motrin Tablet) (10/07/20 17:30) Lidocaine 1% Inj 20 Ml (Xylocaine 1% Inj (10/07/20 17:30) Ondansetron Injection (Zofran Injectio (10/07/20 17:30) Lisinopril Tablet (Zestril Tablet) (10/08/20 09:00) Metoprolol Succinate (Xl) Tab (Toprol Xl (10/08/20 09:00) Morphine Er Tablet (Ms Contin Tablet) (10/07/20 21:00) Polyethylene Glycol Powder Pkt (Miralax (10/07/20 17:30) Trazodone Tablet (Desyrel Tablet) (10/07/20 21:00) Consult Cardiology (10/07/20 17:19) Intake & Output 06,14,22 (10/07/20 17:19) Pantoprazole Tablet (Protonix Tablet) (10/08/20 09:00) Received Contrast (Hold Metformin- Contr (10/06/20 10:28) Levothyroxine Tablet (Synthroid Tablet) (10/08/20 06:30) Lisinopril Tablet (Zestril Tablet) (10/08/20 05:54) Metoprolol Succinate (Xl) Tab (Toprol Xl (10/08/20 05:54) Patient Visit (10/08/20 ) Functional Activities, Ea 15 (10/08/20 ) Exercise Therap, Ea 15 Min (10/08/20 ) Gait Training, Ea 15 Min (10/08/20 ) Ex Neuromuscular, Ea 15 Min (10/08/20 ) Patient Visit (10/08/20 ) Therapeutic, Group (10/08/20 ) Dys2 Mechanically Altered (10/08/20 Lunch) Lisinopril Tablet (Zestril Tablet) (10/08/20 18:00) Amlodipine Tablet (Norvasc Tablet) (10/08/20 18:00) Metoprolol Succinate (Xl) Tab (Toprol Xl (10/09/20 09:00) Rehab Nursing Orders: Ongoing Assess. of Cognitive Status, Ongoing Assess. of Function Status, Bladder Management, Bladder Scan, Bladder Training, Bowel Management, Bowel Training, Disease Management & Educaiton, DVT Prophylaxis, Fall Prevention, Fluid/Electrolyte/Nutrition Mgmt, Infection Prevention, Medication Management & Education, Management of Risks & Complications, Management of Skin Intergrity, Nutrition Management, Pain Management, Patient/Family Support, Safety Management, Swallow Precautions Intensity of Therapy to be met Patient to be seen: Min.3h per day/5 of 7d PT IPOC Problem List: Activity Tolerance, Functional Strength, Safety, Balance, Gait, Transfer, Bed Mobility, ROM Treatment Plan: Continue Plan of Care Bed Mobility, Education, Functional Activity Libra, Functional Strength, Group Therapy, Gait, Safety, Therapeutic Exercise, Transfers Treatment Duration: Oct 28, 2020 Frequency: At least 5 of 7 days/Wk (IRF) Estimated Hrs Per Day: 1.5 hours per day OT IPOC Problems: Decreased Activ Tolerance, Decreased Safety Aware, Decreased UE Strength, Dependent Transfers, Impaired Coordination, Impaired Funct Balance, Impaired I ADL's, Impaired Self-Care Skills OT Treatment, Training and Edu: Yes Plan of Care: ADL Retraining, Functional Mobility, UE Funct Exercise/Act Treatment Duration: Oct 22, 2020 Frequency: At least 5 of 7 days/Wk (IRF) Estimated Hrs Per Day: 1.[address] IPOC Speech Therapy Treatment Plan: Discontinue ST Treatment Duration: Oct 07, 2020 Frequency: 1 time per week Estimated Hrs Per Day: .25 hour per day Livestock Farmer/Case Mgmt Livestock Farmer/Case Managemen: Discharge Planning Dietitian/Electric Golf Cart Repairers Dietitian/Electric Golf Cart Repairers to monitor nutritional status and make changes and/or recommendations as needed and work with speech pathology on dietary upgrades as the occur. Physician IPOC Medical Issues being managed closely and that require the 24 hour availability of a physician: Recent severe CVA with left sided weakness now with labile BP and high risk for reinfarct will need close monitoring for extension of CVA Medical Issues: Bowel/Bladder Function, DVT Prophylaxis, Falls Precautions, Fluid/Electrolyte/Nutrition Balance, Infection Protection, Pain Management, Swallowing Precautions Brief Synthesis of Preadmission Screen, Post-Admission Evaluation, and Therapy Evaluations: PT OT will focus on regaining function of left sided weakness and increase the use of the AD in order to return home to live independently Medical Prognosis: Good Anticipated Length of Stay: 7 days PATSY HILLS DO Oct 08, 2020 13:56
--- NOTE | 2020-10-08 14:18 | NUR ---
PATIENT REQUESTING TO CHANGE TO A MODIFIED DIET D/T POOR DENTITION. HARD TO CHEW UP FOOD, ESPECIALLY MEAT. DENTURES ARE AT HOME AND NO WAY TO GET THEM HERE.
--- NOTE | 2020-10-08 14:46 | Therapy Group Daily Note ---
Therapy Daily Group Note Patient Education Topic Other List Below (Memory & Memory Strategies) Exercises LE Seated Exercise, UE Exercise Session Ratio (pt:therapist): 4:1 Goal of Session: Education on ARU Expectations, Memory Strategies, UE/LE Strengthing Goal Met for this Session: Yes Pt Benefit of Group: Contributions to Others, F/U Use of Strategies @Home, Increased Functional Safety, Increased Functional Strength, Improved Cognition, Recognition of Peers, Socialization Other/Notes Pt ambulated to PT Group using FWW. Group consisted of Introductions (Name, Where from & Favorite Winter or Snow time Activity), Socialization, Seated UE & LE Exercise as well as ARU Expectations and Memory Strategy with Activity/Game. Pt is able to actively participate in both Exercises and give personal examples of Memory Strategies that have worked for her. Pt is able to match 3/3 in Memory game. Pt returns to room to rest in bed at end of Group. All needs met, call light in hand. Start Time: 13:00 Stop Time: 14:00 Total Billed Treatment Time: 60 Total Billed Treatment 1, [facility] SUSI FOWLER OPTIMIZATION ENGINEER Oct 08, 2020 14:46
[2020-10-08] MEDS: ENOXAPARIN 40 MG/0.4 ML (LOVENOX) SYR SC SCH (17:31)
[2020-10-08 17:53] VITALS: BP 195/80
--- NOTE | 2020-10-08 17:54 | NUR ---
BP 195/80, HR 57. DR. WEBSTER NOTIFIED. ORDERS TO DC VERAPAMIL. START AMLODIPINE- 10 MG PO NOW AND THEN DAILY. INCREASE LISINOPRIL TO 40 MG PO DAILY- START NOW. INCREASE TOPROL TO 100 MG PO DAILY- START TOMORROW AM. HOLD TOPROL FOR HR LESS THAN 50.
[2020-10-08] MEDS ORDERED: amLODIPine 10 MG (NORVASC) TAB ONE (18:01)
[2020-10-08] MEDS ORDERED: lisINopril 40 MG (PRINIVIL) TABLET ONE (18:02)
[2020-10-08] MEDS: amLODIPine 10 MG (NORVASC) TAB PO SCH (18:14)
[2020-10-08] MEDS: lisINopril 20 MG (PRINIVIL) TABLET PO SCH (18:15)
--- NOTE | 2020-10-08 20:05 | NUR ---
IN ROOM FOR SHIFT REPORT. PATIENT IS CRYING. ANXIOUS. STATES, "SOMETHING IS WRONG. I FEEL HOT. I NEED TO TAKE MY SHIRT OFF". BP 200/98, HR 72, O2 90% ON ROOM AIR, TEMP 36.2. XANAX GIVEN. DR. WEBSTER NOTIFIED. ORDERS TO NOTIFY DR. HILLS. DR. HILLS NOTIFIED. ORDERS TO CHANGE XANAX TO 0.5 MG PO Q4H PRN. START NICOTINE PATCH- 21 MG. MONITOR BP ONLY. BACK IN ROOM TO ASSESS PATIENT. STILL TEARFUL... BUT STATES, IS FEELING BETTER.
[2020-10-08] MEDS ORDERED: NICOTINE 21 MG (NICODERM) PATCH ONE (20:24)
[2020-10-08] MEDS: NICOTINE 21 MG (NICODERM) PATCH TD SCH (20:37)
[2020-10-08] MEDS: traZODone 150 MG (DESYREL) TABLET PO SCH (20:38)
[2020-10-09 05:24] VITALS: BP 130/60
[2020-10-09] MEDS: LEVOTHYROXINE 100 MCG (LEVOTHROID) TAB PO SCH (05:53)
[2020-10-09] MEDS: LEVOTHYROXINE 75 MCG (LEVOTHROID) TABLET PO SCH (05:53)
[2020-10-09] MEDS: MULTIVIT W/MINERALS TAB (THERAGRAN M) PO SCH (06:46)
[2020-10-09] MEDS: CYANOCOBALAMIN 1,000 MCG (VITAMIN B-12) TABLET PO SCH (06:47)
--- NOTE | 2020-10-09 07:30 | PM&R Progress Note ---
Subjective HPI/CC On Admission Date Seen by Provider: Oct 09, 2020 Time Seen by Provider: 10:00 Subjective/Events-last exam 10/09/20: Had panic attack last evening Increased BP and she felt hot Managed with Xanax and pain meds Withdrawal from nicotine and pain meds a possibility O2 placed on patient when sleeping 10/08/20: Blood pressure was a bit elevated this morning but doing well since morning medication given Modifying diet since she had left her dentures at home but swallowing is within normal limits Smoking cessation counseled Denies any new pain Check meds and labs Conferred with RN Reviewed therapy notes Review of Systems Neurological: Weakness, Incoordination Objective Exam Vital Signs Vital Signs Date Time Temp Pulse Resp B/P (MAP) Pulse Ox O2 Delivery O2 Flow Rate FiO2 10/10/20 05:01 35.8 55 20 179/76 (110) 94 Room Air 10/09/20 09:37 2.00 Capillary Refill : Less Than 3 Seconds General Appearance: No Apparent Distress, WD/WN, Chronically ill HEENT: PERRL/EOMI, Normal ENT Inspection, Pharynx Normal Neck: Full Range of Motion, Normal Inspection, Non Tender, Supple, Carotid Bruit Respiratory: Chest Non Tender, Lungs Clear, Normal Breath Sounds, No Accessory Muscle Use, No Respiratory Distress Cardiovascular: Regular Rate, Rhythm, No Edema, No Gallop, No JVD, No Murmur, Normal Peripheral Pulses Gastrointestinal: Normal Bowel Sounds, No Organomegaly, No Pulsatile Mass, Non Tender, Soft Back: Normal Inspection, No CVA Tenderness, No Vertebral Tenderness Extremity: Normal Capillary Refill, Normal Inspection, Normal Range of Motion (except left side), Non Tender, No Calf Tenderness, No Pedal Edema Neurologic/Psychiatric: Alert, Oriented x3, No Motor/Sensory Deficits, Normal Mood/Affect, Facial Droop (left), Motor Weakness (left sided weakness 3/5 arm, 2 /5 leg) Skin: Normal Color, Warm/Dry Lymphatic: No Adenopathy Results/Procedures Lab Patient resulted labs reviewed. FIM Transfers Therapy Code Descriptions/Definitions Functional [place] Measure: 0=Not Assessed/NA 4=Minimal Assistance 1=Total Assistance 5=Supervision or Setup 2=Maximal Assistance 6=Modified [place] 3=Moderate Assistance 7=Complete IndependenceSCALE: Activities may be completed with or without assistive devices. 1-Dorrqhetmc-wygqhbt completes the activity by him/herself with no assistance from a helper. 5-Set-up or Clean-up Assistance-helper sets up or cleans up; patient completes activity. [place] assists only prior to or following the activity. 4-Supervision or Touching Assistance-helper provides verbal cues and/or touching/steadying and/or contact guard assistance as patient completes activity. Assistance may be provided throughout the activity or intermittently. 3-Partial/Moderate Assistance-helper does LESS THAN HALF the effort. [place] lifts, holds or supports trunk or limbs, but provides less than half the effort. 2-Substantial/Maximal Assistance-helper does MORE THAN HALF the effort. [place] lifts or holds trunk or limbs and provides more than half the effort. 0-Uqrcxmber-unqxas does ALL the effort. Patient does none of the effort to complete the activity. Or, the assistance of 2 or more helpers is required for the patient to complete the activity. If activity was not attempted, code reason: 7-Patient Refused. 9-Not Applicable-not attempted and the patient did not perform the activity before the current illness, exacerbation or injury. 10-Not Attempted due to Environmental Limitations-(lack of equipment, weather restraints, etc.). 88-Not Attempted due to Medical Conditions or Safety Concerns. Roll Left to Right (QC): 4 Sit to Lying (QC): 4 Sit to Stand (QC): 4 Chair/Tdf-fi-Rakat Xfer(QC): 4 Car Transfer (QC): 4 Gait Training Does the Patient Walk?: Yes Distance: 150' and 80' Walk 10 feet (QC): 4 Walk 50 ft with 2 Turns(QC): 4 Walk 150 ft (QC): 4 Walking 10ft/uneven surface-QC: 4 Gait Persons Needed: 1 Gait Assistive Device: FWW Wheelchair Training Does the Pt Use a Wheelchair?: No Wheel 50 ft with 2 turns (QC): 9 Wheel 150 ft (QC): 9 Stair Training #of Steps: 4 1 Step (curb) (QC): 4 4 Steps (QC): 4 12 Steps (QC): 88 Balance Picking up an Object (QC): 4 ADL-Treatment Eating (QC): 6 Oral Hygiene (QC): 7 Shower/Bathe Self (QC): 7 Upper Body Dressing (QC): 5 (s/u) Lower Body Dressing (QC): 4 (SBA all LB tasks.) On/Off Footwear (QC): 4 (SBA EOB) Toileting Hygiene (QC): 4 (SUP) Toilet Transfer (QC): 4 (SBA, cues for walker placement. ) Assessment/Plan Assessment and Plan Assess & Plan/Chief Complaint Assessment: CVA with left sided weakness presented to ER 4 days after symptoms HTN Smoker HLP Chronic pain Narcotic dependence Panic attacks Plan: IRF protocol Appreciate Dr Munguia Statin ASA 10/08/20: Monitor BP IRF protocol Checked meds 10/09/20: Monitor for panic attacks Monitor closely BP management (1) CVA (cerebral vascular accident) Status: Acute (2) Status post placement of implantable loop recorder (3) Chronic pain Status: Chronic (4) GERD (gastroesophageal reflux disease) (5) Hypothyroidism (6) Depression Status: Chronic (7) CKD (chronic kidney disease) Status: Chronic (8) HTN (hypertension) Status: Chronic (9) Anemia Status: Chronic (10) Smoker PATSY HILLS DO Oct 09, 2020 07:29
[2020-10-09] MEDS: VITAMIN D3 25 MCG (1,000 UNITS) TABLET PO SCH (08:25)
[2020-10-09] MEDS: ASPIRIN E.C. 325 MG (ECOTRIN) TABLET PO SCH (08:25)
[2020-10-09] MEDS: lisINopril 20 MG (PRINIVIL) TABLET PO SCH (08:25)
[2020-10-09] MEDS: amLODIPine 10 MG (NORVASC) TAB PO SCH (08:26)
[2020-10-09] MEDS: PANTOPRAZOLE 20 MG TABLET (PROTONIX) PO SCH (08:26)
[2020-10-09] MEDS: morphine ER 30 MG (MS CONTIN) TAB PO SCH ×2 (08:26→20:41)
[2020-10-09] MEDS: DOCUSATE SODIUM 100 MG (COLACE) CAP PO SCH ×2 (08:28→20:40)
[2020-10-09] MEDS: polyethylene glycoL POWDER 17 GM (MIRALAX) PACK PO SCH ×2 (08:28→19:35)
[2020-10-09] MEDS: SENNA W/DOCUSATE (SENOKOT S) TABLET PO SCH ×2 (08:28→20:40)
[2020-10-09] MEDS: NICOTINE 21 MG (NICODERM) PATCH TD SCH (08:29)
[2020-10-09] MEDS: NICOTINE PATCH REMOVAL TP SCH (08:37)
[2020-10-09 08:38] VITALS: BP 136/60
[2020-10-09] MEDS: meTOprolol SUCCINATE 100 MG (TOPROL XL) TAB PO SCH (10:24)
[2020-10-09 10:25] VITALS: BP 149/65
[2020-10-09] MEDS: HYDROcodone/APAP 7.5 MG/325 MG (LORTAB, LORCET PLUS) TABLET PO PRN ×2 (10:41→20:41)
[2020-10-09] MEDS: ONDANSETRON 4 MG (ZOFRAN) ORAL DISSOLVE TAB PO PRN (11:33)
--- NOTE | 2020-10-09 12:19 | Physical Therapy Daily Note ---
PT Daily Note-Current Subjective Pt laying Supine in bed upon arrival. Pt agrees to PT. Nurse present and reports putting O2 on pt this morning due to dropped O2 level. Pt will monitor. Pain Location: No Pain Reported Mental Status Patient Orientation: Person, Place, Time, Situation Attachments: Oxygen (2L while laying) Transfers SCALE: Activities may be completed with or without assistive devices. 7-Uhjiexbgoa-wedyfln completes the activity by him/herself with no assistance from a helper. 5-Set-up or Clean-up Assistance-helper sets up or cleans up; patient completes activity. [place] assists only prior to or following the activity. 4-Supervision or Touching Assistance-helper provides verbal cues and/or touc ada/steadying and/or contact guard assistance as patient completes activity. Assistance may be provided throughout the activity or intermittently. 3-Partial/Moderate Assistance-helper does LESS THAN HALF the effort. [place] lifts, holds or supports trunk or limbs, but provides less than half the effort. 2-Substantial/Maximal Assistance-helper does MORE THAN HALF the effort. [place] lifts or holds trunk or limbs and provides more than half the effort. 4-Vynedspli-dgptbw does ALL the effort. Patient does none of the effort to complete the activity. Or, the assistance of 2 or more helpers is required for the patient to complete the activity. If activity was not attempted, code reason: 7-Patient Refused. 9-Not Applicable-not attempted and the patient did not perform the activity before the current illness, exacerbation or injury. 10-Not Attempted due to Environmental Limitations-(lack of equipment, weather restraints, etc.). 88-Not Attempted due to Medical Conditions or Safety Concerns. Lying to Sitting/Side of Bed(Q: 4 Sit to Stand (QC): 4 Weight Bearing Full Weight Bearing Full Weight Bearing Gait Training Does the Patient Walk?: Yes Distance: 150' x2 Walk 10 feet (QC): 5 Walk 50 ft with 2 Turns(QC): 5 Walk 150 ft (QC): 5 Gait Persons Needed: 1 Gait Assistive Device: FWW Wheelchair Training Does the Pt Use a Wheelchair?: No Exercises Seated Therapy Exercises: Ankle pumps, Long arc quads, Hip flexion, Kicking activity, Glut set Seated Reps: 15 Treatments TF to EOB then Standing and amb. in hallway. Pt completes Seated Ex before returning to room to use BR. Pt resting in recliner at end of tx. All needs met, call light in hand. Assessment Current Status: Good Progress Pt lauren. tx well. PT Short Term Goals Short Term Goals Time Frame: Oct 14, 2020 Roll Left & Right: 6 Sit to lyin Lying to sitting on side of be: 6 Sit to stand: 4 (SBA) Chair/lsl-ru-qnopv transfer: 4 (SBA) Walk 10 feet: 4 (SBA) Walk 50 feet with two turns: 4 (SBA) Walk 150 feet: 4 (SBA) PT Music Coordinator Goals Music Coordinator Goals PT Nursing Home Goals Time Frame: Oct 28, 2020 Roll Left & Right (QC): 6 Sit to Lying (QC): 6 Lying-Sitting on Side/Bed(QC): 6 Sit to Stand (QC): 6 Chair/Qha-du-Mgzdx Xfer(QC): 6 Toilet Transfer (QC): 6 Car Transfer (QC): 6 Does the Patient Walk: Yes Walk 10 feet (QC): 6 Walk 50ft with 2 Turns (QC): 6 Walk 150 ft (QC): 6 Walking 10ft on Uneven Surface: 6 1 Step (curb) (QC): 6 4 Steps (QC): 6 12 Steps (QC): 6 Picking up an Object (QC): 6 Wheel 50 feet with 2 turns (QC: 9 Wheel 150 feet: 9 PT Plan Problem List Problem List: Activity Tolerance Treatment/Plan Treatment Plan: Continue Plan of Care Treatment Plan: Bed Mobility, Education, Functional Activity Libra, Functional Strength, Group Therapy, Gait, Safety, Therapeutic Exercise, Transfers Treatment Duration: Oct 28, 2020 Frequency: At least 5 of 7 days/Wk (IRF) Estimated Hrs Per Day: 1.5 hours per day Patient and/or Family Agrees t: Yes Time/GCodes Time In: 1025 Time Out: 1050 Total Billed Treatment Time: 25 Total Billed Treatment 1, GT (10m) & EX (15m) SUSI FOWLER WIRE MESH FILTER FABRICATOR Oct 09, 2020 12:19
--- NOTE | 2020-10-09 13:47 | NUR ---
THIS AM... O2 SAT WAS 86% ON ROOM AIR WHEN PATIENT WAS RESTING IN BED. PATIENT DENIED FEELING SOA. OXYGEN APPLIED AT 2L AND UP TO 96%. O2 SATS STAY ABOVE 90% ON ROOM AIR WHILE SITTING UP AND WHILE WORKING WITH THERAPY. DR. HILLS INFORMED WITH ORDERS FOR 02 TKS GREATER THAN 90%.
--- NOTE | 2020-10-09 16:02 | Consultation-Cardiology ---
HPI-Cardiology Cardiology Consultation: Date of Consultation 10/09/20 Time Seen by a Provider: 15:10 Date of Admission Attending Physician Shannan Hills DO Admitting Physician Blanka Wolf MD Consulting Physician LAURA WEBSTER MD, MA, FACP, FACC, FSCAI, CCDS Physician requesting consult: Dr Hills HPI: Chief Complaint: Reason for consultation: Hypertension HPI 70 yo woman recently hospitalized to Dr Hills with stroke, then d/c'd and now admitted to Dr Hills to inpatient rehab. Was anxious and agitated yesterday and bp was up. Meds were changed yesterday. BP improved today. Denies cp or palp or syncope or shortness of breath or swelling. Review of Systems-Cardiology Review of Systems Constitutional: malaise, tiredness; No weight loss, No weight gain Eyes: No vision change Ears/Nose/Throat: No ear discharge, No nasal drainage, No recent hearing loss Respiratory: As described under HPI Cardiovascular: As described under HPI Gastrointestinal: No diarrhea, No nausea, No vomiting Genitourinary: No dysuria, No hematuria, No urine frequency changes Musculoskeletal: back pain (chronic); No joint pain Skin: No rash, No ulcerations Psychiatric/Neurological: other (L-sided weakness) Hematologic: No bleeding abnormalities All Other Systems Reviewed Negative Unless Noted: Yes IZQ-Vrhozb-Vjoqjd Hx Patient Social History Marrital Status: single Employed/Student: retired Alcohol Use: Denies Use Recreational Drug Use: No Smoking Status: Current Everyday Smoker Type Used: Cigarettes 2nd Hand Smoke Exposure: Yes Recent Foreign Travel: No Recent Infectious Disease Expo: No Physical Abuse Screen: No Sexual Abuse: No Immunizations Up To Date Tetanus Booster (TDap): Unknown Date of Pneumonia Vaccine: Aug 03, 2016 Date of Influenza Vaccine: Jul 08, 2020 Past Medical History PMH As described under Assessment. Family Medical History Family Medical History: She reports her mother had CAD. She reports her father had CVA, HTN and CAD. She reports a brother with CVA, CAD and HTN. Family History: Colon cancer 19 FATHER (stomach cancer) Completed stroke 19 FATHER G8 BROTHER Diabetes mellitus G8 BROTHER G8 SISTER Hypertension 19 FATHER G8 BROTHER Myocardial infarction 19 FATHER G8 BROTHER Respiratory disorder 19 MOTHER Thyroid disease G8 SISTER Allergies and Home Medications Allergies Coded Allergies: acetaminophen (Verified Allergy, Severe, throat swells, 03/24/20) nalbuphine (Verified Allergy, Severe, ANAPHYLAXIS, 03/24/20) oxycodone (Verified Allergy, Severe, throat swells, PT TOLERATES HYDROCODONE, 01/31/17) suvorexant (Verified Allergy, Severe, ANAPHYLAXIS, 03/24/20) sulfamethoxazole (Verified Allergy, Mild, HIVES, 03/24/20) trimethoprim (Verified Allergy, Mild, HIVES, 03/24/20) Home Medications Aspirin 325 Mg Tablet.dr, 325 MG PO DAILY Prescribed by: SHANNAN HILLS on 10/07/20 1149 Atorvastatin Calcium 40 Mg Tablet, 40 MG PO HS Prescribed by: SHANNAN HILLS on 10/07/20 1149 Baclofen 10 Mg Tablet, 10 MG PO Q8H PRN for MUSCLE SPASMS, (Reported) Cholecalciferol (Vitamin D3) 25 Mcg Capsule, 25 MCG PO DAILY, (Reported) Cider Vinegar 300 Mg Tablet, 300 MG PO DAILY, (Reported) Cyanocobalamin (Vitamin B-12) 2,500 Mcg Tablet, 2,500 MCG PO DAILY, (Reported) Docusate Sodium 100 Mg Tablet, 100 MG PO DAILY PRN for CONSTIPATION-1ST LINE, (Reported) Escitalopram Oxalate 20 Mg Tablet, 20 MG PO HS, (Reported) Hydrocodone/Acetaminophen 1 Each Tablet, 1 EA PO Q8H PRN for PAIN-MODERATE (5- 7), (Reported) Levothyroxine Sodium 175 Mcg Tablet, 175 MCG PO DAILY, (Reported) Lisinopril 10 Mg Tablet, 10 MG PO DAILY, (Reported) Metoprolol Succinate 50 Mg Tab.er.24h, 50 MG PO DAILY Prescribed by: SHANNAN HILLS on 10/07/20 1149 Morphine Sulfate 30 Mg Tablet.er, 30 MG PO BID, (Reported) Multivitamin 1 Each Tablet, 1 EACH PO DAILY, (Reported) Omeprazole 20 Mg Capsule.dr, 20 MG PO DAILY, (Reported) Polyethylene Glycol 3350 17 Gm Powd.pack, 17 GM PO DAILY PRN for CONSTIPATION- 2ND LINE, (Reported) Trazodone HCl 150 Mg Tablet, 150 MG PO HS, (Reported) Verapamil HCl 120 Mg Tablet, 120 MG PO BID, (Reported) Patient Home Medication List Home Medication List Reviewed: Yes Physical Exam-Cardiology Physical Exam Vital Signs/I&O 10/09/20 10/09/20 10/09/20 10/09/20 05:24 08:38 08:40 09:37 Temp 35.7 Pulse 50 Resp 16 B/P (MAP) 130/60 (83) 136/60 (85) Pulse Ox 93 87 96 O2 Delivery Room Air Room Air Nasal Cannula Nasal Cannula O2 Flow Rate 2.00 2.00 10/09/20 10:25 Pulse 57 B/P (MAP) 149/65 (93) 10/09/20 00:00 Intake Total 690 ml Balance 690 ml Capillary Refill : Less Than 3 Seconds Constitutional: AAO x 3, well-developed, other HEENT: EOMI, hearing is well preserved; No xanthelasmas are seen Neck: carotid pulses are 2 + bilaterally, with good upstrokes Respiratory: No accessory muscle use; other (good, bilateral air entry) Cardiovascular: regular rate-rhythm, S1 and S2, systolic murmur (soft LUIS MIGUEL at card base) Gastrointestinal: No tender; soft; No guarding, No rebound; audible bowel sounds Extremities: No clubbing, No cyanosis, No significant edema Neurologic/Psychiatric: oriented x 3, other (L-sided weakness of upper and lower limbs) Skin: warm/dry; No rash on exposed areas, No ulcerations on exposed areas Data Review Labs Laboratory Tests 10/08/20 09:15 A/P-Cardiology Assessment/Admission Diagnosis Severe hypertension 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 The right common carotid artery is widely patent. There is calcified plaque at the carotid bifurcations bilaterally but no significant stenosis is identified. Both distal internal carotid arteries demonstrate calcified plaque in the carotid siphons. Echocardiogram of 10-06-2020 showed LVEF 50-55%. 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 Elaine 3 months ago CKD 2 - follows with Dr. Kaya Cramer H/O TIA 26 yrs ago Toboccoism (1 PPD) - cessation advised GERD Probable COPD H/O bilat knee replacements Chronic back pain Hypothyroidism - replacement tx - management per medical services Discussion and Recomendations * Toprol XL and lisinopril increased * Amlodipine added * Verapamil d/c'd * Anxiety likely contributing to htn. Dr Hills managing anxiety * Monitor labs from time to time Clinical Quality Measures DVT/VTE Risk/Contraindication: Risk Factor Score Per Nursin RFS Level Per Nursing on Admit: 3=High LAURA WEBSTER MD FACP FAC CCDS Oct 09, 2020 16:02
[2020-10-09 17:03] VITALS: BP 160/70
[2020-10-09] MEDS: ENOXAPARIN 40 MG/0.4 ML (LOVENOX) SYR SC SCH (17:21)
[2020-10-09] MEDS: ALPRAZolam 0.5 MG (XANAX) TAB PO PRN (17:59)
[2020-10-09] MEDS: traZODone 150 MG (DESYREL) TABLET PO SCH (20:40)
[2020-10-09] MEDS: BACLOFEN 10 MG (LIORESAL) TAB PO PRN (22:32)
[2020-10-10 05:01] VITALS: BP 179/76
[2020-10-10] MEDS: LEVOTHYROXINE 75 MCG (LEVOTHROID) TABLET PO SCH (06:28)
[2020-10-10] MEDS: LEVOTHYROXINE 100 MCG (LEVOTHROID) TAB PO SCH (06:28)
[2020-10-10] MEDS: MULTIVIT W/MINERALS TAB (THERAGRAN M) PO SCH (06:28)
[2020-10-10] MEDS: CYANOCOBALAMIN 1,000 MCG (VITAMIN B-12) TABLET PO SCH (06:29)
[2020-10-10] MEDS: HYDROcodone/APAP 7.5 MG/325 MG (LORTAB, LORCET PLUS) TABLET PO PRN ×3 (06:30→22:38)
[2020-10-10] MEDS: polyethylene glycoL POWDER 17 GM (MIRALAX) PACK PO SCH ×2 (07:45→20:30)
[2020-10-10] MEDS: NICOTINE 21 MG (NICODERM) PATCH TD SCH (07:53)
[2020-10-10] MEDS: morphine ER 30 MG (MS CONTIN) TAB PO SCH ×2 (07:54→20:33)
[2020-10-10] MEDS: DOCUSATE SODIUM 100 MG (COLACE) CAP PO SCH ×2 (07:54→20:33)
[2020-10-10] MEDS: SENNA W/DOCUSATE (SENOKOT S) TABLET PO SCH ×2 (07:54→20:32)
[2020-10-10] MEDS: amLODIPine 10 MG (NORVASC) TAB PO SCH (07:54)
[2020-10-10] MEDS: meTOprolol SUCCINATE 100 MG (TOPROL XL) TAB PO SCH (07:55)
[2020-10-10] MEDS: ASPIRIN E.C. 325 MG (ECOTRIN) TABLET PO SCH (07:55)
[2020-10-10] MEDS: NICOTINE PATCH REMOVAL TP SCH (07:55)
[2020-10-10] MEDS: lisINopril 20 MG (PRINIVIL) TABLET PO SCH (07:55)
[2020-10-10] MEDS: VITAMIN D3 25 MCG (1,000 UNITS) TABLET PO SCH (07:55)
[2020-10-10] MEDS: PANTOPRAZOLE 20 MG TABLET (PROTONIX) PO SCH (07:55)
[2020-10-10 07:58] VITALS: BP 153/67
--- NOTE | 2020-10-10 14:09 | PM&R Progress Note ---
Subjective HPI/CC On Admission Date Seen by Provider: Oct 10, 2020 Time Seen by Provider: 14:30 Subjective/Events-last exam 10/10/20: Has panic attacks Needs Xanax Monitoring BP Urinary frequency 10/09/20: Had panic attack last evening Increased BP and she felt hot Managed with Xanax and pain meds Withdrawal from nicotine and pain meds a possibility O2 placed on patient when sleeping 10/08/20: Blood pressure was a bit elevated this morning but doing well since morning medication given Modifying diet since she had left her dentures at home but swallowing is within normal limits Smoking cessation counseled Denies any new pain Check meds and labs Conferred with RN Reviewed therapy notes Review of Systems General: Fatigue, Malaise Objective Exam Vital Signs Vital Signs Date Time Temp Pulse Resp B/P (MAP) Pulse Ox O2 Delivery O2 Flow Rate FiO2 10/10/20 17:32 37.0 62 18 188/69 (108) 92 10/10/20 09:00 Nasal Cannula 1.00 Capillary Refill : Less Than 3 Seconds General Appearance: No Apparent Distress, WD/WN, Chronically ill HEENT: PERRL/EOMI, Normal ENT Inspection, Pharynx Normal Neck: Full Range of Motion, Normal Inspection, Non Tender, Supple, Carotid Bruit Respiratory: Chest Non Tender, Lungs Clear, Normal Breath Sounds, No Accessory Muscle Use, No Respiratory Distress Cardiovascular: Regular Rate, Rhythm, No Edema, No Gallop, No JVD, No Murmur, Normal Peripheral Pulses Gastrointestinal: Normal Bowel Sounds, No Organomegaly, No Pulsatile Mass, Non Tender, Soft Back: Normal Inspection, No CVA Tenderness, No Vertebral Tenderness Extremity: Normal Capillary Refill, Normal Inspection, Normal Range of Motion (except left side), Non Tender, No Calf Tenderness, No Pedal Edema Neurologic/Psychiatric: Alert, Oriented x3, No Motor/Sensory Deficits, Normal Mood/Affect, Facial Droop (left), Motor Weakness (left sided weakness 3/5 arm, 2/5 leg) Skin: Normal Color, Warm/Dry Lymphatic: No Adenopathy Results/Procedures Lab Patient resulted labs reviewed. FIM Transfers Therapy Code Descriptions/Definitions Functional [place] Measure: 0=Not Assessed/NA 4=Minimal Assistance 1=Total Assistance 5=Supervision or Setup 2=Maximal Assistance 6=Modified [place] 3=Moderate Assistance 7=Complete IndependenceSCALE: Activities may be completed with or without assistive devices. 2-Reizrnkbvy-hhvktoo completes the activity by him/herself with no assistance from a helper. 5-Set-up or Clean-up Assistance-helper sets up or cleans up; patient completes activity. [place] assists only prior to or following the activity. 4-Supervision or Touching Assistance-helper provides verbal cues and/or touching/steadying and/or contact guard assistance as patient completes activity. Assistance may be provided throughout the activity or intermittently. 3-Partial/Moderate Assistance-helper does LESS THAN HALF the effort. [place] lifts, holds or supports trunk or limbs, but provides less than half the effort. 2-Substantial/Maximal Assistance-helper does MORE THAN HALF the effort. [place] lifts or holds trunk or limbs and provides more than half the effort. 2-Jqjdksecc-zxcbsq does ALL the effort. Patient does none of the effort to complete the activity. Or, the assistance of 2 or more helpers is required for the patient to complete the activity. If activity was not attempted, code reason: 7-Patient Refused. 9-Not Applicable-not attempted and the patient did not perform the activity before the current illness, exacerbation or injury. 10-Not Attempted due to Environmental Limitations-(lack of equipment, weather restraints, etc.). 88-Not Attempted due to Medical Conditions or Safety Concerns. Roll Left to Right (QC): 4 Sit to Lying (QC): 4 Sit to Stand (QC): 4 Chair/Ybt-gb-Gsexa Xfer(QC): 4 Car Transfer (QC): 4 Gait Training Does the Patient Walk?: Yes Distance: 150' x2 Walk 10 feet (QC): 5 Walk 50 ft with 2 Turns(QC): 5 Walk 150 ft (QC): 5 Walking 10ft/uneven surface-QC: 4 Gait Persons Needed: 1 Gait Assistive Device: FWW Wheelchair Training Does the Pt Use a Wheelchair?: No Wheel 50 ft with 2 turns (QC): 9 Wheel 150 ft (QC): 9 Stair Training #of Steps: 4 1 Step (curb) (QC): 4 4 Steps (QC): 4 12 Steps (QC): 88 Balance Picking up an Object (QC): 4 ADL-Treatment Eating (QC): 6 Oral Hygiene (QC): 7 Shower/Bathe Self (QC): 7 Upper Body Dressing (QC): 5 (s/u) Lower Body Dressing (QC): 4 (SBA all LB tasks.) On/Off Footwear (QC): 4 (SBA EOB) Toileting Hygiene (QC): 4 (SUP) Toilet Transfer (QC): 4 (SBA, cues for walker placement. ) Assessment/Plan Assessment and Plan Assess & Plan/Chief Complaint Assessment: CVA with left sided weakness presented to ER 4 days after symptoms HTN Smoker HLP Chronic pain Narcotic dependence Panic attacks Plan: IRF protocol Appreciate Dr Munguia Statin ASA 10/08/20: Monitor BP IRF protocol Checked meds 10/09/20: Monitor for panic attacks Monitor closely BP management 10/10/20: Urinary retention/frequency check UA Monitor labs in am (1) CVA (cerebral vascular accident) Status: Acute (2) Status post placement of implantable loop recorder (3) Chronic pain Status: Chronic (4) GERD (gastroesophageal reflux disease) (5) Hypothyroidism (6) Depression Status: Chronic (7) CKD (chronic kidney disease) Status: Chronic (8) HTN (hypertension) Status: Chronic (9) Anemia Status: Chronic (10) Smoker PATSY HILLS DO Oct 10, 2020 14:08
[2020-10-10] MEDS: ALPRAZolam 0.5 MG (XANAX) TAB PO PRN (14:28)
--- NOTE | 2020-10-10 15:43 | Progress Note - Cardiology ---
Cardiology SOAP Progress Note Subjective: No cp or palp or syncope Gen malaise Shortness of breath with mild to mod exertion No n/v Objective: I&O/Vital Signs 10/10/20 10/10/20 10/10/20 05:01 07:58 09:00 Temp 35.8 Pulse 55 62 Resp 20 18 B/P (MAP) 179/76 (110) 153/67 (95) Pulse Ox 94 92 94 O2 Delivery Room Air Nasal Cannula O2 Flow Rate 1.00 10/10/20 00:00 Intake Total 840 ml Balance 840 ml Weight (Pounds): 201 Weight (Ounces): 0.0 Weight (Calculated Kilograms): 91.585774 Constitutional: AAO x 3, well-developed, other Respiratory: No accessory muscle use; other (good, bilateral air entry) Cardiovascular: regular rate-rhythm, S1 and S2, systolic murmur (soft LUIS MIGUEL at card base) Gastrointestional: No tender; soft; No guarding, No rebound; audible bowel sounds Extremities: No clubbing, No cyanosis, No significant edema Neurologic/Psychiatric: oriented x 3, other (L-sided weakness of upper and lower limbs) Skin: warm/dry; No rash on exposed areas, No ulcerations on exposed areas A/P: Assessment: Severe hypertension 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 The right common carotid artery is widely patent. There is calcified plaque at the carotid bifurcations whit aterally but no significant stenosis is identified. Both distal internal carotid arteries demonstrate calcified plaque in the carotid siphons. Echocardiogram of 10-06-2020 showed LVEF 50-55%. 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 Elaine 3 months ago CKD 2 - follows with Dr. Kaya Cramer H/O TIA 26 yrs ago Toboccoism (1 PPD) - cessation advised GERD Probable COPD H/O bilat knee replacements Chronic back pain Hypothyroidism - replacement tx - management per medical services Plan: * Hypertension better controlled. Continue current regimen * Anxiety likely contributing to htn. Dr Arellano managing anxiety * Monitor labs from time to time LAURA WEBSTER MD FACP FAC CCDS Oct 10, 2020 15:43
[2020-10-10 16:00] LABS: BILIRUBIN,URINE NEGATIVE (NEGATIVE); CLARITY,URINE CLEAR; COLOR,URINE YELLOW; GLUCOSE, URINE (UA) NEGATIVE (NEGATIVE); KETONES,URINE NEGATIVE (NEGATIVE); LEUKOCYTE ESTERASE ,URINE NEGATIVE (NEGATIVE); NITRITE,URINE NEGATIVE (NEGATIVE); PH,URINE 7.5 (5-9); PROTEIN,URINE NEGATIVE (NEGATIVE)
[2020-10-10 16:11] LABS: BACTERIA,URINE FEW /HPF; SQUAMOUS EPITHELIAL CELL,UR RARE /HPF; WBC,URINE 0-2 /HPF
[2020-10-10 17:32] VITALS: BP 188/69
[2020-10-10] MEDS: ENOXAPARIN 40 MG/0.4 ML (LOVENOX) SYR SC SCH (18:31)
[2020-10-10] MEDS: traZODone 150 MG (DESYREL) TABLET PO SCH (20:32)
[2020-10-10] MEDS: BACLOFEN 10 MG (LIORESAL) TAB PO PRN (20:32)
[2020-10-11] MEDS: LEVOTHYROXINE 100 MCG (LEVOTHROID) TAB PO SCH (06:24)
[2020-10-11] MEDS: MULTIVIT W/MINERALS TAB (THERAGRAN M) PO SCH (06:24)
[2020-10-11] MEDS: HYDROcodone/APAP 7.5 MG/325 MG (LORTAB, LORCET PLUS) TABLET PO PRN ×3 (06:24→22:57)
[2020-10-11] MEDS: CYANOCOBALAMIN 1,000 MCG (VITAMIN B-12) TABLET PO SCH (06:24)
[2020-10-11] MEDS: LEVOTHYROXINE 75 MCG (LEVOTHROID) TABLET PO SCH (06:24)
[2020-10-11 06:30] VITALS: BP 135/73
[2020-10-11 07:35] LABS: BASOPHILS # (AUTO) 0.1 10^3/uL (0.0-0.1); BASOPHILS % (AUTO) 1 % (0-10); EOSINOPHILS # (AUTO) 0.2 10^3/uL (0.0-0.3); EOSINOPHILS % (AUTO) 5 % (0-10); HEMATOCRIT 41 % (35-52); HEMOGLOBIN 13.4 g/dL (11.5-16.0); LYMPHOCYTES # (AUTO) 1.8 10^3/uL (1.0-4.0); LYMPHOCYTES % (AUTO) 35 % (12-44); MEAN CORPUSCULAR HEMOGLOBIN 32 pg (25-34); MEAN CORPUSCULAR HGB CONC 33 g/dL (32-36); MEAN CORPUSCULAR VOLUME 97 fL (80-99); MEAN PLATELET VOLUME 10.2 fL (9.0-12.2); MONOCYTES # (AUTO) 0.4 10^3/uL (0.0-1.0); MONOCYTES % (AUTO) 8 % (0-12); NEUTROPHILS # (AUTO) 2.6 10^3/uL (1.8-7.8); NEUTROPHILS % (AUTO) 51 % (42-75); PLATELET COUNT 268 10^3/uL (130-400); WHITE BLOOD COUNT 5.2 10^3/uL (4.3-11.0)
[2020-10-11] MEDS: DOCUSATE SODIUM 100 MG (COLACE) CAP PO SCH ×2 (07:35→20:15)
[2020-10-11] MEDS: NICOTINE 21 MG (NICODERM) PATCH TD SCH (07:35)
[2020-10-11] MEDS: PANTOPRAZOLE 20 MG TABLET (PROTONIX) PO SCH (07:36)
[2020-10-11] MEDS: VITAMIN D3 25 MCG (1,000 UNITS) TABLET PO SCH (07:36)
[2020-10-11] MEDS: ASPIRIN E.C. 325 MG (ECOTRIN) TABLET PO SCH (07:36)
[2020-10-11] MEDS: SENNA W/DOCUSATE (SENOKOT S) TABLET PO SCH ×2 (07:36→20:15)
[2020-10-11] MEDS: morphine ER 30 MG (MS CONTIN) TAB PO SCH ×2 (07:36→20:19)
[2020-10-11] MEDS: meTOprolol SUCCINATE 100 MG (TOPROL XL) TAB PO SCH (07:36)
[2020-10-11] MEDS: NICOTINE PATCH REMOVAL TP SCH (07:36)
[2020-10-11] MEDS: amLODIPine 10 MG (NORVASC) TAB PO SCH (07:36)
[2020-10-11 07:43] LABS: ALBUMIN 3.9 GM/DL (3.2-4.5)
[2020-10-11 07:44] LABS: POTASSIUM 4.3 MMOL/L (3.6-5.0)
[2020-10-11 07:45] LABS: CALCIUM 8.9 MG/DL (8.5-10.1)
[2020-10-11 07:46] LABS: TOTAL PROTEIN 7.4 GM/DL (6.4-8.2)
[2020-10-11 07:48] LABS: BILIRUBIN,TOTAL 0.4 MG/DL (0.1-1.0)
[2020-10-11 07:50] LABS: CREATININE SERUM 0.99 MG/DL (0.60-1.30)
--- NOTE | 2020-10-11 09:12 | PM&R Progress Note ---
Subjective HPI/CC On Admission Date Seen by Provider: Oct 11, 2020 Time Seen by Provider: 09:00 Subjective/Events-last exam 10/11/20: Pt constantly asking when she is going home Had a BM today Walking pretty well Reports she had a tough night last night Heart rate is 58 Denies any other significant problems 10/10/20: Has panic attacks Needs Xanax Monitoring BP Urinary frequency 10/09/20: Had panic attack last evening Increased BP and she felt hot Managed with Xanax and pain meds Withdrawal from nicotine and pain meds a possibility O2 placed on patient when sleeping 10/08/20: Blood pressure was a bit elevated this morning but doing well since morning medication given Modifying diet since she had left her dentures at home but swallowing is within normal limits Smoking cessation counseled Denies any new pain Check meds and labs Conferred with RN Reviewed therapy notes Review of Systems General: Fatigue, Malaise Neurological: Weakness, Incoordination Objective Exam Vital Signs Vital Signs Date Time Temp Pulse Resp B/P (MAP) Pulse Ox O2 Delivery O2 Flow Rate FiO2 10/12/20 20:10 Room Air 10/12/20 16:25 35.9 55 14 149/69 (95) 94 10/12/20 09:33 0.00 Capillary Refill : Less Than 3 Seconds General Appearance: No Apparent Distress, WD/WN, Chronically ill HEENT: PERRL/EOMI, Normal ENT Inspection, Pharynx Normal Neck: Full Range of Motion, Normal Inspection, Non Tender, Supple, Carotid Bruit Respiratory: Chest Non Tender, Lungs Clear, Normal Breath Sounds, No Accessory Muscle Use, No Respiratory Distress Cardiovascular: Regular Rate, Rhythm, No Edema, No Gallop, No JVD, No Murmur, Normal Peripheral Pulses Gastrointestinal: Normal Bowel Sounds, No Organomegaly, No Pulsatile Mass, Non Tender, Soft Back: Normal Inspection, No CVA Tenderness, No Vertebral Tenderness Extremity: Normal Capillary Refill, Normal Inspection, Normal Range of Motion (except left side), Non Tender, No Calf Tenderness, No Pedal Edema Neurologic/Psychiatric: Alert, Oriented x3, No Motor/Sensory Deficits, Normal Mood/Affect, Facial Droop (left), Motor Weakness (left sided weakness 3/5 arm, 2/5 leg) Skin: Normal Color, Warm/Dry Lymphatic: No Adenopathy Results/Procedures Lab Patient resulted labs reviewed. FIM Transfers Therapy Code Descriptions/Definitions Functional [place] Measure: 0=Not Assessed/NA 4=Minimal Assistance 1=Total Assistance 5=Supervision or Setup 2=Maximal Assistance 6=Modified [place] 3=Moderate Assistance 7=Complete IndependenceSCALE: Activities may be completed with or without assistive devices. 4-Cgyosphjxy-kqvatrm completes the activity by him/herself with no assistance from a helper. 5-Set-up or Clean-up Assistance-helper sets up or cleans up; patient completes activity. [place] assists only prior to or following the activity. 4-Supervision or Touching Assistance-helper provides verbal cues and/or touching/steadying and/or contact guard assistance as patient completes activity. Assistance may be provided throughout the activity or intermittently. 3-Partial/Moderate Assistance-helper does LESS THAN HALF the effort. [place] lifts, holds or supports trunk or limbs, but provides less than half the effort. 2-Substantial/Maximal Assistance-helper does MORE THAN HALF the effort. [place] lifts or holds trunk or limbs and provides more than half the effort. 1-Ghvhghzow-cvkbgw does ALL the effort. Patient does none of the effort to complete the activity. Or, the assistance of 2 or more helpers is required for the patient to complete the activity. If activity was not attempted, code reason: 7-Patient Refused. 9-Not Applicable-not attempted and the patient did not perform the activity before the current illness, exacerbation or injury. 10-Not Attempted due to Environmental Limitations-(lack of equipment, weather restraints, etc.). 88-Not Attempted due to Medical Conditions or Safety Concerns. Roll Left to Right (QC): 4 Sit to Lying (QC): 4 Sit to Stand (QC): 4 Chair/Eao-tv-Qxewz Xfer(QC): 4 Car Transfer (QC): 4 Gait Training Does the Patient Walk?: Yes Distance: 150' x2 Walk 10 feet (QC): 5 Walk 50 ft with 2 Turns(QC): 5 Walk 150 ft (QC): 5 Walking 10ft/uneven surface-QC: 4 Gait Persons Needed: 1 Gait Assistive Device: FWW Wheelchair Training Does the Pt Use a Wheelchair?: No Wheel 50 ft with 2 turns (QC): 9 Wheel 150 ft (QC): 9 Stair Training #of Steps: 4 1 Step (curb) (QC): 4 4 Steps (QC): 4 12 Steps (QC): 88 Balance Picking up an Object (QC): 4 ADL-Treatment Eating (QC): 6 Oral Hygiene (QC): 7 Shower/Bathe Self (QC): 7 Upper Body Dressing (QC): 5 (s/u) Lower Body Dressing (QC): 4 (SBA all LB tasks.) On/Off Footwear (QC): 4 (SBA EOB) Toileting Hygiene (QC): 4 (SUP) Toilet Transfer (QC): 4 (SBA, cues for walker placement. ) Assessment/Plan Assessment and Plan Assess & Plan/Chief Complaint Assessment: CVA with left sided weakness presented to ER 4 days after symptoms HTN Smoker HLP Chronic pain Narcotic dependence Panic attacks Plan: IRF protocol Appreciate Dr Munguia Statin ASA 10/08/20: Monitor BP IRF protocol Checked meds 10/09/20: Monitor for panic attacks Monitor closely BP management 10/10/20: Urinary retention/frequency check UA Monitor labs in am 10/11/20: Monitor panic attacks Home soon since she has help at home (1) CVA (cerebral vascular accident) Status: Acute (2) Status post placement of implantable loop recorder (3) Chronic pain Status: Chronic (4) GERD (gastroesophageal reflux disease) (5) Hypothyroidism (6) Depression Status: Chronic (7) CKD (chronic kidney disease) Status: Chronic (8) HTN (hypertension) Status: Chronic (9) Anemia Status: Chronic (10) Smoker PATSY HILLS DO Oct 11, 2020 09:12
--- NOTE | 2020-10-11 10:47 | Occupational Ther Daily Note ---
OT Current Status-Daily Note Subjective Pt agreeable to OT tx. ADL-Treatment Therapy Code Descriptions/Definitions Functional [place] Measure: 0=Not Assessed/NA 4=Minimal Assistance 1=Total Assistance 5=Supervision or Setup 2=Maximal Assistance 6=Modified [place] 3=Moderate Assistance 7=Complete IndependenceSCALE: Activities may be completed with or without assistive devices. 4-Tozqrcpybi-cuhdvbc completes the activity by him/herself with no assistance from a helper. 5-Set-up or Clean-up Assistance-helper sets up or cleans up; patient completes activity. [place] assists only prior to or following the activity. 4-Supervision or Touching Assistance-helper provides verbal cues and/or touching/steadying and/or contact guard assistance as patient completes activity. Assistance may be provided throughout the activity or intermittently. 3-Partial/Moderate Assistance-helper does LESS THAN HALF the effort. [place] lifts, holds or supports trunk or limbs, but provides less than half the effort. 2-Substantial/Maximal Assistance-helper does MORE THAN HALF the effort. [place] lifts or holds trunk or limbs and provides more than half the effort. 1-Rtaeeqqsj-kdbqwa does ALL the effort. Patient does none of the effort to complete the activity. Or, the assistance of 2 or more helpers is required for the patient to complete the activity. If activity was not attempted, code reason: 7-Patient Refused. 9-Not Applicable-not attempted and the patient did not perform the activity before the current illness, exacerbation or injury. 10-Not Attempted due to Environmental Limitations-(lack of equipment, weather restraints, etc.). 88-Not Attempted due to Medical Conditions or Safety Concerns. Oral Hygiene (QC): 4 (Superivison standing at sink.) Upper Body Dressing (QC): 4 (Supervision, pt donned/doffed gown standing at FWW) Lower Body Dressing (QC): 4 (SBA, pt required cue to sit down to thread pants.) On/Off Footwear: 4 (supervision) Toileting Hygiene (QC): 4 (supervison) Toilet Transfer (QC): 4 (supervision) Other Treatment Pt seated in recliner, declined showering at this time. Pt changed clothes at recliner, standing up while completing upper body dressing and requiring cue to sit in order to thread pants. Pt then used FWW to ambulate to therapy gym. In order to increase BUE strength and functional endurance and increase bilateral integration, pt completed arm bike x15 mins, min resistance. In order to increase fine motor coordination, pt placed x100, 1" pegs into foam pegboard using LUE. Noted slight difficulty with in hand manipulation. Pt used FWW to return to room, requesting to use bathroom. Pt completed toileting, then stood at sink to wash hands and brush teeth. Post tx, pt seated in recliner, call light in reach and all needs met. Education OT Patient Education: Correct positioning, Energy conservation, Exercise program, Modified ADL techniques, Progress toward Goal/Update tx plan, Purpose of tx/functional activities Teaching Recipient: Patient Teaching Methods: Discussion Response to Teaching: Verbalize Understanding OT Short Term Goals Short Term Goals Time Frame: Oct 15, 2020 Eatin Oral hygiene: 5 Upper body dressin Lower body dressin Putting on/taking off footwear: 5 OT Longterm Goals Glass Artist Goals Time Frame: Oct 22, 2020 Eating (QC): 6 Oral Hygiene (QC): 6 Toileting Hygiene (QC): 6 Shower/Bathe Self (QC): 4 Upper Body Dressing (QC): 6 Lower Body Dressing (QC): 6 On/Off Footwear (QC): 6 Additional Goals: 1-Demonstrate ADL Tasks, 2-Verbalize Understanding, 3- ImproveStrength/Libra 1=Demonstrate adherence to instructed precautions during ADL tasks. 2=Patient will verbalize/demonstrate understanding of assistive devices/modifications for ADL. 3=Patient will improve strength/tolerance for activity to enable patient to perform ADL's. OT Education/Plan Problem List/Assessment Assessment: Decreased Activ Tolerance, Decreased UE Strength, Impaired I ADL's, Impaired Self-Care Skills, Restricted Funct UE ROM Discharge Recommendations Plan/Recommendations: Continue POC Treatment Plan/Plan of Care Patient would benefit from OT for education, treatment and training to promote independence in ADL's, mobility, safety and/or upper extremity function for ADL's. Plan of Care: ADL Retraining, Functional Mobility, UE Funct Exercise/Act Treatment Duration: Oct 22, 2020 Frequency: At least 5 of 7 days/Wk (IRF) Estimated Hrs Per Day: 1.5 hours per day Agreement: Yes Rehab Potential: Good Time/GCodes Start Time: 09:00 Stop Time: 10:00 Total Time Billed (hr/min): 60 Billed Treatment Time 1, ADL 2 (25'), EX (15'), FA (20') RICKI CARR OT Oct 11, 2020 10:47
--- NOTE | 2020-10-11 10:52 | Physical Therapy Daily Note ---
PT Daily Note-Current Subjective Pt.states she feels like she is making progress. Describes her home and states she has help coming in and out and will have help the day she goes home to get in the house. Pt states the only issue bothering her is that she doesnt feel she will be able to TRF in out her tub ( step over) for a shower Pain Numeric Pain Scale: 6 Location: Medial Location Body Site: Back Pain Description: Ache Comment: hips and knees as well Mental Status Patient Orientation: Normal For Age Transfers SCALE: Activities may be completed with or without assistive devices. 9-Fhwefdqtkf-rnwfsdv completes the activity by him/herself with no assistance from a helper. 5-Set-up or Clean-up Assistance-helper sets up or cleans up; patient completes activity. [place] assists only prior to or following the activity. 4-Supervision or Touching Assistance-helper provides verbal cues and/or touching/steadying and/or contact guard assistance as patient completes activity. Assistance may be provided throughout the activity or intermittently. 3-Partial/Moderate Assistance-helper does LESS THAN HALF the effort. [place] lifts, holds or supports trunk or limbs, but provides less than half the effort. 2-Substantial/Maximal Assistance-helper does MORE THAN HALF the effort. [place] lifts or holds trunk or limbs and provides more than half the effort. 6-Bhigcyewz-duqsth does ALL the effort. Patient does none of the effort to complete the activity. Or, the assistance of 2 or more helpers is required for the patient to complete the activity. If activity was not attempted, code reason: 7-Patient Refused. 9-Not Applicable-not attempted and the patient did not perform the activity before the current illness, exacerbation or injury. 10-Not Attempted due to Environmental Limitations-(lack of equipment, weather restraints, etc.). 88-Not Attempted due to Medical Conditions or Safety Concerns. Roll Left & Right (QC): 6 Sit to Lying (QC): 6 Lying to Sitting/Side of Bed(Q: 6 Sit to Stand (QC): 6 Chair/Vij-ui-Hdfox Xfer(QC): 6 pt. was taken to bathroom with tub shower unit and tub TRF bench for demonstration etc. Pt. performed this with no problem, had never seen a tub TRF bench before and was very encouraged that she may be able to acquire one and solve her TRF issues Weight Bearing Full Weight Bearing Full Weight Bearing Gait Training Does the Patient Walk?: Yes Walk 10 feet (QC): 5 Walk 50 ft with 2 Turns(QC): 5 Walk 150 ft (QC): 5 Gait Persons Needed: 1 Gait Assistive Device: FWW instruction to broaden [place] and awareness of objects around FWW wheels etc. no LOB Exercises Supine Ex: Bridging, Ankle pumps, Quad Set, Rolling, Glut sets, Lower trunk rotation, Heel Slides, Short Arc Quads, Scooting, Straight leg raise, Hip abd/add Supine Reps: 20 Seated Therapy Exercises: Ankle pumps, Sit to stand, Long arc quads, Hip flexion, Hip abd/add Seated Reps: 12 NuStep Minutes: 10 NuStep Workload: 3 Assessment Current Status: Good Progress PT Short Term Goals Short Term Goals Time Frame: Oct 14, 2020 Roll Left & Right: 6 Sit to lyin Lying to sitting on side of be: 6 Sit to stand: 4 (SBA) Chair/vvx-wa-qlsnj transfer: 4 (SBA) Walk 10 feet: 4 (SBA) Walk 50 feet with two turns: 4 (SBA) Walk 150 feet: 4 (SBA) PT Head Of Talent Management Goals Detention Goals PT Detention Goals Time Frame: Oct 28, 2020 Roll Left & Right (QC): 6 Sit to Lying (QC): 6 Lying-Sitting on Side/Bed(QC): 6 Sit to Stand (QC): 6 Chair/Knx-qt-Feobz Xfer(QC): 6 Toilet Transfer (QC): 6 Car Transfer (QC): 6 Does the Patient Walk: Yes Walk 10 feet (QC): 6 Walk 50ft with 2 Turns (QC): 6 Walk 150 ft (QC): 6 Walking 10ft on Uneven Surface: 6 1 Step (curb) (QC): 6 4 Steps (QC): 6 12 Steps (QC): 6 Picking up an Object (QC): 6 Wheel 50 feet with 2 turns (QC: 9 Wheel 150 feet: 9 PT Plan Treatment/Plan Treatment Plan: Continue Plan of Care Treatment Plan: Bed Mobility, Education, Functional Activity Libra, Functional Strength, Group Therapy, Gait, Safety, Therapeutic Exercise, Transfers Treatment Duration: Oct 28, 2020 Frequency: At least 5 of 7 days/Wk (IRF) Estimated Hrs Per Day: 1.5 hours per day Patient and/or Family Agrees t: Yes Safety Risks/Education Patient Education: Gait Training, Transfer Techniques, Correct Positioning, Disease Process, Safety Issues Teaching Recipient: Patient Teaching Methods: Demonstration, Discussion Response to Teaching: Verbalize Understanding, Return Demonstration, Reinforcement Needed Time/GCodes Time In: 1000 Time Out: 1100 Total Billed Treatment Time: 60 Total Billed Treatment 1,EX30m,FA10m,GT20m BENJAMIN CALVO MACHINE ETCHER Oct 11, 2020 10:52
[2020-10-11] MEDS: polyethylene glycoL POWDER 17 GM (MIRALAX) PACK PO SCH ×2 (11:55→20:15)
[2020-10-11] MEDS: ALPRAZolam 0.5 MG (XANAX) TAB PO PRN ×2 (11:59→20:18)
[2020-10-11] MEDS: BACLOFEN 10 MG (LIORESAL) TAB PO PRN ×2 (11:59→20:18)
--- NOTE | 2020-10-11 13:33 | Physical Therapy Daily Note ---
PT Daily Note-Current Subjective Pt. in bed asleep after lunch but awakens and is agreeable to Rx. Pain Numeric Pain Scale: 5-Moderate Pain Location: Medial Location Body Site: Back Pain Description: Ache Mental Status Patient Orientation: Normal For Age Attachments: Other-See Comments (mask while out of room) Transfers SCALE: Activities may be completed with or without assistive devices. 1-Blnubxnxae-vnujpdz completes the activity by him/herself with no assistance from a helper. 5-Set-up or Clean-up Assistance-helper sets up or cleans up; patient completes activity. [place] assists only prior to or following the activity. 4-Supervision or Touching Assistance-helper provides verbal cues and/or touching/steadying and/or contact guard assistance as patient completes activity. Assistance may be provided throughout the activity or intermittently. 3-Partial/Moderate Assistance-helper does LESS THAN HALF the effort. [place] lifts, holds or supports trunk or limbs, but provides less than half the effort. 2-Substantial/Maximal Assistance-helper does MORE THAN HALF the effort. [place] lifts or holds trunk or limbs and provides more than half the effort. 9-Dqkoaaloy-qcorzs does ALL the effort. Patient does none of the effort to complete the activity. Or, the assistance of 2 or more helpers is required for the patient to complete the activity. If activity was not attempted, code reason: 7-Patient Refused. 9-Not Applicable-not attempted and the patient did not perform the activity before the current illness, exacerbation or injury. 10-Not Attempted due to Environmental Limitations-(lack of equipment, weather restraints, etc.). 88-Not Attempted due to Medical Conditions or Safety Concerns. in out bed and chair as well as on off toilet SBA Weight Bearing Full Weight Bearing Full Weight Bearing Gait Training Does the Patient Walk?: Yes Gait Assistive Device: FWW 160 ft x 2 CGA and instruction for wider [place] as well as steering device around objects on L as pt occas slightly runs in to objects Stair Training Stair Training: Handrails/: 2 handrails #of Steps: 4 4 Steps (QC): 4 Stairs: Pattern: Step to instructed in sequence as well as use of hands and transition from FWW to rails etc. Exercises Supine Ex: Bridging, Ankle pumps, Quad Set, Rolling, Glut sets, Heel Slides, Short Arc Quads, Scooting, Straight leg raise, Hip abd/add (sidelying clam shells and abd bilat) Supine Reps: 15 Assessment Current Status: Good Progress gives full effort PT Short Term Goals Short Term Goals Time Frame: Oct 14, 2020 Roll Left & Right: 6 Sit to lyin Lying to sitting on side of be: 6 Sit to stand: 4 (SBA) Chair/vrl-ar-qudhk transfer: 4 (SBA) Walk 10 feet: 4 (SBA) Walk 50 feet with two turns: 4 (SBA) Walk 150 feet: 4 (SBA) PT Half-Way Goals Half-Way Goals PT Half-Way Goals Time Frame: Oct 28, 2020 Roll Left & Right (QC): 6 Sit to Lying (QC): 6 Lying-Sitting on Side/Bed(QC): 6 Sit to Stand (QC): 6 Chair/Hwm-nj-Zemov Xfer(QC): 6 Toilet Transfer (QC): 6 Car Transfer (QC): 6 Does the Patient Walk: Yes Walk 10 feet (QC): 6 Walk 50ft with 2 Turns (QC): 6 Walk 150 ft (QC): 6 Walking 10ft on Uneven Surface: 6 1 Step (curb) (QC): 6 4 Steps (QC): 6 12 Steps (QC): 6 Picking up an Object (QC): 6 Wheel 50 feet with 2 turns (QC: 9 Wheel 150 feet: 9 PT Plan Treatment/Plan Treatment Plan: Continue Plan of Care Treatment Plan: Bed Mobility, Education, Functional Activity Libra, Functional Strength, Group Therapy, Gait, Safety, Therapeutic Exercise, Transfers Treatment Duration: Oct 28, 2020 Frequency: At least 5 of 7 days/Wk (IRF) Estimated Hrs Per Day: 1.5 hours per day Patient and/or Family Agrees t: Yes Safety Risks/Education Patient Education: Gait Training, Transfer Techniques, Steps, Correct Posit ioning, Safety Issues Teaching Recipient: Patient Teaching Methods: Demonstration, Discussion Response to Teaching: Verbalize Understanding, Return Demonstration, Reinforcement Needed Time/GCodes Time In: 1300 Time Out: 1330 Total Billed Treatment Time: 30 Total Billed Treatment 1,FA15m,EX15m BENJAMIN CALVO HVAC MECHANICAL ENGINEER Oct 11, 2020 13:33
--- NOTE | 2020-10-11 14:07 | Occupational Ther Daily Note ---
OT Current Status-Daily Note Subjective Pt laying in bed, states she is tired but agreeable to OT tx. Mental Status/Objective Patient Orientation: Person, Place, Time, Situation ADL-Treatment Therapy Code Descriptions/Definitions Functional [place] Measure: 0=Not Assessed/NA 4=Minimal Assistance 1=Total Assistance 5=Supervision or Setup 2=Maximal Assistance 6=Modified [place] 3=Moderate Assistance 7=Complete IndependenceSCALE: Activities may be completed with or without assistive devices. 3-Mmrrcrqrpg-udxvqwj completes the activity by him/herself with no assistance from a helper. 5-Set-up or Clean-up Assistance-helper sets up or cleans up; patient completes activity. [place] assists only prior to or following the activity. 4-Supervision or Touching Assistance-helper provides verbal cues and/or touching/steadying and/or contact guard assistance as patient completes activity. Assistance may be provided throughout the activity or intermittently. 3-Partial/Moderate Assistance-helper does LESS THAN HALF the effort. [place] lifts, holds or supports trunk or limbs, but provides less than half the effort. 2-Substantial/Maximal Assistance-helper does MORE THAN HALF the effort. [place] lifts or holds trunk or limbs and provides more than half the effort. 0-Odsrpyxse-emwcxv does ALL the effort. Patient does none of the effort to complete the activity. Or, the assistance of 2 or more helpers is required for the patient to complete the activity. If activity was not attempted, code reason: 7-Patient Refused. 9-Not Applicable-not attempted and the patient did not perform the activity before the current illness, exacerbation or injury. 10-Not Attempted due to Environmental Limitations-(lack of equipment, weather restraints, etc.). 88-Not Attempted due to Medical Conditions or Safety Concerns. Other Treatment Pt laying in bed, transferred supine to sit EOB independently. Pt used FWW to perform functional mobility to therapy gym. In order to increase fine motor strength and coordination, pt completed fine motor task using moderate resistance red theraband, removing beads. Pt able to locate and remove all beads using LUE primarily, and RUE to assist as needed. Pt then used FWW to return to room and back to bed. Post tx, pt laying in bed call light in reach and all needs met. Education OT Patient Education: Correct positioning, Energy conservation, Progress toward Goal/Update tx plan, Purpose of tx/functional activities Teaching Recipient: Patient Teaching Methods: Discussion Response to Teaching: Verbalize Understanding OT Short Term Goals Short Term Goals Time Frame: Oct 15, 2020 Eatin Oral hygiene: 5 Upper body dressin Lower body dressin Putting on/taking off footwear: 5 OT Longterm Goals Longterm Goals Time Frame: Oct 22, 2020 Eating (QC): 6 Oral Hygiene (QC): 6 Toileting Hygiene (QC): 6 Shower/Bathe Self (QC): 4 Upper Body Dressing (QC): 6 Lower Body Dressing (QC): 6 On/Off Footwear (QC): 6 Additional Goals: 1-Demonstrate ADL Tasks, 2-Verbalize Understanding, 3- ImproveStrength/Libra 1=Demonstrate adherence to instructed precautions during ADL tasks. 2=Patient will verbalize/demonstrate understanding of assistive devices/modifications for ADL. 3=Patient will improve strength/tolerance for activity to enable patient to perform ADL's. OT Education/Plan Problem List/Assessment Assessment: Decreased Activ Tolerance, Decreased UE Strength, Impaired I ADL's Discharge Recommendations Plan/Recommendations: Continue POC Treatment Plan/Plan of Care Patient would benefit from OT for education, treatment and training to promote independence in ADL's, mobility, safety and/or upper extremity function for ADL's. Plan of Care: ADL Retraining, Functional Mobility, UE Funct Exercise/Act Treatment Duration: Oct 22, 2020 Frequency: At least 5 of 7 days/Wk (IRF) Estimated Hrs Per Day: 1.5 hours per day Agreement: Yes Rehab Potential: Good Time/GCodes Start Time: 13:30 Stop Time: 14:00 Total Time Billed (hr/min): 30 Billed Treatment Time 1, FA 2 RICKI CARR OT Oct 11, 2020 14:07
--- NOTE | 2020-10-11 17:58 | NUR ---
"RD ASSESSMENT PMHx: HTN; stroke; TIA; GERD; chronic constipation; hypothyroidism; PT INTERACTION: Pt was awake and pleasant during nutrition assessment. Pt states current appetite is poor, and has been since admit. Note avg PO intake >75% x3d, per chart review. Pt states following a regular diet at home, and has some issues with chewing food, as she does not have her dentures with her. Pt states no issues with n/v/c/d. Note last BM was 10/07, and pt currently on bowel regimen of colace BID, senna BID, and miralax BID, per chart review. Pt states no recent wt changes. Note recent 4# wt gain x6mon, per chart review. Est. kcal needs: 2486-4148 kcal | 15-20 kcal/kg Est. Pro needs: 78-98 g Pro | 0.8-1.0 g Pro/kg PES STATEMENT: Given current PO intake, no nutrition diagnosis at this time (NO-1.1). INTERVENTION: Continue with current diet order of DYS2 Mechanically Altered diet, with modifier of Heart Healthy diet. Will continue to follow and reassess as pt needs, intake, and status change. Dashawn HARDING, MS RD LD [phone] cell"
[2020-10-11 18:00] VITALS: BP 158/70
[2020-10-11] MEDS: ENOXAPARIN 40 MG/0.4 ML (LOVENOX) SYR SC SCH (19:07)
[2020-10-11] MEDS: traZODone 150 MG (DESYREL) TABLET PO SCH (20:18)
[2020-10-11] MEDS: lisINopril 20 MG (PRINIVIL) TABLET PO SCH (20:19)
[2020-10-12 05:50] VITALS: BP 184/80
[2020-10-12 05:52] VITALS: BP 168/80
[2020-10-12] MEDS: LEVOTHYROXINE 100 MCG (LEVOTHROID) TAB PO SCH (06:38)
[2020-10-12] MEDS: HYDROcodone/APAP 7.5 MG/325 MG (LORTAB, LORCET PLUS) TABLET PO PRN ×2 (06:38→20:48)
[2020-10-12] MEDS: LEVOTHYROXINE 75 MCG (LEVOTHROID) TABLET PO SCH (06:38)
[2020-10-12] MEDS: CYANOCOBALAMIN 1,000 MCG (VITAMIN B-12) TABLET PO SCH (06:39)
[2020-10-12] MEDS: MULTIVIT W/MINERALS TAB (THERAGRAN M) PO SCH (06:40)
[2020-10-12 07:30] VITALS: BP 187/73
--- NOTE | 2020-10-12 07:30 | NUR ---
EKG has been done for bradycardia and hypertension and Arellano notified by MICHELLE Courtney. No new orders at this time. Blood pressure now 187/73 and HR 50, patient is asymptomatic.
[2020-10-12 08:00] VITALS: BP 140/65
--- NOTE | 2020-10-12 08:55 | PM&R Progress Note ---
Subjective HPI/CC On Admission Date Seen by Provider: Oct 12, 2020 Time Seen by Provider: 08:30 Subjective/Events-last exam 10/12/20: Chronic right hip pain noted Heart rate of 48 and holding Metoprolol Labile hypertension noted No other pain issues except for restless leg syndrome flare O2 sat varies at 91% 10/11/20: Pt constantly asking when she is going home Had a BM today Walking pretty well Reports she had a tough night last night Heart rate is 58 Denies any other significant problems 10/10/20: Has panic attacks Needs Xanax Monitoring BP Urinary frequency 10/09/20: Had panic attack last evening Increased BP and she felt hot Managed with Xanax and pain meds Withdrawal from nicotine and pain meds a possibility O2 placed on patient when sleeping 10/08/20: Blood pressure was a bit elevated this morning but doing well since morning medication given Modifying diet since she had left her dentures at home but swallowing is within normal limits Smoking cessation counseled Denies any new pain Check meds and labs Conferred with RN Reviewed therapy notes Review of Systems General: Fatigue, Malaise Neurological: Weakness, Incoordination Objective Exam Vital Signs Vital Signs Date Time Temp Pulse Resp B/P (MAP) Pulse Ox O2 Delivery O2 Flow Rate FiO2 10/12/20 20:10 Room Air 10/12/20 16:25 35.9 55 14 149/69 (95) 94 10/12/20 09:33 0.00 Capillary Refill : Less Than 3 Seconds General Appearance: No Apparent Distress, WD/WN, Chronically ill HEENT: PERRL/EOMI, Normal ENT Inspection, Pharynx Normal Neck: Full Range of Motion, Normal Inspection, Non Tender, Supple, Carotid Bruit Respiratory: Chest Non Tender, Lungs Clear, Normal Breath Sounds, No Accessory Muscle Use, No Respiratory Distress Cardiovascular: Regular Rate, Rhythm, No Edema, No Gallop, No JVD, No Murmur, Normal Peripheral Pulses Gastrointestinal: Normal Bowel Sounds, No Organomegaly, No Pulsatile Mass, Non Tender, Soft Back: Normal Inspection, No CVA Tenderness, No Vertebral Tenderness Extremity: Normal Capillary Refill, Normal Inspection, Normal Range of Motion (except left side), Non Tender, No Calf Tenderness, No Pedal Edema Neurologic/Psychiatric: Alert, Oriented x3, No Motor/Sensory Deficits, Normal Mood/Affect, Facial Droop (left), Motor Weakness (left sided weakness 3/5 arm, 2/5 leg) Skin: Normal Color, Warm/Dry Lymphatic: No Adenopathy Results/Procedures Lab Patient resulted labs reviewed. FIM Transfers Therapy Code Descriptions/Definitions Functional [place] Measure: 0=Not Assessed/NA 4=Minimal Assistance 1=Total Assistance 5=Supervision or Setup 2=Maximal Assistance 6=Modified [place] 3=Moderate Assistance 7=Complete IndependenceSCALE: Activities may be completed with or without assistive devices. 5-Vbazlhsukq-mieabin completes the activity by him/herself with no assistance from a helper. 5-Set-up or Clean-up Assistance-helper sets up or cleans up; patient completes activity. [place] assists only prior to or following the activity. 4-Supervision or Touching Assistance-helper provides verbal cues and/or touching/steadying and/or contact guard assistance as patient completes activity. Assistance may be provided throughout the activity or intermittently. 3-Partial/Moderate Assistance-helper does LESS THAN HALF the effort. [place] lifts, holds or supports trunk or limbs, but provides less than half the effort. 2-Substantial/Maximal Assistance-helper does MORE THAN HALF the effort. [place] lifts or holds trunk or limbs and provides more than half the effort. 3-Gihavbamh-ffwecn does ALL the effort. Patient does none of the effort to complete the activity. Or, the assistance of 2 or more helpers is required for the patient to complete the activity. If activity was not attempted, code reason: 7-Patient Refused. 9-Not Applicable-not attempted and the patient did not perform the activity before the current illness, exacerbation or injury. 10-Not Attempted due to Environmental Limitations-(lack of equipment, weather restraints, etc.). 88-Not Attempted due to Medical Conditions or Safety Concerns. Roll Left to Right (QC): 6 Sit to Lying (QC): 6 Sit to Stand (QC): 6 Chair/Wqp-tw-Fbaun Xfer(QC): 6 Car Transfer (QC): 4 Gait Training Does the Patient Walk?: Yes Distance: 150' x2 Walk 10 feet (QC): 5 Walk 50 ft with 2 Turns(QC): 5 Walk 150 ft (QC): 5 Walking 10ft/uneven surface-QC: 4 Gait Persons Needed: 1 Gait Assistive Device: FWW Wheelchair Training Does the Pt Use a Wheelchair?: No Wheel 50 ft with 2 turns (QC): 9 Wheel 150 ft (QC): 9 Stair Training Stair Training: Handrails/: 2 handrails #of Steps: 4 1 Step (curb) (QC): 4 4 Steps (QC): 4 12 Steps (QC): 88 Stairs: Pattern: Step to Balance Picking up an Object (QC): 4 ADL-Treatment Eating (QC): 6 Oral Hygiene (QC): 4 (Superivison standing at sink.) Shower/Bathe Self (QC): 7 Upper Body Dressing (QC): 4 (Supervision, pt donned/doffed gown standing at FWW) Lower Body Dressing (QC): 4 (SBA, pt required cue to sit down to thread pants.) On/Off Footwear (QC): 4 (supervision) Toileting Hygiene (QC): 4 (supervison) Toilet Transfer (QC): 4 (supervision) Assessment/Plan Assessment and Plan Assess & Plan/Chief Complaint Assessment: CVA with left sided weakness presented to ER 4 days after symptoms HTN Smoker HLP Chronic pain Narcotic dependence Panic attacks Plan: IRF protocol Appreciate Dr Munguia Statin ASA 10/08/20: Monitor BP IRF protocol Checked meds 10/09/20: Monitor for panic attacks Monitor closely BP management 10/10/20: Urinary retention/frequency check UA Monitor labs in am 10/11/20: Monitor panic attacks Home soon since she has help at home 10/12/20: Monitor BP Continue aggressive therapy (1) CVA (cerebral vascular accident) Status: Acute (2) Status post placement of implantable loop recorder (3) Chronic pain Status: Chronic (4) GERD (gastroesophageal reflux disease) (5) Hypothyroidism (6) Depression Status: Chronic (7) CKD (chronic kidney disease) Status: Chronic (8) HTN (hypertension) Status: Chronic (9) Anemia Status: Chronic (10) Smoker PATSY HILLS DO Oct 12, 2020 08:55
[2020-10-12] MEDS: morphine ER 30 MG (MS CONTIN) TAB PO SCH ×2 (09:26→20:49)
[2020-10-12] MEDS: VITAMIN D3 25 MCG (1,000 UNITS) TABLET PO SCH (09:26)
[2020-10-12] MEDS: amLODIPine 10 MG (NORVASC) TAB PO SCH (09:26)
[2020-10-12] MEDS: NICOTINE 21 MG (NICODERM) PATCH TD SCH (09:27)
[2020-10-12] MEDS: PANTOPRAZOLE 20 MG TABLET (PROTONIX) PO SCH (09:27)
[2020-10-12] MEDS: ASPIRIN E.C. 325 MG (ECOTRIN) TABLET PO SCH (09:27)
[2020-10-12] MEDS: polyethylene glycoL POWDER 17 GM (MIRALAX) PACK PO SCH ×2 (09:28→20:01)
[2020-10-12] MEDS: SENNA W/DOCUSATE (SENOKOT S) TABLET PO SCH ×2 (09:28→20:01)
[2020-10-12] MEDS: meTOprolol SUCCINATE 100 MG (TOPROL XL) TAB PO SCH (09:28)
[2020-10-12] MEDS: DOCUSATE SODIUM 100 MG (COLACE) CAP PO SCH ×2 (09:28→20:01)
[2020-10-12] MEDS: NICOTINE PATCH REMOVAL TP SCH (09:29)
--- NOTE | 2020-10-12 09:30 | NUR ---
NICOTINE PATCH REMOVED FROM RIGHT UPPER ARM.
[2020-10-12] MEDS ORDERED: doxAzosin 2 MG (CARDURA) TAB PO NR (10:02)
[2020-10-12 10:30] VITALS: BP 162/67
--- NOTE | 2020-10-12 10:42 | Occupational Ther Daily Note ---
OT Current Status-Daily Note Subjective Pt agreeable to OT tx, she feels ready to go home. Mental Status/Objective Patient Orientation: Person, Place, Time, Situation ADL-Treatment Therapy Code Descriptions/Definitions Functional [place] Measure: 0=Not Assessed/NA 4=Minimal Assistance 1=Total Assistance 5=Supervision or Setup 2=Maximal Assistance 6=Modified [place] 3=Moderate Assistance 7=Complete IndependenceSCALE: Activities may be completed with or without assistive devices. 4-Zevsxfavqc-hrviqzw completes the activity by him/herself with no assistance from a helper. 5-Set-up or Clean-up Assistance-helper sets up or cleans up; patient completes activity. [place] assists only prior to or following the activity. 4-Supervision or Touching Assistance-helper provides verbal cues and/or touching/steadying and/or contact guard assistance as patient completes activity. Assistance may be provided throughout the activity or intermittently. 3-Partial/Moderate Assistance-helper does LESS THAN HALF the effort. [place] lifts, holds or supports trunk or limbs, but provides less than half the effort. 2-Substantial/Maximal Assistance-helper does MORE THAN HALF the effort. [place] lifts or holds trunk or limbs and provides more than half the effort. 1-Fvccspqmc-tpjqwc does ALL the effort. Patient does none of the effort to complete the activity. Or, the assistance of 2 or more helpers is required for the patient to complete the activity. If activity was not attempted, code reason: 7-Patient Refused. 9-Not Applicable-not attempted and the patient did not perform the activity be fore the current illness, exacerbation or injury. 10-Not Attempted due to Environmental Limitations-(lack of equipment, weather restraints, etc.). 88-Not Attempted due to Medical Conditions or Safety Concerns. Eating (QC): 5 (per clinical judgement and discussion with pt, pt requires assistance cutting food and opening containers.) Oral Hygiene (QC): 4 (supervision, pt standing at sink) Bathing Location: L Arm, R Arm, L Upper Leg, R Upper Leg, L Lower Leg (including foot), R Lower Leg (including foot), Chest, Abdomen, Buttocks, Perineal Area Shower/Bathe Self (QC): 4 (pt able to wash/dry all parts seated on [place], supervision in stand at [facility]) Upper Body Dressing (QC): 4 (SBA, pt donned/doffed overhead shirt in standing.) Lower Body Dressing (QC): 4 (SBA in stand, pt able to thread legs and perform pant hike.) On/Off Footwear: 5 (set up) Toileting Hygiene (QC): 6 (Independent.) Toilet Transfer (QC): 6 (Independent.) Other Treatment Pt seated in recliner, agreeable to OT tx. Pt used FWW to transfer into restroom to toilet. Pt completed toileting, then transferred to W[place]. Pt completed showering and dressing, then stood at sink for oral care. Pt performed functional mobility to laundry area where she started her laundry in the washer, then she went to therapy gym using FWW, SBA. In order to increase BUE strength, functional endurance and bilateral integration, pt completed x10 mins on arm bike, min-mod resistance. Pt then used FWW to return to her room. Post tx, pt seated in recliner, call light in reach and all needs met. Education OT Patient Education: Correct positioning, Exercise program, Modified ADL techniques, Progress toward Goal/Update tx plan, Purpose of tx/functional activities Teaching Recipient: Patient Teaching Methods: Discussion Response to Teaching: Verbalize Understanding OT Short Term Goals Short Term Goals Time Frame: Oct 15, 2020 Eatin Oral hygiene: 5 Upper body dressin Lower body dressin Putting on/taking off footwear: 5 OT Residential Goals Residential Goals Time Frame: Oct 22, 2020 Eating (QC): 6 (not met) Oral Hygiene (QC): 6 (not met) Toileting Hygiene (QC): 6 (met) Shower/Bathe Self (QC): 4 (met) Upper Body Dressing (QC): 6 (not met) Lower Body Dressing (QC): 6 (not met) On/Off Footwear (QC): 6 (not met) Additional Goals: 1-Demonstrate ADL Tasks, 2-Verbalize Understanding, 3- ImproveStrength/Libra 1=Demonstrate adherence to instructed precautions during ADL tasks. 2=Patient will verbalize/demonstrate understanding of assistive device s/modifications for ADL. 3=Patient will improve strength/tolerance for activity to enable patient to perform ADL's. OT Education/Plan Problem List/Assessment Assessment: Decreased Activ Tolerance, Decreased UE Strength, Impaired Funct Balance, Impaired I ADL's, Impaired Self-Care Skills, Restricted Funct UE ROM Discharge Recommendations Plan/Recommendations: Continue POC Treatment Plan/Plan of Care Patient would benefit from OT for education, treatment and training to promote independence in ADL's, mobility, safety and/or upper extremity function for ADL's. Plan of Care: ADL Retraining, Functional Mobility, UE Funct Exercise/Act Treatment Duration: Oct 22, 2020 Frequency: At least 5 of 7 days/Wk (IRF) Estimated Hrs Per Day: 1.5 hours per day Agreement: Yes Rehab Potential: Good Time/GCodes Start Time: 09:30 Stop Time: 10:30 Total Time Billed (hr/min): 60 Billed Treatment Time 1, ADL 3 (50'), EX (10') RICKI CARR OT Oct 12, 2020 10:42
--- NOTE | 2020-10-12 10:50 | Progress Note - Cardiology ---
Cardiology SOAP Progress Note Subjective: Sitting up in chair Feels her weakness is improving No c/o CP, palpitations, syncope, near syncope or dyspnea Objective: I&O/Vital Signs 10/12/20 10/12/20 10/12/20 05:50 05:52 09:33 Temp 35.4 Pulse 55 51 Resp 20 B/P (MAP) 184/80 (114) 168/80 (109) Pulse Ox 93 91 O2 Delivery Room Air Room Air O2 Flow Rate 0.00 10/12/20 00:00 Intake Total 680 ml Balance 680 ml Weight (Pounds): 201 Weight (Ounces): 0.0 Weight (Calculated Kilograms): 91.729004 Constitutional: AAO x 3, well-developed, other Respiratory: No accessory muscle use; other (good, bilateral air entry) Cardiovascular: regular rate-rhythm, S1 and S2, systolic murmur (soft LUIS MIGUEL at card base) Gastrointestional: No tender; soft; No guarding, No rebound; audible bowel s ounds Extremities: No clubbing, No cyanosis, No significant edema Neurologic/Psychiatric: oriented x 3, other (L-sided weakness of upper and lower limbs) Skin: warm/dry; No rash on exposed areas, No ulcerations on exposed areas A/P: Assessment: Severe hypertension 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 The right common carotid artery is widely patent. There is calcified plaque at the carotid bifurcations bilaterally but no significant stenosis is identified. Both distal internal carotid arteries demonstrate calcified plaque in the carotid siphons. Echocardiogram of 10-06-2020 showed LVEF 50-55%. 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 Elaine 3 months ago CKD 2 - follows with Dr. Kaya Cramer H/O TIA 26 yrs ago Toboccoism (1 PPD) - cessation advised GERD Probable COPD H/O bilat knee replacements Chronic back pain Hypothyroidism - replacement tx - management per medical services Plan: * Hypertension not well controlled * Has not received doses of BB d/t HR * Will add Cardura for BP control and reduce dose of BB * Anxiety likely contributing to htn. Dr Arellano managing anxiety * Monitor labs from time to time CHARLOTTE ALMAZAN Oct 12, 2020 10:50
--- NOTE | 2020-10-12 10:57 | Physical Therapy Daily Note ---
PT Daily Note-Current Subjective Pt R sidelying in bed upon arrival. Pt agrees to PT. Pt reports pain in back & RLE, radiating down. Pain Numeric Pain Scale: 7 Location: Right Location Body Site: Back Pain Description: Chronic Mental Status Patient Orientation: Person, Place, Situation Attachments: Oxygen (while laying but not needed while upright) Transfers SCALE: Activities may be completed with or without assistive devices. 4-Ppvvhunaec-cudwund completes the activity by him/herself with no assistance from a helper. 5-Set-up or Clean-up Assistance-helper sets up or cleans up; patient completes activity. [place] assists only prior to or following the activity. 4-Supervision or Touching Assistance-helper provides verbal cues and/or touching/steadying and/or contact guard assistance as patient completes activity. Assistance may be provided throughout the activity or intermittently. 3-Partial/Moderate Assistance-helper does LESS THAN HALF the effort. [place] lifts, holds or supports trunk or limbs, but provides less than half the effort. 2-Substantial/Maximal Assistance-helper does MORE THAN HALF the effort. [place] lifts or holds trunk or limbs and provides more than half the effort. 6-Awoegdbdg-qunnlz does ALL the effort. Patient does none of the effort to c omplete the activity. Or, the assistance of 2 or more helpers is required for the patient to complete the activity. If activity was not attempted, code reason: 7-Patient Refused. 9-Not Applicable-not attempted and the patient did not perform the activity before the current illness, exacerbation or injury. 10-Not Attempted due to Environmental Limitations-(lack of equipment, weather restraints, etc.). 88-Not Attempted due to Medical Conditions or Safety Concerns. Roll Left & Right (QC): 6 Sit to Lying (QC): 6 Lying to Sitting/Side of Bed(Q: 6 Sit to Stand (QC): 6 Chair/Jey-wh-Waqpm Xfer(QC): 6 Toilet Transfer (QC): 6 Car Transfer (QC): 6 Weight Bearing Full Weight Bearing Full Weight Bearing Gait Training Does the Patient Walk?: Yes Distance: 150' Walk 10 feet (QC): 6 Walk 50 ft with 2 Turns(QC): 6 Walk 150 ft (QC): 6 Walking 10ft/uneven surface-QC: 6 Gait Persons Needed: 1 Gait Assistive Device: FWW Wheelchair Training Does the Pt Use a Wheelchair?: No Stair Training Stair Training: Handrails/: 1 handrail #of Steps: 4 1 Step (curb) (QC): 5 4 Steps (QC): 5 12 Steps (QC): 7 Stairs: Pattern: Step to Pt does not have handrail at home and TOOL GRINDER SET UP OPERATOR GEAR discussed and will go over YEAST STACKER in PM tx. Balance Picking up an Object (QC): 6 Special Test Comments Pt has and is familiar with streetcar operator and how to use it. Exercises Seated Therapy Exercises: Ankle pumps, Long arc quads, Hip flexion, Kicking activity, Glut set Seated Reps: 15 Treatments Pt completes QC scoring items listed above for upcoming DC. Pt uses BR during tx and returns to room at end of tx to rest in bed due to fatigue and discomfort. All needs met, call light in hand. Assessment Current Status: Good Progress Pt is nervous but excited about DC. Pt has gained independence of tasks. PT Short Term Goals Short Term Goals Time Frame: Oct 14, 2020 Roll Left & Right: 6 Sit to lyin Lying to sitting on side of be: 6 Sit to stand: 4 (SBA) Chair/zdm-ae-dxbhw transfer: 4 (SBA) Walk 10 feet: 4 (SBA) Walk 50 feet with two turns: 4 (SBA) Walk 150 feet: 4 (SBA) PT Fpc Goals Commercial Green Building Designer Goals PT Commercial Green Building Designer Goals Time Frame: Oct 28, 2020 Roll Left & Right (QC): 6 Sit to Lying (QC): 6 Lying-Sitting on Side/Bed(QC): 6 Sit to Stand (QC): 6 Chair/Kod-xd-Psbxg Xfer(QC): 6 Toilet Transfer (QC): 6 Car Transfer (QC): 6 Does the Patient Walk: Yes Walk 10 feet (QC): 6 Walk 50ft with 2 Turns (QC): 6 Walk 150 ft (QC): 6 Walking 10ft on Uneven Surface: 6 1 Step (curb) (QC): 6 4 Steps (QC): 6 12 Steps (QC): 6 Picking up an Object (QC): 6 Wheel 50 feet with 2 turns (QC: 9 Wheel 150 feet: 9 PT Plan Problem List Problem List: Activity Tolerance Treatment/Plan Treatment Plan: Continue Plan of Care Treatment Plan: Bed Mobility, Education, Functional Activity Libra, Functional Strength, Group Therapy, Gait, Safety, Therapeutic Exercise, Transfers Treatment Duration: Oct 28, 2020 Frequency: At least 5 of 7 days/Wk (IRF) Estimated Hrs Per Day: 1.5 hours per day Patient and/or Family Agrees t: Yes Safety Risks/Education Patient Education: Steps, Issued Written HEP Teaching Recipient: Patient Response to Teaching: Verbalize Understanding Time/GCodes Time In: 800 Time Out: 900 Total Billed Treatment Time: 60 Total Billed Treatment 1, GT (20m), FA x2 (25m) & EX (15m) SUSI FOWLER TOOL GRINDER SET UP OPERATOR GEAR Oct 12, 2020 10:57
--- NOTE | 2020-10-12 11:00 | NUR ---
Hetal Recinos here to see patient, blood pressure meds readjusted, will continue to monitor.
[2020-10-12] MEDS: meTOproloL SUCCINATE 50 MG (TOPROL XL) TAB PO SCH ×2 (11:04→20:49)
--- NOTE | 2020-10-12 13:43 | NUR ---
CM/SS ADMISSION Patient was admitted to ARU from [facility] for CVA. Patient resides home alone and will be returning there upon discharge. Patient shared she has smoked since age 11 and she is now 70. PCP: HUSSEIN Wolf MD PHARMACY: [facility] INSURANCE: Medicare, [employer] DME: Has cane, standard walker, wheelchair. BARRIERS TO DISCHARGE: Patient has a tub only and stated she was concerned about accessing this safely for her bathing. Therapy educated/instructed patient on use of Tub Transfer Bench, this is not a covered item. Patient indicated she could afford to pay for this at $80/plus tax, tech writer has reserved one for her at [facility], she will seed cone picker after she is discharged. Patient stated she will have someone who can stay with her for a couple of weeks. She does not have handrails on her steps at home and therapy team worked with her to use one handrail in the gym. They have instructed her to have someone with her to steady her on her steps and she agreed to follow through on the recommendation. SERVICES: Patient is established with [facility] services through [facility] for 30 hours per week. She indicates she recently had a significant increase in her approved hours. This will resume once she returns home. Her caregiver is male, she stated she was not comfortable having a male assist her as a bath aid. However, after full discussion, she declined home health services (including bath aid) and requested outpatient therapy. CONTACTS: She Mcdermott, [place] [address] Arslan Meraz Friend/Other (ex spouse) [address] [place] [address] NO PHONE, uses patient's phone number for his personal messages/contacts Patient understood the purpose of the weekly patient care conference; however, she requested discharge to home tomorrow. Reviewed with therapy team and physician who all supported the request. Patient will discharge 10/13/20 to home with friend to stay 2 weeks to assist. Mr. Meraz will be her transportation, they will seed cone picker the tub transfer bench on the way home. OP THERAPY: Patient requested outpatient PT OT through [facility], will complete referral once orders received. Finalize discharge tomorrow.
--- NOTE | 2020-10-12 13:49 | Physical Therapy Daily Note ---
PT Daily Note-Current Subjective Pt sitting in recliner upon arrival. Pt agrees to PT. Pain Numeric Pain Scale: 5-Moderate Pain Location: Right Location Body Site: Hip Pain Description: Chronic Mental Status Patient Orientation: Person, Place, Time, Situation Transfers SCALE: Activities may be completed with or without assistive devices. 9-Eqiqbbgtbg-unsuazh completes the activity by him/herself with no assistance from a helper. 5-Set-up or Clean-up Assistance-helper sets up or cleans up; patient completes activity. [place] assists only prior to or following the activity. 4-Supervision or Touching Assistance-helper provides verbal cues and/or touching/steadying and/or contact guard assistance as patient completes activity. Assistance may be provided throughout the activity or intermittently. 3-Partial/Moderate Assistance-helper does LESS THAN HALF the effort. [place] lifts, holds or supports trunk or limbs, but provides less than half the effort. 2-Substantial/Maximal Assistance-helper does MORE THAN HALF the effort. [place] lifts or holds trunk or limbs and provides more than half the effort. 2-Mihhafnpw-ufkfsg does ALL the effort. Patient does none of the effort to complete the activity. Or, the assistance of 2 or more helpers is required for the patient to complete the activity. If activity was not attempted, code reason: 7-Patient Refused. 9-Not Applicable-not attempted and the patient did not perform the activity before the current illness, exacerbation or injury. 10-Not Attempted due to Environmental Limitations-(lack of equipment, weather restraints, etc.). 88-Not Attempted due to Medical Conditions or Safety Concerns. Sit to Stand (QC): 6 Toilet Transfer (QC): 6 Weight Bearing Full Weight Bearing Full Weight Bearing Gait Training Does the Patient Walk?: Yes Distance: 150' x2 Walk 10 feet (QC): 5 Walk 50 ft with 2 Turns(QC): 5 Walk 150 ft (QC): 5 Gait Persons Needed: 1 Gait Assistive Device: FWW Stair Training #of Steps: 4 1 Step (curb) (QC): 4 4 Steps (QC): 4 12 Steps (QC): 7 Stairs: Pattern: Step to CUSTOMER SUCCESS DIRECTOR gives VC for sequencing due to anxiety. Treatments Pt TF to standing and amb. in hallway. Pt attempts stairs at [facility]. Pt amb. in hallway before returning to room. Pt uses BR then rests in recliner. All needs met, call light in hand. Assessment Current Status: Good Progress Pt has improved with activity lauren. and independence of tasks. PT Short Term Goals Short Term Goals Time Frame: Oct 14, 2020 Roll Left & Right: 6 Sit to lyin Lying to sitting on side of be: 6 Sit to stand: 4 (SBA) Chair/osp-pu-lwvdk transfer: 4 (SBA) Walk 10 feet: 4 (SBA) Walk 50 feet with two turns: 4 (SBA) Walk 150 feet: 4 (SBA) PT Filling Operator Goals Retirement Goals PT Retirement Goals Time Frame: Oct 28, 2020 Roll Left & Right (QC): 6 Sit to Lying (QC): 6 Lying-Sitting on Side/Bed(QC): 6 Sit to Stand (QC): 6 Chair/Vjb-so-Cjvzp Xfer(QC): 6 Toilet Transfer (QC): 6 Car Transfer (QC): 6 Does the Patient Walk: Yes Walk 10 feet (QC): 6 Walk 50ft with 2 Turns (QC): 6 Walk 150 ft (QC): 6 Walking 10ft on Uneven Surface: 6 1 Step (curb) (QC): 6 4 Steps (QC): 6 12 Steps (QC): 6 Picking up an Object (QC): 6 Wheel 50 feet with 2 turns (QC: 9 Wheel 150 feet: 9 PT Plan Treatment/Plan Treatment Plan: Continue Plan of Care Treatment Plan: Bed Mobility, Education, Functional Activity Libra, Functional Strength, Group Therapy, Gait, Safety, Therapeutic Exercise, Transfers Treatment Duration: Oct 28, 2020 Frequency: At least 5 of 7 days/Wk (IRF) Estimated Hrs Per Day: 1.5 hours per day Patient and/or Family Agrees t: Yes Safety Risks/Education Patient Education: Steps, Correct Positioning, Safety Issues Teaching Recipient: Patient Teaching Methods: Discussion Response to Teaching: Verbalize Understanding Time/GCodes Time In: 1300 Time Out: 1330 Total Billed Treatment Time: 30 Total Billed Treatment 1, FA (15m) & GT (15m) SUSI FOWLER CUSTOMER SUCCESS DIRECTOR Oct 12, 2020 13:49
--- NOTE | 2020-10-12 14:30 | Occupational Ther Daily Note ---
OT Current Status-Daily Note Subjective No pain reported. Appearance Pt. up in chair. Agrees to work with OT. Mental Status/Objective Patient Orientation: Person, Place, Time, Situation ADL-Treatment Therapy Code Descriptions/Definitions Functional [place] Measure: 0=Not Assessed/NA 4=Minimal Assistance 1=Total Assistance 5=Supervision or Setup 2=Maximal Assistance 6=Modified [place] 3=Moderate Assistance 7=Complete IndependenceSCALE: Activities may be completed with or without assistive devices. 1-Npjfkellby-giygknd completes the activity by him/herself with no assistance from a helper. 5-Set-up or Clean-up Assistance-helper sets up or cleans up; patient completes activity. [place] assists only prior to or following the activity. 4-Supervision or Touching Assistance-helper provides verbal cues and/or touching/steadying and/or contact guard assistance as patient completes activity. Assistance may be provided throughout the activity or intermittently. 3-Partial/Moderate Assistance-helper does LESS THAN HALF the effort. [place] lifts, holds or supports trunk or limbs, but provides less than half the effort. 2-Substantial/Maximal Assistance-helper does MORE THAN HALF the effort. [place] lifts or holds trunk or limbs and provides more than half the effort. 4-Tkmrliisw-ukaslw does ALL the effort. Patient does none of the effort to complete the activity. Or, the assistance of 2 or more helpers is required for the patient to complete the activity. If activity was not attempted, code reason: 7-Patient Refused. 9-Not Applicable-not attempted and the patient did not perform the activity before the current illness, exacerbation or injury. 10-Not Attempted due to Environmental Limitations-(lack of equipment, weather restraints, etc.). 88-Not Attempted due to Medical Conditions or Safety Concerns. Other Treatment Pt. stood independently, and ambulated with walker with SBA to therapy gym. Pt. tolerated series of fine motor tasks to improve strengthening and coordination. She tolerated threading beads, chaining paper clips, opening pill bottles, and picking up small beads with pincer grasp. Pt. utilized left UE for this and does report that while she has made improvements, she does still notice weakness in left hand. Pt. is educated on specific exercises that she can do at home for continued strengthening. Pt. verbalizes understanding. Pt. ambulates back to room with SBA, and transfers to bed with independence. All needs met. Education OT Patient Education: Correct positioning, Progress toward Goal/Update tx plan, Purpose of tx/functional activities, Reviewed precautions, Rehab process, Transfer techniques Teaching Recipient: Patient Teaching Methods: Demonstration, Discussion Response to Teaching: Verbalize Understanding, Return Demonstration OT Short Term Goals Short Term Goals Time Frame: Oct 15, 2020 Eatin Oral hygiene: 5 Upper body dressin Lower body dressin Putting on/taking off footwear: 5 OT Detention Goals Waiter/Waitress Room Service Goals Time Frame: Oct 22, 2020 Eating (QC): 6 (not met) Oral Hygiene (QC): 6 (not met) Toileting Hygiene (QC): 6 (met) Shower/Bathe Self (QC): 4 (met) Upper Body Dressing (QC): 6 (not met) Lower Body Dressing (QC): 6 (not met) On/Off Footwear (QC): 6 (not met) Additional Goals: 1-Demonstrate ADL Tasks, 2-Verbalize Understanding, 3- ImproveStrength/Libra 1=Demonstrate adherence to instructed precautions during ADL tasks. 2=Patient will verbalize/demonstrate understanding of assistive devices/modifications for ADL. 3=Patient will improve strength/tolerance for activity to enable patient to perform ADL's. OT Education/Plan Problem List/Assessment Assessment: Decreased Activ Tolerance, Decreased UE Strength, Impaired Co ordination Discharge Recommendations Plan/Recommendations: Continue POC Therapy Discharge Recommendati: Home & Family, Post Acute OT Treatment Plan/Plan of Care Treatment,Training & Education: Yes Patient would benefit from OT for education, treatment and training to promote independence in ADL's, mobility, safety and/or upper extremity function for ADL's. Plan of Care: ADL Retraining, Functional Mobility, UE Funct Exercise/Act Treatment Duration: Oct 22, 2020 Frequency: At least 5 of 7 days/Wk (IRF) Estimated Hrs Per Day: 1.5 hours per day Agreement: Yes Rehab Potential: Good Time/GCodes Start Time: 13:35 Stop Time: 14:05 Total Time Billed (hr/min): 30 Billed Treatment Time 1, FA x 2 FRANCOIS LOOMIS OT Oct 12, 2020 14:30
[2020-10-12 16:25] VITALS: BP 149/69
[2020-10-12] MEDS: ALPRAZolam 0.5 MG (XANAX) TAB PO PRN (16:39)
[2020-10-12] MEDS: ENOXAPARIN 40 MG/0.4 ML (LOVENOX) SYR SC SCH (17:51)
[2020-10-12] MEDS: traZODone 150 MG (DESYREL) TABLET PO SCH (20:47)
[2020-10-12] MEDS: lisINopril 20 MG (PRINIVIL) TABLET PO SCH (20:48)
[2020-10-12] MEDS: doxAzosin 2 MG (CARDURA) TAB PO SCH (20:48)
[2020-10-12] MEDS ORDERED: meTOproloL SUCCINATE 50 MG (TOPROL XL) TAB PO SCH (21:00)
[2020-10-13] MEDS ORDERED: LISI-552 PO (05:57)
[2020-10-13] MEDS ORDERED: AMLO-251 PO (05:57)
[2020-10-13] MEDS ORDERED: ALPR0.5T7 PO (05:57)
[2020-10-13] MEDS ORDERED: METO50TA7 PO (05:57)
[2020-10-13] MEDS ORDERED: DOXA2TAB2 PO (05:57)
--- NOTE | 2020-10-13 05:59 | Discharge Summary ---
Diagnosis/Chief Complaint Date of Admission Oct 07, 2020 at 13:30 Date of Discharge Discharge Date: Oct 13, 2020 Discharge Diagnosis Assessment: CVA with left sided weakness presented to ER 4 days after symptoms HTN Smoker HLP Chronic pain Narcotic dependence Panic attacks Plan: IRF protocol Appreciate Dr Munguia Statin ASA 10/08/20: Monitor BP IRF protocol Checked meds 10/09/20: Monitor for panic attacks Monitor closely BP management 10/10/20: Urinary retention/frequency check UA Monitor labs in am 10/11/20: Monitor panic attacks Home soon since she has help at home 10/12/20: Monitor BP Continue aggressive therapy (1) CVA (cerebral vascular accident) Status: Acute (2) Status post placement of implantable loop recorder (3) Chronic pain Status: Chronic (4) GERD (gastroesophageal reflux disease) (5) Hypothyroidism (6) Depression Status: Chronic (7) CKD (chronic kidney disease) Status: Chronic (8) HTN (hypertension) Status: Chronic (9) Anemia Status: Chronic (10) Smoker Discharge Summary Discharge Physical Examination Allergies: Coded Allergies: acetaminophen (Verified Allergy, Severe, throat swells, 03/24/20) nalbuphine (Verified Allergy, Severe, ANAPHYLAXIS, 03/24/20) oxycodone (Verified Allergy, Severe, throat swells, PT TOLERATES HYDROCODONE, 01/31/17) suvorexant (Verified Allergy, Severe, ANAPHYLAXIS, 03/24/20) sulfamethoxazole (Verified Allergy, Mild, HIVES, 03/24/20) trimethoprim (Verified Allergy, Mild, HIVES, 03/24/20) Vitals & I&Os Vital Signs Date Time Temp Pulse Resp B/P (MAP) Pulse Ox O2 Delivery O2 Flow Rate FiO2 10/13/20 15:25 35.7 55 16 128/59 96 Room Air 0.00 General Appearance: Alert, Oriented X3, Cooperative Respiratory: Clear to Auscultation Cardiovascular: Regular Rate Neuro: Normal Gait Hospital Course Was the Problem List Reviewed?: Yes Hospital Course: Pt had an uneventful hospital course for seven days after admitted for stroke, suffering left sided weakness. Pt was able to regain a lot more function, participated in all therapies that were required. She overall did very well, smoking cessation counseled, BP more under control with aggressive medications initiated by cardiology. Loop recorded was placed and pt was deemed stable for inpatient rehab DC to home. Labs (last 24 hrs) Laboratory Tests 10/08/20 09:15: White Blood Count 5.6, Red Blood Count 4.02, Hemoglobin 12.8, Hematocrit 40, Mean Corpuscular Volume 99, Mean Corpuscular Hemoglobin 32, Mean Corpuscular Hemoglobin Concent 32, Red Cell Distribution Width 13.1, Platelet Count 259, Mean Platelet Volume 10.2, Immature Granulocyte % (Auto) 0, Neutrophils (%) (Auto) 67, Lymphocytes (%) (Auto) 23, Monocytes (%) (Auto) 5, Eosinophils (%) (Auto) 4, Basophils (%) (Auto) 1, Neutrophils # (Auto) 3.8, Lymphocytes # (Auto) 1.3, Monocytes # (Auto) 0.3, Eosinophils # (Auto) 0.2, Basophils # (Auto) 0.1, Immature Granulocyte # (Auto) 0.0, Sodium Level 137, Potassium Level 3.8, Chloride Level 102, Carbon Dioxide Level 27, Anion Gap 8, Blood Urea Nitrogen 18, Creatinine 0.98, Estimat Glomerular Filtration Rate 56, BUN/Creatinine Ratio 18, Glucose Level 166H, Calcium Level 8.8, Corrected Calcium 9.0, Total Bilirubin 0.6, Aspartate Amino Transf (AST/SGOT) 47H, Alanine Aminotransferase (ALT/SGPT) 39, Alkaline Phosphatase 75, Total Protein 7.4, Albumin 3.8 10/10/20 15:30: Urine Color YELLOW, Urine Clarity CLEAR, Urine pH 7.5, Urine Specific Clear 1.015L, Urine Protein NEGATIVE, Urine Glucose (UA) NEGATIVE, Urine Ketones NEGATIVE, Urine Nitrite NEGATIVE, Urine Bilirubin NEGATIVE, Urine Urobilinogen 1.0, Urine Leukocyte Esterase NEGATIVE, Urine RBC (Auto) NEGATIVE, Urine RBC NONE, Urine WBC 0-2, Urine Squamous Epithelial Cells RARE, Urine Crystals NONE, Urine Bacteria FEWH, Urine Casts NONE, Urine Mucus NEGATIVE, Urine Culture Indicated NO 10/11/20 07:20: White Blood Count 5.2, Red Blood Count 4.22, Hemoglobin 13.4, Hematocrit 41, Mean Corpuscular Volume 97, Mean Corpuscular Hemoglobin 32, Mean Corpuscular Hemoglobin Concent 33, Red Cell Distribution Width 12.9, Platelet Count 268, Mean Platelet Volume 10.2, Immature Granulocyte % (Auto) 0, Neutrophils (%) (Auto) 51, Lymphocytes (%) (Auto) 35, Monocytes (%) (Auto) 8, Eosinophils (%) ( Auto) 5, Basophils (%) (Auto) 1, Neutrophils # (Auto) 2.6, Lymphocytes # (Auto) 1.8, Monocytes # (Auto) 0.4, Eosinophils # (Auto) 0.2, Basophils # (Auto) 0.1, Immature Granulocyte # (Auto) 0.0, Sodium Level 138, Potassium Level 4.3, Chloride Level 99, Carbon Dioxide Level 31, Anion Gap 8, Blood Urea Nitrogen 15, Creatinine 0.99, Estimat Glomerular Filtration Rate 55, BUN/Creatinine Ratio 15, Glucose Level 115H, Calcium Level 8.9, Corrected Calcium 9.0, Total Bilirubin 0.4, Aspartate Amino Transf (AST/SGOT) 77H, Alanine Aminotransferase (ALT/SGPT) 65H, Alkaline Phosphatase 81, Total Protein 7.4, Albumin 3.9 Pending Labs Laboratory Tests 10/08/20 09:15: White Blood Count 5.6, Red Blood Count 4.02, Hemoglobin 12.8, Hematocrit 40, Mean Corpuscular Volume 99, Mean Corpuscular Hemoglobin 32, Mean Corpuscular Hemoglobin Concent 32, Red Cell Distribution Width 13.1, Platelet Count 259, Mean Platelet Volume 10.2, Immature Granulocyte % (Auto) 0, Neutrophils (%) (Auto) 67, Lymphocytes (%) (Auto) 23, Monocytes (%) (Auto) 5, Eosinophils (%) (A uto) 4, Basophils (%) (Auto) 1, Neutrophils # (Auto) 3.8, Lymphocytes # (Auto) 1.3, Monocytes # (Auto) 0.3, Eosinophils # (Auto) 0.2, Basophils # (Auto) 0.1, Immature Granulocyte # (Auto) 0.0, Sodium Level 137, Potassium Level 3.8, Chloride Level 102, Carbon Dioxide Level 27, Anion Gap 8, Blood Urea Nitrogen 18, Creatinine 0.98, Estimat Glomerular Filtration Rate 56, BUN/Creatinine Ratio 18, Glucose Level 166, Calcium Level 8.8, Corrected Calcium 9.0, Total Bilirubin 0.6, Aspartate Amino Transf (AST/SGOT) 47, Alanine Aminotransferase (ALT/SGPT) 39, Alkaline Phosphatase 75, Total Protein 7.4, Albumin 3.8 10/10/20 15:30: Urine Color YELLOW, Urine Clarity CLEAR, Urine pH 7.5, Urine Specific Clear 1.015, Urine Protein NEGATIVE, Urine Glucose (UA) NEGATIVE, Urine Ketones NEGATIVE, Urine Nitrite NEGATIVE, Urine Bilirubin NEGATIVE, Urine Urobilinogen 1.0, Urine Leukocyte Esterase NEGATIVE, Urine RBC (Auto) NEGATIVE, Urine RBC NONE, Urine WBC 0-2, Urine Squamous Epithelial Cells RARE, Urine Crystals NONE, Urine Bacteria FEW, Urine Casts NONE, Urine Mucus NEGATIVE, Urine Culture Indicated NO 10/11/20 07:20: White Blood Count 5.2, Red Blood Count 4.22, Hemoglobin 13.4, Hematocrit 41, Mean Corpuscular Volume 97, Mean Corpuscular Hemoglobin 32, Mean Corpuscular Hemoglobin Concent 33, Red Cell Distribution Width 12.9, Platelet Count 268, Mean Platelet Volume 10.2, Immature Granulocyte % (Auto) 0, Neutrophils (%) (Auto) 51, Lymphocytes (%) (Auto) 35, Monocytes (%) (Auto) 8, Eosinophils (%) (Auto) 5, Basophils (%) (Auto) 1, Neutrophils # (Auto) 2.6, Lymphocytes # (Auto) 1.8, Monocytes # (Auto) 0.4, Eosinophils # (Auto) 0.2, Basophils # (Auto) 0.1, Immature Granulocyte # (Auto) 0.0, Sodium Level 138, Potassium Level 4.3, Chloride Level 99, Carbon Dioxide Level 31, Anion Gap 8, Blood Urea Nitrogen 15, Creatinine 0.99, Estimat Glomerular Filtration Rate 55, BUN/Creatinine Ratio 15, Glucose Level 115, Calcium Level 8.9, Corrected Calcium 9.0, Total Bilirubin 0.4, Aspartate Amino Transf (AST/SGOT) 77, Alanine Aminotransferase (ALT/SGPT) 65, Alkaline Phosphatase 81, Total Protein 7.4, Albumin 3.9 Discharge Home Medications: Active Scripts Active Alprazolam 0.5 Mg Tablet 0.5 Mg PO Q4HR PRN Lisinopril 20 Mg Tablet 40 Mg PO HS Amlodipine Besylate 10 Mg Tablet 10 Mg PO DAILY Metoprolol Succinate 50 Mg Tab.er.24h 50 Mg PO BID Doxazosin Mesylate 2 Mg Tablet 2 Mg PO BID Aspirin EC (Aspirin) 325 Mg Tablet.dr 325 Mg PO DAILY Lipitor (Atorvastatin Calcium) 40 Mg Tablet 40 Mg PO HS Reported Miralax (Polyethylene Glycol 3350) 17 Gm Powd.pack 17 Gm PO DAILY PRN Omeprazole 20 Mg Capsule.dr 20 Mg PO DAILY Baclofen 10 Mg Tablet 10 Mg PO Q8H PRN Hydrocodone-Acetamin 7.5-325 (Hydrocodone/Acetaminophen) 1 Each Tablet 1 Ea PO Q8H PRN Levothyroxine Sodium 175 Mcg Tablet 175 Mcg PO DAILY Multivitamin 1 Each Tablet 1 Each PO DAILY Apple Cider Vinegar (Cider Vinegar) 300 Mg Tablet 300 Mg PO DAILY Stool Softener (Docusate Sodium) 100 Mg Tablet 100 Mg PO DAILY PRN Vitamin D3 (Cholecalciferol (Vitamin D3)) 25 Mcg Capsule 25 Mcg PO DAILY Morphine Sulfate ER (Morphine Sulfate) 30 Mg Tablet.er 30 Mg PO BID Trazodone HCl 150 Mg Tablet 150 Mg PO HS Escitalopram Oxalate 20 Mg Tablet 20 Mg PO HS Vitamin B12 (Cyanocobalamin (Vitamin B-12)) 2,500 Mcg Tablet 2,500 Mcg PO DAILY Instructions to patient/family Please see electronic discharge instructions given to patient. Diagnosis/Problems Diagnosis/Problems (1) CVA (cerebral vascular accident) Status: Acute Qualifiers: Qualified Codes: I63.9 - Cerebral infarction, unspecified (2) Status post placement of implantable loop recorder (3) Chronic pain Status: Chronic (4) GERD (gastroesophageal reflux disease) (5) Hypothyroidism (6) Depression Status: Chronic (7) CKD (chronic kidney disease) Status: Chronic (8) HTN (hypertension) Status: Chronic (9) Anemia Status: Chronic (10) Smoker Clinical Quality Measures DVT/VTE Risk/Contraindication: Risk Factor Score Per Nursin RFS Level Per Nursing on Admit: 3=High PATSY HILLS DO Oct 13, 2020 05:59
[2020-10-13 06:05] VITALS: BP 118/59
[2020-10-13] MEDS: HYDROcodone/APAP 7.5 MG/325 MG (LORTAB, LORCET PLUS) TABLET PO PRN (06:14)
[2020-10-13] MEDS: MULTIVIT W/MINERALS TAB (THERAGRAN M) PO SCH (06:14)
[2020-10-13] MEDS: LEVOTHYROXINE 75 MCG (LEVOTHROID) TABLET PO SCH (06:14)
[2020-10-13] MEDS: CYANOCOBALAMIN 1,000 MCG (VITAMIN B-12) TABLET PO SCH (06:14)
[2020-10-13] MEDS: LEVOTHYROXINE 100 MCG (LEVOTHROID) TAB PO SCH (06:14)
[2020-10-13 08:37] VITALS: BP 128/59
[2020-10-13] MEDS: ASPIRIN E.C. 325 MG (ECOTRIN) TABLET PO SCH (08:38)
[2020-10-13] MEDS: amLODIPine 10 MG (NORVASC) TAB PO SCH (08:38)
[2020-10-13] MEDS: morphine ER 30 MG (MS CONTIN) TAB PO SCH (08:39)
[2020-10-13] MEDS: NICOTINE 21 MG (NICODERM) PATCH TD SCH (08:39)
[2020-10-13] MEDS: meTOproloL SUCCINATE 50 MG (TOPROL XL) TAB PO SCH (08:39)
[2020-10-13] MEDS: doxAzosin 2 MG (CARDURA) TAB PO SCH (08:39)
[2020-10-13] MEDS: polyethylene glycoL POWDER 17 GM (MIRALAX) PACK PO SCH (08:39)
[2020-10-13] MEDS: PANTOPRAZOLE 20 MG TABLET (PROTONIX) PO SCH (08:39)
[2020-10-13] MEDS: VITAMIN D3 25 MCG (1,000 UNITS) TABLET PO SCH (08:39)
[2020-10-13] MEDS: DOCUSATE SODIUM 100 MG (COLACE) CAP PO SCH (08:39)
[2020-10-13] MEDS: SENNA W/DOCUSATE (SENOKOT S) TABLET PO SCH (08:40)
[2020-10-13] MEDS: NICOTINE PATCH REMOVAL TP SCH (08:40)
--- NOTE | 2020-10-13 10:15 | NUR ---
CM/SS DISCHARGE Patient discharged home as planned. IMM2 presented, reviewed, signed, charted. OUTPATIENT THERAPY: Referral completed with [facility], they will contact patient directly to schedule sessions. Patient updated re same. Unit RN aware of timelines, she will instruct patient to call her ride when they are within one hour of departure. Addendum: 10/13/20 at 1018 by TARIK WHITTINGTON Patient's cell phone number: [phone] Home phone is [phone]
[2020-10-13] MEDS: ONDANSETRON 4 MG (ZOFRAN) ORAL DISSOLVE TAB PO PRN (10:53)
--- NOTE | 2020-10-13 14:50 | Therapy Team Discharge Summary ---
Therapy Discharge Summary Discharge Recommendations Date of Discharge Occupational Therapy Pt admitted to [facility]U s/p CVA. At [facility], pt had [facility] services to assist her as needed with ADLS, they performed cooking and cleaning and were present when pt completed showering and dressing. At evaluation, pt required SBA with eating, SBA oral care, CGA showering, set up upper body dressing, CGA lower body dressing, SBA footwear, and CGA toileting. OT txs focus on increasing safety and independence with ADLS and functional mobility, as well as increasing functional use of LUE. At discharge, pt required set up assistance with eating, supervision with oral care, supervision showering, SBA upper body dressing, SBA lower body dressing, set up footwear, and was independent with toileting. Pt made functional progress towards goals, and met goals of SBA with showering, and independent with toileting. OT recommends for pt to obtain a bath bench. Pt discharged from facility on this date, d/c from OT at this time. Decreased Activ Tolerance, Decreased UE Strength, Impaired Coordination PT Personal Banking Representative Goals Half-Way Goals PT Personal Banking Representative Goals Time Frame: Oct 28, 2020 Roll Left to Right (QC): 6 Sit to Lying (QC): 6 Lying-Sitting on Side/Bed(QC): 6 Sit to Stand (QC): 6 Chair/Xre-sf-Fxxmn Xfer(QC): 6 Car Transfer (QC): 6 Does the Patient Walk: Yes Walk 10 feet (QC): 6 Walk 10ft-Uneven Surface(QC): 6 Walk 50ft with 2 Turns (QC): 6 Walk 150 ft (QC): 6 Wheel 50 feet with 2 turns (QC: 9 1 Step (curb) (QC): 6 4 Steps (QC): 6 12 Steps (QC): 6 Picking up an Object (QC): 6 OT Half-Way Goals Half-Way Goals Time Frame: Oct 22, 2020 Eating (QC): 6 (not met) Oral Hygiene (QC): 6 (not met) Shower/Bathe Self (QC): 4 (met) Upper Body Dressing (QC): 6 (not met) Lower Body Dressing (QC): 6 (not met) On/Off Footwear (QC): 6 (not met) Toileting Hygiene (QC): 6 (met) Toilet/Commode Transfer (QC): 6 Additional Goals: 1-Demonstrate ADL Tasks, 2-Verbalize Understanding, 3- ImproveStrength/Libra 1=Demonstrate adherence to instructed precautions during ADL tasks. 2=Patient will verbalize/demonstrate understanding of assistive devices/modifications for ADL. 3=Patient will improve strength/tolerance for activity to enable patient to perform ADL's. RICKI CARR OT Oct 13, 2020 14:50
[2020-10-13 15:25] VITALS: BP 128/59
== END 2020-10-13 13:50 | disposition home or self-care (01) | DRG 57 ==
PROVIDERS: ADMIT Internal Medicine; ATTEND Internal Medicine
DX: I69.354 Hemiplegia and hemiparesis following cerebral infarction affecting left non-dominant side (principal); I69.392 Facial weakness following cerebral infarction; I12.9 Hypertensive chronic kidney disease with stage 1 through stage 4 chronic kidney disease, or unspecified chronic kidney disease; N18.2 Chronic kidney disease, stage 2 (mild); G89.29 Other chronic pain; F17.210 Nicotine dependence, cigarettes, uncomplicated; K21.9 Gastro-esophageal reflux disease without esophagitis; E03.9 Hypothyroidism, unspecified; F32.9 Major depressive disorder, single episode, unspecified; F41.0 Panic disorder [episodic paroxysmal anxiety]; R33.9 Retention of urine, unspecified; R35.0 Frequency of micturition; E78.5 Hyperlipidemia, unspecified; D64.9 Anemia, unspecified; R01.1 Cardiac murmur, unspecified; M19.91 Primary osteoarthritis, unspecified site; H40.9 Unspecified glaucoma; Z79.82 Long term (current) use of aspirin; Z88.6 Allergy status to analgesic agent; Z88.2 Allergy status to sulfonamides; Z82.3 Family history of stroke; Z82.49 Family history of ischemic heart disease and other diseases of the circulatory system; Z83.3 Family history of diabetes mellitus; Z83.6 Family history of other diseases of the respiratory system; Z83.49 Family history of other endocrine, nutritional and metabolic diseases
CPT/HCPCS: 36415; 80053; 81000; 85025; 93005

== ENCOUNTER → 2020-12-14 | Outpatient (CLI) | payer MEDICARE, MEDICAID ==
[~2020-12-14] VITALS: Ht 167 cm; Wt 91.0 kg
[~2020-12-14] MED LIST changes: +ALPR0.5T7 PO; +AMLO-251 PO; +CATHETER FLUSH 10 ML SYR IV PRN; +DOXA2TAB2 PO; +ESCI20TA39 PO; -ESCI20TA45 PO; -HOLD METFORMIN - RECEIVED CONTRAST 20 ML VIAL IV SCH; -LISI-552 PO; -LISI10TA2 PO; +LISI10TA25 PO; +LISI20TA26 PO; +REGADENOSON 0.4 MG/5 ML SYR (LEXISCAN) IV ONE
[2020-12-14 09:49] VITALS: BP 174/84
--- NOTE | 2020-12-17 13:14 | STRESS TEST ---
DATE OF SERVICE: 12/14/2020 RESTING AND POST REGADENOSON TECHNETIUM-99M TETROFOSMIN SPECT CT IMAGING ORDERING PHYSICIAN: Dr. Munguia. PRIMARY PHYSICIAN: Dr. Arellano. CLINICAL DIAGNOSIS: Chest discomfort. Baseline images were carried out after injection of 10.16 mCi of technetium-99m Tetrofosmin. This was followed by 0.4 mg regadenoson and 29.1 mCi of technetium-99m Tetrofosmin for stress imaging. The electrocardiogram showed sinus rhythm at baseline. There was sinus arrhythmia. The electrocardiogram did not change significantly with regadenoson infusion. The patient noted some shortness of breath and nausea, which resolved in a few minutes. Review of images at rest and following stress does not indicate any significant perfusion defects consistent with myocardial ischemia or infarction. Gated images show normal global left ventricular systolic function with normal regional wall motion. Left ventricular ejection fraction is calculated to be 61%. Left ventricular end diastolic volume is 67 mL. TID is absent (1.09). CONCLUSIONS: 1. No evidence of any significant myocardial ischemia or infarction. 2. Normal regional wall motion. 3. Normal global left ventricular systolic function with a calculated ejection fraction of 61%. Job ID: [id number] DocumentID: [id number] Dictated Date: 12/17/2020 10:08:44 Business Excellence Manager Date: 12/17/2020 13:13:37 Dictated By: LAURA MUNGUIA MD, MA, FACP, FACC,
== END ==
LOC: CARD 08:15
PROVIDERS: ATTEND Internal Medicine Cardiovascular Disease
DX: R07.89 Other chest pain (principal)
CPT/HCPCS: 78452; 93017; A9502